=== PATIENT | female | born 1945 | race Caucasian/White ===

== ENCOUNTER → 2017-08-09 07:13 | Outpatient (CLI) | payer OTHER, SELFPAY ==
[2017-08-09 09:06] LABS: AST(SGOT) 24 U/L (15-37); Alanine Aminotransfer ALT/SGPT 25 U/L (13-56); Albumin, Serum 3.6 g/dL (3.2-5.0); Alkaline Phosphatase 74 U/L (45-117); Bilirubin, Direct 0.12 mg/dL (0.00-0.30); Cholesterol 143 mg/dL (200); Globulin 3.3 g/dL (2.2-4.2); High Density Lipoprotein 54 mg/dL; Protein, Total 6.9 g/dL (6.4-8.2); Triglycerides 86 mg/dL; Very Low Density Lipoprotein 17 mg/dL (5-40)
--- NOTE | 2017-08-09 14:49 | ECHOD_ITS ---
Reason For Study: CAD/ASHD Procedure This was a 2D Doppler, Color Flow transthoracic echocardiogram. Exam performed in department. Left Ventricle Normal LV size. Left ventricular systolic function is normal. The estimated ejection fraction is 65 %. Transmitral diastolic flow velocities suggest mild (stage 1) diastolic dysfunction (reversed pattern). No regional wall motion abnormalities noted. Right Ventricle Normal RV size. Normal systolic function. Atria Normal left atrium. Normal right atrium. Mitral Valve Normal mitral valve. Mild (1+) eccentric mitral valve insufficiency. Tricuspid Valve Normal tricuspid valve. Trivial tricuspid valve insufficiency. Normal pulmonary artery pressure. Aortic Valve Normal aortic valve. Trisinus/trileaflet aortic valve. Pulmonic Valve Normal pulmonic valve. Great Vessels Normal aortic root. The pulmonary artery is normal size. Normal inferior vena cava. Pericardium/Pleural No pericardial effusion. MMode/2D Measurements & Calculations LVIDd: 3.7 cm IVSd: 1.2 cm Ao root diam: 3.3 cm LVIDs: 2.0 cm LVPWd: 0.93 cm LA dimension: 3.7 cm FS: 45.0 % LAV(MOD-bp): 57.2 ml LA A4 area: 18.7 cm2 RA A4 area: 13.6 cm2 LAV(MOD-bp) Indexed: 29.5 ml/m2 LAV(MOD-sp2): 62.9 ml LAV(MOD-sp4): 52.6 ml Time Measurements MV dec time: 0.23 sec Doppler Measurements & Calculations MV E max young: 77.1 cm/sec Lat Peak E' Young: 11.3 cm/sec Med Peak E' Young: 9.8 cm/sec MV A max young: 98.7 cm/sec E/E' lat: 6.8 E/E' med: 7.9 MV E/A: 0.78 MV V2 max: 108.8 cm/sec MV P1/2t max young: 99.2 cm/sec Ao V2 max: 149.3 cm/sec MV max P.7 mmHg MV P1/2t: 75.3 msec Ao max P.9 mmHg MV V2 mean: 59.1 cm/sec MV dec slope: 386.0 cm/sec2 Ao V2 mean: 89.2 cm/sec MV mean P.7 mmHg MVA(P1/2t): 2.9 cm2 Ao mean P.8 mmHg MV V2 VTI: 31.2 cm Ao V2 VTI: 29.1 cm LV V1 max: 107.3 cm/sec PA V2 max: 110.7 cm/sec LV V1 max P.6 mmHg LV V1 mean P.1 mmHg LV V1 mean: 65.7 cm/sec LV V1 VTI: 24.9 cm Interpretation Summary Normal LV size. Left ventricular systolic function is normal. The estimated ejection fraction is 65 %. Transmitral diastolic flow velocities suggest mild (stage 1) diastolic dysfunction (reversed pattern). Structurally normal valves. Ordering Physician: Jin Ellis Referring Physician: Jin Ellis Performed By: Landen Simpson RCS
== END ==
PROVIDERS: Family Provider Student in an Organized Health Care Education/Training Program; PCP Student in an Organized Health Care Education/Training Program; Visit Provider Internal Medicine Cardiovascular Disease
DX: I25.10 Atherosclerotic heart disease of native coronary artery without angina pectoris (principal); E78.5 Hyperlipidemia, unspecified
CPT/HCPCS: 36415; 80061; 80076; 93306

== ENCOUNTER → 2017-08-11 06:06 | Outpatient (CLI) | payer OTHER, SELFPAY ==
--- NOTE | 2017-08-11 09:23 | STRESSREP ---
Stress Test Report Pharmacologic myocardial perfusion stress test. 72-year-old lady with a history of shortness of breath. Dictations: Aspirin Crestor vitamin D. Stress protocol: Resting EKG demonstrates normal sinus rhythm with a rate of 69 bpm normal intervals and noted resting blood pressure is 132/88. 0.4 mg of regadenoson was infused per usual protocol followed Intravenous saline flush injection continuous EKG monitoring was performed. The maximum heart rate attained was 91 bpm which was 61% maximum predicted heart rate the maximum workload attained was 1 metabolic equivalent. At rest there were no ST or T-wave changes noted suggest abnormal flow reserve at peak infusion no ST or T-wave changes were noted suggest ischemia. The resting blood pressure is 132/88 with a final blood pressure 132/80. No clinical angina was noted. Myocardial perfusion protocol. 10.9 mCi of technetium 99m sestamibi was injected at rest. 0.4 mg of regadenoson was infused per usual protocol peak infusion 32.4 mCi of technetium 99m sestamibi was injected stress images were obtained stress and rest images were reconstructed and compared in the short axis vertical long and horizontal long axis. Gated images were also obtained pre- Perfusion SPECT analysis: Review of the stress images demonstrate normal uptake of tracer noted in all areas of the myocardium. The resting images similarly demonstrate normal uptake of tracer noted in all areas of the myocardium. No evidence of reversibility is noted suggest ischemia no previous infarct is noted. Gated SPECT analysis: The gated ejection fraction is 78%. Conclusion: Normal pharmacologic myocardial perfusion stress test. Preserved ejection fraction.
== END ==
PROVIDERS: Family Provider Student in an Organized Health Care Education/Training Program; PCP Student in an Organized Health Care Education/Training Program; Visit Provider Internal Medicine Cardiovascular Disease
DX: I25.10 Atherosclerotic heart disease of native coronary artery without angina pectoris (principal)
CPT/HCPCS: 78452; 93017; A9500; A4216; J2785

== ENCOUNTER 2017-12-17 08:00 | Outpatient (RCR) | payer OTHER, SELFPAY ==
--- NOTE | 2018-01-13 14:02 | HP.PT.NRP ---
HP - Discharge Summary (1) - Patient Information ZULEYKA GAMEZ was seen in my office for initial evaluation on 07/06/17. The following Plan of Care was established for this patient: Initial Frequency: 1-2x /Week Initial Duration: 6 Months - Anticipated Interventions Manual Therapy Techniques to Include: Functional dry needling For the Purpose of:: To improve nutrient delivery to tissue, To increase oxygenation perfusion This patient was last seen in our office . Pertinent comments regarding their Physical therapy will appear below: At this point I will be discontinuing this patient from physical therapy. I would be happy to see this patient again in the future if found appropriate by the physician. Thank you! Rosanna Sandoval
== END 2017-12-17 19:00 | disposition home or self-care (01) ==
LOC: PT 08:00
PROVIDERS: Family Provider Student in an Organized Health Care Education/Training Program; PCP Student in an Organized Health Care Education/Training Program; Visit Provider Podiatrist
DX: M79.671 Pain in right foot (principal); M79.672 Pain in left foot
CPT/HCPCS: 97110

== ENCOUNTER → 2018-11-25 08:14 | Outpatient (CLI) | payer OTHER, SELFPAY ==
[2018-09-01 10:10] VITALS: BMI 29.2
[2018-11-25 09:02] LABS: AST(SGOT) 19 U/L (15-37); Alanine Aminotransfer ALT/SGPT 25 U/L (13-56); Albumin, Serum 3.5 g/dL (3.2-5.0); Alkaline Phosphatase 90 U/L (45-117); Anion Gap 4 (5-15); BUN 16 mg/dL (7-18); BUN/Creat Ratio 17.1 RATIO (10-20); Bilirubin, Direct 0.16 mg/dL (0.00-0.30); Calcium,Total 8.7 mg/dL (8.5-10.1); Chloride 110 mmol/L (98-107); Cholesterol 147 mg/dL (200); Creatinine, Serum 0.94 mg/dL (0.55-1.02); EST Glomerular Filtration Rate 63 mL/min (>60); Est Glom Filt Rate - Afr Amer 76 mL/min (>60); Globulin 3.6 g/dL (2.2-4.2); Glucose 96 mg/dL (74-106); High Density Lipoprotein 58 mg/dL; Potassium 4.2 mmol/L (3.5-5.1); Protein, Total 7.1 g/dL (6.4-8.2); Sodium Level 141 mmol/L (136-145); Triglycerides 78 mg/dL; Very Low Density Lipoprotein 16 mg/dL (5-40)
== END ==
PROVIDERS: Family Provider Student in an Organized Health Care Education/Training Program; PCP Student in an Organized Health Care Education/Training Program; Referring Provider Internal Medicine Cardiovascular Disease; Visit Provider Internal Medicine Cardiovascular Disease
DX: I25.10 Atherosclerotic heart disease of native coronary artery without angina pectoris (principal); E78.5 Hyperlipidemia, unspecified
CPT/HCPCS: 36415; 80048; 80061; 80076

== ENCOUNTER → 2018-12-14 08:22 | Outpatient (CLI) | payer OTHER, SELFPAY ==
[2018-09-01 10:10] VITALS: BMI 29.2
--- NOTE | 2018-12-14 08:34 | RAD_ITS ---
STUDY: X-RAY - ESOPHAGUS (BARIUM SWALLOW) WITH FLUOROSCOPY REASON FOR EXAM: Female, 73 years old. Dyspnea. Possible gastroesophageal reflux. TECHNIQUE: 18 view(s) of the esophagus were obtained following swallowing of barium. FLUOROSCOPY TIME (if supplied): (0:38) minutes/seconds COMPARISON: None. FINDINGS: There is no demonstrated esophageal foreign body. There is no demonstrated stricture or mucosal abnormality. Normal gastroesophageal junction, without a demonstrated hiatal hernia. The patient ingested a 12 mm tablet barium. The tablet is trapped at the gastroesophageal junction. There is atherosclerotic calcification of the aortic arch with tortuosity of the descending aorta. Normal visualized pulmonary parenchyma. Normal visualized osseous structures of the thorax. RAD/Esophagus Only IMPRESSION: The ingested 12 mm tablet of barium is trapped at the gastroesophageal junction. Electronically Signed: Maxwell Stewart, at 14:39 EDT , Service support ,
== END ==
PROVIDERS: Family Provider Student in an Organized Health Care Education/Training Program; PCP Student in an Organized Health Care Education/Training Program; Referring Provider Otolaryngology Otolaryngology/Facial Plastic Surgery; Visit Provider Otolaryngology Otolaryngology/Facial Plastic Surgery
DX: K21.9 Gastro-esophageal reflux disease without esophagitis (principal)
CPT/HCPCS: 74220

== ENCOUNTER 2019-02-08 16:00 | Outpatient (RCR) | payer OTHER, SELFPAY ==
[2018-09-01 10:10] VITALS: BMI 29.2
--- NOTE | 2018-09-20 15:51 | HP.PTEVAL ---
Patient's Visit Information ZULEYKA GAMEZ is a 73 year old F referred to Physical Therapy by LAUREL ZEE with a diagnosis of left rotator cuff tear supra subscapularis, bicep tenodesis, labral repair. Date of Evaluation: 09/19/18 Physical Therapist: Braden Hernandez, PT, SIMON, SCS, CSCS - Visit Plan Frequency: 1-2x /Week Duration: 2 Months Plan: Plan to see Mrs gamez 2xweek for 8-10 weeks depending on progress. She will be traveling frequesntly during this time period - Subjective Findings: Lala states that she began to experience left sided shoulder pain about a year ago. She states is was a gradual onset. Prior to surgery she rated her pain at 7 or 8/10. She was unable to raise her arm abover her head or swim. - Pain Left Shoulder Pain Intensity (Out of 10): 2 Pain Intensity Range: 5 Comment: 0-2 rest slightly higher with activity. pain noted over left bicep area. - Objective Mrs Gamez presents with a well healed incision there is no seepage or drainage. This right hand dominant individual displayed a grib strength of 50 Right 30 left. She denies any numbness or tingling. PROM is 125 flexion 90 abduction, 45 degrees external rotation. Int Rotation and MMT was not tested at this time but she has preserved rotator cuff strength. - Goals Goal 1:: Understand the her condition and apropriate recovery Goal Time Frame: 1 Week Goal 2:: Return DEMO phase 1 HEP Goal Time Frame: 1 Week Goal 3:: Improve ROM by 10% Goal Time Frame: 1 Week Goal 4:: Strength as approporate Goal Time Frame: 6-8 Weeks - Rehabilitation Potential Physical Therapy Diagnosis: Same Rehabilitation Potential: Good - Anticipated Interventions Patient/Client Instruction: Educate patient on: Condition, Plan of Care For the Purpose of:: To decrease pain, To decrease swelling/inflammation, To increase ROM, To improve self management Therapeutic Exercise to Include: Strength training, Endurance training For the Purpose of:: To improve ability to perform ADL's, To increase flexibility/ROM Functional Training to Include: ADL Training For the Purpose of:: To increase ROM, To improve ability to perform ADL's, To increase tolerance to activity/condition/position TENS: Yes - PRN Ultrasound (thermal/non thermal): Yes - PRN Thank you for the opportunity to evaluate your patient. For Medicare and Medicare HMO plans, please review the plan of care and approve it. It will need to be FAXED BACK to us at [phone] for Medicare purposes. For Medicare only, by signing this I certify the plan of care. Please let me know if there are questions or concerns regarding this plan of care. Physician Signature: Date:
--- NOTE | 2019-03-14 11:35 | HP.PTDCSUM ---
HP - PT D/C Summary It has been my pleasure to treat ZULEYKA GAMEZ under orders from LAUREL ZEE, for the diagnosis of left rotator cuff tear supra subscapularis, bicep tenodesis, labral repair for a total of 14 visit(s). Discharge Date: 03/14/19 Please see the following information for a summary of their discharge status. - Subjective Subjective: She has no pain in her rotator cuff and is well preserved, she has begun to experience bicep pain after playing with her grand kids several weeks prior - Pain Left Shoulder Pain Intensity (Out of 10): 1 - Overall Improvement % Improvement: 80 - Objective Objective/Function: Less tender over bicep. Asked Lala to get a bandit elbow brace and place over proximal bicep. - Goals Goal 1:: Understand the her condition and apropriate recovery Goal Progress: Goal Met Goal 2:: Return DEMO phase 1 HEP Goal Progress: Goal Met Goal 3:: Improve ROM by 10% Goal Progress: Progressing Goal 4:: Strength as approporate - Plan Plan: Tender along bicep groove, would like to do an ultrasound to see if partially torn. - D/C Information Discharge Comments: Dear Dr Maria Antonia Reeves is expected to follow up with you around the holidays. While her rotator is well preserved she began to experience what I consider bicep pain over the last several weeks. I'm discharging her at this time and have provided her with a phase 3 strengthing program plus we have a personal injury law specialist. If you have any questions or concerns please contact me at your convenience. If there are questions or concerns regarding this patient's physical therapy, please feel free to call me at [phone]. Thank you for the referral of this patient. Sincerely, Braden Hernandez, PT, SIMON, SCS, CSCS
== END 2019-02-08 19:00 | disposition home or self-care (01) ==
LOC: PT 16:00
PROVIDERS: Family Provider Student in an Organized Health Care Education/Training Program; PCP Student in an Organized Health Care Education/Training Program
DX: Z98.890 Other specified postprocedural states (principal)
CPT/HCPCS: 97035; 97110; 97140; 97162

== ENCOUNTER 2020-02-27 17:36 | Inpatient (IN) | payer OTHER, MEDICARE, SELFPAY ==
[2019-09-13 14:51] VITALS: BMI 29.4
[2020-02-27] VITALS (12 sets, daily range): BP systolic 112–131; BP diastolic 55–85; PULSE 86–147; RESP 17–25; TEMP 36–37.2; O2SAT 93–100; BMI 29.8; BMI 31.4
--- NOTE | 2020-02-27 17:41 | EKG12_ITS ---
Test Reason : RHY CHANGE Blood Pressure : / mmHG Vent. Rate : 130 BPM Atrial Rate : 108 BPM P-R Int : 000 ms QRS Dur : 098 ms QT Int : 300 ms P-R-T Axes : 000 015 177 degrees QTc Int : 441 ms Atrial fibrillation with rapid ventricular response Nonspecific ST and T wave abnormality Abnormal ECG Confirmed by VALERIE GOODE, JOHN ([id number]), business editor KRISTIN MANN ([id number]) on 02/28/2020 1:42:30 PM Referred By: Thomas Mcallister Confirmed By:KRYSTYNA PADILLA MD
--- NOTE | 2020-02-27 17:59 | ED.DCSUM_ITS ---
History of Present Illness Chief Complaint: Shortness of Breath Narrative: This patient is a 74-year-old female who presents with shortness of breath. She initially became ill on Wednesday, 4 days ago. She complains of shortness of breath mild headache body aches. She complains of lower back and neck pain. No chest pain or abdominal pain. She does complain of nausea with dry heaving. No actual emesis. She denies diarrhea. She has a mild runny nose which she states is chronic and unchanged. No sore throat. No congestion. She developed a mild cough today. She did have an outpatient test for Covid which was reportedly negative. She spoke to Dr. Yosi Cole who advised that she be evaluated here in the emergency department. Past Medical History - Allergies and Home Meds Allergies/Adverse Reactions: Allergies niacin Adverse Reaction (Verified 02/27/20 17:36) flushing oxycodone Adverse Reaction (Verified 02/27/20 17:36) Itching Primary Care Physician: Quentin Carter DO [Primary Care Provider] - Past Medical History: - - Hyperlipidemia Review of Systems All systems negative except as indicated General: Denies: Fever Eyes: Denies: Visual changes - bilaterally ENT: Reports: Rhinorrhea Cardiovascular: Denies: Chest pain Respiratory: Reports: Dyspnea, Cough. Denies: Sputum Gastrointestinal: Reports: Nausea. Denies: Abdominal pain, Diarrhea Musculoskeletal: Reports: Myalgias, Arthralgias, Neck pain, Back pain Skin: Denies: Rash Neurological: Reports: Headache Hematologic: Denies: Easy bruising Allergy: Denies: Uticaria Physical Exam Vital Signs/Narrative: Vital Signs Temp Pulse Resp BP Pulse Ox 02/27/20 17:37 96.8 F L 102 H 17 130/67 H 95 Inital Vital Signs reviewed: Yes General: Well nourished Head: Normocephalic Eyes: EOMI ENT: Moist mucous membranes Neck: Supple Cardiovascular: Regular rhythm, Tachycardia Respiratory: No distress, CTA bilaterally. Negative for: Rales, Rhonchi, Wheezing Abdomen: Soft, Nontender Extremities: Edema Skin: Normal color Neurological: Alert Psychological: Normal affect Diagnostic/Tx/Re-eval Impressions Chest X-Ray 02/27/20 18:15 IMPRESSION: Possible mild atelectasis or scarring in the lung bases, otherwise lungs clear. Electronically Signed: Jim Auguste MD at 18:31 EST , Service support , Venous Duplex 02/27/20 19:22 IMPRESSION: Normal venous Doppler ultrasound of the bilateral lower extremities. Electronically Signed: Olvin Delgado MD at 20:31 EST , Service support , 02/27/20 18:15 Chest 1 View (Portable) [RAD] Stat 02/27/20 20:01 CT Chest [Chest without Contrast] [CT] Stat 02/27/20 17:55 Mucosa - Nose SARS-CoV-2 Antigen (Rapid) - Final SARS-CoV-2 (COVID 19) Laboratory Results 02/27/20 02/27/20 02/27/20 17:57 17:57 17:57 WBC 17.5 H RBC 5.03 Hgb 15.0 Hct 44.7 MCV 88.9 MCH 29.8 MCHC 33.6 RDW Std Deviation 46.3 H RDW Coeff of Lonnie 14.3 Plt Count 42 L* MPV 12.5 H Immature Gran % (Auto) 1.400 H Neut % (Auto) 82.6 H Lymph % (Auto) 8.9 L Parker % (Auto) 6.0 Eos % (Auto) 0.9 Baso % (Auto) 0.2 Absolute Neuts (auto) 14.5 H Absolute Lymphs (auto) 1.56 Nucleated RBC % 0 Differential Comment SCANNED Diff Path Review May foll D-Dimer Quant (PE/DVT) Sodium 137 Potassium 2.8 L Chloride 105 Carbon Dioxide 20.0 L Anion Gap 12 BUN 76 H Creatinine 2.49 H Estim Creat Clear Calc 18.84 Est GFR (MDRD) Af Amer 24 L Est GFR (MDRD) Non-Af 20 L BUN/Creatinine Ratio 30.5 H Glucose 125 H Lactic Acid Calcium 8.9 Total Bilirubin 1.20 H Direct Bilirubin 0.75 H AST 37 ALT 34 Alkaline Phosphatase 468 H Troponin I 0.031 B-Natriuretic Peptide 579.1 H Total Protein 6.9 Albumin 2.6 L Globulin 4.3 H Urine Color Urine Clarity Urine pH Ur Specific [place] Urine Protein Urine Glucose (UA) Urine Ketones Urine Occult Blood Urine Nitrite Urine Bilirubin Urine Urobilinogen Ur Leukocyte Esterase Urine RBC Urine WBC Ur Squamous Epith Cells Urine Bacteria Urine Mucus 02/27/20 02/27/20 02/27/20 17:57 20:00 20:20 WBC RBC Hgb Hct MCV MCH MCHC RDW Std Deviation RDW Coeff of Lonnie Plt Count MPV Immature Gran % (Auto) Neut % (Auto) Lymph % (Auto) Parker % (Auto) Eos % (Auto) Baso % (Auto) Absolute Neuts (auto) Absolute Lymphs (auto) Nucleated RBC % Differential Comment Diff Path Review D-Dimer Quant (PE/DVT) 11.77 H* Sodium Potassium Chloride Carbon Dioxide Anion Gap BUN Creatinine Estim Creat Clear Calc Est GFR (MDRD) Af Amer Est GFR (MDRD) Non-Af BUN/Creatinine Ratio Glucose Lactic Acid 1.9 Calcium Total Bilirubin Direct Bilirubin AST ALT Alkaline Phosphatase Troponin I B-Natriuretic Peptide Total Protein Albumin Globulin Urine Color Yellow Urine Clarity Cloudy Urine pH 5.0 Ur Specific [place] 1.015 Urine Protein 30 H Urine Glucose (UA) Normal Urine Ketones Negative Urine Occult Blood 150 H Urine Nitrite Negative Urine Bilirubin Negative Urine Urobilinogen Normal Ur Leukocyte Esterase 500 H Urine RBC 0-5 SEEN Urine WBC 10-25 SEEN Ur Squamous Epith Cells 5-10 SEEN Urine Bacteria 1+ Urine Mucus 0 SEEN - Medical Decision Making Patient underwent extensive testing as above. COVID-19 testing returned positive for antigen. Her laboratory studies returned notable for leukocytosis with a white count of greater than 17,000. She also has evidence of an acute ki dney injury with creatinine of 2.49 which is up from previous normal of 0.8. Lactic acid is normal. She does have elevation of her bilirubin as well. Cause of this is unclear. At the time of my evaluation pulse ox was 91% she was placed on oxygen via nasal cannula. Chest x-ray does not show infiltrates. There is mild atelectasis. Given the known coagulopathy of Covid with her hypoxia this raise concern for pulmonary embolism. D-dimer was checked which is greater than 11. I am unable to perform a CT angiogram of the chest due to her acute renal failure. Therefore she was empirically started on anticoagulation with IV heparin. Her platelets are 42. I did discuss this with Dr. Fleming, hematology, prior to starting anticoagulation and he did recommend heparin. Patient was given IV Decadron for Covid. Her urinalysis also does show evidence of UTI. She was given IV Zosyn. Patient was discussed with the hospitalist Dr. Mcallister, straightener and aligner Dr. Dick, scientific programmer analyst Dr. Fleming, cardiology- Dr. Ellis - Critical Care Time Critical care time (excluding procedures): 30-74 minutes, Discussing w/Patient &/or Family/Coder Operator, Discussing w/Consultants, Arranging Admission or Transfer ED Disposition - Plan for ED Patient: Disposition: Acute Care [facility] Diagnosis: COVID-19, Pulmonary embolism, Thrombocytopenia, UTI (urinary tract infection), ANGELICA (acute kidney injury) Referrals: Quentin Carter DO [Primary Care Provider] -
[2020-02-27 18:15] LABS: Absolute Lymphocyte Count 1.56 X10^3/uL (0.83-4.51); Absolute Neutrophil Count 14.5 X10^3/uL (2.0-7.7); Basophil# 0.03 X10^3/uL; Basophil% 0.2 % (0-1); Eosinophil# 0.16 X10^3/uL; Eosinophils% 0.9 % (0-5); Hematocrit 44.7 % (37-47); Lymphocyte # 1.56 X10^3/ul (4.0); Lymphocyte % 8.9 % (19-41); Mean Corp Hgb Conc 33.6 g/dL (32-36); Mean Corpuscular Hgb 29.8 pg (27.0-32.0); Mean Corpuscular Volume 88.9 fL (81-99); Mean Platelet Vol. 12.5 fl (6.2-12.0); Monocyte# 1.05 X10^3/uL; NRBC Flagged by Analyzer 0 % (0-5); Neutrophil # 14.49 X10^3/uL (2.7-7.7); Neutrophil % 82.6 % (47-70); POSITIVE COUNT YES; POSITIVE MORPHOLOGY YES; RBC Distribution Width CV 14.3 % (11.6-14.6); RBC Distribution Width SD 46.3 fl (35.1-43.9); Red Blood Count 5.03 M/mm3 (4.2-5.4); White Blood Count 17.5 K/mm3 (4.4-11.0)
--- NOTE | 2020-02-27 18:15 | RAD_ITS ---
STUDY: X-RAY CHEST REASON FOR EXAM: Female, 74 years old. SOB, COUGH, FATIGUE, ACHES SINCE WEDNESDAY. TECHNIQUE: Single AP portable view of the chest. COMPARISON: None. FINDINGS: The lungs are adequately expanded. Mild scarring and/or subsegmental atelectasis suggested in both lung bases. No effusions. There is no demonstrated pleural abnormality. There is mild cardiac enlargement. Normal mediastinum and josé miguel. Normal visualized pulmonary arteries. Normal visualized aortic arch and descending thoracic aorta. Normal visualized thoracic spine. There is degenerative osteoarthritis of the bilateral shoulders. There is no demonstrated abnormality of the visualized soft tissue structures of the upper abdomen. RAD/Chest 1 View (Portable) IMPRESSION: Possible mild atelectasis or scarring in the lung bases, otherwise lungs clear. Electronically Signed: Jim Auguste MD at 18:31 EST , Service support ,
[2020-02-27 18:21] LABS: Differential Indicated SCAN CRITERIA MET; Platelet Count 42 K/mm3 (150-450)
[2020-02-27 18:30] LABS: AST(SGOT) 37 U/L (15-37); Albumin, Serum 2.6 g/dL (3.2-5.0); Alkaline Phosphatase 468 U/L (45-117); BUN 76 mg/dL (7-18); BUN/Creat Ratio 30.5 RATIO (10-20); Calcium,Total 8.9 mg/dL (8.5-10.1); Creatinine, Serum 2.49 mg/dL (0.55-1.02); EST Glomerular Filtration Rate 20 mL/min (>60); Est Glom Filt Rate - Afr Amer 24 mL/min (>60); Estimated Creatinine Clearance 18.84 ml/min; Globulin 4.3 g/dL (2.2-4.2); Glucose 125 mg/dL (74-106); Protein, Total 6.9 g/dL (6.4-8.2)
[2020-02-27 18:31] LABS: Alanine Aminotransfer ALT/SGPT 34 U/L (13-56); Anion Gap 12 (5-15); Bilirubin, Direct 0.75 mg/dL (0.00-0.30); Chloride 105 mmol/L (98-107); Potassium 2.8 mmol/L (3.5-5.1); Sodium Level 137 mmol/L (136-145)
[2020-02-27 18:36] LABS: Differential Comment SCANNED
[2020-02-27 18:45] LABS: BNP,B-Type NATRIURETIC PEPTIDE 579.1 pg/mL (0-100)
[2020-02-27 18:49] LABS: D-Dimer Quantitative (DVT/PE) 11.77 FEU/ug/m (0.27-0.49)
--- NOTE | 2020-02-27 19:22 | US_ITS ---
STUDY: VENOUS DOPPLER ULTRASOUND - BILATERAL LOWER EXTREMITIES REASON FOR EXAM: Female, 74 years old. ELEVATED D DIMER COVID TECHNIQUE: Ultrasound evaluation of the deep vein system to include martin-scale imaging and compression was performed. Martin-scale imaging and Doppler sonographic evaluation, including duplex spectral analysis and qualitative color flow sonography, was performed. COMPARISON: None. FINDINGS: RIGHT LEG Common Femoral Vein: Normal compression, spontaneity and augmentation. Normal color Doppler. Common Femoral Vein/Greater Saphenous Junction: Normal compression, spontaneity and augmentation. Normal color Doppler. Deep Femoral Vein: Normal compression, spontaneity and augmentation. Normal color Doppler. Femoral Proximal: Normal compression, spontaneity and augmentation. Normal color Doppler. Femoral Middle: Normal compression, spontaneity and augmentation. Normal color Doppler. Femoral Distal: Normal compression, spontaneity and augmentation. Normal color Doppler. Popliteal Vein: Normal compression, spontaneity and augmentation. Normal color Doppler. Posterior Tibial Vein: Normal compression, spontaneity and augmentation. Normal color Doppler. Peroneal Vein: Normal compression, spontaneity and augmentation. Normal color Doppler. LEFT LEG Common Femoral Vein: Normal compression, spontaneity and augmentation. Normal color Doppler. Common Femoral Vein/Greater Saphenous Junction: Normal compression, spontaneity and augmentation. Normal color Doppler. Deep Femoral Vein: Normal compression, spontaneity and augmentation. Normal color Doppler. Femoral Proximal: Normal compression, spontaneity and augmentation. Normal color Doppler. Femoral Middle: Normal compression, spontaneity and augmentation. Normal color Doppler. Femoral Distal: Normal compression, spontaneity and augmentation. Normal color Doppler. Popliteal Vein: Normal compression, spontaneity and augmentation. Normal color Doppler. Posterior Tibial Vein: Normal compression, spontaneity and augmentation. Normal color Doppler. Peroneal Vein: Normal compression, spontaneity and augmentation. Normal color Doppler. US/Venous Duplex Imag/Geraldo Extrem IMPRESSION: Normal venous Doppler ultrasound of the bilateral lower extremities. Electronically Signed: Olvin Delgado MD at 20:31 EST , Service support ,
--- NOTE | 2020-02-27 20:01 | CT_ITS ---
STUDY: CT CHEST WITHOUT CONTRAST REASON FOR EXAM: Female, 74 years old. COVID, ELEV D-DIMER, ELEV WBC, SOB, COUGH, FATIGUE, ACHES RADIATION DOSAGE (If Supplied By Facility): CTDIvol = ( 17.19 ) mGy, DLP = ( 588.50 ) mGycm TECHNIQUE: Transaxial imaging was performed without the administration of intravenous contrast material. Individualized dose optimization techniques were used for this CT. COMPARISON: None. FINDINGS: There is hyperinflation of the lungs consistent with chronic obstructive lung disease (COPD). Diffuse interstitial thickening is may represent fibrosis and/or mild interstitial edema. Patchy and streaky segments of pulmonary opacity seen in both lower lobes, worse on the right. Findings may represent scarring, atelectasis, and/or infiltrate. Thickening with nodularity seen of the right minor fissure, with nodules as much as 6 mm on axial image 60, and the thickening and nodules aren''t well seen on sagittal images 70-100. These findings are probably inflammatory or neoplastic disease is not excluded. Trace right pleural effusion. Normal heart and pericardium. There are calcifications of the coronary arteries. Although no gross mediastinal or hilar mass or adenopathy is seen, adenopathy is difficult to exclude without IV contrast was not given. In fact, there is suggestion of enlargement of the right hilum which could be adenopathy and neoplasm. Normal unenhanced pulmonary arteries. There is atherosclerotic calcification of the aortic arch with tortuosity and elongation of the aortic arch and descending thoracic aorta. There are multi-level degenerative changes of the thoracic spine. There is no gross acute abnormality of the visualized upper abdomen. CT/Chest without Contrast IMPRESSION: Exam limited by the absence of IV contrast. COPD. Irregular densities primarily in the lower lung lang[place] consistent with scarring, atelectasis, and/or infiltrate. Thickening and nodularity seen of the minor fissure, likely post inflammatory but neoplastic disease is not excluded. Possible right hilar adenopathy. Electronically Signed: Jim Auguste MD at 22:00 EST , Service support ,
[2020-02-27] MEDS: Potassium Chloride 10mEq/100mL 10 MEQ/100 ML IV.SOLN. 100 MEQ IV BOLUS ×3 (20:13→23:19)
[2020-02-27] MEDS: 0.9% Normal Saline 1,000 ML 999 ML IV ×2 (20:13→20:14)
[2020-02-27 20:38] LABS: Mucous, Urine 0 SEEN /hpf (<or=2+)
[2020-02-27 20:40] LABS: Color, Urine Yellow (Yellow); Glucose, Dipstick Normal (Normal); Ketone-Dipstick Negative (Negative); Leukocyte Esterase-Dipstick 500 /ul (Negative); Nitrite-Dipstick Negative (Negative); Occult Blood-Urine 150 /ul (Negative); Protein-Dipstick 30 mg/dl (Negative); Specific Gravity, Urine 1.015 (1.002-1.030); Urine Bilirubin Dipstick Negative (Negative); Urine Clarity Cloudy (Clear); Urine Urobilinogen Normal (Normal)
[2020-02-27 20:46] LABS: Bacteria 1+ /hpf (None Seen); Squamous Epithelial Cells - UA 5-10 SEEN /hpf (5-10)
[2020-02-27 20:47] LABS: Red Blood Cells-Urine 0-5 SEEN /hpf (0-5); White Blood Cells 10-25 SEEN /hpf (0-5)
[2020-02-27] MEDS: dexAMETHasone 4 MG/ML Vial 6 MG IV (20:52)
[2020-02-27 21:18] LABS: Lactic Acid 1.9 mmol/L (0.4-1.9)
[2020-02-27 21:38] LABS: International Normalized Ratio 1.1; Prothrombin Time (Protime)PT. 13.8 SECONDS (11.7-14.9)
[2020-02-27 21:39] LABS: Partial Thromboplast Time 33.5 Seconds (24.1-36.2)
[2020-02-27] MEDS: Heparin Injection (Vial) 5,000 UNIT/ML VIAL IV (21:45)
[2020-02-27] MEDS: HEPARIN/D5w 25,000 UNITS 25,000 UNITS/250 ML IV.SOLN. 12 UNITS IV (21:45)
--- NOTE | 2020-02-27 21:58 | PCM.HP.STD ---
Problem List (1) Fatigue Status: Acute Qualifiers: Fatigue type: unspecified Qualified Code(s): R53.83 - Other fatigue (2) Nonproductive cough Status: Acute (3) Body aches Status: Acute (4) Shortness of breath Status: Acute History of Present Illness Date of Admission: 02/27/20 Chief Complaint: Cough, shortness of breath, body aches, fatigue The patient is a 74 year old F was seen in the emergency room at [facility] with chief complaint of nonproductive cough, shortness of breath, body aches, and malaise over the last 3 days. Patient had been checked as an outpatient for COVID-19 using an antigen test and a PCR test both of these tests have been negative. Patient came to the emergency room today for reevaluation. Work-up in the emergency room included a chest x-ray which showed bibasilar atelectasis or scarring but no focal infiltrates, patient's white blood cell count was elevated at 17.5, platelet count was low at 42,000, D-dimer was elevated at 11.77, chemistry profile was remarkable for potassium of 2.8, creatinine of 2.49, BUN of 76, bilirubin of 1.2, alkaline phosphatase of 468, and a beta natruretic peptide of 579. Patient's urinalysis was pending at the time of this dictation. Patient had a COVID-19 antigen test performed in the ER which was positive. Respiratory panel was pending at the time of this dictation. Patient's pulse ox on room air on presentation to the emergency room was 91%. Initially the patient's family and the patient requested transfer to the [facility] in [place] but there were no beds available and eventually felt it would be better for the patient to stay here at this hospital for treatment. Emergency room physician contacted hematology regarding the use of anticoagulants with this patient in lieu of the fact the patient's platelet count was low, it was recommended that the patient be placed on IV heparin for possible PE rather than use Eliquis. Critical care was also contacted and the patient was discussed with critical care. Finally, patient underwent a CT of the chest which is pending at the time of this dictation. Patient was initially given Zosyn in the emergency room due to concerns of urinary tract infection-patient's urinalysis indicated a urinary tract infection with white blood cells and bacteria, patient was given IV potassium replacement and IV fluids in the emergency room. Patient was noted to the ICU for COVID-19 infection, suspected pulmonary embolism, hypoxia, acute kidney injury, and acute cystitis. Past Medical History Past Medical History (Chronic Problems): Chronic Problems (Last Reviewed 09/13/19 @ 15:[address] Jin Ellis MD) Nonobstructive atherosclerosis of coronary artery (Chronic) non obstructive CAD of Prox LAD ~30% per cath 2010 Hyperlipidemia (Chronic) Medical History: Medical History (Last Reviewed 09/13/19 @ 15:[address] Jin Ellis MD) Nonobstructive atherosclerosis of coronary artery (Chronic) I25.10 non obstructive CAD of Prox LAD ~30% per cath 2010 Hyperlipidemia (Chronic) E78.5 Diverticulosis of colon K57.30 Fibromyalgia M79.7 Gastritis without bleeding K29.70 History of nephrolithiasis Z87.442 IBS (irritable bowel syndrome) K58.9 Internal hemorrhoid K64.8 Osteoarthritis M19.90 Vitamin D deficiency E55.9 Arthritis of knee, degenerative (Inactive) M17.10 Allergies niacin Adverse Reaction (Verified 02/27/20 17:36) flushing oxycodone Adverse Reaction (Verified 02/27/20 17:36) Itching Home Medications: Ambulatory Orders Medication Instructions Recorded cholecalciferol (vitamin D3) unit PO QDAY ml 08/04/17 diclofenac sodium 1 % topical gel 2 g TOPICAL BID PRN #100 g 08/04/17 super greens PO 08/04/17 turmeric root extract 1,053 mg 1,320 mg PO QDAY tab 08/04/17 tablet rosuvastatin 5 mg tablet 5 mg PO DAILY 09/13/19 venlafaxine 75 mg tablet 75 mg PO DAILY 09/13/19 Surgical History: Surgical History (Last Reviewed 09/13/19 @ 15:[address] Jin Ellis MD) H/O repair of right rotator cuff Z98.890 History of Z98.891 History of left heart catheterization Onset Date: 03/06/10 Z98.890 non obstructive CAD of Prox LAD ~30% @ [facility] History of tonsillectomy and adenoidectomy Z98.890 left wrist internal fixation History of knee surgery Z98.890 Bilateral History of repair of rotator cuff Onset Date: 07/2018 Z98.890 Smoking Status: Never smoker Tobacco Use: Non-smoker - *Family History Maternal Family History: Family History (Last Reviewed 09/13/19 @ 15:[address] Jin Ellis MD) Father Myocardial infarction Mother Breast cancer CVA (cerebral vascular accident) History Items: No pertinent history Paternal Family History: Family History (Last Reviewed 09/13/19 @ 15:[address] Jin Ellis MD) Father Myocardial infarction Mother Breast cancer CVA (cerebral vascular accident) History Items: No pertinent history Patient Problems: Active and Suspected Problems (Last Reviewed 09/13/19 @ 15:[address] Jin Ellis MD) COVID-19 (Acute) Pulmonary embolism (Acute) Thrombocytopenia (Acute) UTI (urinary tract infection) (Acute) ANGELICA (acute kidney injury) (Acute) Fatigue (Acute) Nonproductive cough (Acute) Body aches (Acute) Shortness of breath (Acute) - Physical Exam Vitals/I&O's: Vital Signs Temp Pulse Resp BP Pulse Ox 97.7 F L 88 20 H 117/55 L 98 02/27/20 20:00 02/27/20 20:00 02/27/20 20:00 02/27/20 20:00 02/27/20 20:00 Oxygen Flow Rate (L/min) 2 Oxygen Delivery Method Nasal Cannula Weight: 83.915 kg Body Mass Index (BMI) 29.8 Intake and Output for Last 24 Hours 02/25/20 02/26/20 02/27/20 23:59 23:59 23:59 Intake Total 1216.65 / 1216.65 Balance 1216.65 / 1216.65 Microbiology Past 72 Hours 02/27/20 17:55 Mucosa - Nose SARS-CoV-2 Antigen (Rapid) - Final SARS-CoV-2 (COVID 19) Laboratory Results 02/27/20 17:55: COVID-19 (SAMIR) Pending 02/27/20 17:57: WBC 17.5 H, RBC 5.03, Hgb 15.0, Hct 44.7, MCV 88.9, MCH 29.8, MCHC 33.6, RDW Std Deviation 46.3 H, RDW Coeff of Lonnie 14.3, Plt Count 42 L*, MPV 12.5 H, Immature Gran % (Auto) 1.400 H, Neut % (Auto) 82.6 H, Lymph % (Auto) 8.9 L, Peach % (Auto) 6.0, Eos % (Auto) 0.9, Baso % (Auto) 0.2, Absolute Neuts (auto) 14.5 H, Absolute Lymphs (auto) 1.56, Nucleated RBC % 0, Differential Comment SCANNED, Diff Path Review July foll 02/27/20 17:57: Sodium 137, Potassium 2.8 L, Chloride 105, Carbon Dioxide 20.0 L, Anion Gap 12, BUN 76 H, Creatinine 2.49 H, Estim Creat Clear Calc 18.84, Est GFR (MDRD) Af Amer 24 L, Est GFR (MDRD) Non-Af 20 L, BUN/Creatinine Ratio 30.5 H, Glucose 125 H, Calcium 8.9, Total Bilirubin 1.20 H, Direct Bilirubin 0.75 H, AST 37, ALT 34, Alkaline Phosphatase 468 H, Troponin I 0.031, Total Protein 6.9, Albumin 2.6 L, Globulin 4.3 H 02/27/20 17:57: B-Natriuretic Peptide 579.1 H 02/27/20 17:57: D-Dimer Quant (PE/DVT) 11.77 H* 02/27/20 17:57: PT 13.8, INR 1.1, APTT 33.5 02/27/20 20:00: Lactic Acid 1.9 02/27/20 20:20: Urine Color Yellow, Urine Clarity Cloudy, Urine pH 5.0, Ur Specific [place] 1.015, Urine Protein 30 H, Urine Glucose (UA) Normal, Urine Ketones Negative, Urine Occult Blood 150 H, Urine Nitrite Negative, Urine Bilirubin Negative, Urine Urobilinogen Normal, Ur Leukocyte Esterase 500 H, Urine RBC 0-5 SEEN, Urine WBC 10-25 SEEN, Ur Squamous Epith Cells 5-10 SEEN, Urine Bacteria 1+, Urine Mucus 0 SEEN Current Medications Heparin Sodium (Porcine) (Heparin Injection (Vial) 5,000 Unit/Ml Vial) 0 unit IV UD PRN; Protocol PRN Reason: dose adjustment Last Admin: 02/27/20 21:45 Dose: 6,000 unit Documented by: Potassium Chloride () 10 meq in 100 mls @ 100 mls/hr IV BOLUS Q1H HOLA Stop: 02/27/20 23:29 Last Admin: 02/27/20 21:49 Dose: 100 mls/hr Documented by: Heparin Sodium/Dextrose () 25,000 units in 250 mls @ 12 mls/hr IV .[id number] HOLA; Protocol Last Admin: 02/27/20 21:45 Dose: 12 units/hr, 0.1 mls/hr Documented by: Assessment/Plan All Active Problems (Last Reviewed 09/13/19 @ 15:[address] Jin Ellis MD) COVID-19 (Acute) Pulmonary embolism (Acute) Thrombocytopenia (Acute) UTI (urinary tract infection) (Acute) ANGELICA (acute kidney injury) (Acute) Fatigue (Acute) Nonproductive cough (Acute) Body aches (Acute) Shortness of breath (Acute)
--- NOTE | 2020-02-27 22:08 | PCM.HP.STD ---
Problem List (1) Fatigue Status: Acute Qualifiers: Fatigue type: unspecified Qualified Code(s): R53.83 - Other fatigue (2) Nonproductive cough Status: Acute (3) Body aches Status: Acute (4) Shortness of breath Status: Acute History of Present Illness Date of Admission: 02/27/20 Chief Complaint: Cough, shortness of breath, body aches, fatigue The patient is a 74 year old F who was seen in the emergency room at [facility] with chief complaint of nonproductive cough, shortness of breath, body aches, and malaise over the last 3 days. Patient had been checked as an outpatient for COVID-19 using an antigen test and a PCR test both of these tests have been negative. Patient came to the emergency room today for reevaluation. Work-up in the emergency room included a chest x-ray which showed bibasilar atelectasis or scarring but no focal infiltrates, patient's white blood cell count was elevated at 17.5, platelet count was low at 42,000, D-dimer was elevated at 11.77, chemistry profile was remarkable for potassium of 2.8, creatinine of 2.49, BUN of 76, bilirubin of 1.2, alkaline phosphatase of 468, and a beta natruretic peptide of 579. Patient's urinalysis was pending at the time of this dictation. Patient had a COVID-19 antigen test performed in the ER which was positive. Respiratory panel was pending at the time of this dictation. Patient's pulse ox on room air on presentation to the emergency room was 91%. Initially the patient's family and the patient requested transfer to the [facility] in [place] but there were no beds available and eventually felt it would be better for the patient to stay here at this hospital for treatment. Emergency room physician contacted hematology regarding the use of anticoagulants with this patient in lieu of the fact the patient's platelet count was low, it was recommended that the patient be placed on IV heparin for possible PE rather than use Eliquis. Critical care was also contacted and the patient was discussed with critical care. Finally, patient underwent a CT of the chest which is pending at the time of this dictation. Patient was initially given Zosyn in the emergency room due to concerns of urinary tract infection-patient's urinalysis indicated a urinary tract infection with white blood cells and bacteria, patient was given IV potassium replacement and IV fluids in the emergency room. Patient was noted to the ICU for COVID-19 infection, suspected pulmonary embolism, hypoxia, acute kidney injury, and acute cystitis. Further note: Patient went into atrial fib with a rate into the 130s and was asymptomatic in the ER, she will be given rate limiting medications by the ER physician prior to her transfer to the ICU. Past Medical History Past Medical History (Chronic Problems): Chronic Problems (Last Reviewed 09/13/19 @ 15:[address] Jin Ellis MD) Nonobstructive atherosclerosis of coronary artery (Chronic) non obstructive CAD of Prox LAD ~30% per cath 2009 Hyperlipidemia (Chronic) Medical History: Medical History (Last Reviewed 09/13/19 @ 15:[address] Jin Ellis MD) Nonobstructive atherosclerosis of coronary artery (Chronic) I25.10 non obstructive CAD of Prox LAD ~30% per cath 2009 Hyperlipidemia (Chronic) E78.5 Diverticulosis of colon K57.30 Fibromyalgia M79.7 Gastritis without bleeding K29.70 History of nephrolithiasis Z87.442 IBS (irritable bowel syndrome) K58.9 Internal hemorrhoid K64.8 Osteoarthritis M19.90 Vitamin D deficiency E55.9 Arthritis of knee, degenerative (Inactive) M17.10 Allergies niacin Adverse Reaction (Verified 02/27/20 17:36) flushing oxycodone Adverse Reaction (Verified 02/27/20 17:36) Itching Home Medications: Ambulatory Orders Medication Instructions Recorded cholecalciferol (vitamin D3) unit PO QDAY ml 08/04/17 diclofenac sodium 1 % topical gel 2 g TOPICAL BID PRN #100 g 08/04/17 super greens PO 08/04/17 turmeric root extract 1,053 mg 1,320 mg PO QDAY tab 08/04/17 tablet rosuvastatin 5 mg tablet 5 mg PO DAILY 09/13/19 venlafaxine 75 mg tablet 75 mg PO DAILY 09/13/19 Surgical History: Surgical History (Last Reviewed 09/13/19 @ 15:[address] 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 Jin Ellis MD) Father Myocardial infarction Mother Breast cancer CVA (cerebral vascular accident) History Items: No pertinent history Paternal Family History: Family History (Last Reviewed 09/13/19 @ 15:[address] Jin Ellis MD) Father Myocardial infarction Mother Breast cancer CVA (cerebral vascular accident) History Items: No pertinent history Review of Systems Constitutional: Reports: Chills, Malaise, Weakness, Fatigue. Denies: Anorexia, Fever Eyes: Denies: Cataracts, Conjunctivae Inflammation, Double vision, Drainage, Redness, Vision Change HEENT: Denies: Difficulty Swallowing, Dysphasia, Ear Pain, Eye Pain, Hearing Changes, Nasal bleeding, Nasal Congestion, Post Nasal Drip Cardiovascular: Denies: Chest Pain, Claudication, Chest Pressure, Chest Tightness, Edema, Palpitations Respiratory: Reports: Cough, Shortness of Breath, Shortness of breath upon exertion. Denies: Sputum production, Wheezing Gastrointestinal: Denies: Abdominal Pain, Constipation, Diarrhea Genitourinary: Denies: Dysuria, Frequency, Hematuria Gynecological: Denies: Breast symptoms Musculoskeletal: Reports: Neck Pain. Denies: Back Pain, Foot Pain, Hand Pain, Joint swelling, Joint Tenderness, Leg Pain Skin: Denies: Jaundice, Pruritis, Rash Neurological: Denies: Blurred vision, Double vision, Change in Speech, Focal weakness, Headaches, Incoordination Psychiatric: Reports: Depression Endocrine: Denies: Change in Body Habitus, Heat/ Cold Intolerance, Polydipsia Hematologic/ Lymphatic: Denies: Anemia, Easy Bruising, Easy Bleeding VTE Information - Inpt Only VTE Present on Admission: Yes - possible PE VTE Mechan Device Prophylaxis: None VTE Pharm Prophylaxis ordered?: No Reason prophylaxis not ordered:: Treatment Not Indicated - Patient will be VTE Suspected: Suspected PE Patient Problems: Active and Suspected Problems (Last Reviewed 09/13/19 @ 15:[address] Jin Ellis MD) COVID-19 (Acute) Pulmonary embolism (Acute) Thrombocytopenia (Acute) UTI (urinary tract infection) (Acute) ANGELICA (acute kidney injury) (Acute) Fatigue (Acute) Nonproductive cough (Acute) Body aches (Acute) Shortness of breath (Acute) - Physical Exam Vitals/I&O's: Vital Signs Temp Pulse Resp BP Pulse Ox 97.4 F L 132 H 24 H 123/69 H 97 02/27/20 22:05 02/27/20 22:05 02/27/20 22:05 02/27/20 22:05 02/27/20 22:05 Oxygen Flow Rate (L/min) 2 Oxygen Delivery Method Nasal Cannula Weight: 83.915 kg Body Mass Index (BMI) 29.8 Intake and Output for Last 24 Hours 02/25/20 02/26/20 02/27/20 23:59 23:59 23:59 Intake Total 1216.65 / 1216.65 Balance 1216.65 / 1216.65 General: Alert, Oriented x3, Cooperative, No apparent distress, Well developed HEENT: Atraumatic, PERRLA, EOMI, Normocephalic Oral: Dry Mucosa Neck: Supple, No JVD, Negative Carotid Bruits, No Nuchal Rigidity, Trachea Midline, Thyroid Normal Size and Texture Lungs: Clear to auscultation, Normal air movement, No rhonchi, No wheeze, No rales Cardiovascular: Regular rate, Regular Rhythm, Normal S1, Normal S2, No murmurs, PMI Normal, No rub noted Abdomen: Bowel Sounds Present, Soft, Non Tender, Non-Distended, No hernias noted Extremities: No clubbing, No cyanosis, No edema, Capillary Refill Less than 3 Seconds Skin: No rashes, No breakdown Musculoskeletal: No Tenderness to Palpation of Joints or Extremities Neurological: Cranial nerves II-XII grossly intact, Neuro grossly intact, Sensory exam intact to light touch and pain, Coordination normal Psych/Mental Status: Normal Affect, Appropriate, Alert and oriented to time, place, person, mood and affect Microbiology Past 72 Hours 02/27/20 17:55 Mucosa - Nose Respiratory Panel (PCR) - Final 02/27/20 17:55 Mucosa - Nose SARS-CoV-2 Antigen (Rapid) - Final SARS-CoV-2 (COVID 19) Laboratory Results 02/27/20 17:55: COVID-19 (SAMIR) Pending 02/27/20 17:57: WBC 17.5 H, RBC 5.03, Hgb 15.0, Hct 44.7, MCV 88.9, MCH 29.8, MCHC 33.6, RDW Std Deviation 46.3 H, RDW Coeff of Lonnie 14.3, Plt Count 42 L*, MPV 12.5 H, Immature Gran % (Auto) 1.400 H, Neut % (Auto) 82.6 H, Lymph % (Auto) 8.9 L, [place] % (Auto) 6.0, Eos % (Auto) 0.9, Baso % (Auto) 0.2, Absolute Neuts (auto) 14.5 H, Absolute Lymphs (auto) 1.56, Nucleated RBC % 0, Differential Comment SCANNED, Diff Path Review May foll 02/27/20 17:57: Sodium 137, Potassium 2.8 L, Chloride 105, Carbon Dioxide 20.0 L, Anion Gap 12, BUN 76 H, Creatinine 2.49 H, Estim Creat Clear Calc 18.84, Est GFR (MDRD) Af Amer 24 L, Est GFR (MDRD) Non-Af 20 L, BUN/Creatinine Ratio 30.5 H, Glucose 125 H, Calcium 8.9, Total Bilirubin 1.20 H, Direct Bilirubin 0.75 H, AST 37, ALT 34, Alkaline Phosphatase 468 H, Troponin I 0.031, Total Protein 6.9, Albumin 2.6 L, Globulin 4.3 H 02/27/20 17:57: B-Natriuretic Peptide 579.1 H 02/27/20 17:57: D-Dimer Quant (PE/DVT) 11.77 H* 02/27/20 17:57: PT 13.8, INR 1.1, APTT 33.5 02/27/20 20:00: Lactic Acid 1.9 02/27/20 20:20: Urine Color Yellow, Urine Clarity Cloudy, Urine pH 5.0, Ur Specific [place] 1.015, Urine Protein 30 H, Urine Glucose (UA) Normal, Urine Ketones Negative, Urine Occult Blood 150 H, Urine Nitrite Negative, Urine Bilirubin Negative, Urine Urobilinogen Normal, Ur Leukocyte Esterase 500 H, Urine RBC 0-5 SEEN, Urine WBC 10-25 SEEN, Ur Squamous Epith Cells 5-10 SEEN, Urine Bacteria 1+, Urine Mucus 0 SEEN Current Medications Heparin Sodium (Porcine) (Heparin Injection (Vial) 5,000 Unit/Ml Vial) 0 unit IV UD PRN; Protocol PRN Reason: dose adjustment Last Admin: 02/27/20 21:45 Dose: 6,000 unit Documented by: Potassium Chloride () 10 meq in 100 mls @ 100 mls/hr IV BOLUS Q1H HOLA Stop: 02/27/20 23:29 Last Admin: 02/27/20 21:49 Dose: 100 mls/hr Documented by: Heparin Sodium/Dextrose () 25,000 units in 250 mls @ 12 mls/hr IV .[id number] HOLA; Protocol Last Admin: 02/27/20 21:45 Dose: 12 units/hr, 0.1 mls/hr Documented by: Assessment/Plan All Active Problems (Last Reviewed 09/13/19 @ 15:[address] Jin Ellis MD) COVID-19 (Acute) Pulmonary embolism (Acute) Thrombocytopenia (Acute) UTI (urinary tract infection) (Acute) ANGELICA (acute kidney injury) (Acute) Fatigue (Acute) Nonproductive cough (Acute) Body aches (Acute) Shortness of breath (Acute) #1 acute COVID-19 infection without pneumonia, with hypoxia-patient will be admitted to ICU, she will be placed on dexamethasone and remdesivir, she will be seen in consultation by infectious diseases tomorrow #2 probable pulmonary embolism-patient's D-dimer is elevated, she cannot have a CTA of the chest at this time due to elevated creatinine, she will be treated with IV heparin for presumed pulmonary embolism, she will be seen by pulmonary medicine tomorrow #3 hypoxia secondary to acute COVID-19 infection-patient's pulse ox will be monitored, supplemental oxygen will be given as needed #4 thrombocytopenia-exact etiology unclear, could be secondary to COVID-19 infection, CBC will be monitored #5 acute cystitis-patient was given Zosyn in the emergency room, she will placed on Rocephin #6 acute kidney injury-patient has no history of chronic kidney disease, creatinine is elevated and she appears dehydrated, I will provide IV fluids and recheck labs #7 elevated liver enzymes-possibly secondary to COVID-19, these will be monitored #8 nonocclusive coronary artery disease #9 hypokalemia-etiology unclear, patient was given potassium replacement, repeat labs will be drawn in the morning #10 elevated beta natruretic peptide-exact etiology unclear, patient does not appear to be in congestive heart failure at this time #11 hyperlipidemia #12 chronic depression-patient is on Effexor #13 new onset atrial fibrillation with rapid ventricular response-patient will be given rate limiting medications by the emergency room physician and possibly will need additional medications in the ICU. Inpatient E&M: [id number] Init Hosp L3
--- NOTE | 2020-02-27 22:17 | ED.RN ---
RN called and spoke with on phone. then spoke with ED physician, Dr. Cisse. Then pt and spoke on phone.
--- NOTE | 2020-02-27 22:23 | EKG12_ITS ---
Test Reason : SOB Blood Pressure : / mmHG Vent. Rate : 099 BPM Atrial Rate : 099 BPM P-R Int : 118 ms QRS Dur : 092 ms QT Int : 350 ms P-R-T Axes : 051 -01 -09 degrees QTc Int : 449 ms Sinus rhythm with occasional Premature ventricular complexes Inferior infarct , age undetermined Abnormal ECG Confirmed by VALERIE GOODE, JOHN ([id number]), online editor KRISTIN MANN ([id number]) on 02/28/2020 1:42:49 PM Referred By: Thomas Mcallister Confirmed By:KRYSTYNA PADILLA MD
[2020-02-27 22:33] LABS: Probe Check PASS; Specimen Processing Control PASS
--- NOTE | 2020-02-27 22:51 | ED.RN ---
prior to admit to ICU- pt became tachycardic in 130s- was waiting for purewick to be placed. EKG done- MD aware of afib.
[2020-02-27] MEDS: dilTIAZem 25 MG/5 ML Vial 15 MG IV BOLUS (23:06)
[2020-02-28] VITALS (36 sets, daily range): BP systolic 103–147; BP diastolic 51–87; PULSE 75–140; RESP 13–34; TEMP 36.3–37.2; O2SAT 93–98
[2020-02-28] MEDS: 0.9% Normal Saline 1,000 ML 125 ML IV (00:24)
[2020-02-28] MEDS: Potassium Chloride 10mEq/100mL 10 MEQ/100 ML IV.SOLN. 100 MEQ IV BOLUS (00:24)
[2020-02-28] MEDS: Ceftriaxone 1 GM/50 ML BAG IV (00:26)
--- NOTE | 2020-02-28 00:53 | PCM.PN.BLA ---
Progress Note Patient in A. fib with RVR on corrected by a Cardizem bolus. Started on a Cardizem drip. Patient on heparin drip for A. fib with RVR. Cardizem and heparin on compatible. Enough data to run of this event with either Cardizem or heparin drip. Was unable to get other IV access. Additional nursing staff will try to get the IV line. If not possible stop heparin drip and put patient on Lovenox 30 mg twice daily. STROKE Vital Signs/Narrative: Vital Signs Temp Pulse Resp BP Pulse Ox 02/28/20 00:00 98.9 F 137 H 21 H 119/87 H 95 02/27/20 23:30 130 H 22 H 126/67 H 93 02/27/20 23:15 129 H 24 H 131/73 H 95 02/27/20 23:02 140 H 21 H 112/78 100 02/27/20 22:51 141 H 02/27/20 22:45 147 H 24 H 125/85 H 97 02/27/20 22:43 98.9 F 142 H 25 H 129/85 H 97 02/27/20 22:05 97.4 F L 132 H 24 H 123/69 H 97 02/27/20 22:00 97.4 F L 88 24 H 123/69 H 97
[2020-02-28] MEDS: Acetaminophen 325 MG Tablet 650 MG PO ×2 (01:21→10:45)
[2020-02-28 04:21] LABS: Absolute Lymphocyte Count 0.57 X10^3/uL (0.83-4.51); Absolute Neutrophil Count 19.5 X10^3/uL (2.0-7.7); Basophil# 0.19 X10^3/uL; Basophil% 0.9 % (0-1); Eosinophil# 0.05 X10^3/uL; Eosinophils% 0.2 % (0-5); Hematocrit 42.5 % (37-47); Hemoglobin 14.4 g/dL (12.0-15.0); Lymphocyte # 0.57 X10^3/ul (4.0); Lymphocyte % 2.6 % (19-41); Mean Corp Hgb Conc 33.9 g/dL (32-36); Mean Corpuscular Hgb 30.1 pg (27.0-32.0); Mean Corpuscular Volume 88.9 fL (81-99); Mean Platelet Vol. 11.9 fl (6.2-12.0); Monocyte# 0.88 X10^3/uL; Monocyte% 4.1 % (0-10); NRBC Flagged by Analyzer 0 % (0-5); Neutrophil # 19.54 X10^3/uL (2.7-7.7); Neutrophil % 90.1 % (47-70); POSITIVE COUNT YES; POSITIVE DIFFERENTIAL YES; POSITIVE MORPHOLOGY YES; RBC Distribution Width CV 14.4 % (11.6-14.6); RBC Distribution Width SD 46.1 fl (35.1-43.9); Red Blood Count 4.78 M/mm3 (4.2-5.4); White Blood Count 21.7 K/mm3 (4.4-11.0)
[2020-02-28 04:33] LABS: Partial Thromboplast Time 44.3 Seconds (24.1-36.2)
[2020-02-28 04:36] LABS: ALB/GLOB Ratio 0.5 RATIO (0.9-2.4); AST(SGOT) 39 U/L (15-37); Alanine Aminotransfer ALT/SGPT 34 U/L (13-56); Albumin, Serum 2.1 g/dL (3.2-5.0); Alkaline Phosphatase 575 U/L (45-117); Anion Gap 11 (5-15); BUN 62 mg/dL (7-18); BUN/Creat Ratio 36.7 RATIO (10-20); Calcium,Total 8.2 mg/dL (8.5-10.1); Chloride 111 mmol/L (98-107); Creatinine, Serum 1.69 mg/dL (0.55-1.02); Differential Indicated SCAN CRITERIA MET; EST Glomerular Filtration Rate 32 mL/min (>60); Est Glom Filt Rate - Afr Amer 38 mL/min (>60); Estimated Creatinine Clearance 27.75 ml/min; Globulin 4.1 g/dL (2.2-4.2); Glucose 142 mg/dL (74-106); Protein, Total 6.2 g/dL (6.4-8.2); Sodium Level 140 mmol/L (136-145)
[2020-02-28 04:47] LABS: Platelet Count 28 K/mm3 (150-450)
--- NOTE | 2020-02-28 09:12 | CON.PCM_ITS ---
Reason for Consult Date of Consultation: 02/28/20 Reason for Consultation: Paroxysmal atrial fibrillation History of Present Illness: The patient is a 74 year old F with a history of mild coronary artery disease previously been followed in my office who has been unwell for a few days. She apparently saw her primary physician by telemedicine consult and a Covid test was ordered which was negative. She had been having weakness as well as back discomfort and some chills. I was called by her yesterday and I sent and instructed them to the emergency room. In the emergency room she was noted to have significant metabolic derangements with elevated creatinine, elevated BU N, low platelet count, elevated D-dimer. A Covid antigen test was performed which was noted to be positive. Urinalysis was pending and blood cultures were also drawn. While in the emergency room patient went into atrial fibrillation with a rapid ventricular response rate and was treated with intravenous Cardizem. The patient was admitted to the intensive care unit and a PCR Covid test was performed. She was treated with intravenous antibiotics. I did see her last night in the emergency room. [] Past Medical History Allergies/Adverse Reactions: Allergies niacin Adverse Reaction (Verified 02/27/20 17:36) flushing oxycodone Adverse Reaction (Verified 02/27/20 17:36) Itching Home Medications: Ambulatory Orders Medication Instructions Recorded cholecalciferol (vitamin D3) unit PO QDAY ml 08/04/17 diclofenac sodium 1 % topical gel 2 g TOPICAL BID PRN #100 g 08/04/17 super greens PO 08/04/17 turmeric root extract 1,053 mg 1,320 mg PO QDAY tab 08/04/17 tablet rosuvastatin 5 mg tablet 5 mg PO DAILY 09/13/19 venlafaxine 75 mg tablet 75 mg PO DAILY 09/13/19 Past Medical History (Chronic Problems): Chronic Problems (Last Reviewed 09/13/19 @ 15:[address] 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 Jin Ellis MD) Father Myocardial infarction Mother Breast cancer CVA (cerebral vascular accident) History Items: No pertinent history Paternal Family History: Family History (Last Reviewed 09/13/19 @ 15:[address] Jin Ellis MD) Father Myocardial infarction Mother Breast cancer CVA (cerebral vascular accident) History Items: No pertinent history Lives: Spouse/ Significant Other Smoking Status: Never smoker Tobacco Use: Non-smoker Drugs: None Review of Systems - Review of Systems General: Reports: Fever, Fatigue, Malaise, Chills, Weakness, Decreased Appetite, Anorexia. Denies: Night Sweats HEENT: Denies: Vision Change Cardiovascular: Denies: Chest Discomfort, Shortness of Breath, Orthopnea, PND, Peripheral Edema, Palpitations, Lightheadedness, Dizziness, Near Syncope, Syncope Respiratory: Denies: Cough, Sputum Production, Hemoptysis Gastrointestinal: Denies: Hematemesis, Hematochezia, Melena Genitourinary: Denies: Dysuria, Hematuria Skin: Denies: Rash Neurological: Reports: Weakness Psychiatric: Denies: Anxiety Endocrine: Denies: Heat Intolerance Hematologic/ Lymphatic: Denies: Anemia Subjectve: Pleasant lady in mild distress but breathing better this morning compared to yesterday Objective: Vital Signs Temp Pulse Resp BP Pulse Ox 98.9 F 87 25 H 118/62 94 02/28/20 00:00 02/28/20 06:00 02/28/20 06:00 02/28/20 06:00 02/28/20 06:00 Oxygen Flow Rate (L/min) 4 Oxygen Delivery Method Nasal Cannula Weight: 195 lb 12.328 oz Body Mass Index (BMI) 31.4 Intake and Output for Last 24 Hours 02/26/20 02/27/20 02/28/20 23:59 23:59 23:59 Intake Total 1385.65 / 1385.65 621.75 / 621.75 Output Total 150 / 150 0 / 0 Balance 1235.65 / 1235.65 621.75 / 621.75 General: Awake, Alert, Oriented x 3 HEENT: PERRL, EOMI, Sclera Non Icteric Neck: Supple, Good ROM, No Lymph Node Enlargement Lungs: Clear to auscultation Cardiovascular: Regular Rhythm, Normal S1, Normal S2, No Murmurs, No Rubs, No Gallops Vascular: No Carotid Bruits, Normal Femoral Pulses, Normal Radial Pulses, Normal Dorsalis Pedal Pulse, Normal Posterior Tibial Pulses Abdomen: Bowel Sounds Present, Soft, Non Tender, No HSM, No Organomegaly Extremities: No Cyanosis, No Clubbing, No edema Musculoskeletal: No Erythema Skin: No Rashes Lymphatic: No Lymph Node Enlargement Neurological: No Focal Motor or Sensory Deficit 02/27/20 17:57: WBC 17.5 H, RBC 5.03, Hgb 15.0, Hct 44.7, MCV 88.9, MCH 29.8, MCHC 33.6, Plt Count 42 L*, MPV 12.5 H, Immature Gran % (Auto) 1.400 H, Neut % (Auto) 82.6 H, Lymph % (Auto) 8.9 L, [place] % (Auto) 6.0, Eos % (Auto) 0.9, Baso % (Auto) 0.2, Absolute Neuts (auto) 14.5 H, Nucleated RBC % 0 02/27/20 17:57: Sodium 137, Potassium 2.8 L, Chloride 105, Carbon Dioxide 20.0 L , Anion Gap 12, BUN 76 H, Creatinine 2.49 H, Est GFR (MDRD) Af Amer 24 L, Est GFR (MDRD) Non-Af 20 L, BUN/Creatinine Ratio 30.5 H, Glucose 125 H, Calcium 8.9, Total Bilirubin 1.20 H, Direct Bilirubin 0.75 H, Troponin I 0.031 02/27/20 17:57: B-Natriuretic Peptide 579.1 H 02/27/20 17:57: D-Dimer Quant (PE/DVT) 11.77 H* 02/27/20 17:57: PT 13.8, INR 1.1, APTT 33.5 02/27/20 20:00: Lactic Acid 1.9 02/27/20 20:20: Urine Color Yellow, Urine Clarity Cloudy, Urine pH 5.0, Ur Specific [place] 1.015, Urine Protein 30 H, Urine Glucose (UA) Normal, Urine Ketones Negative, Urine Occult Blood 150 H, Urine Nitrite Negative, Urine Bilirubin Negative, Urine Urobilinogen Normal, Ur Leukocyte Esterase 500 H, Urine RBC 0-5 SEEN, Urine WBC 10-25 SEEN 02/28/20 04:08: WBC 21.7 H, RBC 4.78, Hgb 14.4, Hct 42.5, MCV 88.9, MCH 30.1, MCHC 33.9, Plt Count 28 L*, MPV 11.9, Immature Gran % (Auto) 2.100 H, Neut % (Auto) 90.1 H, Lymph % (Auto) 2.6 L, [place] % (Auto) 4.1, Eos % (Auto) 0.2, Baso % (Auto) 0.9, Absolute Neuts (auto) 19.5 H, Nucleated RBC % 0 02/28/20 04:08: Sodium 140, Potassium 4.0, Chloride 111 H, Carbon Dioxide 18.0 L , Anion Gap 11, BUN 62 H, Creatinine 1.69 H, Est GFR (MDRD) Af Amer 38 L, Est GFR (MDRD) Non-Af 32 L, BUN/Creatinine Ratio 36.7 H, Glucose 142 H, Calcium 8.2 L, Total Bilirubin 1.30 H 02/28/20 04:08: APTT 44.3 H Rhythm: EKG: Normal sinus rhythm with no acute changes ECHO: Stress Test: Cardiac Cath: PCI: CT Surgery: Holter monitor: EPS: PPM: CXR: Chest CT Scan: Assessment/Plan 1. Cardiovascular status is as follows: A. Paroxysmal atrial fibrillation with a rapid ventricular response * Above likely secondary to sepsis. At this time I would not rate control on any medications. Her previous echocardiogram had demonstrated preserved ejection fraction. Would hold off on echocardiogram and perform as necessary. * Will not anticoagulate for atrial fibrillation alone back for possible other reasons. * DVT has been excluded with lower extremity duplex * CT scan did not demonstrate any significant abnormalities though it was performed without contrast * 2. 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 * 3. Sepsis syndrome * She likely has sepsis as delineated by the urinalysis as well as the blood cultures. * Will await final recommendations per infectious disease regarding Covid status. * * Above discussed with supervisor special services, hospitalist, patient and family. * * Thank you for allowing me to participate in the care of your patient. Please don't hesitate to call if any issues arise.
--- NOTE | 2020-02-28 10:21 | PN_ITS ---
Patient Problems: Active and Suspected Problems (Last Reviewed 09/13/19 @ 15:[address] Jin Ellis MD) COVID-19 (Acute) Pulmonary embolism (Acute) Thrombocytopenia (Acute) UTI (urinary tract infection) (Acute) ANGELICA (acute kidney injury) (Acute) Fatigue (Acute) Nonproductive cough (Acute) Body aches (Acute) Shortness of breath (Acute) Subjective: Patient seen and examined. She was admitted with a complaint of shortness of breath, body aches and fatigue. Patient had had 2 covid tests on outpatient basis, which were negative. On admission, she was found to be septic, due to UTI, and markedly elevated D dimer of ~ 11. CTA of the chest couldnt be done o/a of ANGELICA. She also developed Afib with RVR and covid antigen test was positive. She was also significantly thrombocytopenic, with platelets down to 48. Platelets are further down to 28 this morning. She is on IV ceftriaxone. Patient seen and examined. She complains of shortness of breath, and pleuritic chest pain associated with shortness of breath. She denies fever, chills, nausea, vomiting or diarrhea. She was comfortably eating breakfast. Review of systems was otherwise negative. She is now in sinus rhythm, but is tachypneic. She is on 4L of oxygen. HR is down to 87, and temp is 98.9F. Vitals/I&O's: Vital Signs Temp Pulse Resp BP Pulse Ox 98.9 F 87 25 H 118/62 94 02/28/20 00:00 02/28/20 06:00 02/28/20 06:00 02/28/20 06:00 02/28/20 06:00 Oxygen Flow Rate (L/min) 4 Oxygen Delivery Method Nasal Cannula Weight: 195 lb 12.328 oz Body Mass Index (BMI) 31.4 Intake and Output for Last 24 Hours 02/26/20 02/27/20 02/28/20 23:59 23:59 23:59 Intake Total 1385.65 / 1385.65 1705.25 / 1705.25 Output Total 150 / 150 0 / 0 Balance 1235.65 / 1235.65 1705.25 / 1705.25 General: Alert, Oriented x3, Cooperative, Lethargic HEENT: Atraumatic, PERRLA, EOMI, Normocephalic Oral: Dry Mucosa Neck: Supple, No JVD, Negative Carotid Bruits Lungs: - - diminished breath sounds bibasally, no wheezes. has few crackles bibasally. on 4L of oxygen by nasal canula Cardiovascular: Regular rate, Regular Rhythm, Normal S1, Normal S2, No murmurs Abdomen: Bowel Sounds Present, Soft, Non Tender Extremities: No clubbing, No cyanosis, No edema, Capillary Refill Less than 3 Seconds Skin: No rashes, No breakdown Musculoskeletal: No Tenderness to Palpation of Joints or Extremities Lymphatic: No Cervical, Supraclavicular, or Inguinal Adenopathy Neurological: Cranial nerves II-XII grossly intact, Neuro grossly intact, Motor Exam 5/5 strength throughout Psych/Mental Status: Normal Affect, Appropriate, Alert and oriented to time, place, person, mood and affect Microbiology Past 72 Hours 02/27/20 20:00 Blood Culture (Wb) - Anticubital Right Blood Culture - Preliminary 02/27/20 20:15 Blood Culture (Wb) - Anticubital Left Blood Culture - Preliminary 02/27/20 17:55 Mucosa - Nose Respiratory Panel (PCR) - Final 02/27/20 17:55 Mucosa - Nose SARS-CoV-2 Antigen (Rapid) - Final SARS-CoV-2 (COVID 19) Laboratory Results 02/27/20 17:55: COVID-19 (SAMIR) Negative 02/27/20 17:57: WBC 17.5 H, RBC 5.03, Hgb 15.0, Hct 44.7, MCV 88.9, MCH 29.8, MCHC 33.6, RDW Std Deviation 46.3 H, RDW Coeff of [place] 14.3, Plt Count 42 L*, MPV 12.5 H, Immature Gran % (Auto) 1.400 H, Neut % (Auto) 82.6 H, Lymph % (Auto) 8.9 L, [place] % (Auto) 6.0, Eos % (Auto) 0.9, Baso % (Auto) 0.2, Absolute Neuts (auto) 14.5 H, Absolute Lymphs (auto) 1.56, Nucleated RBC % 0, Differential Comment SCANNED, Diff Path Review July foll 02/27/20 17:57: Sodium 137, Potassium 2.8 L, Chloride 105, Carbon Dioxide 20.0 L , Anion Gap 12, BUN 76 H, Creatinine 2.49 H, Estim Creat Clear Calc 18.84, Est GFR (MDRD) Af Amer 24 L, Est GFR (MDRD) Non-Af 20 L, BUN/Creatinine Ratio 30.5 H , Glucose 125 H, Calcium 8.9, Total Bilirubin 1.20 H, Direct Bilirubin 0.75 H, AST 37, ALT 34, Alkaline Phosphatase 468 H, Troponin I 0.031, Total Protein 6.9, Albumin 2.6 L, Globulin 4.3 H 02/27/20 17:57: B-Natriuretic Peptide 579.1 H 02/27/20 17:57: D-Dimer Quant (PE/DVT) 11.77 H* 02/27/20 17:57: PT 13.8, INR 1.1, APTT 33.5 02/27/20 20:00: Lactic Acid 1.9 02/27/20 20:20: Urine Color Yellow, Urine Clarity Cloudy, Urine pH 5.0, Ur Specific [place] 1.015, Urine Protein 30 H, Urine Glucose (UA) Normal, Urine Ketones Negative, Urine Occult Blood 150 H, Urine Nitrite Negative, Urine Bilirubin Negative, Urine Urobilinogen Normal, Ur Leukocyte Esterase 500 H, Urine RBC 0-5 SEEN, Urine WBC 10-25 SEEN, Ur Squamous Epith Cells 5-10 SEEN, Urine Bacteria 1+, Urine Mucus 0 SEEN 02/28/20 04:08: WBC 21.7 H, RBC 4.78, Hgb 14.4, Hct 42.5, MCV 88.9, MCH 30.1, MCHC 33.9, RDW Std Deviation 46.1 H, RDW Coeff of [place] 14.4, Plt Count 28 L*, MPV 11.9, Immature Gran % (Auto) 2.100 H, Neut % (Auto) 90.1 H, Lymph % (Auto) 2.6 L , [place] % (Auto) 4.1, Eos % (Auto) 0.2, Baso % (Auto) 0.9, Absolute Neuts (auto) 19.5 H, Absolute Lymphs (auto) 0.57 L, Nucleated RBC % 0, Diff Path Review July02/28/20 04:08: Sodium 140, Potassium 4.0, Chloride 111 H, Carbon Dioxide 18.0 L , Anion Gap 11, BUN 62 H, Creatinine 1.69 H, Estim Creat Clear Calc 27.75, Est GFR (MDRD) Af Amer 38 L, Est GFR (MDRD) Non-Af 32 L, BUN/Creatinine Ratio 36.7 H , Glucose 142 H, Calcium 8.2 L, Total Bilirubin 1.30 H, AST 39 H, ALT 34, Alkaline Phosphatase 575 H, Total Protein 6.2 L, Albumin 2.1 L, Globulin 4.1, Albumin/Globulin Ratio 0.5 L 02/28/20 04:08: APTT 44.3 H Diagnostic Data Chest X-Ray 02/27/20 18:15 IMPRESSION: Possible mild atelectasis or scarring in the lung bases, otherwise lungs clear. Electronically Signed: Jim Auguste MD at 18:31 EST , Service support , Venous Duplex 02/27/20 19:22 IMPRESSION: Normal venous Doppler ultrasound of the bilateral lower extremities. Electronically Signed: Olvin Delgado MD at 20:31 EST , Service support , Chest CT 02/27/20 20:01 IMPRESSION: Exam limited by the absence of IV contrast. COPD. Irregular densities primarily in the lower lung [place] consistent with scarring, atelectasis, and/or infiltrate. Thickening and nodularity seen of the minor fissure, likely post inflammatory but neoplastic disease is not excluded. Possible right hilar adenopathy. Electronically Signed: Jim Auguste MD at 22:00 EST , Service support , Current Medications Acetaminophen (Acetaminophen 325 Mg Tablet) 650 mg PO Q6H PRN PRN PRN Reason: Pain Score 1-10/Temp > 100.7 F Last Admin: 02/28/20 01:21 Dose: 650 mg Documented by: Atorvastatin Calcium (Atorvastatin Calcium 10 Mg Tablet) 10 mg PO DAILY@2200 HOAL Dexamethasone (Dexamethasone 2 Mg Tablet) 6 mg PO DAILY [facility]A Guaifenesin (Guaifenesin Dm 10 Ml Udc) 10 ml PO Q6H PRN PRN PRN Reason: COUGH Heparin Sodium (Porcine) (Heparin Injection (Vial) 5,000 Unit/Ml Vial) 0 unit IV UD PRN; Protocol PRN Reason: dose adjustment Last Admin: 02/27/20 21:45 Dose: 6,000 unit Documented by: Heparin Sodium/Dextrose () 25,000 units in 250 mls @ 12 mls/hr IV .[id number] HOLA; Protocol Last Titration: 02/28/20 05:00 Dose: 1,200 units/hr, 12 mls/hr Documented by: Remdesivir 100 mg/ Sodium (Chloride) 250 mls @ 125 mls/hr IV DAILY [facility]OLA Stop: 03/02/20 11:59 Ceftriaxone Sodium (Rocephin) 1 gm in 50 mls @ 100 mls/hr IV Q24@2200 HOLA Sodium Chloride () 250 mls @ 15 mls/hr IV .[id number] PRN PRN Reason: Saline Flush Last Infusion: 02/28/20 07:00 Dose: 0 mls/hr Documented by: Sodium Chloride () 250 mls @ 15 mls/hr IV .[id number] PRN PRN Reason: Additional IVPB Infusion Diltiazem HCl 125 mg/ Dextrose 125 mls @ 5 mls/hr IV .Q25H HOLA; Protocol Last Titration: 02/28/20 05:30 Dose: 10 mg/hr, 10 mls/hr Documented by: Ondansetron HCl (Ondansetron 4 Mg/2 Ml Vial) 4 mg IV Q8H PRN PRN PRN Reason: NAUSEA/VOMITING Oxycodone HCl (Oxycodone 5 Mg Tablet) 10 mg PO Q4H PRN PRN PRN Reason: Pain Score 4-10 Sodium Chloride (0.9% Saline Lock 10 Ml Syringe) 10 - 40 ml IV UD PRN PRN Reason: SALINE FLUSH Temazepam (Temazepam 15 Mg Capsule) 15 mg PO QHS PRN PRN PRN Reason: INSOMNIA Venlafaxine HCl (Venlafaxine Xr 75 Mg Capsule) 75 mg PO DAILY [facility] Medical Necessity - Tobacco Use Smoking Status: Never smoker Tobacco Use: Non-smoker Assessment/Plan All Active Problems (Last Reviewed 09/13/19 @ 15:[address] Jin Ellis MD) COVID-19 (Acute) Pulmonary embolism (Acute) Thrombocytopenia (Acute) UTI (urinary tract infection) (Acute) ANGELICA (acute kidney injury) (Acute) Fatigue (Acute) Nonproductive cough (Acute) Body aches (Acute) Shortness of breath (Acute) # Acute hypoxic respiratory failure * main differential is PE. patient still feels short of breath with chest pressure * she is on 4L of oxygen; she is not on oxygen at home * currently on heparin drip due to suspicion for PE. * patient also had markedly elevated D dimer, as well as elevated BNP of >500. * couldnt get CTA of the chest due to elevated Cr. Cr is down to 1.69 today from 2.49 on admission. I spoke to radiology, and it appears their cut off point is to fill creatinine to do a CTA. Patient to therefore get a CT of the chest today as creatinine is down to 1.69. * Patient is severely thrombocytopenic with platelets down to 28 today. It was 42 yesterday and there is no known history of thrombocytopenia. Decision about continuing heparin drip otherwise will be made once CTA is done to rule in or rule out PE. * 2D echo. Titrate oxygen to maintain saturation above 90%. * Breathing treatments with bronchodilators. * # Probable PE * as above. D dimer is markedly elevated, with BNP also elevated * on heparin drip. * to get CTA today * Duplex of the LEs was negative. * # Sepsis due to UTI * Showed evidence of UTI and blood cultures growing gram-negative rods in 2 out of 2 samples. * patient remains tachypneic and wbc is elevated at 21.7. * on IV ceftriaxone. * Id consulted, await rec;s * # Thromobocytopenia * platelets were 42 on admission, now 28. On heparin drip * hematology consulted o/a of severe thrombocytopenia # ANGELICA * CR was 2.49, and is now down to 1.69 * continue gentle hydration with IVF. * #UTI * UA showed evidence of UTI. Urine cultures pending. On IV ceftriaxone * # Elevated liver enzymes * bilirubin is 1.3, with AST of 39 and ALT of 575. * has no abdominal pain. could be related to sepsis * if it trends furtehr upwards, will get RUQ USG #Afib * Patient developed A. fib with RVR overnight but is now in normal sinus rhythm. * Cardiology on board. * #?COVID infection * Antigen test was positive, but PCR test was negative * on remdesivir and decadrone * ID to see to determine if patient should be taken out of isolation # Hypokalemia: resolved @ Hyperlipidemia: on statin DVT prophylaxis; on heparin drip. Inpatient E&M: [id number] Subs Hosp L3
--- NOTE | 2020-02-28 10:34 | CON.PCM_ITS ---
Reason for Consult Date of Consultation: 02/28/20 Reason for Consultation: Acute hypoxemic respiratory failure/severe sepsis History of Present Illness: The patient is a 74-year-old female, with a history as outlined below, who presented to the emergency department on February 26 with complaints of shortness of breath, nonproductive cough and nausea, which apparently began this past Wednesday. The patient denied any known sick contact exposures. In the last several days, the patient has apparently had 2 negative coronavirus PCR tests completed. The patient does currently follow Dr. Ellis in the cardiology clinic due to a history of coronary artery disease. Her last surface echocardiogram from 2017 revealed normal LV function with an ejection fraction of 65%. Stage I diastolic dysfunction was noted. On presentation to the emergency department, the patient was noted to be afebrile and hemodynamically stable. Laboratory evaluation revealed an elevated white blood cell count to 17,000. Platelet count was low at 42,000. D-dimer was elevated to 11.7. Chemistry profile was notable for a potassium of 2.8 and creatinine of 2.49. Lactate was noted to be 1.9. Troponin was negative. BNP was mildly elevated to 579. Urine analysis was positive for leukocyte esterase 1+ urine bacteria. A coronavirus rapid antigen test was found to be positive. Nevertheless, a follow-up PCR test was negative. The patient was subsequently placed in coronavirus precautions and admitted to the medical intensive care unit. The patient has been maintained on antimicrobials along with Decadron and remdesivir. The patient was also placed on a continuous heparin infusion over concerns for possible PE. However, given her renal insufficiency, a CTA chest was unable to be obtained. Overnight, the patient did transiently go into atrial fibrillation, which responded to medical intervention with Cardizem. She has now maintaining a normal sinus rhythm. Past Medical History Past Medical History (Chronic Problems): Chronic Problems (Last Reviewed 09/13/19 @ 15:[address] Jin Ellis MD) Nonobstructive atherosclerosis of coronary artery (Chronic) non obstructive CAD of Prox LAD ~30% per cath 2009 Hyperlipidemia (Chronic) Medical History: Medical History (Last Reviewed 09/13/19 @ 15:[address] Jin Ellis MD) Nonobstructive atherosclerosis of coronary artery (Chronic) I25.10 non obstructive CAD of Prox LAD ~30% per cath 2009 Hyperlipidemia (Chronic) E78.5 Diverticulosis of colon K57.30 Fibromyalgia M79.7 Gastritis without bleeding K29.70 History of nephrolithiasis Z87.442 IBS (irritable bowel syndrome) K58.9 Internal hemorrhoid K64.8 Osteoarthritis M19.90 Vitamin D deficiency E55.9 Arthritis of knee, degenerative (Inactive) M17.10 Allergies niacin Adverse Reaction (Verified 02/27/20 17:36) flushing oxycodone Adverse Reaction (Verified 02/27/20 17:36) Itching Home Medications: Ambulatory Orders Medication Instructions Recorded cholecalciferol (vitamin D3) unit PO QDAY ml 08/04/17 diclofenac sodium 1 % topical gel 2 g TOPICAL BID PRN #100 g 08/04/17 super greens PO 08/04/17 turmeric root extract 1,053 mg 1,320 mg PO QDAY tab 08/04/17 tablet rosuvastatin 5 mg tablet 5 mg PO DAILY 09/13/19 venlafaxine 75 mg tablet 75 mg PO DAILY 09/13/19 Surgical History: Surgical History (Last Reviewed 09/13/19 @ 15:[address] 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 Jin Ellis MD) Father Myocardial infarction Mother Breast cancer CVA (cerebral vascular accident) History Items: No pertinent history Paternal Family History: Family History (Last Reviewed 09/13/19 @ 15:[address] Jin Ellis MD) Father Myocardial infarction Mother Breast cancer CVA (cerebral vascular accident) History Items: No pertinent history Review of Systems Constitutional: Reports: Malaise, Fatigue. Denies: Chills, Fever Eyes: Denies: Blurred vision, Double vision HEENT: Denies: Head Aches, Sinus Congestion, Sinus Drainage Cardiovascular: Denies: Chest Pain, Palpitations Respiratory: Reports: Cough, Shortness of Breath. Denies: Sputum production Gastrointestinal: Reports: Nausea. Denies: Vomiting Genitourinary: Denies: Dysuria Musculoskeletal: Denies: Joint Pain, Joint Tenderness Skin: Denies: Rash, Wounds Neurological: Denies: Numbness, Tingling, Focal weakness Psychiatric: Reports: Anxiety, Depression Hematologic/ Lymphatic: Denies: Easy Bruising, Easy Bleeding Patient Problems: Active and Suspected Problems (Last Reviewed 09/13/19 @ 15:[address] Jin Ellis MD) COVID-19 (Acute) Pulmonary embolism (Acute) Thrombocytopenia (Acute) UTI (urinary tract infection) (Acute) ANGELICA (acute kidney injury) (Acute) Fatigue (Acute) Nonproductive cough (Acute) Body aches (Acute) Shortness of breath (Acute) Sepsis (Acute) Kidney stone on right side (Acute) Objective: The patient's most recent lab work, culture data and imaging studies have all been personally reviewed. - Physical Exam Vitals/I&O's: Vital Signs Temp Pulse Resp BP Pulse Ox 98.9 F 87 25 H 118/62 94 02/28/20 00:00 02/28/20 06:00 02/28/20 06:00 02/28/20 06:00 02/28/20 06:00 Oxygen Flow Rate (L/min) 4 Oxygen Delivery Method Nasal Cannula Weight: 195 lb 12.328 oz Body Mass Index (BMI) 31.4 Intake and Output for Last 24 Hours 02/26/20 02/27/20 02/28/20 23:59 23:59 23:59 Intake Total 1385.65 / 1385.65 1705.25 / 1705.25 Output Total 150 / 150 0 / 0 Balance 1235.65 / 1235.65 1705.25 / 1705.25 General: Alert, Oriented x3, Cooperative, No apparent distress HEENT: Atraumatic, PERRLA, Normocephalic Oral: No Gingival or Mucosal Lesions/ Ulcerations Neck: Supple, No Nodes, Trachea Midline Lungs: Normal air movement, No rhonchi, No wheeze, No rales Cardiovascular: Regular rate, Regular Rhythm, - - Normal sinus rhythm noted on telemetry Abdomen: Bowel Sounds Present, Soft, Obese Extremities: No clubbing, No cyanosis, No edema Skin: No breakdown Musculoskeletal: No Tenderness to Palpation of Joints or Extremities Lymphatic: No Cervical, Supraclavicular, or Inguinal Adenopathy Neurological: Cranial nerves II-XII grossly intact, Neuro grossly intact Psych/Mental Status: Alert and oriented to time, place, person, mood and affect Labs (Last 48 Hours) 02/27/20 02/27/20 02/27/20 17:55 17:57 17:57 WBC 17.5 H RBC 5.03 Hgb 15.0 Hct 44.7 MCV 88.9 MCH 29.8 MCHC 33.6 RDW Std Deviation 46.3 H RDW Coeff of Lonnie 14.3 Plt Count 42 L* MPV 12.5 H Immature Gran % (Auto) 1.400 H Neut % (Auto) 82.6 H Lymph % (Auto) 8.[address] % (Auto) 6.0 Eos % (Auto) 0.9 Baso % (Auto) 0.2 Absolute Neuts (auto) 14.5 H Absolute Lymphs (auto) 1.56 Nucleated RBC % 0 Differential Comment SCANNED Diff Path Review May foll PT INR APTT D-Dimer Quant (PE/DVT) Sodium 137 Potassium 2.8 L Chloride 105 Carbon Dioxide 20.0 L Anion Gap 12 BUN 76 H Creatinine 2.49 H Estim Creat Clear Calc 18.84 Est GFR (MDRD) Af Amer 24 L Est GFR (MDRD) Non-Af 20 L BUN/Creatinine Ratio 30.5 H Glucose 125 H Lactic Acid Calcium 8.9 Total Bilirubin 1.20 H Direct Bilirubin 0.75 H AST 37 ALT 34 Alkaline Phosphatase 468 H Troponin I 0.031 B-Natriuretic Peptide Total Protein 6.9 Albumin 2.6 L Globulin 4.3 H Albumin/Globulin Ratio Urine Color Urine Clarity Urine pH Ur Specific [place] Urine Protein Urine Glucose (UA) Urine Ketones Urine Occult Blood Urine Nitrite Urine Bilirubin Urine Urobilinogen Ur Leukocyte Esterase Urine RBC Urine WBC Ur Squamous Epith Cells Urine Bacteria Urine Mucus COVID-19 (SAMIR) Negative 02/27/20 02/27/20 02/27/20 17:57 17:57 17:57 WBC RBC Hgb Hct MCV MCH MCHC RDW Std Deviation RDW Coeff of Lonnie Plt Count MPV Immature Gran % (Auto) Neut % (Auto) Lymph % (Auto) [facility] % (Auto) Eos % (Auto) Baso % (Auto) Absolute Neuts (auto) Absolute Lymphs (auto) Nucleated RBC % Differential Comment Diff Path Review PT 13.8 INR 1.1 APTT 33.5 D-Dimer Quant (PE/DVT) 11.77 H* Sodium Potassium Chloride Carbon Dioxide Anion Gap BUN Creatinine Estim Creat Clear Calc Est GFR (MDRD) Af Amer Est GFR (MDRD) Non-Af BUN/Creatinine Ratio Glucose Lactic Acid Calcium Total Bilirubin Direct Bilirubin AST ALT Alkaline Phosphatase Troponin I B-Natriuretic Peptide 579.1 H Total Protein Albumin Globulin Albumin/Globulin Ratio Urine Color Urine Clarity Urine pH Ur Specific [place] Urine Protein Urine Glucose (UA) Urine Ketones Urine Occult Blood Urine Nitrite Urine Bilirubin Urine Urobilinogen Ur Leukocyte Esterase Urine RBC Urine WBC Ur Squamous Epith Cells Urine Bacteria Urine Mucus COVID-19 (SAMIR) 02/27/20 02/27/20 02/28/20 20:00 20:20 04:08 WBC 21.7 H RBC 4.78 Hgb 14.4 Hct 42.5 MCV 88.9 MCH 30.1 MCHC 33.9 RDW Std Deviation 46.1 H RDW Coeff of Lonnie 14.4 Plt Count 28 L* MPV 11.9 Immature Gran % (Auto) 2.100 H Neut % (Auto) 90.1 H Lymph % (Auto) 2.[address] % (Auto) 4.1 Eos % (Auto) 0.2 Baso % (Auto) 0.9 Absolute Neuts (auto) 19.5 H Absolute Lymphs (auto) 0.57 L Nucleated RBC % 0 Differential Comment Diff Path Review May foll PT INR APTT D-Dimer Quant (PE/DVT) Sodium Potassium Chloride Carbon Dioxide Anion Gap BUN Creatinine Estim Creat Clear Calc Est GFR (MDRD) Af Amer Est GFR (MDRD) Non-Af BUN/Creatinine Ratio Glucose Lactic Acid 1.9 Calcium Total Bilirubin Direct Bilirubin AST ALT Alkaline Phosphatase Troponin I B-Natriuretic Peptide Total Protein Albumin Globulin Albumin/Globulin Ratio Urine Color Yellow Urine Clarity Cloudy Urine pH 5.0 Ur Specific [place] 1.015 Urine Protein 30 H Urine Glucose (UA) Normal Urine Ketones Negative Urine Occult Blood 150 H Urine Nitrite Negative Urine Bilirubin Negative Urine Urobilinogen Normal Ur Leukocyte Esterase 500 H Urine RBC 0-5 SEEN Urine WBC 10-25 SEEN Ur Squamous Epith Cells 5-10 SEEN Urine Bacteria 1+ Urine Mucus 0 SEEN COVID-19 (SAMIR) 02/28/20 02/28/20 02/28/20 04:08 04:08 10:35 WBC RBC Hgb Hct MCV MCH MCHC RDW Std Deviation RDW Coeff of Lonnie Plt Count MPV Immature Gran % (Auto) Neut % (Auto) Lymph % (Auto) [facility] % (Auto) Eos % (Auto) Baso % (Auto) Absolute Neuts (auto) Absolute Lymphs (auto) Nucleated RBC % Differential Comment Diff Path Review PT INR APTT 44.3 H Pending D-Dimer Quant (PE/DVT) Sodium 140 Potassium 4.0 Chloride 111 H Carbon Dioxide 18.0 L Anion Gap 11 BUN 62 H Creatinine 1.69 H Estim Creat Clear Calc 27.75 Est GFR (MDRD) Af Amer 38 L Est GFR (MDRD) Non-Af 32 L BUN/Creatinine Ratio 36.7 H Glucose 142 H Lactic Acid Calcium 8.2 L Total Bilirubin 1.30 H Direct Bilirubin AST 39 H ALT 34 Alkaline Phosphatase 575 H Troponin I B-Natriuretic Peptide Total Protein 6.2 L Albumin 2.1 L Globulin 4.1 Albumin/Globulin Ratio 0.5 L Urine Color Urine Clarity Urine pH Ur Specific [place] Urine Protein Urine Glucose (UA) Urine Ketones Urine Occult Blood Urine Nitrite Urine Bilirubin Urine Urobilinogen Ur Leukocyte Esterase Urine RBC Urine WBC Ur Squamous Epith Cells Urine Bacteria Urine Mucus COVID-19 (SAMIR) Microbiology 02/27/20 20:00 Blood Culture (Wb) - Anticubital Right Blood Culture - Preliminary 02/27/20 20:15 Blood Culture (Wb) - Anticubital Left Blood Culture - Preliminary 02/27/20 17:55 Mucosa - Nose Respiratory Panel (PCR) - Final 02/27/20 17:55 Mucosa - Nose SARS-CoV-2 Antigen (Rapid) - Final SARS-CoV-2 (COVID 19) Clinical Impression(s) from Imaging Studies Chest X-Ray 02/27/20 18:15 IMPRESSION: Possible mild atelectasis or scarring in the lung bases, otherwise lungs clear. Electronically Signed: Jim Auguste MD at 18:31 EST , Service support , Venous Duplex 02/27/20 19:22 IMPRESSION: Normal venous Doppler ultrasound of the bilateral lower extremities. Electronically Signed: Olvin Delgado MD at 20:31 EST , Service support , Chest CT 02/27/20 20:01 IMPRESSION: Exam limited by the absence of IV contrast. COPD. Irregular densities primarily in the lower lung [place] consistent with scarring, atelectasis, and/or infiltrate. Thickening and nodularity seen of the minor fissure, likely post inflammatory but neoplastic disease is not excluded. Possible right hilar adenopathy. Electronically Signed: Jim Auguste MD at 22:00 EST , Service support , Current Medications Acetaminophen (Acetaminophen 325 Mg Tablet) 650 mg PO Q6H PRN PRN PRN Reason: Pain Score 1-10/Temp > 100.7 F Last Admin: 02/28/20 01:21 Dose: 650 mg Documented by: Atorvastatin Calcium (Atorvastatin Calcium 10 Mg Tablet) 10 mg PO DAILY@2200 HOLA Dexamethasone (Dexamethasone 2 Mg Tablet) 6 mg PO DAILY PENDING SALE TO [facility] Guaifenesin (Guaifenesin Dm 10 Ml Udc) 10 ml PO Q6H PRN PRN PRN Reason: COUGH Heparin Sodium (Porcine) (Heparin Injection (Vial) 5,000 Unit/Ml Vial) 0 unit IV UD PRN; Protocol PRN Reason: dose adjustment Last Admin: 02/27/20 21:45 Dose: 6,000 unit Documented by: Heparin Sodium/Dextrose () 25,000 units in 250 mls @ 12 mls/hr IV .[id number] HOLA; Protocol Last Titration: 02/28/20 05:00 Dose: 1,200 units/hr, 12 mls/hr Documented by: Remdesivir 100 mg/ Sodium (Chloride) 250 mls @ 125 mls/hr IV DAILY PENDING SALE TO [facility] Stop: 03/02/20 11:59 Ceftriaxone Sodium (Rocephin) 1 gm in 50 mls @ 100 mls/hr IV Q24@2200 HOLA Sodium Chloride () 250 mls @ 15 mls/hr IV .[id number] PRN PRN Reason: Saline Flush Last Infusion: 02/28/20 07:00 Dose: 0 mls/hr Documented by: Sodium Chloride () 250 mls @ 15 mls/hr IV .[id number] PRN PRN Reason: Additional IVPB Infusion Diltiazem HCl 125 mg/ Dextrose 125 mls @ 5 mls/hr IV .Q25H HOLA; Protocol Last Titration: 02/28/20 05:30 Dose: 10 mg/hr, 10 mls/hr Documented by: Ondansetron HCl (Ondansetron 4 Mg/2 Ml Vial) 4 mg IV Q8H PRN PRN PRN Reason: NAUSEA/VOMITING Oxycodone HCl (Oxycodone 5 Mg Tablet) 10 mg PO Q4H PRN PRN PRN Reason: Pain Score 4-10 Sodium Chloride (0.9% Saline Lock 10 Ml Syringe) 10 - 40 ml IV UD PRN PRN Reason: SALINE FLUSH Temazepam (Temazepam 15 Mg Capsule) 15 mg PO QHS PRN PRN PRN Reason: INSOMNIA Venlafaxine HCl (Venlafaxine Xr 75 Mg Capsule) 75 mg PO DAILY PENDING SALE TO [facility] Assessment/Plan Active and Suspected Problems (Last Reviewed 09/13/19 @ 15:[address] Jin Ellis MD) COVID-19 (Acute) Pulmonary embolism (Acute) Thrombocytopenia (Acute) UTI (urinary tract infection) (Acute) ANGELICA (acute kidney injury) (Acute) Fatigue (Acute) Nonproductive cough (Acute) Body aches (Acute) Shortness of breath (Acute) Sepsis (Acute) Kidney stone on right side (Acute) RECOMMENDATIONS: 1. Continue Covid precautions for now, pending evaluation by infectious diseases. 2. Continue Decadron. Hold remdesivir for now. 3. If creatinine continues to improve, obtain CTA chest. 4. Continue heparin infusion as ordered. 5. Obtain hematology consultation. 6. Continue antimicrobials. Obtain urine culture as well. 7. Encourage incentive spirometer use and mobilize patient as tolerated. IMPRESSIONS: 1. Acute hypoxemic respiratory failure Although there was initial concern for possible COVID-19 pneumonia, based upon the patient's initial presenting symptoms, she has apparently had 2 - Covid PCR's in the last several days. Although her initial rapid antigen test was positive, her follow-up PCR was negative. Despite this, the patient was placed on remdesivir and Decadron. I would recommend holding the patient's remdesivir until formal evaluation by infectious diseases has been completed. Given the patient's elevated D-dimer, pulmonary embolism is a consideration as the etiology for the patient's presenting dyspnea. If her renal function continues to improve, I would agree with obtaining a CTA chest to evaluate for the presence of PE. In the interim, the patient will be continued on a heparin infusion. 2. Severe sepsis Again, although there was initial concern for coronavirus, the patient does appear to have a possible gram-negative urinary tract source of infection with secondary hematogenous spread. She is on appropriate antimicrobials. Infectious diseases consultation is pending. 3. Acute kidney injury Likely prerenal in etiology. The patient did initially receive supplemental IV fluid hydration, with subsequent improvement in creatinine. Plan to continue to monitor urine output for now. No current indication for renal replacement therapy. 4. Thrombocytopenia Unclear etiology and chronicity. The patient is apparently followed by hematology as an outpatient. Agree with obtaining a consultation for further evaluation. 5. Paroxysmal atrial fibrillation The patient did transiently experience an episode of atrial fibrillation, which responded to medical intervention. 6. History of coronary artery disease/hyperlipidemia/depression/anxiety Complicates care, management, recovery and prognosis. Continue home medications as indicated. CODE status: Discussed CODE status at length including difference between FULL code, DNR-CCA and DNR-CC status. Following discussions about the differences in these status, patient requested full CODE STATUS. Advanced Care Planning Face to Face Time: 12 minutes. This note was generated with [employer] software. It may contain incorrect words, spelling, and punctuation that were not noted in checking the note before signing. Inpatient E&M: 99693 Init Hosp L3 Procedures: 10985 Advncd Care Plan 30 Min
[2020-02-28] MEDS: dexAMETHasone 2 MG TABLET 6 MG PO (10:45)
[2020-02-28] MEDS: Venlafaxine XR 75 MG Capsule PO (10:45)
--- NOTE | 2020-02-28 10:49 | CT_ITS ---
STUDY: CTA CHEST REASON FOR EXAM: Female, 74 years old. SOB, elevated D-dimer, cough, elevated WBC. Acute kidney injury, UTI. RADIATION DOSAGE (If Supplied By Facility): CTDIvol = ( 17.68 ) mGy, DLP = ( 1792.95 ) mGycm TECHNIQUE: The examination was performed with the intravenous administration of IV 75mL Isovue-370. Post-processing of the angiographic images was performed, with multiplanar reformation and 3D reconstruction. Individualized dose optimization techniques were used for this CT. COMPARISON: None. FINDINGS: Normal enhancement of the main pulmonary artery and right and left pulmonary arteries. Normal enhancement of the bilateral peripheral pulmonary arteries. There is no demonstrated pulmonary embolism. Normal thoracic aorta and visualized great vessels. There is no demonstrated aortic dissection. Normal heart and pericardium. Normal mediastinum. Normal hilar regions. Normal visualized trachea and bronchi. Moderate lung volumes. Moderate airspace consolidation of both lower lobes worse on the right, most consistent with atelectasis. Infiltrates are not excluded. Trace bilateral pleural effusions. Normal osseous structures. CT/CTA Chest W/WO Contrast IMPRESSION: Normal CTA chest examination, without a demonstrated pulmonary embolism or arterial dissection. Patchy consolidation in both lower lobes worse on the right. Electronically Signed: Jim Auguste MD at 16:26 EST , Service support ,
[2020-02-28 10:55] LABS: Partial Thromboplast Time 55.3 Seconds (24.1-36.2)
[2020-02-28] MEDS: 0.9% Normal Saline 1,000 ML 100 ML IV (11:26)
[2020-02-28] MEDS: HEPARIN/D5w 25,000 UNITS 25,000 UNITS/250 ML IV.SOLN. 13 UNITS IV (11:39)
--- NOTE | 2020-02-28 11:54 | PCM.CONS.GEN ---
Problem List (1) Thrombocytopenia Status: Acute (2) Nonproductive cough Status: Acute (3) Sepsis Status: Acute Qualifiers: Sepsis type: sepsis due to unspecified organism Sepsis acute organ dysfunction status: with acute organ dysfunction Severe sepsis acute organ dysfunction type: acute renal failure Acute renal failure type: unspecified Severe sepsis shock status: without septic shock Qualified Code(s): A41.9 - Sepsis, unspecified organism; R65.20 - Severe sepsis without septic shock; N17.9 - Acute kidney failure, unspecified Reason for Consult Date of Consultation: 02/28/20 Reason for Consultation: Thrombocytopenia History of Present Illness: The patient is a 74 year old female who presents with shortness of breath. She initially became ill on Wednesday, 4 days ago. She complains of shortness of breath mild headache, body aches and loss of appetite. She complains of lower back and neck pain. No chest pain or abdominal pain. She does complain of nausea with dry heaving. No actual emesis. She denies diarrhea. She has a mild runny nose which she states is chronic and unchanged. No sore throat. No congestion, loss of smell or taste. She developed a mild cough this week. She did have an outpatient test for Covid which was reportedly negative. She was seen in ED with a positive COVID antigen test and elevated D dimer. PT/PTT were normal initially. She had acute renal injury from sepsis and was not able to get CTA of chest. venous doppler of legs were negative. She also had lymphopenia and thrombocytopenia (plt 42,000) on admission. She started IV heparin last night and her platelet counts today is 24,000. She denies rash, peticheia or bleeding. She has increased bruising for IV and labs draws. Her respiratory status is stable on oxygen. Past Medical History Past Medical History (Chronic Problems): Chronic Problems (Last Reviewed 09/13/19 @ 15:[address] Jin Ellis MD) Nonobstructive atherosclerosis of coronary artery (Chronic) non obstructive CAD of Prox LAD ~30% per cath 2009 Hyperlipidemia (Chronic) Medical History: Medical History (Last Reviewed 09/13/19 @ 15:[address] Jni Ellis MD) Nonobstructive atherosclerosis of coronary artery (Chronic) I25.10 non obstructive CAD of Prox LAD ~30% per cath 2009 Hyperlipidemia (Chronic) E78.5 Diverticulosis of colon K57.30 Fibromyalgia M79.7 Gastritis without bleeding K29.70 History of nephrolithiasis Z87.442 IBS (irritable bowel syndrome) K58.9 Internal hemorrhoid K64.8 Osteoarthritis M19.90 Vitamin D deficiency E55.9 Arthritis of knee, degenerative (Inactive) M17.10 Allergies niacin Adverse Reaction (Verified 02/27/20 17:36) flushing oxycodone Adverse Reaction (Verified 02/27/20 17:36) Itching Home Medications: Ambulatory Orders Medication Instructions Recorded cholecalciferol (vitamin D3) unit PO QDAY ml 08/04/17 diclofenac sodium 1 % topical gel 2 g TOPICAL BID PRN #100 g 08/04/17 super greens PO 08/04/17 turmeric root extract 1,053 mg 1,320 mg PO QDAY tab 08/04/17 tablet rosuvastatin 5 mg tablet 5 mg PO DAILY 09/13/19 venlafaxine 75 mg tablet 75 mg PO DAILY 09/13/19 Surgical History: Surgical History (Last Reviewed 09/13/19 @ 15:[address] 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 Jin Ellis MD) Father Myocardial infarction Mother Breast cancer CVA (cerebral vascular accident) History Items: No pertinent history Paternal Family History: Family History (Last Reviewed 09/13/19 @ 15:[address] Jin Ellis MD) Father Myocardial infarction Mother Breast cancer CVA (cerebral vascular accident) History Items: No pertinent history Review of Systems Respiratory: Reports: Cough, Shortness of Breath Patient Problems: Active and Suspected Problems (Last Reviewed 09/13/19 @ 15:[address] Jin Ellis MD) COVID-19 (Acute) Pulmonary embolism (Acute) Thrombocytopenia (Acute) UTI (urinary tract infection) (Acute) ANGELICA (acute kidney injury) (Acute) Fatigue (Acute) Nonproductive cough (Acute) Body aches (Acute) Shortness of breath (Acute) Sepsis (Acute) - Physical Exam Vitals/I&O's: Vital Signs Temp Pulse Resp BP Pulse Ox 97.8 F 85 19 H 124/81 H 96 02/28/20 08:00 02/28/20 11:27 02/28/20 11:00 02/28/20 11:00 02/28/20 11:00 Oxygen Flow Rate (L/min) 4 Oxygen Delivery Method Nasal Cannula Weight: 195 lb 12.328 oz Body Mass Index (BMI) 31.4 Intake and Output for Last 24 Hours 02/26/20 02/27/20 02/28/20 23:59 23:59 23:59 Intake Total 1385.65 / 1385.65 2295.27 / 2295.27 Output Total 150 / 150 0 / 0 Balance 1235.65 / 1235.65 2295.27 / 2295.27 General: Alert, Oriented x3 Comment: Not examine due to COVID isolation Microbiology Past 72 Hours 02/27/20 20:00 Blood Culture (Wb) - Anticubital Right Blood Culture - Preliminary 02/27/20 20:15 Blood Culture (Wb) - Anticubital Left Blood Culture - Preliminary 02/27/20 17:55 Mucosa - Nose Respiratory Panel (PCR) - Final 02/27/20 17:55 Mucosa - Nose SARS-CoV-2 Antigen (Rapid) - Final SARS-CoV-2 (COVID 19) Laboratory Results 02/27/20 17:55: COVID-19 (SAMIR) Negative 02/27/20 17:57: WBC 17.5 H, RBC 5.03, Hgb 15.0, Hct 44.7, MCV 88.9, MCH 29.8, MCHC 33.6, RDW Std Deviation 46.3 H, RDW Coeff of Lonnie 14.3, Plt Count 42 L*, MPV 12.5 H, Immature Gran % (Auto) 1.400 H, Neut % (Auto) 82.6 H, Lymph % (Auto) 8.9 L, [place] % (Auto) 6.0, Eos % (Auto) 0.9, Baso % (Auto) 0.2, Absolute Neuts (auto) 14.5 H, Absolute Lymphs (auto) 1.56, Nucleated RBC % 0, Differential Comment SCANNED, Diff Path Review July02/27/20 17:57: Sodium 137, Potassium 2.8 L, Chloride 105, Carbon Dioxide 20.0 L, Anion Gap 12, BUN 76 H, Creatinine 2.49 H, Estim Creat Clear Calc 18.84, Est GFR (MDRD) Af Amer 24 L, Est GFR (MDRD) Non-Af 20 L, BUN/Creatinine Ratio 30.5 H, Glucose 125 H, Calcium 8.9, Total Bilirubin 1.20 H, Direct Bilirubin 0.75 H, AST 37, ALT 34, Alkaline Phosphatase 468 H, Troponin I 0.031, Total Protein 6.9, Albumin 2.6 L, Globulin 4.3 H 02/27/20 17:57: B-Natriuretic Peptide 579.1 H 02/27/20 17:57: D-Dimer Quant (PE/DVT) 11.77 H* 02/27/20 17:57: PT 13.8, INR 1.1, APTT 33.5 02/27/20 20:00: Lactic Acid 1.9 02/27/20 20:20: Urine Color Yellow, Urine Clarity Cloudy, Urine pH 5.0, Ur Specific [place] 1.015, Urine Protein 30 H, Urine Glucose (UA) Normal, Urine Ketones Negative, Urine Occult Blood 150 H, Urine Nitrite Negative, Urine Bilirubin Negative, Urine Urobilinogen Normal, Ur Leukocyte Esterase 500 H, Urine RBC 0-5 SEEN, Urine WBC 10-25 SEEN, Ur Squamous Epith Cells 5-10 SEEN, Urine Bacteria 1+, Urine Mucus 0 SEEN 02/28/20 04:08: WBC 21.7 H, RBC 4.78, Hgb 14.4, Hct 42.5, MCV 88.9, MCH 30.1, MCHC 33.9, RDW Std Deviation 46.1 H, RDW Coeff of Lonnie 14.4, Plt Count 28 L*, MPV 11.9, Immature Gran % (Auto) 2.100 H, Neut % (Auto) 90.1 H, Lymph % (Auto) 2.6 L, [place] % (Auto) 4.1, Eos % (Auto) 0.2, Baso % (Auto) 0.9, Absolute Neuts (auto) 19.5 H, Absolute Lymphs (auto) 0.57 L, Nucleated RBC % 0, Diff Path Review July02/28/20 04:08: Sodium 140, Potassium 4.0, Chloride 111 H, Carbon Dioxide 18.0 L, Anion Gap 11, BUN 62 H, Creatinine 1.69 H, Estim Creat Clear Calc 27.75, Est GFR (MDRD) Af Amer 38 L, Est GFR (MDRD) Non-Af 32 L, BUN/Creatinine Ratio 36.7 H, Glucose 142 H, Calcium 8.2 L, Total Bilirubin 1.30 H, AST 39 H, ALT 34, Alkaline Phosphatase 575 H, Total Protein 6.2 L, Albumin 2.1 L, Globulin 4.1, Albumin/Globulin Ratio 0.5 L 02/28/20 04:08: APTT 44.3 H 02/28/20 10:35: APTT 55.3 H Current Medications Acetaminophen (Acetaminophen 325 Mg Tablet) 650 mg PO Q6H PRN PRN PRN Reason: Pain Score 1-10/Temp > 100.7 F Last Admin: 02/28/20 10:45 Dose: 650 mg Documented by: Atorvastatin Calcium (Atorvastatin Calcium 10 Mg Tablet) 10 mg PO DAILY@2200 [facility] Dexamethasone (Dexamethasone 2 Mg Tablet) 6 mg PO DAILY [facility] Last Admin: 02/28/20 10:45 Dose: 6 mg Documented by: Guaifenesin (Guaifenesin Dm 10 Ml Udc) 10 ml PO Q6H PRN PRN PRN Reason: COUGH Heparin Sodium (Porcine) (Heparin Injection (Vial) 5,000 Unit/Ml Vial) 0 unit IV UD PRN; Protocol PRN Reason: dose adjustment Last Admin: 02/27/20 21:45 Dose: 6,000 unit Documented by: Remdesivir 100 mg/ Sodium (Chloride) 250 mls @ 125 mls/hr IV DAILY [facility] Stop: 03/02/20 11:59 Ceftriaxone Sodium (Rocephin) 1 gm in 50 mls @ 100 mls/hr IV Q24@2200 [facility] Sodium Chloride () 250 mls @ 15 mls/hr IV .[id number] PRN PRN Reason: Saline Flush Last Infusion: 02/28/20 07:00 Dose: 0 mls/hr Documented by: Sodium Chloride () 250 mls @ 15 mls/hr IV .[id number] PRN PRN Reason: Additional IVPB Infusion Diltiazem HCl 125 mg/ Dextrose 125 mls @ 5 mls/hr IV .Q25H [facility]; Protocol Last Titration: 02/28/20 10:00 Dose: 0 mg/hr, 0 mls/hr Documented by: Sodium Chloride () 1,000 mls @ 100 mls/hr IV .Q10H [facility] Stop: 02/28/20 21:04 Last Admin: 02/28/20 11:26 Dose: 100 mls/hr Documented by: Heparin Sodium/Dextrose () 25,000 units in 250 mls @ 13 mls/hr IV .[id number] [facility]; Protocol Last Admin: 02/28/20 11:39 Dose: 1,300 units/hr, 13 mls/hr Documented by: Ondansetron HCl (Ondansetron 4 Mg/2 Ml Vial) 4 mg IV Q8H PRN PRN PRN Reason: NAUSEA/VOMITING Oxycodone HCl (Oxycodone 5 Mg Tablet) 10 mg PO Q4H PRN PRN PRN Reason: Pain Score 4-10 Sodium Chloride (0.9% Saline Lock 10 Ml Syringe) 10 - 40 ml IV UD PRN PRN Reason: SALINE FLUSH Temazepam (Temazepam 15 Mg Capsule) 15 mg PO QHS PRN PRN PRN Reason: INSOMNIA Venlafaxine HCl (Venlafaxine Xr 75 Mg Capsule) 75 mg PO DAILY [facility] Last Admin: 02/28/20 10:45 Dose: 75 mg Documented by: Assessment/Plan All Active Problems (Last Reviewed 09/13/19 @ 15:[address] Jin Ellis MD) COVID-19 (Acute) Pulmonary embolism (Acute) Thrombocytopenia (Acute) UTI (urinary tract infection) (Acute) ANGELICA (acute kidney injury) (Acute) Fatigue (Acute) Nonproductive cough (Acute) Body aches (Acute) Shortness of breath (Acute) Sepsis (Acute) In summary, 74 year old lady with acute respiratory failure from sepsis, possible PE, and COVID. She presented with lymphopenia and thrombocytopenia secondary to sepsis and possible COVID. She is being treated for possible PE on IV heparin. Reviewed of PBS showed moderate thrombocytopenia and neutrophilia. No evidence of MAHA or DIC. IMPRESSION/PLAN: 1) Thrombocytopenia secondary to Sepsis and possible COVID infection. - decreased platelet today but no bleeding complications on IV heparin Plan: - Continue IV heparin until PE is rule-out on CTA chest - Monitor platelet counts and transfuse if platelet is less than 20,000 or for bleeding/petichea. - Continue Decadron 6 mg daily & COVID treatment - Continue antibiotic for gram negative sepsis. - Awaiting ID consult - Check anti-Cardiolipin antibodies. - Treatment plans discussed with Dr. Cintron and Dr. Garcia - I will continue to monitor her labs and progressed cc: Dr. Sheree Fleming, Dr. Sharlene Garcia, Dr. Carlin Cintron, Dr. Quentin Carter
--- NOTE | 2020-02-28 12:43 | CASEMGMT ---
RN CM Assessment Note Introduced role of CM to patient's . Demographics, PCP verified. states patient is generally independent at home and able to care for self. He is available to assist her on dc if needed. He has masks, gloves available and family can provide groceries/medications to home. -reviewed quarantine with including isolating in home. He feels he can do this. COVID 19 testing: rapid antigen test @ [facility] positive. Presentation: shortness of breath Diagnosis: Respiratory failure, possible COVID-19. PCP: Dr. Carter Specialist: Dr. Ellis Insurance: [employer] Preferred Pharmacy: Prescription Benefit: yes LNOK: Antione Carney Living Arrangements: Lives in one story home with one step down to bedroom. Tranportation: patient can drive, also can assist DME: walker . If oxygen needed, would go through [facility] for [employer] HHC: no SNF: no Patient DC Goals: Home DC Plan: TBD. CM available for discharge planning coordination. Contact CM for any concerns/needs that may arise. Carmelita BATEMAN RN ACM
[2020-02-28] MEDS: oxyCODONE 5 MG Tablet 10 MG PO ×2 (13:30→20:29)
[2020-02-28 13:40] LABS: Absolute Lymphocyte Count 1.23 X10^3/uL (0.83-4.51); Absolute Neutrophil Count 17.8 X10^3/uL (2.0-7.7); Basophil# 0.13 X10^3/uL; Basophil% 0.6 % (0-1); Eosinophil# 0.02 X10^3/uL; Eosinophils% 0.1 % (0-5); Hematocrit 41.7 % (37-47); Hemoglobin 13.9 g/dL (12.0-15.0); Lymphocyte # 1.23 X10^3/ul (4.0); Lymphocyte % 5.9 % (19-41); Mean Corp Hgb Conc 33.3 g/dL (32-36); Mean Corpuscular Hgb 29.6 pg (27.0-32.0); Mean Corpuscular Volume 88.7 fL (81-99); Mean Platelet Vol. 13.4 fl (6.2-12.0); Monocyte# 1.12 X10^3/uL; Monocyte% 5.3 % (0-10); NRBC Flagged by Analyzer 0 % (0-5); Neutrophil # 17.79 X10^3/uL (2.7-7.7); Neutrophil % 84.9 % (47-70); POSITIVE COUNT YES; POSITIVE MORPHOLOGY YES; RBC Distribution Width CV 14.3 % (11.6-14.6)
[2020-02-28 13:48] LABS: Anion Gap 5 (5-15); BUN 51 mg/dL (7-18); BUN/Creat Ratio 38.6 RATIO (10-20); Calcium,Total 8.5 mg/dL (8.5-10.1); Chloride 111 mmol/L (98-107); Creatinine, Serum 1.32 mg/dL (0.55-1.02); EST Glomerular Filtration Rate 42 mL/min (>60); Est Glom Filt Rate - Afr Amer 51 mL/min (>60); Estimated Creatinine Clearance 35.53 ml/min; Glucose 135 mg/dL (74-106); Potassium 4.2 mmol/L (3.5-5.1); Sodium Level 137 mmol/L (136-145)
[2020-02-28 13:50] LABS: Differential Indicated SCAN CRITERIA MET; Platelet Count 28 K/mm3 (150-450)
[2020-02-28 14:08] LABS: Erythrocyte Sedimentation Rate 76 mm/hr (0-30)
--- NOTE | 2020-02-28 14:11 | CHAPLAIN ---
Type of Pastoral Visit ___ Initial Visit ___ Follow-up Visit ___ On-call Visit ___ General Patient Visit ___ Spiritual Assessment ___ Family Conference ___ Bereavement ___ Rapid Response ___ Code Blue _x__ Other (describe below) Pastoral Care Referral From _x__ Patient ___ Family ___ Nurse ___ Physician ___ Pets Salesperson ___ Security Officers And Guards ___ Other (describe below) Sacrament/Intervention _x__ Active listening ___ Anointing ___ Mandaen ___ Bereavement ___ Communion ___ Airam exploration ___ ___ Life review _x__ Prayer ___ Reconciliation ___ Sacrament of Sick ___ Supportive presence ___ Wedding ___ Other (describe below) Pastoral Comments phone call made into the patient isolation room; pt willing to talk and expresses thankfulness for support; pt request is for prayer and for emotional support during this recovery
[2020-02-28 14:15] LABS: Pathologist Review Reviewed
[2020-02-28 14:15] LABS: Pathologist Review Reviewed
--- NOTE | 2020-02-28 14:40 | CT_ITS ---
STUDY: CT ABDOMEN AND PELVIS WITH CONTRAST REASON FOR EXAM: Female, 74 years old. SOB, elevated D-dimer, acute kidney injury RADIATION DOSAGE (If Supplied By Facility): CTDIvol = ( 17.68 ) mGy, DLP = ( 1792.95 ) mGycm TECHNIQUE: Transaxial images were obtained from the dome of the diaphragm to the symphysis pubis without oral contrast. IV 75mL Isovue-370 was administered. Sagittal and coronal images were reconstructed. Individualized dose optimization techniques were used for this CT. COMPARISON: None. FINDINGS: Limited views through the lower chest show bilateral small pleural effusions worse on the right. There is bilateral posterior lower lobe atelectasis or infiltrate, worse on the right. There is hepatomegaly with diffuse hepatic enlargement. Normal gallbladder and extrahepatic biliary system. Normal spleen. Normal pancreas. Normal bilateral adrenal glands. Right kidney shows decreased enhancement and mild to moderate hydronephrosis related to a 5 mm proximal right ureteral stone seen on coronal image 66 and axial punctate nonobstructing upper pole stone. Left kidney has a nonobstructing 7 mm lower pole stone. Left kidney is otherwise normal. Evaluation of the GI tract is limited by absence of oral contrast. Cannot exclude stomach wall thickening. No dilated loops of bowel or evidence for obstruction. Cannot exclude segmental thickening of the garcia of the small or large bowel. Cannot exclude enteritis or colitis. Moderate diffuse fecal retention. Diverticulosis without definite diverticulitis. Appendix is not seen. Normal abdominal aorta. Normal inferior vena cava. Normal retroperitoneum. Trace free fluid. Normal urinary bladder. Abnormal uterus with markedly thickened and irregular endometrial echoes measuring 3 cm thick. There is a small umbilical hernia containing fat. There are diffuse degenerative changes of the visualized lumbar spine. CT/Abdomen/Pelvis WITH Contrast IMPRESSION: Obstruction of the right kidney and collecting system from a 5 mm proximal right ureteral stone. Additional bilateral currently nonobstructing stones. Hepatomegaly. Abnormal endometrial echoes. Mass not excluded. Electronically Signed: Jim Auguste MD at 16:22 EST , Service support ,
--- NOTE | 2020-02-28 15:13 | NURSING ---
patient down to CT with can solderer at [phone]
--- NOTE | 2020-02-28 16:16 | CON.PCM_ITS ---
Problem List (1) Sepsis Status: Acute Qualifiers: Sepsis type: sepsis due to unspecified organism Sepsis acute organ dysfunction status: with acute organ dysfunction Severe sepsis acute organ dysfunction type: acute renal failure Acute renal failure type: unspecified Severe sepsis shock status: without septic shock Qualified Code(s): A41.9 - Sepsis, unspecified organism; R65.20 - Severe sepsis without septic shock; N17.9 - Acute kidney failure, unspecified Reason for Consult: bacteremia Consulted by: Dr. Mcallister History of Present Illness: The patient is a 74 year old F presented with sx starting 02/23 with chills/rigors, headache, nausea, dry heaves, dysuria, foul urine odor and increased frequency, and R flank pain. No change in taste or smell. Lives with , no sick contacts, no travel, has been masking. Some loss of appetite. Remote h/o kidney stones. Covid neg as outpt, came to ED with worsening dyspnea, covid Ag (+) but pcr neg. Here with ANGELICA, sepsis, given zosyn, admitted on dex and ceftriaxone. Feeling about the same today. Full ROS performed and neg except as noted above. - Medical History Past Medical History (Chronic Problems): Chronic Problems (Last Reviewed 09/13/19 @ 15:[address] Jin Ellis MD) Nonobstructive atherosclerosis of coronary artery (Chronic) non obstructive CAD of Prox LAD ~30% per cath 2009 Hyperlipidemia (Chronic) Allergies/Adverse Reactions: Allergies niacin Adverse Reaction (Verified 02/27/20 17:36) flushing oxycodone Adverse Reaction (Verified 02/27/20 17:36) Itching Home Medications: Ambulatory Orders Medication Instructions Recorded cholecalciferol (vitamin D3) unit PO QDAY ml 08/04/17 diclofenac sodium 1 % topical gel 2 g TOPICAL BID PRN #100 g 08/04/17 super greens PO 08/04/17 turmeric root extract 1,053 mg 1,320 mg PO QDAY tab 08/04/17 tablet rosuvastatin 5 mg tablet 5 mg PO DAILY 09/13/19 venlafaxine 75 mg tablet 75 mg PO DAILY 09/13/19 - Social History Tobacco Use: non-smoker Vital Signs Temp Pulse Resp BP Pulse Ox 97.8 F 77 19 H 136/80 H 96 02/28/20 12:00 02/28/20 15:00 02/28/20 15:00 02/28/20 15:00 02/28/20 15:00 Oxygen Flow Rate (L/min) 4 Oxygen Delivery Method Nasal Cannula Weight: 88.8 kg Body Mass Index (BMI) 31.4 Microbiology Past 72 Hours 02/27/20 20:15 Blood Culture - Preliminary Blood Culture (Wb) - Anticubital Left 02/27/20 20:00 Blood Culture - Preliminary Blood Culture (Wb) - Anticubital Right 02/27/20 17:55 Respiratory Panel (PCR) - Final Mucosa - Nose 02/27/20 17:55 SARS-CoV-2 Antigen (Rapid) - Final Mucosa - Nose SARS-CoV-2 (COVID 19) Laboratory Tests Past 24 Hrs 02/27/20 02/27/20 02/27/20 17:55 17:57 17:57 WBC 17.5 H RBC 5.03 Hgb 15.0 Hct 44.7 MCV 88.9 MCH 29.8 MCHC 33.6 RDW Std Deviation 46.3 H RDW Coeff of Lonnie 14.3 Plt Count 42 L* MPV 12.5 H Immature Gran % (Auto) 1.400 H Neut % (Auto) 82.6 H Lymph % (Auto) 8.9 L [place] % (Auto) 6.0 Eos % (Auto) 0.9 Baso % (Auto) 0.2 Absolute Neuts (auto) 14.5 H Absolute Lymphs (auto) 1.56 Nucleated RBC % 0 Differential Comment SCANNED Diff Path Review Reviewed ESR PT INR APTT D-Dimer Quant (PE/DVT) Sodium 137 Potassium 2.8 L Chloride 105 Carbon Dioxide 20.0 L Anion Gap 12 BUN 76 H Creatinine 2.49 H Estim Creat Clear Calc 18.84 Est GFR (MDRD) Af Amer 24 L Est GFR (MDRD) Non-Af 20 L BUN/Creatinine Ratio 30.5 H Glucose 125 H Lactic Acid Calcium 8.9 Total Bilirubin 1.20 H Direct Bilirubin 0.75 H AST 37 ALT 34 Alkaline Phosphatase 468 H Troponin I 0.031 C-React Prot Ext Range B-Natriuretic Peptide Total Protein 6.9 Albumin 2.6 L Globulin 4.3 H Albumin/Globulin Ratio Urine Color Urine Clarity Urine pH Ur Specific [place] Urine Protein Urine Glucose (UA) Urine Ketones Urine Occult Blood Urine Nitrite Urine Bilirubin Urine Urobilinogen Ur Leukocyte Esterase Urine RBC Urine WBC Ur Squamous Epith Cells Urine Bacteria Urine Mucus COVID-19 ([facility]) Negative 02/27/20 02/27/20 02/27/20 17:57 17:57 17:57 WBC RBC Hgb Hct MCV MCH MCHC RDW Std Deviation RDW Coeff of Lonnie Plt Count MPV Immature Gran % (Auto) Neut % (Auto) Lymph % (Auto) [place] % (Auto) Eos % (Auto) Baso % (Auto) Absolute Neuts (auto) Absolute Lymphs (auto) Nucleated RBC % Differential Comment Diff Path Review ESR PT 13.8 INR 1.1 APTT 33.5 D-Dimer Quant (PE/DVT) 11.77 H* Sodium Potassium Chloride Carbon Dioxide Anion Gap BUN Creatinine Estim Creat Clear Calc Est GFR (MDRD) Af Amer Est GFR (MDRD) Non-Af BUN/Creatinine Ratio Glucose Lactic Acid Calcium Total Bilirubin Direct Bilirubin AST ALT Alkaline Phosphatase Troponin I C-React Prot Ext Range B-Natriuretic Peptide 579.1 H Total Protein Albumin Globulin Albumin/Globulin Ratio Urine Color Urine Clarity Urine pH Ur Specific [place] Urine Protein Urine Glucose (UA) Urine Ketones Urine Occult Blood Urine Nitrite Urine Bilirubin Urine Urobilinogen Ur Leukocyte Esterase Urine RBC Urine WBC Ur Squamous Epith Cells Urine Bacteria Urine Mucus COVID-19 ([facility]) 02/27/20 02/27/20 02/28/20 20:00 20:20 04:08 WBC 21.7 H RBC 4.78 Hgb 14.4 Hct 42.5 MCV 88.9 MCH 30.1 MCHC 33.9 RDW Std Deviation 46.1 H RDW Coeff of Lonnie 14.4 Plt Count 28 L* MPV 11.9 Immature Gran % (Auto) 2.100 H Neut % (Auto) 90.1 H Lymph % (Auto) 2.6 L [place] % (Auto) 4.1 Eos % (Auto) 0.2 Baso % (Auto) 0.9 Absolute Neuts (auto) 19.5 H Absolute Lymphs (auto) 0.57 L Nucleated RBC % 0 Differential Comment Diff Path Review Reviewed ESR PT INR APTT D-Dimer Quant (PE/DVT) Sodium Potassium Chloride Carbon Dioxide Anion Gap BUN Creatinine Estim Creat Clear Calc Est GFR (MDRD) Af Amer Est GFR (MDRD) Non-Af BUN/Creatinine Ratio Glucose Lactic Acid 1.9 Calcium Total Bilirubin Direct Bilirubin AST ALT Alkaline Phosphatase Troponin I C-React Prot Ext Range B-Natriuretic Peptide Total Protein Albumin Globulin Albumin/Globulin Ratio Urine Color Yellow Urine Clarity Cloudy Urine pH 5.0 Ur Specific [place] 1.015 Urine Protein 30 H Urine Glucose (UA) Normal Urine Ketones Negative Urine Occult Blood 150 H Urine Nitrite Negative Urine Bilirubin Negative Urine Urobilinogen Normal Ur Leukocyte Esterase 500 H Urine RBC 0-5 SEEN Urine WBC 10-25 SEEN Ur Squamous Epith Cells 5-10 SEEN Urine Bacteria 1+ Urine Mucus 0 SEEN COVID-19 ([facility]) 02/28/20 02/28/20 02/28/20 04:08 04:08 10:35 WBC RBC Hgb Hct MCV MCH MCHC RDW Std Deviation RDW Coeff of Lonnie Plt Count MPV Immature Gran % (Auto) Neut % (Auto) Lymph % (Auto) [place] % (Auto) Eos % (Auto) Baso % (Auto) Absolute Neuts (auto) Absolute Lymphs (auto) Nucleated RBC % Differential Comment Diff Path Review ESR PT INR APTT 44.3 H 55.3 H D-Dimer Quant (PE/DVT) Sodium 140 Potassium 4.0 Chloride 111 H Carbon Dioxide 18.0 L Anion Gap 11 BUN 62 H Creatinine 1.69 H Estim Creat Clear Calc 27.75 Est GFR (MDRD) Af Amer 38 L Est GFR (MDRD) Non-Af 32 L BUN/Creatinine Ratio 36.7 H Glucose 142 H Lactic Acid Calcium 8.2 L Total Bilirubin 1.30 H Direct Bilirubin AST 39 H ALT 34 Alkaline Phosphatase 575 H Troponin I C-React Prot Ext Range B-Natriuretic Peptide Total Protein 6.2 L Albumin 2.1 L Globulin 4.1 Albumin/Globulin Ratio 0.5 L Urine Color Urine Clarity Urine pH Ur Specific [place] Urine Protein Urine Glucose (UA) Urine Ketones Urine Occult Blood Urine Nitrite Urine Bilirubin Urine Urobilinogen Ur Leukocyte Esterase Urine RBC Urine WBC Ur Squamous Epith Cells Urine Bacteria Urine Mucus COVID-19 ([facility]) 02/28/20 02/28/20 13:10 13:10 WBC 21.0 H RBC 4.70 Hgb 13.9 Hct 41.7 MCV 88.7 MCH 29.6 MCHC 33.3 RDW Std Deviation 46.0 H RDW Coeff of Lonnie 14.3 Plt Count 28 L* MPV 13.4 H Immature Gran % (Auto) 3.200 H Neut % (Auto) 84.9 H Lymph % (Auto) 5.9 L [place] % (Auto) 5.3 Eos % (Auto) 0.1 Baso % (Auto) 0.6 Absolute Neuts (auto) 17.8 H Absolute Lymphs (auto) 1.23 Nucleated RBC % 0 Differential Comment Diff Path Review July foll ESR 76 H PT INR APTT D-Dimer Quant (PE/DVT) Sodium 137 Potassium 4.2 Chloride 111 H Carbon Dioxide 21.0 Anion Gap 5 BUN 51 H Creatinine 1.32 H Estim Creat Clear Calc 35.53 Est GFR (MDRD) Af Amer 51 L Est GFR (MDRD) Non-Af 42 L BUN/Creatinine Ratio 38.6 H Glucose 135 H Lactic Acid Calcium 8.5 Total Bilirubin Direct Bilirubin AST ALT Alkaline Phosphatase Troponin I C-React Prot Ext Range 179.00 H B-Natriuretic Peptide Total Protein Albumin Globulin Albumin/Globulin Ratio Urine Color Urine Clarity Urine pH Ur Specific [place] Urine Protein Urine Glucose (UA) Urine Ketones Urine Occult Blood Urine Nitrite Urine Bilirubin Urine Urobilinogen Ur Leukocyte Esterase Urine RBC Urine WBC Ur Squamous Epith Cells Urine Bacteria Urine Mucus COVID-19 ([facility]IR) - Other Studies Radiology: [] reviewed Other Studies: [] Route of nutrition/ use of supplements: [] Nutritional Intake: [] IV Site: [] Stern Catheter: [] - Physical Exam General: Alert, Cooperative HEENT: Atraumatic, PERRLA, EOMI Neck: Supple, No Nodes Lungs: Clear to auscultation, Diminished Cardiovascular: Tachycardic Abdomen: Soft, Non Tender, Non-Distended, - - mild R flank pain Extremities: No edema Skin: No rashes IV Site: Peripheral, without redness Musculoskeletal: No Tenderness to Palpation of Joints or Extremities Neurological: Cranial nerves II-XII grossly intact - Assessment/Plan Antibiotics: [] Assessment/Plan: [] Active and Suspected Problems (Last Reviewed 09/13/19 @ 15:[address] Jin Ellis MD) COVID-19 (Acute) Pulmonary embolism (Acute) Thrombocytopenia (Acute) UTI (urinary tract infection) (Acute) ANGELICA (acute kidney injury) (Acute) Fatigue (Acute) Nonproductive cough (Acute) Body aches (Acute) Shortness of breath (Acute) Sepsis (Acute) severe sepsis with ANGELICA and GNR bacteremia from suspected urinary source - concern for PE given dyspnea and high d-dimer. On anticoag, CTA chest pending. Covid Ag (+) but pcr neg. Based on symptoms and testing, overall low suspicion for covid. Agree with holding remdesivir at this point. Is on dex, ok for now and to keep isolation for now. Will change ceftriaxone to zosyn for broader coverage given severity of illness, will check CT abd/pelvis to look for stone/hydro/abscess. Will follow, thank you, d/w Dr. Cintron and nursing.
--- NOTE | 2020-02-28 18:41 | PCM.CONS.U ---
Problem List (1) Kidney stone on right side Status: Acute Reason for Consult Date of Consultation: 02/28/20 Reason for Consultation: obstructing kidney stone, sepsis History of Present Illness: The patient is a 74 year old Female admitted with WBC elevated, on Ct scan had obstructing stone proximal right ureter GN sepsis, stable in ICU, Covid neg. Past Medical History Past Medical History (Chronic Problems): Chronic Problems (Last Reviewed 09/13/19 @ 15:[address] Jin Ellis MD) Nonobstructive atherosclerosis of coronary artery (Chronic) non obstructive CAD of Prox LAD ~30% per cath 2009 Hyperlipidemia (Chronic) Medical History: Medical History (Last Reviewed 09/13/19 @ 15:[address] Jin Ellis MD) Nonobstructive atherosclerosis of coronary artery (Chronic) I25.10 non obstructive CAD of Prox LAD ~30% per cath 2009 Hyperlipidemia (Chronic) E78.5 Diverticulosis of colon K57.30 Fibromyalgia M79.7 Gastritis without bleeding K29.70 History of nephrolithiasis Z87.442 IBS (irritable bowel syndrome) K58.9 Internal hemorrhoid K64.8 Osteoarthritis M19.90 Vitamin D deficiency E55.9 Arthritis of knee, degenerative (Inactive) M17.10 Allergies niacin Adverse Reaction (Verified 02/27/20 17:36) flushing oxycodone Adverse Reaction (Verified 02/27/20 17:36) Itching Home Medications: Ambulatory Orders Medication Instructions Recorded cholecalciferol (vitamin D3) unit PO QDAY ml 08/04/17 diclofenac sodium 1 % topical gel 2 g TOPICAL BID PRN #100 g 08/04/17 super greens PO 08/04/17 turmeric root extract 1,053 mg 1,320 mg PO QDAY tab 08/04/17 tablet rosuvastatin 5 mg tablet 5 mg PO DAILY 09/13/19 venlafaxine 75 mg tablet 75 mg PO DAILY 09/13/19 Surgical History: Surgical History (Last Reviewed 09/13/19 @ 15:[address] 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 Jin Ellis MD) Father Myocardial infarction Mother Breast cancer CVA (cerebral vascular accident) History Items: No pertinent history Paternal Family History: Family History (Last Reviewed 09/13/19 @ 15:[address] Jin Ellis MD) Father Myocardial infarction Mother Breast cancer CVA (cerebral vascular accident) History Items: No pertinent history Physical Exam - Physical Exam Vital Signs Temp 97.8 F 02/28/20 16:00 Pulse 86 02/28/20 18:00 Resp 18 02/28/20 18:00 BP 103/80 02/28/20 18:00 Pulse Ox 94 02/28/20 18:00 Intake & Output 02/26/20 02/27/20 02/28/20 23:59 23:59 23:59 Intake Total 1385.65 / 1385.65 2602.65 / 2602.65 Output Total 150 / 150 300 / 300 Balance 1235.65 / 1235.65 2302.65 / 2302.65 Weight: 88.3 kg 88.8 kg Intake: Oral 60 / 60 980 / 980 Intake, IV Amount 1325.65 / 1325.65 1622.65 / 1622.65 0.9% Normal Saline 1,000 ML @ 1000 / 1000 125 mls/hr IV .Q8H [facility] Rx#: [id number] 0.9% Normal Saline 1,000 ML @ 1016.65 / 1016.65 999 mls/hr IV .[id number] [facility] Rx#: [id number] 0.9% Normal Saline 250 ML @ 15 83.5 / 83.5 mls/hr IV .[id number] PRN Rx#: [id number] Cardizem 125 MG In Dextrose 5%- 71.25 / 71.25 Water 100 ML @ 5 MG/HR 5 mls/hr IV .Q25H [facility] Rx#:[id number] HEPARIN/D5w 25,000 UNITS 25,000 9 / 9 150.52 / 150.52 UNITS/250 ML25,000 units In 250 ml @ As Directed 12 mls/hr IV .[id number] [facility] Rx#:[id number] HEPARIN/D5w 25,000 UNITS 25,000 67.38 / 67.38 UNITS/250 ML25,000 units In 250 ml @ As Directed 13 mls/hr IV .[id number] [facility] Rx#:[id number] Potassium Chloride 10mEq/100mL 200 / 200 200 / 200 10 MEQ/100 ML10 meq In 100 ml @ 100 mls/hr IV BOLUS Q1H [facility] Rx #:[id number] Rocephin 1 gm In 50 ml @ 100 50 / 50 mls/hr IV X1 [facility] Rx#:[id number] Zosyn 4.5 GM In 0.9% Normal 100 / 100 Saline 100 ML @ 200 mls/hr IV X1 [facility] Rx#:[id number] Output: Urine 150 / 150 300 / 300 Other: Number of times incontinent 1 Incontinent Amount Large Microbiology Past 72 Hours 02/27/20 20:15 Blood Culture - Preliminary Blood Culture (Wb) - Anticubital Left 02/27/20 20:00 Blood Culture - Preliminary Blood Culture (Wb) - Anticubital Right 02/27/20 17:55 Respiratory Panel (PCR) - Final Mucosa - Nose 02/27/20 17:55 SARS-CoV-2 Antigen (Rapid) - Final Mucosa - Nose SARS-CoV-2 (COVID 19) Laboratory Tests Past 24 Hrs 02/27/20 02/27/20 02/27/20 17:55 17:57 17:57 WBC RBC Hgb Hct MCV MCH MCHC RDW Std Deviation RDW Coeff of Lonnie Plt Count MPV Immature Gran % (Auto) Neut % (Auto) Lymph % (Auto) [place] % (Auto) Eos % (Auto) Baso % (Auto) Absolute Neuts (auto) Absolute Lymphs (auto) Nucleated RBC % Diff Path Review Reviewed ESR PT INR APTT D-Dimer Quant (PE/DVT) Sodium Potassium Chloride Carbon Dioxide Anion Gap BUN Creatinine Estim Creat Clear Calc Est GFR (MDRD) Af Amer Est GFR (MDRD) Non-Af BUN/Creatinine Ratio Glucose Lactic Acid Calcium Total Bilirubin AST ALT Alkaline Phosphatase C-React Prot Ext Range B-Natriuretic Peptide 579.1 H Total Protein Albumin Globulin Albumin/Globulin Ratio Urine Color Urine Clarity Urine pH Ur Specific [place] Urine Protein Urine Glucose (UA) Urine Ketones Urine Occult Blood Urine Nitrite Urine Bilirubin Urine Urobilinogen Ur Leukocyte Esterase Urine RBC Urine WBC Ur Squamous Epith Cells Urine Bacteria Urine Mucus COVID-19 ([facility]IR) Negative 02/27/20 02/27/20 02/27/20 17:57 17:57 20:00 WBC RBC Hgb Hct MCV MCH MCHC RDW Std Deviation RDW Coeff of Lonnie Plt Count MPV Immature Gran % (Auto) Neut % (Auto) Lymph % (Auto) [place] % (Auto) Eos % (Auto) Baso % (Auto) Absolute Neuts (auto) Absolute Lymphs (auto) Nucleated RBC % Diff Path Review ESR PT 13.8 INR 1.1 APTT 33.5 D-Dimer Quant (PE/DVT) 11.77 H* Sodium Potassium Chloride Carbon Dioxide Anion Gap BUN Creatinine Estim Creat Clear Calc Est GFR (MDRD) Af Amer Est GFR (MDRD) Non-Af BUN/Creatinine Ratio Glucose Lactic Acid 1.9 Calcium Total Bilirubin AST ALT Alkaline Phosphatase C-React Prot Ext Range B-Natriuretic Peptide Total Protein Albumin Globulin Albumin/Globulin Ratio Urine Color Urine Clarity Urine pH Ur Specific [place] Urine Protein Urine Glucose (UA) Urine Ketones Urine Occult Blood Urine Nitrite Urine Bilirubin Urine Urobilinogen Ur Leukocyte Esterase Urine RBC Urine WBC Ur Squamous Epith Cells Urine Bacteria Urine Mucus COVID-19 (SAMIR) 02/27/20 02/28/20 02/28/20 20:20 04:08 04:08 WBC 21.7 H RBC 4.78 Hgb 14.4 Hct 42.5 MCV 88.9 MCH 30.1 MCHC 33.9 RDW Std Deviation 46.1 H RDW Coeff of Lonnie 14.4 Plt Count 28 L* MPV 11.9 Immature Gran % (Auto) 2.100 H Neut % (Auto) 90.1 H Lymph % (Auto) 2.6 L [place] % (Auto) 4.1 Eos % (Auto) 0.2 Baso % (Auto) 0.9 Absolute Neuts (auto) 19.5 H Absolute Lymphs (auto) 0.57 L Nucleated RBC % 0 Diff Path Review Reviewed ESR PT INR APTT D-Dimer Quant (PE/DVT) Sodium 140 Potassium 4.0 Chloride 111 H Carbon Dioxide 18.0 L Anion Gap 11 BUN 62 H Creatinine 1.69 H Estim Creat Clear Calc 27.75 Est GFR (MDRD) Af Amer 38 L Est GFR (MDRD) Non-Af 32 L BUN/Creatinine Ratio 36.7 H Glucose 142 H Lactic Acid Calcium 8.2 L Total Bilirubin 1.30 H AST 39 H ALT 34 Alkaline Phosphatase 575 H C-React Prot Ext Range B-Natriuretic Peptide Total Protein 6.2 L Albumin 2.1 L Globulin 4.1 Albumin/Globulin Ratio 0.5 L Urine Color Yellow Urine Clarity Cloudy Urine pH 5.0 Ur Specific [place] 1.015 Urine Protein 30 H Urine Glucose (UA) Normal Urine Ketones Negative Urine Occult Blood 150 H Urine Nitrite Negative Urine Bilirubin Negative Urine Urobilinogen Normal Ur Leukocyte Esterase 500 H Urine RBC 0-5 SEEN Urine WBC 10-25 SEEN Ur Squamous Epith Cells 5-10 SEEN Urine Bacteria 1+ Urine Mucus 0 SEEN COVID-19 (SAMIR) 02/28/20 02/28/20 02/28/20 04:08 10:35 13:10 WBC 21.0 H RBC 4.70 Hgb 13.9 Hct 41.7 MCV 88.7 MCH 29.6 MCHC 33.3 RDW Std Deviation 46.0 H RDW Coeff of Lon[place] 14.3 Plt Count 28 L* MPV 13.4 H Immature Gran % (Auto) 3.200 H Neut % (Auto) 84.9 H Lymph % (Auto) 5.9 L [place] % (Auto) 5.3 Eos % (Auto) 0.1 Baso % (Auto) 0.6 Absolute Neuts (auto) 17.8 H Absolute Lymphs (auto) 1.23 Nucleated RBC % 0 Diff Path Review July ESR 76 H PT INR APTT 44.3 H 55.3 H D-Dimer Quant (PE/DVT) Sodium Potassium Chloride Carbon Dioxide Anion Gap BUN Creatinine Estim Creat Clear Calc Est GFR (MDRD) Af Amer Est GFR (MDRD) Non-Af BUN/Creatinine Ratio Glucose Lactic Acid Calcium Total Bilirubin AST ALT Alkaline Phosphatase C-React Prot Ext Range B-Natriuretic Peptide Total Protein Albumin Globulin Albumin/Globulin Ratio Urine Color Urine Clarity Urine pH Ur Specific [place] Urine Protein Urine Glucose (UA) Urine Ketones Urine Occult Blood Urine Nitrite Urine Bilirubin Urine Urobilinogen Ur Leukocyte Esterase Urine RBC Urine WBC Ur Squamous Epith Cells Urine Bacteria Urine Mucus COVID-19 (SAMIR) 02/28/20 13:10 WBC RBC Hgb Hct MCV MCH MCHC RDW Std Deviation RDW Coeff of Lonnie Plt Count MPV Immature Gran % (Auto) Neut % (Auto) Lymph % (Auto) [place] % (Auto) Eos % (Auto) Baso % (Auto) Absolute Neuts (auto) Absolute Lymphs (auto) Nucleated RBC % Diff Path Review ESR PT INR APTT D-Dimer Quant (PE/DVT) Sodium 137 Potassium 4.2 Chloride 111 H Carbon Dioxide 21.0 Anion Gap 5 BUN 51 H Creatinine 1.32 H Estim Creat Clear Calc 35.53 Est GFR (MDRD) Af Amer 51 L Est GFR (MDRD) Non-Af 42 L BUN/Creatinine Ratio 38.6 H Glucose 135 H Lactic Acid Calcium 8.5 Total Bilirubin AST ALT Alkaline Phosphatase C-React Prot Ext Range 179.00 H B-Natriuretic Peptide Total Protein Albumin Globulin Albumin/Globulin Ratio Urine Color Urine Clarity Urine pH Ur Specific [place] Urine Protein Urine Glucose (UA) Urine Ketones Urine Occult Blood Urine Nitrite Urine Bilirubin Urine Urobilinogen Ur Leukocyte Esterase Urine RBC Urine WBC Ur Squamous Epith Cells Urine Bacteria Urine Mucus COVID-19 ([facility]IR) Assessment/Plan All Active Problems (Last Reviewed 09/13/19 @ 15:[address] Jin Ellis MD) COVID-19 (Acute) Pulmonary embolism (Acute) Thrombocytopenia (Acute) UTI (urinary tract infection) (Acute) ANGELICA (acute kidney injury) (Acute) Fatigue (Acute) Nonproductive cough (Acute) Body aches (Acute) Shortness of breath (Acute) Sepsis (Acute) Kidney stone on right side (Acute) plan to proceed with cystoscopy and right stent placement for infection and obstruction tomorrow, npo at midnight, consent
[2020-02-28] MEDS: Atorvastatin Calcium 10 MG Tablet PO (20:04)
[2020-02-29] VITALS (37 sets, daily range): BP systolic 98–151; BP diastolic 55–104; PULSE 67–96; RESP 10–24; TEMP 36.1–36.9; O2SAT 16–97; BMI 32.8
[2020-02-29 04:19] LABS: Absolute Lymphocyte Count 1.27 X10^3/uL (0.83-4.51); Absolute Neutrophil Count 17.7 X10^3/uL (2.0-7.7); Basophil# 0.12 X10^3/uL; Basophil% 0.6 % (0-1); Eosinophil# 0.01 X10^3/uL; Hematocrit 41.9 % (37-47); Hemoglobin 13.9 g/dL (12.0-15.0); Lymphocyte # 1.27 X10^3/ul (4.0); Mean Corp Hgb Conc 33.2 g/dL (32-36); Mean Corpuscular Volume 90.5 fL (81-99); Monocyte# 1.53 X10^3/uL; Monocyte% 7.2 % (0-10); NRBC Flagged by Analyzer 0 % (0-5); Neutrophil # 17.66 X10^3/uL (2.7-7.7); Neutrophil % 83.4 % (47-70); POSITIVE COUNT YES; POSITIVE DIFFERENTIAL YES; RBC Distribution Width CV 14.7 % (11.6-14.6); RBC Distribution Width SD 48.9 fl (35.1-43.9); Red Blood Count 4.63 M/mm3 (4.2-5.4); White Blood Count 21.2 K/mm3 (4.4-11.0)
[2020-02-29 04:22] LABS: Differential Indicated SCAN CRITERIA MET; Platelet Count 22 K/mm3 (150-450)
[2020-02-29 04:35] LABS: Anion Gap 6 (5-15); BUN 46 mg/dL (7-18); BUN/Creat Ratio 41.1 RATIO (10-20); Calcium,Total 8.8 mg/dL (8.5-10.1); Chloride 112 mmol/L (98-107); Creatinine, Serum 1.12 mg/dL (0.55-1.02); EST Glomerular Filtration Rate 51 mL/min (>60); Est Glom Filt Rate - Afr Amer 61 mL/min (>60); Estimated Creatinine Clearance 41.88 ml/min; Glucose 134 mg/dL (74-106); Potassium 4.5 mmol/L (3.5-5.1); Sodium Level 140 mmol/L (136-145)
[2020-02-29 04:38] LABS: Platelet Estimate MKD DEC (ADEQ)
--- NOTE | 2020-02-29 07:12 | PCM.PN.INT ---
Subjective: The patient was seen and examined at the bedside this morning. Events from the last 24 hours have been reviewed. The patient is currently afebrile, hemodynamically stable and maintaining appropriate oxygen saturations on 2 L/min via nasal cannula. Yesterday, a CT abdomen/pelvis was obtained which did reveal obstruction of the right kidney and collecting system with a 5 mm proximal right ureteral stone. Urology was subsequently consulted with plans for surgical intervention today. CTA chest was also completed and failed to demonstrate evidence of pulmonary embolism. Platelet count is again low this morning at 22,000. Creatinine has improved to 1.12. Objective: The patient's most recent lab work, culture data and imaging studies have all been personally reviewed. Coronavirus antigen was positive on February 26. However, follow-up PCR testing was negative. Blood cultures dated February 26 were both positive for gram-negative rods. Urine culture is pending. General: Alert, Cooperative, No apparent distress HEENT: Atraumatic, PERRLA, Normocephalic Oral: No Gingival or Mucosal Lesions/ Ulcerations Neck: Supple, No Nodes, Trachea Midline Lungs: Normal air movement Cardiovascular: Regular rate, Regular Rhythm Abdomen: Bowel Sounds Present, Soft, Non Tender Extremities: No clubbing, No cyanosis, No edema Skin: No breakdown Musculoskeletal: No Tenderness to Palpation of Joints or Extremities Lymphatic: No Cervical, Supraclavicular, or Inguinal Adenopathy Neurological: Cranial nerves II-XII grossly intact, Neuro grossly intact Psych/Mental Status: Normal Affect, Appropriate Vital Signs Temp Pulse Resp BP Pulse Ox 97.9 F 74 12 105/70 95 02/29/20 04:00 02/29/20 06:00 02/29/20 06:00 02/29/20 06:00 02/29/20 06:00 Oxygen Flow Rate (L/min) 2 Oxygen Delivery Method Nasal Cannula Weight: 203 lb 14.841 oz Body Mass Index (BMI) 31.4 Intake and Output for Last 24 Hours 02/27/20 02/28/20 02/29/20 23:59 23:59 23:59 Intake Total 1385.65 / 1385.65 3987.65 / 3987.65 109.75 / 109.75 Output Total 150 / 150 650 / 650 450 / 450 Balance 1235.65 / 1235.65 3337.65 / 3337.65 -340.25 / -340.25 Labs (Last 48 Hours) 02/27/20 02/27/20 02/27/20 17:55 17:57 17:57 WBC 17.5 H RBC 5.03 Hgb 15.0 Hct 44.7 MCV 88.9 MCH 29.8 MCHC 33.6 RDW Std Deviation 46.3 H RDW Coeff of Lonnie 14.3 Plt Count 42 L* MPV 12.5 H Immature Gran % (Auto) 1.400 H Neut % (Auto) 82.6 H Lymph % (Auto) 8.9 L [place] % (Auto) 6.0 Eos % (Auto) 0.9 Baso % (Auto) 0.2 Absolute Neuts (auto) 14.5 H Absolute Lymphs (auto) 1.56 Nucleated RBC % 0 Differential Comment SCANNED Diff Path Review Reviewed Platelet Estimate ESR PT INR APTT D-Dimer Quant (PE/DVT) Sodium 137 Potassium 2.8 L Chloride 105 Carbon Dioxide 20.0 L Anion Gap 12 BUN 76 H Creatinine 2.49 H Estim Creat Clear Calc 18.84 Est GFR (MDRD) Af Amer 24 L Est GFR (MDRD) Non-Af 20 L BUN/Creatinine Ratio 30.5 H Glucose 125 H Lactic Acid Calcium 8.9 Total Bilirubin 1.20 H Direct Bilirubin 0.75 H AST 37 ALT 34 Alkaline Phosphatase 468 H Troponin I 0.031 C-React Prot Ext Range B-Natriuretic Peptide Total Protein 6.9 Albumin 2.6 L Globulin 4.3 H Albumin/Globulin Ratio Urine Color Urine Clarity Urine pH Ur Specific [place] Urine Protein Urine Glucose (UA) Urine Ketones Urine Occult Blood Urine Nitrite Urine Bilirubin Urine Urobilinogen Ur Leukocyte Esterase Urine RBC Urine WBC Ur Squamous Epith Cells Urine Bacteria Urine Mucus COVID-19 (SAMIR) Negative 02/27/20 02/27/20 02/27/20 17:57 17:57 17:57 WBC RBC Hgb Hct MCV MCH MCHC RDW Std Deviation RDW Coeff of Lonnie Plt Count MPV Immature Gran % (Auto) Neut % (Auto) Lymph % (Auto) Wetzel % (Auto) Eos % (Auto) Baso % (Auto) Absolute Neuts (auto) Absolute Lymphs (auto) Nucleated RBC % Differential Comment Diff Path Review Platelet Estimate ESR PT 13.8 INR 1.1 APTT 33.5 D-Dimer Quant (PE/DVT) 11.77 H* Sodium Potassium Chloride Carbon Dioxide Anion Gap BUN Creatinine Estim Creat Clear Calc Est GFR (MDRD) Af Amer Est GFR (MDRD) Non-Af BUN/Creatinine Ratio Glucose Lactic Acid Calcium Total Bilirubin Direct Bilirubin AST ALT Alkaline Phosphatase Troponin I C-React Prot Ext Range B-Natriuretic Peptide 579.1 H Total Protein Albumin Globulin Albumin/Globulin Ratio Urine Color Urine Clarity Urine pH Ur Specific [place] Urine Protein Urine Glucose (UA) Urine Ketones Urine Occult Blood Urine Nitrite Urine Bilirubin Urine Urobilinogen Ur Leukocyte Esterase Urine RBC Urine WBC Ur Squamous Epith Cells Urine Bacteria Urine Mucus COVID-19 (SAMIR) 02/27/20 02/27/20 02/28/20 20:00 20:20 04:08 WBC 21.7 H RBC 4.78 Hgb 14.4 Hct 42.5 MCV 88.9 MCH 30.1 MCHC 33.9 RDW Std Deviation 46.1 H RDW Coeff of Lonnie 14.4 Plt Count 28 L* MPV 11.9 Immature Gran % (Auto) 2.100 H Neut % (Auto) 90.1 H Lymph % (Auto) 2.6 L Wetzel % (Auto) 4.1 Eos % (Auto) 0.2 Baso % (Auto) 0.9 Absolute Neuts (auto) 19.5 H Absolute Lymphs (auto) 0.57 L Nucleated RBC % 0 Differential Comment Diff Path Review Reviewed Platelet Estimate ESR PT INR APTT D-Dimer Quant (PE/DVT) Sodium Potassium Chloride Carbon Dioxide Anion Gap BUN Creatinine Estim Creat Clear Calc Est GFR (MDRD) Af Amer Est GFR (MDRD) Non-Af BUN/Creatinine Ratio Glucose Lactic Acid 1.9 Calcium Total Bilirubin Direct Bilirubin AST ALT Alkaline Phosphatase Troponin I C-React Prot Ext Range B-Natriuretic Peptide Total Protein Albumin Globulin Albumin/Globulin Ratio Urine Color Yellow Urine Clarity Cloudy Urine pH 5.0 Ur Specific [place] 1.015 Urine Protein 30 H Urine Glucose (UA) Normal Urine Ketones Negative Urine Occult Blood 150 H Urine Nitrite Negative Urine Bilirubin Negative Urine Urobilinogen Normal Ur Leukocyte Esterase 500 H Urine RBC 0-5 SEEN Urine WBC 10-25 SEEN Ur Squamous Epith Cells 5-10 SEEN Urine Bacteria 1+ Urine Mucus 0 SEEN COVID-19 (SAMIR) 02/28/20 02/28/20 02/28/20 04:08 04:08 10:35 WBC RBC Hgb Hct MCV MCH MCHC RDW Std Deviation RDW Coeff of Lonnie Plt Count MPV Immature Gran % (Auto) Neut % (Auto) Lymph % (Auto) [place] % (Auto) Eos % (Auto) Baso % (Auto) Absolute Neuts (auto) Absolute Lymphs (auto) Nucleated RBC % Differential Comment Diff Path Review Platelet Estimate ESR PT INR APTT 44.3 H 55.3 H D-Dimer Quant (PE/DVT) Sodium 140 Potassium 4.0 Chloride 111 H Carbon Dioxide 18.0 L Anion Gap 11 BUN 62 H Creatinine 1.69 H Estim Creat Clear Calc 27.75 Est GFR (MDRD) Af Amer 38 L Est GFR (MDRD) Non-Af 32 L BUN/Creatinine Ratio 36.7 H Glucose 142 H Lactic Acid Calcium 8.2 L Total Bilirubin 1.30 H Direct Bilirubin AST 39 H ALT 34 Alkaline Phosphatase 575 H Troponin I C-React Prot Ext Range B-Natriuretic Peptide Total Protein 6.2 L Albumin 2.1 L Globulin 4.1 Albumin/Globulin Ratio 0.5 L Urine Color Urine Clarity Urine pH Ur Specific [place] Urine Protein Urine Glucose (UA) Urine Ketones Urine Occult Blood Urine Nitrite Urine Bilirubin Urine Urobilinogen Ur Leukocyte Esterase Urine RBC Urine WBC Ur Squamous Epith Cells Urine Bacteria Urine Mucus COVID-19 (SAMIR) 02/28/20 02/28/20 02/29/20 13:10 13:10 04:08 WBC 21.0 H 21.2 H RBC 4.70 4.63 Hgb 13.9 13.9 Hct 41.7 41.9 MCV 88.7 90.5 MCH 29.6 30.0 MCHC 33.3 33.2 RDW Std Deviation 46.0 H 48.9 H RDW Coeff of Lonnie 14.3 14.7 H Plt Count 28 L* 22 L* MPV 13.4 H Immature Gran % (Auto) 3.200 H 2.800 H Neut % (Auto) 84.9 H 83.4 H Lymph % (Auto) 5.9 L 6.0 L Wetzel % (Auto) 5.3 7.2 Eos % (Auto) 0.1 0.0 Baso % (Auto) 0.6 0.6 Absolute Neuts (auto) 17.8 H 17.7 H Absolute Lymphs (auto) 1.23 1.27 Nucleated RBC % 0 0 Differential Comment Diff Path Review May foll May foll Platelet Estimate MKD DEC ESR 76 H PT INR APTT D-Dimer Quant (PE/DVT) Sodium 137 Potassium 4.2 Chloride 111 H Carbon Dioxide 21.0 Anion Gap 5 BUN 51 H Creatinine 1.32 H Estim Creat Clear Calc 35.53 Est GFR (MDRD) Af Amer 51 L Est GFR (MDRD) Non-Af 42 L BUN/Creatinine Ratio 38.6 H Glucose 135 H Lactic Acid Calcium 8.5 Total Bilirubin Direct Bilirubin AST ALT Alkaline Phosphatase Troponin I C-React Prot Ext Range 179.00 H B-Natriuretic Peptide Total Protein Albumin Globulin Albumin/Globulin Ratio Urine Color Urine Clarity Urine pH Ur Specific [place] Urine Protein Urine Glucose (UA) Urine Ketones Urine Occult Blood Urine Nitrite Urine Bilirubin Urine Urobilinogen Ur Leukocyte Esterase Urine RBC Urine WBC Ur Squamous Epith Cells Urine Bacteria Urine Mucus COVID-19 (SAMIR) 02/29/20 04:08 WBC RBC Hgb Hct MCV MCH MCHC RDW Std Deviation RDW Coeff of Olnnie Plt Count MPV Immature Gran % (Auto) Neut % (Auto) Lymph % (Auto) Wetzel % (Auto) Eos % (Auto) Baso % (Auto) Absolute Neuts (auto) Absolute Lymphs (auto) Nucleated RBC % Differential Comment Diff Path Review Platelet Estimate ESR PT INR APTT D-Dimer Quant (PE/DVT) Sodium 140 Potassium 4.5 Chloride 112 H Carbon Dioxide 22.0 Anion Gap 6 BUN 46 H Creatinine 1.12 H Estim Creat Clear Calc 41.88 Est GFR (MDRD) Af Amer 61 Est GFR (MDRD) Non-Af 51 L BUN/Creatinine Ratio 41.1 H Glucose 134 H Lactic Acid Calcium 8.8 Total Bilirubin Direct Bilirubin AST ALT Alkaline Phosphatase Troponin I C-React Prot Ext Range B-Natriuretic Peptide Total Protein Albumin Globulin Albumin/Globulin Ratio Urine Color Urine Clarity Urine pH Ur Specific [place] Urine Protein Urine Glucose (UA) Urine Ketones Urine Occult Blood Urine Nitrite Urine Bilirubin Urine Urobilinogen Ur Leukocyte Esterase Urine RBC Urine WBC Ur Squamous Epith Cells Urine Bacteria Urine Mucus COVID-19 (SAMIR) Microbiology 02/27/20 20:15 Blood Culture (Wb) - Anticubital Left Blood Culture - Preliminary 02/27/20 20:00 Blood Culture (Wb) - Anticubital Right Blood Culture - Preliminary 02/27/20 17:55 Mucosa - Nose Respiratory Panel (PCR) - Final 02/27/20 17:55 Mucosa - Nose SARS-CoV-2 Antigen (Rapid) - Final SARS-CoV-2 (COVID 19) Clinical Impression(s) from Imaging Studies Chest X-Ray 02/27/20 18:15 IMPRESSION: Possible mild atelectasis or scarring in the lung bases, otherwise lungs clear. Electronically Signed: Jim Auguste MD at 18:31 EST , Service support , Venous Duplex 02/27/20 19:22 IMPRESSION: Normal venous Doppler ultrasound of the bilateral lower extremities. Electronically Signed: Olvin Delgado MD at 20:31 EST , Service support , Chest CT 02/27/20 20:01 IMPRESSION: Exam limited by the absence of IV contrast. COPD. Irregular densities primarily in the lower lung langford consistent with scarring, atelectasis, and/or infiltrate. Thickening and nodularity seen of the minor fissure, likely post inflammatory but neoplastic disease is not excluded. Possible right hilar adenopathy. Electronically Signed: Jim Auguste MD at 22:00 EST , Service support , Chest CTA 02/28/20 10:49 IMPRESSION: Normal CTA chest examination, without a demonstrated pulmonary embolism or arterial dissection. Patchy consolidation in both lower lobes worse on the right. Electronically Signed: Jim Auguste MD at 16:26 EST , Service support , Abdomen/Pelvis CT 02/28/20 14:40 IMPRESSION: Obstruction of the right kidney and collecting system from a 5 mm proximal right ureteral stone. Additional bilateral currently nonobstructing stones. Hepatomegaly. Abnormal endometrial echoes. Mass not excluded. Electronically Signed: Jim Auguste MD at 16:22 EST , Service support , Medical Necessity - Tobacco Use Smoking Status: Never smoker Tobacco Use: Non-smoker Assessment/Plan All Active Problems (Last Reviewed 09/13/19 @ 15:[address] Jin Ellis MD) COVID-19 (Acute) Pulmonary embolism (Acute) Thrombocytopenia (Acute) UTI (urinary tract infection) (Acute) ANGELICA (acute kidney injury) (Acute) Fatigue (Acute) Nonproductive cough (Acute) Body aches (Acute) Shortness of breath (Acute) Sepsis (Acute) Kidney stone on right side (Acute) RECOMMENDATIONS: 1. Continue empiric antimicrobials per ID recommendations. 2. Plan for cystoscopy and stent placement per urology. 3. Okay to discontinue Covid precautions from my perspective. 4. Continue to monitor platelet count daily and transfuse if below 20,000. 5. Okay to discontinue Decadron. 6. Encourage incentive spirometer use and mobilize patient as tolerated. IMPRESSIONS: 1. Acute hypoxemic respiratory failure Although there was initial concern for possible COVID-19 pneumonia, based upon the patient's initial presenting symptoms, she has apparently had 2 - Covid PCR's in the last several days. Although her initial rapid antigen test was positive, her follow-up PCR was negative. Therefore, from my perspective, remdesivir and Decadron can be discontinued. The patient's oxygenation status has improved. CTA chest was obtained and demonstrated no evidence for pulmonary embolism. Recommend encouraging incentive spirometer use while in bed. 2. Severe sepsis Again, although there was initial concern for coronavirus, the patient does appear to have a possible gram pyelonephritis with secondary hematogenous spread. She is on appropriate antimicrobials. Infectious diseases is following to assist with management. Urology is planning to take the patient for cystoscopy and stent placement today. 3. Acute kidney injury Likely prerenal in etiology. The patient did initially receive supplemental IV fluid hydration, with subsequent improvement in creatinine. Plan to continue to monitor urine output for now. No current indication for renal replacement therapy. 4. Thrombocytopenia Unclear etiology and chronicity. However, the patient was evaluated by hematology and felt that the thrombocytopenia was likely the consequence of her sepsis. Recommend continuing to monitor counts daily and transfuse if platelet count drops below 20,000. 5. Paroxysmal atrial fibrillation Resolved. The patient did transiently experience an episode of atrial fibrillation, which responded to medical intervention. 6. History of coronary artery disease/hyperlipidemia/depression/anxiety Complicates care, management, recovery and prognosis. Continue home medications as indicated. This note was generated with [employer] dictation software. It may contain incorrect words, spelling, and punctuation that were not noted in checking the note before signing. Inpatient E&M: [id number] Subs Hosp L2
--- NOTE | 2020-02-29 07:44 | PN_ITS ---
Patient Problems: Active and Suspected Problems (Last Reviewed 09/13/19 @ 15:[address] Jin Ellis MD) COVID-19 (Acute) Pulmonary embolism (Acute) Thrombocytopenia (Acute) UTI (urinary tract infection) (Acute) ANGELICA (acute kidney injury) (Acute) Fatigue (Acute) Nonproductive cough (Acute) Body aches (Acute) Shortness of breath (Acute) Sepsis (Acute) Kidney stone on right side (Acute) Subjective: Patient seen and examined. She has remained hemodynamically stable. She has no complaints this morning. She is for ureteral stent placement today on account of CT of the abdomen and pelvis showing obstruction of the right kidney with a 5 mm right ureteral stone. Platelets even lower today at 22,000 but creatinine is trended down to 1.12. Blood cultures are positive for gram-negative rods with speciation pending. Vitals/I&O's: Vital Signs Temp Pulse Resp BP Pulse Ox 97.9 F 71 12 116/70 94 02/29/20 04:00 02/29/20 07:25 02/29/20 07:00 02/29/20 07:00 02/29/20 07:00 Oxygen Flow Rate (L/min) 2 Oxygen Delivery Method Nasal Cannula Weight: 203 lb 14.841 oz Body Mass Index (BMI) 31.4 Intake and Output for Last 24 Hours 02/27/20 02/28/20 02/29/20 23:59 23:59 23:59 Intake Total 1385.65 / 1385.65 3987.65 / 3987.65 109.75 / 109.75 Output Total 150 / 150 650 / 650 450 / 450 Balance 1235.65 / 1235.65 3337.65 / 3337.65 -340.25 / -340.25 General: Alert, Oriented x3, Cooperative, Lethargic HEENT: Atraumatic, PERRLA, EOMI, Normocephalic Oral: Dry Mucosa Neck: Supple, No JVD, Negative Carotid Bruits Lungs: - - diminished breath sounds bibasally, no wheezes. has few crackles bibasally. on 2L of oxygen by nasal canula Cardiovascular: Regular rate, Regular Rhythm, Normal S1, Normal S2, No murmurs Abdomen: Bowel Sounds Present, Soft, Non Tender Extremities: No clubbing, No cyanosis, No edema, Capillary Refill Less than 3 Seconds Skin: No rashes, No breakdown Musculoskeletal: No Tenderness to Palpation of Joints or Extremities Lymphatic: No Cervical, Supraclavicular, or Inguinal Adenopathy Neurological: Cranial nerves II-XII grossly intact, Neuro grossly intact, Motor Exam 5/5 strength throughout Psych/Mental Status: Normal Affect, Appropriate, Alert and oriented to time, place, person, mood and affect Microbiology Past 72 Hours 02/27/20 20:15 Blood Culture (Wb) - Anticubital Left Blood Culture - Preliminary 02/27/20 20:00 Blood Culture (Wb) - Anticubital Right Blood Culture - Preliminary 02/27/20 17:55 Mucosa - Nose Respiratory Panel (PCR) - Final 02/27/20 17:55 Mucosa - Nose SARS-CoV-2 Antigen (Rapid) - Final SARS-CoV-2 (COVID 19) Laboratory Results 02/27/20 17:57: Diff Path Review Reviewed 02/28/20 04:08: Diff Path Review Reviewed 02/28/20 10:35: APTT 55.3 H 02/28/20 13:10: WBC 21.0 H, RBC 4.70, Hgb 13.9, Hct 41.7, MCV 88.7, MCH 29.6, MCHC 33.3, RDW Std Deviation 46.0 H, RDW Coeff of Lonnie 14.3, Plt Count 28 L*, MPV 13.4 H, Immature Gran % (Auto) 3.200 H, Neut % (Auto) 84.9 H, Lymph % (Auto) 5.9 L, [place] % (Auto) 5.3, Eos % (Auto) 0.1, Baso % (Auto) 0.6, Absolute Neuts (auto) 17.8 H, Absolute Lymphs (auto) 1.23, Nucleated RBC % 0, Diff Path Review July, ESR 76 H 02/28/20 13:10: Sodium 137, Potassium 4.2, Chloride 111 H, Carbon Dioxide 21.0, Anion Gap 5, BUN 51 H, Creatinine 1.32 H, Estim Creat Clear Calc 35.53, Est GFR (MDRD) Af Amer 51 L, Est GFR (MDRD) Non-Af 42 L, BUN/Creatinine Ratio 38.6 H, Glucose 135 H, Calcium 8.5, C-React Prot Ext Range 179.00 H 02/29/20 04:08: WBC 21.2 H, RBC 4.63, Hgb 13.9, Hct 41.9, MCV 90.5, MCH 30.0, MCHC 33.2, RDW Std Deviation 48.9 H, RDW Coeff of Lonnie 14.7 H, Plt Count 22 L*, Immature Gran % (Auto) 2.800 H, Neut % (Auto) 83.4 H, Lymph % (Auto) 6.0 L, [place] % (Auto) 7.2, Eos % (Auto) 0.0, Baso % (Auto) 0.6, Absolute Neuts (auto) 17.7 H, Absolute Lymphs (auto) 1.27, Nucleated RBC % 0, Diff Path Review July, Platelet Estimate MKD 02/29/20 04:08: Sodium 140, Potassium 4.5, Chloride 112 H, Carbon Dioxide 22.0, Anion Gap 6, BUN 46 H, Creatinine 1.12 H, Estim Creat Clear Calc 41.88, Est GFR (MDRD) Af Amer 61, Est GFR (MDRD) Non-Af 51 L, BUN/Creatinine Ratio 41.1 H, Glucose 134 H, Calcium 8.8 Diagnostic Data Chest X-Ray 02/27/20 18:15 IMPRESSION: Possible mild atelectasis or scarring in the lung bases, otherwise lungs clear. Electronically Signed: Jim Auguste MD at 18:31 EST , Service support , Venous Duplex 02/27/20 19:22 IMPRESSION: Normal venous Doppler ultrasound of the bilateral lower extremities. Electronically Signed: Olvin Delgado MD at 20:31 EST , Service support , Chest CT 02/27/20 20:01 IMPRESSION: Exam limited by the absence of IV contrast. COPD. Irregular densities primarily in the lower lung langford consistent with scarring, atelectasis, and/or infiltrate. Thickening and nodularity seen of the minor fissure, likely post inflammatory but neoplastic disease is not excluded. Possible right hilar adenopathy. Electronically Signed: Jim Auguste MD at 22:00 EST , Service support , Chest CTA 02/28/20 10:49 IMPRESSION: Normal CTA chest examination, without a demonstrated pulmonary embolism or arterial dissection. Patchy consolidation in both lower lobes worse on the right. Electronically Signed: Jim Auguste MD at 16:26 EST , Service support , Abdomen/Pelvis CT 02/28/20 14:40 IMPRESSION: Obstruction of the right kidney and collecting system from a 5 mm proximal right ureteral stone. Additional bilateral currently nonobstructing stones. Hepatomegaly. Abnormal endometrial echoes. Mass not excluded. Electronically Signed: Jim Auguste MD at 16:22 EST , Service support , Current Medications Acetaminophen (Acetaminophen 325 Mg Tablet) 650 mg PO Q6H PRN PRN PRN Reason: Pain Score 1-10/Temp > 100.7 F Last Admin: 02/28/20 10:45 Dose: 650 mg Documented by: Atorvastatin Calcium (Atorvastatin Calcium 10 Mg Tablet) 10 mg PO DAILY@2200 [facility] Last Admin: 02/28/20 20:04 Dose: 10 mg Documented by: Dexamethasone (Dexamethasone 2 Mg Tablet) 6 mg PO DAILY [facility] Last Admin: 02/28/20 10:45 Dose: 6 mg Documented by: Guaifenesin (Guaifenesin Dm 10 Ml Udc) 10 ml PO Q6H PRN PRN PRN Reason: COUGH Heparin Sodium (Porcine) (Heparin Injection (Vial) 5,000 Unit/Ml Vial) 0 unit IV UD PRN; Protocol PRN Reason: dose adjustment Last Admin: 02/27/20 21:45 Dose: 6,000 unit Documented by: Sodium Chloride () 250 mls @ 15 mls/hr IV .[id number] PRN PRN Reason: Saline Flush Last Infusion: 02/29/20 05:15 Dose: 0 mls/hr Documented by: Sodium Chloride () 250 mls @ 15 mls/hr IV .[id number] PRN PRN Reason: Additional IVPB Infusion Piperacillin Sod/Tazobactam (Sod 3.375 gm/ Sodium Chloride) 50 mls @ 12.5 mls/hr IV Q8 [facility] Last Admin: 02/29/20 05:15 Dose: 12.5 mls/hr Documented by: Ondansetron HCl (Ondansetron 4 Mg/2 Ml Vial) 4 mg IV Q8H PRN PRN PRN Reason: NAUSEA/VOMITING Oxycodone HCl (Oxycodone 5 Mg Tablet) 10 mg PO Q4H PRN PRN PRN Reason: Pain Score 4-10 Last Admin: 02/28/20 20:29 Dose: 10 mg Documented by: Sodium Chloride (0.9% Saline Lock 10 Ml Syringe) 10 - 40 ml IV UD PRN PRN Reason: SALINE FLUSH Temazepam (Temazepam 15 Mg Capsule) 15 mg PO QHS PRN PRN PRN Reason: INSOMNIA Venlafaxine HCl (Venlafaxine Xr 75 Mg Capsule) 75 mg PO DAILY [facility] Last Admin: 02/28/20 10:45 Dose: 75 mg Documented by: STROKE Vital Signs/Narrative: Vital Signs Temp Pulse Resp BP Pulse Ox 02/29/20 07:25 71 02/29/20 07:00 70 12 116/70 94 02/29/20 06:00 74 12 105/70 95 02/29/20 05:00 74 11 L 118/71 94 02/29/20 04:00 97.9 F 74 11 L 114/67 95 Medical Necessity - Tobacco Use Smoking Status: Never smoker Tobacco Use: Non-smoker Assessment/Plan All Active Problems (Last Reviewed 09/13/19 @ 15:[address] Jin Ellis MD) COVID-19 (Acute) Pulmonary embolism (Acute) Thrombocytopenia (Acute) UTI (urinary tract infection) (Acute) ANGLEICA (acute kidney injury) (Acute) Fatigue (Acute) Nonproductive cough (Acute) Body aches (Acute) Shortness of breath (Acute) Sepsis (Acute) Kidney stone on right side (Acute) # Acute hypoxic respiratory failure * PE ruled out with negative CTA * oxygen down to 2L today * 2D echo pending * breathing treatment with bronchodilators * titrate oxygen to maintain sats >90% * pulmonology on board * # Probable PE: PE ruled out with negative CTA * # Sepsis due to UTI * Showed evidence of UTI and blood cultures growing gram-negative rods in 2 out of 2 samples. * patient remains tachypneic and wbc is elevated at 21.2 today. * on zosyn * ID on board: CT of the abdomen and pelvis done showed hydronephrosis and obstruction right 5 mm stone. She is for placement of ureteral stent today by urology. * # Thromobocytopenia * platelets were 42 on admission, now 22 todayt * heparin drip discontinued on account of negative CTA * hematology on board: Hematology reviewed peripheral smear slides and there was no evidence of schistocytes. Hematology therefore thinks that her thrombocytopenia is due to the severe sepsis. Expect platelets to recover once sepsis is treated. * Will trend platelets. * # ANGELICA * resolved. Cr down to 1.12 #UTI * UA showed evidence of UTI. Urine cultures pending. On IV zosyn now * # Elevated liver enzymes * bilirubin was 1.3, with AST of 39 and ALT of 575. * has no abdominal pain. could be related to sepsis * CT of the abdomen showed hepatomegaly, with diffuse hepatic enlargement, normal gallbladder and extrahepatic biliary system #Afib * Patient developed A. fib with RVR overnight but is now in normal sinus rhythm. * Cardiology on board. * #?COVID infection * Antigen test was positive, but PCR test was negative * on remdesivir and decadrone * patient out of isolation, per ID. * # Hypokalemia: resolved # Hyperlipidemia: on statin DVT prophylaxis; [facility]M: [id number] [facility] Hosp L3
[2020-02-29 08:19] LABS: AST(SGOT) 26 U/L (15-37); Alanine Aminotransfer ALT/SGPT 29 U/L (13-56); Alkaline Phosphatase 310 U/L (45-117); Bilirubin, Direct 0.24 mg/dL (0.00-0.30)
--- NOTE | 2020-02-29 11:05 | NURSING ---
pt off floor at this time to surgery. directed to surgery waiting room.
--- NOTE | 2020-02-29 12:34 | OP.PCM_ITS ---
Problem List (1) Kidney stone on right side Status: Acute Report of Operation Date of Procedure: 02/29/20 Pre-Operative Diagnosis: Obstructing right proximal ureteral calculi Post-Operative Diagnosis: Same Surgery/Procedure Performed:: Cystoscopy right retrograde pyelogram interpretation fluoroscopic images, right stent placement Description of Surgical Findings:: 74-year-old female who is septic in the intensive care unit with obstructing stone she has been made n.p.o. and today were to take her to surgery to place a stent on the right side to unobstruct the kidney. We will plan to treat the stone at a later setting once her infection and sepsis has resolved. Patient was taken back to the operating room at the smooth induction of MAC local she was placed in dorsolithotomy position. The urethrovaginal area prepped and draped in usual sterile fashion. Placed lidocaine jelly into the bladder. Went into the bladder with a 21 Salvadorean rigid cystourethroscope. 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 I then cannulated the right ureter orifice with a Pollick catheter performed a retrograde pyelogram he could see contrast going up and then there was a spray of contrast in the area of narrowing could not see the stone in the fluoroscopy radiolucent stone but there was hydronephrosis behind the area of narrowing and then advance a wire passes over the wire advanced a 6 Salvadorean by 26 cm stent once the stent was in good position I pulled the wire and the stent: The kidney bladder good position drained the bladder and then patient anesthetic was reversed taken back to PACU in stable condition. Type of Anesthesia:: General Drains: stent right side - Admit VTE Documentation VTE Present on Admission: No VTE Mechan Device Prophylaxis: SCD's
--- NOTE | 2020-02-29 13:06 | SUR.PHASEI ---
PT MIGRAINE CONTINUED FROM FLOOR PRIOR TO SURGERY, CONTACTED DR. TOURE HEADACHE TO BE TREATED BY UNIT AND NOT IN PACU
[2020-02-29] MEDS: Venlafaxine XR 75 MG Capsule PO (13:42)
[2020-02-29] MEDS: oxyCODONE 5 MG Tablet PO ×2 (13:43→19:56)
[2020-02-29] MEDS: Acetaminophen 325 MG Tablet 650 MG PO (13:44)
[2020-02-29 13:45] LABS: Pathologist Review Reviewed
[2020-02-29 13:46] LABS: Pathologist Review Reviewed
--- NOTE | 2020-02-29 17:40 | ECHOCS_ITS ---
Reason For Study: ATRIAL FIB-FLUTTER Procedure This was a 2D Doppler, Color Flow transthoracic echocardiogram. Exam performed portable in ICU/CCU. Left Ventricle Normal LV size. Left ventricular systolic function is normal. The estimated ejection fraction is 55 %. Stage 1 diastolic dysfunction. No regional wall motion abnormalities noted. Right Ventricle Normal RV size. Normal systolic function. Atria Normal left atrium. Normal right atrium. Mitral Valve There is mild to moderate mitral annular calcification. Mild (1+) eccentric mitral valve insufficiency. Tricuspid Valve Normal tricuspid valve. Mild tricuspid valve insufficiency. Pulmonary artery systolic pressure is 38 mmHg. Aortic Valve Trisinus/trileaflet aortic valve. Mild focal aortic valve calcification. Pulmonic Valve Normal pulmonic valve. Great Vessels Normal aortic root. The pulmonary artery is normal size. Normal inferior vena cava. Pericardium/Pleural No pericardial effusion. Medication Diluted definity 3ml given slow IV push to enhance endocardial definition. MMode/2D Measurements & Calculations LVIDd: 4.4 cm IVSd: 1.1 cm Ao root diam: 3.1 cm LVIDs: 3.1 cm LVPWd: 1.0 cm RVDd: 3.7 cm FS: 29.2 % LAV(MOD-bp): 44.6 ml LVAd ap4: 25.8 cm2 SV(MOD-sp4): 39.2 ml LAV(MOD-bp) Indexed: 22.2 ml/m2 EDV(MOD-sp4): 73.2 ml LAV(MOD-sp2): 47.9 ml EDV(sp4-el): 76.5 ml LAV(MOD-sp4): 37.9 ml LVAs ap4: 16.3 cm2 ESV(MOD-sp4): 33.9 ml ESV(sp4-el): 35.5 ml EF(MOD-sp4): 53.6 % EF(sp4-el): 53.6 % SV(sp4-el): 41.0 ml LA A4 area: 15.0 cm2 LA dimension(2D): 3.5 cm RA A4 area: 13.9 cm2 Time Measurements MV dec time: 0.24 sec Doppler Measurements & Calculations MV E max young: 95.9 cm/sec Lat Peak E' Young: 9.3 cm/sec Med Peak E' Young: 7.0 cm/sec MV A max young: 111.4 cm/sec E/E' lat: 10.4 E/E' med: 13.7 MV E/A: 0.86 Ao V2 max: 147.4 cm/sec LV V1 max: 93.4 cm/sec PA V2 max: 83.9 cm/sec Ao max P.7 mmHg LV V1 max P.5 mmHg TR max young: 291.5 cm/sec TR max P.0 mmHg Interpretation Summary Normal LV size. Left ventricular systolic function is normal. The estimated ejection fraction is 55 %. No regional wall motion abnormalities noted. Mild tricuspid valve insufficiency. Pulmonary artery systolic pressure is 38 mmHg. Stage 1 diastolic dysfunction. Contrast injection was performed. Ordering Physician: Jin Ellis Referring Physician: LOUIE RECIO Performed By: Mony Morrison RDCS
[2020-02-29] MEDS: Atorvastatin Calcium 10 MG Tablet PO (19:55)
[2020-02-29] MEDS: Temazepam 15 MG Capsule PO (23:53)
[2020-03-01] VITALS (29 sets, daily range): BP systolic 94–143; BP diastolic 47–82; PULSE 76–97; RESP 11–25; TEMP 36.1–37.1; O2SAT 92–98
[2020-03-01] MEDS: Acetaminophen 325 MG Tablet 650 MG PO ×3 (01:35→16:26)
[2020-03-01] MEDS: oxyCODONE 5 MG Tablet PO ×3 (01:35→21:48)
[2020-03-01 03:57] LABS: Absolute Lymphocyte Count 1.53 X10^3/uL (0.83-4.51); Absolute Neutrophil Count 14.9 X10^3/uL (2.0-7.7); Basophil# 0.06 X10^3/uL; Basophil% 0.3 % (0-1); Eosinophil# 0.03 X10^3/uL; Eosinophils% 0.2 % (0-5); Hematocrit 42.4 % (37-47); Hemoglobin 13.6 g/dL (12.0-15.0); Lymphocyte # 1.53 X10^3/ul (4.0); Lymphocyte % 7.8 % (19-41); Mean Corp Hgb Conc 32.1 g/dL (32-36); Mean Corpuscular Hgb 29.2 pg (27.0-32.0); Mean Corpuscular Volume 91.2 fL (81-99); Mean Platelet Vol. 12.6 fl (6.2-12.0); Monocyte# 2.31 X10^3/uL; Monocyte% 11.8 % (0-10); NRBC Flagged by Analyzer 0 % (0-5); Neutrophil # 14.93 X10^3/uL (2.7-7.7); Neutrophil % 76.1 % (47-70); POSITIVE COUNT YES; POSITIVE DIFFERENTIAL YES; RBC Distribution Width CV 14.8 % (11.6-14.6); RBC Distribution Width SD 50.2 fl (35.1-43.9); Red Blood Count 4.65 M/mm3 (4.2-5.4); White Blood Count 19.6 K/mm3 (4.4-11.0)
[2020-03-01 04:13] LABS: AST(SGOT) 27 U/L (15-37); Alanine Aminotransfer ALT/SGPT 27 U/L (13-56); Albumin, Serum 1.9 g/dL (3.2-5.0); Alkaline Phosphatase 215 U/L (45-117); Anion Gap 7 (5-15); BUN 47 mg/dL (7-18); BUN/Creat Ratio 50.9 RATIO (10-20); Bilirubin, Direct 0.16 mg/dL (0.00-0.30); Calcium,Total 8.4 mg/dL (8.5-10.1); Chloride 111 mmol/L (98-107); Creatinine, Serum 0.92 mg/dL (0.55-1.02); EST Glomerular Filtration Rate 63 mL/min (>60); Est Glom Filt Rate - Afr Amer 77 mL/min (>60); Estimated Creatinine Clearance 50.98 ml/min; Globulin 3.6 g/dL (2.2-4.2); Glucose 82 mg/dL (74-106); Protein, Total 5.5 g/dL (6.4-8.2); Sodium Level 139 mmol/L (136-145)
[2020-03-01 04:24] LABS: Differential Indicated SCAN CRITERIA MET; Platelet Count 27 K/mm3 (150-450)
[2020-03-01 05:31] LABS: Differential Comment SCANNED
--- NOTE | 2020-03-01 05:47 | PCM.PN.INT ---
Subjective: The patient was seen and examined at the bedside this morning. Events from the last 24 hours have been reviewed. The patient is currently afebrile, hemodynamically stable and maintaining appropriate oxygen saturations on room air. The patient underwent successful cystoscopy and right stent placement yesterday morning. Platelet count remains low at 27,000. This morning, the patient reports a severe headache, along with nuchal rigidity and photophobia. She does report what she believes are migraine headaches in the past, but states that it has been quite sometime since she has experienced a headache of this severity. A stat head CT was obtained this morning which failed to demonstrate any evidence of an intracranial bleed. Objective: The patient's most recent lab work, culture data and imaging studies have all been personally reviewed. CT head revealed chronic involutional changes of the brain. Coronavirus antigen was positive on February 26. However, follow-up PCR testing was negative. Blood cultures dated February 26 were both positive for gram-negative rods. Urine culture is pending. General: Alert, Cooperative HEENT: Atraumatic, PERRLA, Normocephalic, - - Photosensitivity noted by patient. Oral: No Gingival or Mucosal Lesions/ Ulcerations Neck: Supple, No Nodes, Trachea Midline, - - Tenderness with passive range of motion. Lungs: Normal air movement, No rhonchi, No wheeze, No rales Cardiovascular: Regular rate, Regular Rhythm Abdomen: Bowel Sounds Present, Soft, Non Tender Extremities: No clubbing, No cyanosis, No edema Skin: No breakdown Musculoskeletal: No Muscle Wasting Lymphatic: No Cervical, Supraclavicular, or Inguinal Adenopathy Neurological: Neuro grossly intact Psych/Mental Status: Normal Affect, Appropriate Vital Signs Temp Pulse Resp BP Pulse Ox 98.7 F 84 17 139/73 H 96 03/01/20 04:00 03/01/20 05:00 03/01/20 05:00 03/01/20 05:00 03/01/20 05:00 Oxygen Flow Rate (L/min) 2 Oxygen Delivery Method Room Air Weight: 203 lb 7.787 oz Body Mass Index (BMI) 32.8 Intake and Output for Last 24 Hours 02/28/20 02/29/20 03/01/20 23:59 23:59 23:59 Intake Total 3987.65 / 3987.65 1134.75 / 1134.75 220 / 220 Output Total 650 / 650 1675 / 1675 200 / 200 Balance 3337.65 / 3337.65 -540.25 / -540.25 Labs (Last 48 Hours) 02/27/20 02/28/20 02/28/20 17:57 04:08 10:35 WBC RBC Hgb Hct MCV MCH MCHC RDW Std Deviation RDW Coeff of Lonnie Plt Count MPV Immature Gran % (Auto) Neut % (Auto) Lymph % (Auto) Arthur % (Auto) Eos % (Auto) Baso % (Auto) Absolute Neuts (auto) Absolute Lymphs (auto) Nucleated RBC % Differential Comment Diff Path Review Reviewed Reviewed Platelet Estimate ESR APTT 55.3 H Sodium Potassium Chloride Carbon Dioxide Anion Gap BUN Creatinine Estim Creat Clear Calc Est GFR (MDRD) Af Amer Est GFR (MDRD) Non-Af BUN/Creatinine Ratio Glucose Calcium Total Bilirubin Direct Bilirubin AST ALT Alkaline Phosphatase C-React Prot Ext Range Total Protein Albumin Globulin 02/28/20 02/28/20 02/29/20 13:10 13:10 04:08 WBC 21.0 H 21.2 H RBC 4.70 4.63 Hgb 13.9 13.9 Hct 41.7 41.9 MCV 88.7 90.5 MCH 29.6 30.0 MCHC 33.3 33.2 RDW Std Deviation 46.0 H 48.9 H RDW Coeff of Lonnie 14.3 14.7 H Plt Count 28 L* 22 L* MPV 13.4 H Immature Gran % (Auto) 3.200 H 2.800 H Neut % (Auto) 84.9 H 83.4 H Lymph % (Auto) 5.9 L 6.0 L Arthur % (Auto) 5.3 7.2 Eos % (Auto) 0.1 0.0 Baso % (Auto) 0.6 0.6 Absolute Neuts (auto) 17.8 H 17.7 H Absolute Lymphs (auto) 1.23 1.27 Nucleated RBC % 0 0 Differential Comment Diff Path Review Reviewed Reviewed Platelet Estimate MKD DEC ESR 76 H APTT Sodium 137 Potassium 4.2 Chloride 111 H Carbon Dioxide 21.0 Anion Gap 5 BUN 51 H Creatinine 1.32 H Estim Creat Clear Calc 35.53 Est GFR (MDRD) Af Amer 51 L Est GFR (MDRD) Non-Af 42 L BUN/Creatinine Ratio 38.6 H Glucose 135 H Calcium 8.5 Total Bilirubin Direct Bilirubin AST ALT Alkaline Phosphatase C-React Prot Ext Range 179.00 H Total Protein Albumin Globulin 02/29/20 02/29/20 03/01/20 04:08 04:08 03:40 WBC 19.6 H RBC 4.65 Hgb 13.6 Hct 42.4 MCV 91.2 MCH 29.2 MCHC 32.1 RDW Std Deviation 50.2 H RDW Coeff of Lonnie 14.8 H Plt Count 27 L* MPV 12.6 H Immature Gran % (Auto) 3.800 H Neut % (Auto) 76.1 H Lymph % (Auto) 7.8 L Arthur % (Auto) 11.8 H Eos % (Auto) 0.2 Baso % (Auto) 0.3 Absolute Neuts (auto) 14.9 H Absolute Lymphs (auto) 1.53 Nucleated RBC % 0 Differential Comment SCANNED Diff Path Review May foll Platelet Estimate ESR APTT Sodium 140 Potassium 4.5 Chloride 112 H Carbon Dioxide 22.0 Anion Gap 6 BUN 46 H Creatinine 1.12 H Estim Creat Clear Calc 41.88 Est GFR (MDRD) Af Amer 61 Est GFR (MDRD) Non-Af 51 L BUN/Creatinine Ratio 41.1 H Glucose 134 H Calcium 8.8 Total Bilirubin 0.50 Direct Bilirubin 0.24 AST 26 ALT 29 Alkaline Phosphatase 310 H C-React Prot Ext Range Total Protein 6.0 L Albumin 2.0 L Globulin 4.0 03/01/20 03:40 WBC RBC Hgb Hct MCV MCH MCHC RDW Std Deviation RDW Coeff of Lonnie Plt Count MPV Immature Gran % (Auto) Neut % (Auto) Lymph % (Auto) Arthur % (Auto) Eos % (Auto) Baso % (Auto) Absolute Neuts (auto) Absolute Lymphs (auto) Nucleated RBC % Differential Comment Diff Path Review Platelet Estimate ESR APTT Sodium 139 Potassium 4.0 Chloride 111 H Carbon Dioxide 21.0 Anion Gap 7 BUN 47 H Creatinine 0.92 Estim Creat Clear Calc 50.98 Est GFR (MDRD) Af Amer 77 Est GFR (MDRD) Non-Af 63 BUN/Creatinine Ratio 50.9 H Glucose 82 Calcium 8.4 L Total Bilirubin 0.50 Direct Bilirubin 0.16 AST 27 ALT 27 Alkaline Phosphatase 215 H C-React Prot Ext Range Total Protein 5.5 L Albumin 1.9 L Globulin 3.6 Microbiology 02/27/20 20:15 Blood Culture (Wb) - Anticubital Left Blood Culture - Preliminary GNR lactose loss prevention analyst 02/27/20 20:00 Blood Culture (Wb) - Anticubital Right Blood Culture - Preliminary GNR lactose loss prevention analyst Clinical Impression(s) from Imaging Studies Chest X-Ray 02/27/20 18:15 IMPRESSION: Possible mild atelectasis or scarring in the lung bases, otherwise lungs clear. Electronically Signed: Jim Auguste MD at 18:31 EST , Service support , Venous Duplex 02/27/20 19:22 IMPRESSION: Normal venous Doppler ultrasound of the bilateral lower extremities. Electronically Signed: Olvin Delgado MD at 20:31 EST , Service support , Chest CT 02/27/20 20:01 IMPRESSION: Exam limited by the absence of IV contrast. COPD. Irregular densities primarily in the lower lung langford consistent with scarring, atelectasis, and/or infiltrate. Thickening and nodularity seen of the minor fissure, likely post inflammatory but neoplastic disease is not excluded. Possible right hilar adenopathy. Electronically Signed: Jim Auguste MD at 22:00 EST , Service support , Chest CTA 02/28/20 10:49 IMPRESSION: Normal CTA chest examination, without a demonstrated pulmonary embolism or arterial dissection. Patchy consolidation in both lower lobes worse on the right. Electronically Signed: Jim Auguste MD at 16:26 EST , Service support , Abdomen/Pelvis CT 02/28/20 14:40 IMPRESSION: Obstruction of the right kidney and collecting system from a 5 mm proximal right ureteral stone. Additional bilateral currently nonobstructing stones. Hepatomegaly. Abnormal endometrial echoes. Mass not excluded. Electronically Signed: Jim Auguste MD at 16:22 EST , Service support , Medical Necessity - Tobacco Use Smoking Status: Never smoker Tobacco Use: Non-smoker Assessment/Plan All Active Problems (Last Reviewed 09/13/19 @ 15:[address] Jin Ellis MD) COVID-19 (Acute) Pulmonary embolism (Acute) Thrombocytopenia (Acute) UTI (urinary tract infection) (Acute) ANGELIAC (acute kidney injury) (Acute) Fatigue (Acute) Nonproductive cough (Acute) Body aches (Acute) Shortness of breath (Acute) Sepsis (Acute) Kidney stone on right side (Acute) RECOMMENDATIONS: 1. Given severity of headache along with nuchal rigidity and photophobia, obtain CT head to rule out intracranial bleed. 2. Continue antimicrobials per ID recommendations. 3. Continue to monitor platelet count daily and transfuse if below 20,000. 4. Encourage incentive spirometer use and mobilize patient as tolerated. 5. Start scheduled NSAIDs and give one-time dose of Imitrex. 6. The patient is medically stable for transfer out of the intensive care unit. Given the patient's lack of further ICU or pulmonary needs, will sign off. Please call with any additional questions. IMPRESSIONS: 1. Acute hypoxemic respiratory failure Resolved. Although there was initial concern for possible COVID-19 pneumonia, based upon the patient's initial presenting symptoms, she has apparently had 2 - Covid PCR's in the last several days. Although her initial rapid antigen test was positive, her follow-up PCR was negative. CT chest only revealed evidence of atelectasis. The patient's oxygenation status has improved and she is currently stable on room air. Recommend continuing to encourage incentive spirometer use and mobilize patient as tolerated. 2. Severe sepsis Again, although there was initial concern for coronavirus, the patient does appear to have a possible gram pyelonephritis with secondary hematogenous spread. She is on appropriate antimicrobials. Infectious diseases is following to assist with management. 3. Acute kidney injury Resolved. Likely prerenal in etiology. The patient did initially receive supplemental IV fluid hydration, with subsequent improvement in creatinine. Plan to continue to monitor urine output for now. No current indication for renal replacement therapy. 4. Thrombocytopenia Unclear etiology and chronicity. However, the patient was evaluated by hematology and felt that the thrombocytopenia was likely the consequence of her sepsis. Recommend continuing to monitor counts daily and transfuse if platelet count drops below 20,000. 5. Severe headache The patient initially reported the presence of a severe headache, photophobia and some nuchal rigidity. Low index of suspicion for underlying meningitis. Given symptoms, CT head was obtained which failed to demonstrate evidence of intracranial bleed. The patient does have a reported history of migraines in the past. We will plan to treat conservatively with NSAIDs and Imitrex. 6. History of coronary artery disease/hyperlipidemia/depression/anxiety Complicates care, management, recovery and prognosis. Continue home medications as indicated. This note was generated with [employer] dictation software. It may contain incorrect words, spelling, and punctuation that were not noted in checking the note before signing. Inpatient E&M: 09828 Subs Hosp L3
--- NOTE | 2020-03-01 06:32 | CT_ITS ---
STUDY: CT BRAIN WITHOUT CONTRAST REASON FOR EXAM: Female, 74 years old. HEADACHE, PHOTOPHOBIA -- +COVID,ACUTE RENAL FAILURE RADIATION DOSAGE (If Supplied By Facility): CTDIvol = ( 44.99 ) mGy, DLP = ( 796.11 ) mGycm TECHNIQUE: Transaxial CT imaging of the brain was performed without administration of intravenous contrast material. Individualized dose optimization techniques were used for this CT. COMPARISON: No relevant priors. FINDINGS: Normal soft tissue structures. Normal calvarium. There is mild cerebral atrophy with widening of the extra-axial spaces and ventricular dilatation. Normal white matter tracts of the cerebral hemispheres. Normal basal ganglia and thalami. Normal brainstem. Normal cerebellum. There is no intracranial hemorrhage. There are no findings of an acute ischemic infarction. Normal visualized paranasal sinuses. CT/Brain/Head without Contrast IMPRESSION: Chronic involutional changes of the brain. Electronically Signed: Maxwell Stewart, at 8:26 EST , Service support ,
--- NOTE | 2020-03-01 07:37 | PN_ITS ---
Patient Problems: Active and Suspected Problems (Last Reviewed 09/13/19 @ 15:[address] Jin Ellis MD) COVID-19 (Acute) Pulmonary embolism (Acute) Thrombocytopenia (Acute) UTI (urinary tract infection) (Acute) ANGELICA (acute kidney injury) (Acute) Fatigue (Acute) Nonproductive cough (Acute) Body aches (Acute) Shortness of breath (Acute) Sepsis (Acute) Kidney stone on right side (Acute) Subjective: Patient seen and examined this morning. She complains of a severe headache with photophobia and neck pain. She does have a history of migraine headaches. She has otherwise remained hemodynamically stable and has not been febrile. She is on room air. She had ureteral stents placement by urology yesterday. Vitals/I&O's: Vital Signs Temp Pulse Resp BP Pulse Ox 98.7 F 79 14 141/81 H 95 03/01/20 04:00 03/01/20 06:00 03/01/20 06:00 03/01/20 06:00 03/01/20 06:50 Oxygen Flow Rate (L/min) 2 Oxygen Delivery Method Room Air Weight: 203 lb 7.787 oz Body Mass Index (BMI) 32.8 Intake and Output for Last 24 Hours 02/28/20 02/29/20 03/01/20 23:59 23:59 23:59 Intake Total 3987.65 / 3987.65 1134.75 / 1134.75 220 / 220 Output Total 650 / 650 1675 / 1675 200 / 200 Balance 3337.65 / 3337.65 -540.25 / -540.25 General: Alert, Oriented x3, Cooperative, Lethargic HEENT: Atraumatic, PERRLA, EOMI, Normocephalic Oral: Dry Mucosa Neck: Supple, No JVD, Negative Carotid Bruits Lungs: - - diminished breath sounds bibasally, no wheezes. has few crackles bibasally. on room air Cardiovascular: Regular rate, Regular Rhythm, Normal S1, Normal S2, No murmurs Abdomen: Bowel Sounds Present, Soft, Non Tender Extremities: No clubbing, No cyanosis, No edema, Capillary Refill Less than 3 Seconds Skin: No rashes, No breakdown Musculoskeletal: No Tenderness to Palpation of Joints or Extremities Lymphatic: No Cervical, Supraclavicular, or Inguinal Adenopathy Neurological: Cranial nerves II-XII grossly intact, Neuro grossly intact, Motor Exam 5/5 strength throughout, Kernig's and Brudzinski's signs were negative Psych/Mental Status: Normal Affect, Appropriate, Alert and oriented to time, place, person, mood and affect Microbiology Past 72 Hours 02/27/20 20:15 Blood Culture (Wb) - Anticubital Left Blood Culture - Preliminary GNR lactose agile developer 02/27/20 17:55 Mucosa - Nose Respiratory Panel (PCR) - Final 02/27/20 17:55 Mucosa - Nose SARS-CoV-2 Antigen (Rapid) - Final SARS-CoV-2 (COVID 19) Laboratory Results 02/28/20 13:10: Diff Path Review Reviewed 02/29/20 04:08: Diff Path Review Reviewed 02/29/20 04:08: Total Bilirubin 0.50, Direct Bilirubin 0.24, AST 26, ALT 29, Alkaline Phosphatase 310 H, Total Protein 6.0 L, Albumin 2.0 L, Globulin 4.0 03/01/20 03:40: WBC 19.6 H, RBC 4.65, Hgb 13.6, Hct 42.4, MCV 91.2, MCH 29.2, MCHC 32.1, RDW Std Deviation 50.2 H, RDW Coeff of Lonnie 14.8 H, Plt Count 27 L*, MPV 12.6 H, Immature Gran % (Auto) 3.800 H, Neut % (Auto) 76.1 H, Lymph % (Auto) 7.8 L, [place] % (Auto) 11.8 H, Eos % (Auto) 0.2, Baso % (Auto) 0.3, Absolute Neuts (auto) 14.9 H, Absolute Lymphs (auto) 1.53, Nucleated RBC % 0, Differential Comment SCANNED, Diff Path Review May 03/01/20 03:40: Sodium 139, Potassium 4.0, Chloride 111 H, Carbon Dioxide 21.0, Anion Gap 7, BUN 47 H, Creatinine 0.92, Estim Creat Clear Calc 50.98, Est GFR (MDRD) Af Amer 77, Est GFR (MDRD) Non-Af 63, BUN/Creatinine Ratio 50.9 H, Glucose 82, Calcium 8.4 L, Total Bilirubin 0.50, Direct Bilirubin 0.16, AST 27, ALT 27, Alkaline Phosphatase 215 H, Total Protein 5.5 L, Albumin 1.9 L, Globulin 3.6 Current Medications Acetaminophen (Acetaminophen 325 Mg Tablet) 650 mg PO Q6H PRN PRN PRN Reason: Pain Score 1-10/Temp > 100.7 F Last Admin: 03/01/20 01:35 Dose: 650 mg Documented by: Atorvastatin Calcium (Atorvastatin Calcium 10 Mg Tablet) 10 mg PO DAILY@2200 [facility] Last Admin: 02/29/20 19:55 Dose: 10 mg Documented by: Guaifenesin (Guaifenesin Dm 10 Ml Udc) 10 ml PO Q6H PRN PRN PRN Reason: COUGH Sodium Chloride () 250 mls @ 15 mls/hr IV .[id number] PRN PRN Reason: Saline Flush Last Infusion: 03/01/20 05:42 Dose: 0 mls/hr Documented by: Sodium Chloride () 250 mls @ 15 mls/hr IV .[id number] PRN PRN Reason: Additional IVPB Infusion Piperacillin Sod/Tazobactam (Sod 3.375 gm/ Sodium Chloride) 50 mls @ 12.5 mls/hr IV Q8 [facility] Last Admin: 03/01/20 05:41 Dose: 12.5 mls/hr Documented by: Naproxen (Naproxen 500 Mg Tablet) 500 mg PO BIDCM [facility] Ondansetron HCl (Ondansetron 4 Mg/2 Ml Vial) 4 mg IV Q8H PRN PRN PRN Reason: NAUSEA/VOMITING Oxycodone HCl (Oxycodone 5 Mg Tablet) 5 mg PO Q4H PRN PRN PRN Reason: Pain Score 4-10 Last Admin: 03/01/20 01:35 Dose: 5 mg Documented by: Sodium Chloride (0.9% Saline Lock 10 Ml Syringe) 10 - 40 ml IV UD PRN PRN Reason: SALINE FLUSH Temazepam (Temazepam 15 Mg Capsule) 15 mg PO QHS PRN PRN PRN Reason: INSOMNIA Last Admin: 02/29/20 23:53 Dose: 15 mg Documented by: Venlafaxine HCl (Venlafaxine Xr 75 Mg Capsule) 75 mg PO DAILY [facility] Last Admin: 02/29/20 13:42 Dose: 75 mg Documented by: STROKE Vital Signs/Narrative: Vital Signs Temp Pulse Resp BP Pulse Ox 03/01/20 06:50 95 03/01/20 06:00 79 14 141/81 H 95 03/01/20 05:00 84 17 139/73 H 96 03/01/20 04:00 98.7 F 78 13 135/72 H 96 Medical Necessity - Tobacco Use Smoking Status: Never smoker Tobacco Use: Non-smoker Assessment/Plan All Active Problems (Last Reviewed 09/13/19 @ 15:[address] Jin Ellis MD) COVID-19 (Acute) Pulmonary embolism (Acute) Thrombocytopenia (Acute) UTI (urinary tract infection) (Acute) ANGELICA (acute kidney injury) (Acute) Fatigue (Acute) Nonproductive cough (Acute) Body aches (Acute) Shortness of breath (Acute) Sepsis (Acute) Kidney stone on right side (Acute) # Acute hypoxic respiratory failure * PE ruled out with negative CTA * now on room air * 2D echo pending * breathing treatment with bronchodilators * titrate oxygen to maintain sats >90% * pulmonology on board * # Probable PE: PE ruled out with negative CTA * # Sepsis due to UTI and obstructive kidney stone * Showed evidence of UTI and blood cultures growing gram-negative lactose agile developer rods in 2/2 samples * wbc down to 19.6 today * on zosyn * ID on board: CT of the abdomen and pelvis done showed hydronephrosis and obstruction right 5 mm stone. Had ureteral stent placement by urology. * * #RIght obstructive kidney stone with hydronephrosis * as above. * had right urereteral stent placement yesterday. * urology on board * # Thromobocytopenia * platelets were 42 on admission, now 27 today. * heparin drip discontinued on account of negative CTA * hematology on board: Hematology reviewed peripheral smear slides and there was no evidence of schistocytes. Hematology therefore thinks that her thrombocytopenia is due to the severe sepsis. Expect platelets to recover once sepsis is treated. * Will trend platelets. * #Migraine headache: on Imitrex. CT of the brain was negative. # ANGELICA * resolved. #UTI * UA showed evidence of UTI. Urine cultures pending. On IV zosyn * # Elevated liver enzymes * resolved * CT of the abdomen showed hepatomegaly, with diffuse hepatic enlargement, normal gallbladder and extrahepatic biliary system #Afib * Patient developed A. fib with RVR overnight but is now in normal sinus rhythm. * Cardiology on board. * 2D echo pending * * # Hypokalemia: resolved # Hyperlipidemia: on statin DVT prophylaxis; SCDs Inpatient E&M: [id number] [facility] Hosp L3
[2020-03-01] MEDS: SUMAtriptan 6 MG/0.5 ML Vial SC (09:09)
[2020-03-01] MEDS: Naproxen 500 MG Tablet PO ×2 (09:11→16:26)
[2020-03-01] MEDS: Venlafaxine XR 75 MG Capsule PO (09:11)
--- NOTE | 2020-03-01 10:46 | PN_ITS ---
Patient Problems: Active and Suspected Problems (Last Reviewed 09/13/19 @ 15:[address] Jin Ellis MD) COVID-19 (Acute) Pulmonary embolism (Acute) Thrombocytopenia (Acute) UTI (urinary tract infection) (Acute) ANGELICA (acute kidney injury) (Acute) Fatigue (Acute) Nonproductive cough (Acute) Body aches (Acute) Shortness of breath (Acute) Sepsis (Acute) Kidney stone on right side (Acute) Subjective: 74-year-old female status post stent placement for urosepsis, microbiology still fully pending but looks like gram-negative rods. Continue with IV antibiotics till cultures so sensitivities. She is clinically stable in the intensive care unit. Slightly bloody urine which is okay and expect especially with a stent. Her pain is much better. She complains less of a headache today. - Physical Exam Vitals/I&O's: Vital Signs Temp Pulse Resp BP Pulse Ox 98.7 F 81 14 141/81 H 95 03/01/20 04:00 03/01/20 07:55 03/01/20 06:00 03/01/20 06:00 03/01/20 06:50 Oxygen Flow Rate (L/min) 2 Oxygen Delivery Method Room Air Weight: 92.3 kg Body Mass Index (BMI) 32.8 Intake and Output for Last 24 Hours 02/28/20 02/29/20 03/01/20 23:59 23:59 23:59 Intake Total 3987.65 / 3987.65 1134.75 / 1134.75 220 / 220 Output Total 650 / 650 1675 / 1675 200 / 200 Balance 3337.65 / 3337.65 -540.25 / -540.25 General: Alert, Oriented x3, Cooperative HEENT: Atraumatic, PERRLA, EOMI, Normocephalic Neck: Supple, No JVD, Negative Carotid Bruits Lungs: Clear to auscultation, Normal air movement Cardiovascular: Regular rate, No murmurs Abdomen: Bowel Sounds Present, Soft, Non Tender Extremities: No edema, Capillary Refill Less than 3 Seconds Skin: No rashes, No breakdown Musculoskeletal: No Tenderness to Palpation of Joints or Extremities Neurological: Cranial nerves II-XII grossly intact Psych/Mental Status: Normal Affect, Appropriate Microbiology Past 72 Hours 02/27/20 20:15 Blood Culture (Wb) - Anticubital Left Blood Culture - 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 02/27/20 20:00 Blood Culture (Wb) - Anticubital Right Blood Culture - Final Escherichia coli 02/27/20 17:55 Mucosa - Nose Respiratory Panel (PCR) - Final 02/27/20 17:55 Mucosa - Nose SARS-CoV-2 Antigen (Rapid) - Final SARS-CoV-2 (COVID 19) Laboratory Results 02/28/20 13:10: Diff Path Review Reviewed 02/29/20 04:08: Diff Path Review Reviewed 03/01/20 03:40: WBC 19.6 H, RBC 4.65, Hgb 13.6, Hct 42.4, MCV 91.2, MCH 29.2, MCHC 32.1, RDW Std Deviation 50.2 H, RDW Coeff of Lonnie 14.8 H, Plt Count 27 L*, MPV 12.6 H, Immature Gran % (Auto) 3.800 H, Neut % (Auto) 76.1 H, Lymph % (Auto) 7.8 L, [place] % (Auto) 11.8 H, Eos % (Auto) 0.2, Baso % (Auto) 0.3, Absolute Neuts (auto) 14.9 H, Absolute Lymphs (auto) 1.53, Nucleated RBC % 0, Differential Comment SCANNED, Diff Path Review May 03/01/20 03:40: Sodium 139, Potassium 4.0, Chloride 111 H, Carbon Dioxide 21.0, Anion Gap 7, BUN 47 H, Creatinine 0.92, Estim Creat Clear Calc 50.98, Est GFR (MDRD) Af Amer 77, Est GFR (MDRD) Non-Af 63, BUN/Creatinine Ratio 50.9 H, Glucose 82, Calcium 8.4 L, Total Bilirubin 0.50, Direct Bilirubin 0.16, AST 27, ALT 27, Alkaline Phosphatase 215 H, Total Protein 5.5 L, Albumin 1.9 L, Globulin 3.6 Current Medications Acetaminophen (Acetaminophen 325 Mg Tablet) 650 mg PO Q6H PRN PRN PRN Reason: Pain Score 1-10/Temp > 100.7 F Last Admin: 03/01/20 09:11 Dose: 650 mg Documented by: Atorvastatin Calcium (Atorvastatin Calcium 10 Mg Tablet) 10 mg PO DAILY@2200 [facility] Last Admin: 02/29/20 19:55 Dose: 10 mg Documented by: Guaifenesin (Guaifenesin Dm 10 Ml Udc) 10 ml PO Q6H PRN PRN PRN Reason: COUGH Sodium Chloride () 250 mls @ 15 mls/hr IV .[id number] PRN PRN Reason: Saline Flush Last Infusion: 03/01/20 05:42 Dose: 0 mls/hr Documented by: Sodium Chloride () 250 mls @ 15 mls/hr IV .[id number] PRN PRN Reason: Additional IVPB Infusion Piperacillin Sod/Tazobactam (Sod 3.375 gm/ Sodium Chloride) 50 mls @ 12.5 mls/hr IV Q8 [facility] Last Admin: 03/01/20 05:41 Dose: 12.5 mls/hr Documented by: Naproxen (Naproxen 500 Mg Tablet) 500 mg PO BIDCM [facility] Last Admin: 03/01/20 09:11 Dose: 500 mg Documented by: Ondansetron HCl (Ondansetron 4 Mg/2 Ml Vial) 4 mg IV Q8H PRN PRN PRN Reason: NAUSEA/VOMITING Oxycodone HCl (Oxycodone 5 Mg Tablet) 5 mg PO Q4H PRN PRN PRN Reason: Pain Score 4-10 Last Admin: 03/01/20 09:12 Dose: 5 mg Documented by: Sodium Chloride (0.9% Saline Lock 10 Ml Syringe) 10 - 40 ml IV UD PRN PRN Reason: SALINE FLUSH Temazepam (Temazepam 15 Mg Capsule) 15 mg PO QHS PRN PRN PRN Reason: INSOMNIA Last Admin: 02/29/20 23:53 Dose: 15 mg Documented by: Venlafaxine HCl (Venlafaxine Xr 75 Mg Capsule) 75 mg PO DAILY [facility] Last Admin: 03/01/20 09:11 Dose: 75 mg Documented by: Medical Necessity - Tobacco Use Smoking Status: Never smoker Tobacco Use: Non-smoker Assessment/Plan All Active Problems (Last Reviewed 09/13/19 @ 15:[address] Jin Ellis MD) COVID-19 (Acute) Pulmonary embolism (Acute) Thrombocytopenia (Acute) UTI (urinary tract infection) (Acute) ANGELICA (acute kidney injury) (Acute) Fatigue (Acute) Nonproductive cough (Acute) Body aches (Acute) Shortness of breath (Acute) Sepsis (Acute) Kidney stone on right side (Acute) 74-year-old female status post stent placement for urosepsis and obstruction she is clinically stable continue with IV antibiotics. Platelets are slightly low unclear cause could be from the sepsis could be from other sources. For now no plan for surgical intervention for the stone can I let her fully recover probably after discharge she can follow-up in the office and I will set her up for outpatient laser of the stone.
[2020-03-01 13:51] LABS: Pathologist Review Reviewed
--- NOTE | 2020-03-01 15:04 | PCM.PN.ID ---
Patient Problems: Active and Suspected Problems (Last Reviewed 09/13/19 @ 15:[address] Jin Ellis MD) COVID-19 (Acute) Pulmonary embolism (Acute) Thrombocytopenia (Acute) UTI (urinary tract infection) (Acute) ANGELICA (acute kidney injury) (Acute) Fatigue (Acute) Nonproductive cough (Acute) Body aches (Acute) Shortness of breath (Acute) Sepsis (Acute) Kidney stone on right side (Acute) Subjective: Feeling better, no fever, no abd pain - Physical Exam Vitals/I&O's: Vital Signs Temp Pulse Resp BP Pulse Ox 96.9 F L 92 22 H 127/67 H 95 03/01/20 12:00 03/01/20 12:00 03/01/20 12:00 03/01/20 13:00 03/01/20 13:00 Oxygen Flow Rate (L/min) 2 Oxygen Delivery Method Room Air Weight: 92.3 kg Body Mass Index (BMI) 32.8 Intake and Output for Last 24 Hours 02/28/20 02/29/20 03/01/20 23:59 23:59 23:59 Intake Total 3987.65 / 3987.65 1134.75 / 1134.75 470 / 470 Output Total 650 / 650 1675 / 1675 400 / 400 Balance 3337.65 / 3337.65 -540.25 / -540.25 70 / 70 General: Alert, Cooperative, No apparent distress Lungs: Clear to auscultation, Normal air movement Cardiovascular: Regular rate, Regular Rhythm Abdomen: Soft, Non Tender, Non-Distended Skin: No rashes Microbiology Past 72 Hours 02/27/20 20:15 Blood Culture (Wb) - Anticubital Left Blood 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 02/27/20 20:00 Blood Culture (Wb) - Anticubital Right Blood Culture - Final Escherichia coli 02/27/20 17:55 Mucosa - Nose Respiratory Panel (PCR) - Final 02/27/20 17:55 Mucosa - Nose SARS-CoV-2 Antigen (Rapid) - Final SARS-CoV-2 (COVID 19) Laboratory Results 03/01/20 03:40: WBC 19.6 H, RBC 4.65, Hgb 13.6, Hct 42.4, MCV 91.2, MCH 29.2, MCHC 32.1, RDW Std Deviation 50.2 H, RDW Coeff of Lonnie 14.8 H, Plt Count 27 L*, MPV 12.6 H, Immature Gran % (Auto) 3.800 H, Neut % (Auto) 76.1 H, Lymph % (Auto) 7.8 L, [place] % (Auto) 11.8 H, Eos % (Auto) 0.2, Baso % (Auto) 0.3, Absolute Neuts (auto) 14.9 H, Absolute Lymphs (auto) 1.53, Nucleated RBC % 0, Differential Comment SCANNED, Diff Path Review Reviewed 03/01/20 03:40: Sodium 139, Potassium 4.0, Chloride 111 H, Carbon Dioxide 21.0, Anion Gap 7, BUN 47 H, Creatinine 0.92, Estim Creat Clear Calc 50.98, Est GFR (MDRD) Af Amer 77, Est GFR (MDRD) Non-Af 63, BUN/Creatinine Ratio 50.9 H, Glucose 82, Calcium 8.4 L, Total Bilirubin 0.50, Direct Bilirubin 0.16, AST 27, ALT 27, Alkaline Phosphatase 215 H, Total Protein 5.5 L, Albumin 1.9 L, Globulin 3.6 Current Medications Acetaminophen (Acetaminophen 325 Mg Tablet) 650 mg PO Q6H PRN PRN PRN Reason: Pain Score 1-10/Temp > 100.7 F Last Admin: 03/01/20 09:11 Dose: 650 mg Documented by: Atorvastatin Calcium (Atorvastatin Calcium 10 Mg Tablet) 10 mg PO DAILY@2200 [facility] Last Admin: 02/29/20 19:55 Dose: 10 mg Documented by: Guaifenesin (Guaifenesin Dm 10 Ml Udc) 10 ml PO Q6H PRN PRN PRN Reason: COUGH Sodium Chloride () 250 mls @ 15 mls/hr IV .[id number] PRN PRN Reason: Saline Flush Last Infusion: 03/01/20 05:42 Dose: 0 mls/hr Documented by: Sodium Chloride () 250 mls @ 15 mls/hr IV .[id number] PRN PRN Reason: Additional IVPB Infusion Ceftriaxone Sodium 2 gm/ (Sodium Chloride) 50 mls @ 100 mls/hr IV Q24 [facility] Last Admin: 03/01/20 14:30 Dose: 100 mls/hr Documented by: Naproxen (Naproxen 500 Mg Tablet) 500 mg PO BIDCM [facility] Last Admin: 03/01/20 09:11 Dose: 500 mg Documented by: Ondansetron HCl (Ondansetron 4 Mg/2 Ml Vial) 4 mg IV Q8H PRN PRN PRN Reason: NAUSEA/VOMITING Oxycodone HCl (Oxycodone 5 Mg Tablet) 5 mg PO Q4H PRN PRN PRN Reason: Pain Score 4-10 Last Admin: 03/01/20 09:12 Dose: 5 mg Documented by: Sodium Chloride (0.9% Saline Lock 10 Ml Syringe) 10 - 40 ml IV UD PRN PRN Reason: SALINE FLUSH Temazepam (Temazepam 15 Mg Capsule) 15 mg PO QHS PRN PRN PRN Reason: INSOMNIA Last Admin: 02/29/20 23:53 Dose: 15 mg Documented by: Venlafaxine HCl (Venlafaxine Xr 75 Mg Capsule) 75 mg PO DAILY [facility] Last Admin: 03/01/20 09:11 Dose: 75 mg Documented by: Medical Necessity - Tobacco Use Smoking Status: Never smoker Tobacco Use: Non-smoker Route of nutrition/ use of supplements: [] Nutritional Intake: [] IV Site: [] Stern Catheter: [] - Assessment/Plan Antibiotics: [] Assessment/Plan: [] Active and Suspected Problems (Last Reviewed 09/13/19 @ 15:[address] Jin Ellis MD) COVID-19 (Acute) Pulmonary embolism (Acute) Thrombocytopenia (Acute) UTI (urinary tract infection) (Acute) ANGELICA (acute kidney injury) (Acute) Fatigue (Acute) Nonproductive cough (Acute) Body aches (Acute) Shortness of breath (Acute) Sepsis (Acute) severe sepsis with ANGELICA and ecoli bacteremia from urinary source - Covid Ag (+) but pcr neg. Based on symptoms and testing, overall low suspicion for covid. Agree with holding remdesivir at this point. Out of iso. CT showed hydro and stone, taken to OR 02/[address] Devlin for stent placement. Narrow abx to ceftriaxone. Will follow
[2020-03-01] MEDS: Furosemide 20 MG/2 ML VIAL IV (16:25)
[2020-03-01] MEDS: Temazepam 15 MG Capsule PO (21:24)
[2020-03-01] MEDS: Atorvastatin Calcium 10 MG Tablet PO (21:24)
[2020-03-02] VITALS (21 sets, daily range): BP systolic 98–131; BP diastolic 58–75; PULSE 77–99; RESP 7–33; TEMP 36.1–36.8; O2SAT 93–98
[2020-03-02] MEDS: oxyCODONE 5 MG Tablet PO ×4 (02:19→20:28)
[2020-03-02] MEDS: Acetaminophen 325 MG Tablet 650 MG PO ×3 (04:12→21:56)
[2020-03-02 04:19] LABS: Hematocrit 40.7 % (37-47); Hemoglobin 13.1 g/dL (12.0-15.0); Mean Corp Hgb Conc 32.2 g/dL (32-36); Mean Corpuscular Volume 90.2 fL (81-99); POSITIVE COUNT YES; POSITIVE DIFFERENTIAL YES; POSITIVE MORPHOLOGY YES; Platelet Count 50 K/mm3 (150-450); RBC Distribution Width CV 14.6 % (11.6-14.6); Red Blood Count 4.51 M/mm3 (4.2-5.4); White Blood Count 17.7 K/mm3 (4.4-11.0)
[2020-03-02 04:21] LABS: Differential Indicated MANUAL DIFF
[2020-03-02 04:39] LABS: AST(SGOT) 26 U/L (15-37); Alanine Aminotransfer ALT/SGPT 35 U/L (13-56); Albumin, Serum 1.9 g/dL (3.2-5.0); Alkaline Phosphatase 192 U/L (45-117); Anion Gap 6 (5-15); BUN 41 mg/dL (7-18); BUN/Creat Ratio 46.4 RATIO (10-20); Bilirubin, Direct 0.23 mg/dL (0.00-0.30); Calcium,Total 8.2 mg/dL (8.5-10.1); Chloride 109 mmol/L (98-107); Creatinine, Serum 0.88 mg/dL (0.55-1.02); EST Glomerular Filtration Rate 67 mL/min (>60); Est Glom Filt Rate - Afr Amer 81 mL/min (>60); Globulin 3.6 g/dL (2.2-4.2); Glucose 87 mg/dL (74-106); Potassium 3.7 mmol/L (3.5-5.1); Protein, Total 5.5 g/dL (6.4-8.2); Sodium Level 137 mmol/L (136-145)
[2020-03-02 04:48] LABS: Lymphocyte 12 % (19-41); Metamyelocyte 2 % (0-1); Monocyte 3 % (0-10); Neutrophil-Band 1 % (0-5); Neutrophil-Segmented 82 % (47-70); Platelet Estimate MKD DEC (ADEQ); Total Cells Counted 100 (MANUAL DIFF)
[2020-03-02 04:49] LABS: Absolute Lymphocyte Count 2.12 X10^3/uL (0.83-4.51); Absolute Neutrophil Count 14.7 X10^3/uL (2.0-7.7); Hypochromasia 2+; Lymphocyte # 2.12 X10^3/ul (4.0); Neutrophil # 14.65 X10^3/uL (2.7-7.7); Red Cell Morphology N CYTIC NORMAL (NORM C&C)
[2020-03-02] MEDS: Naproxen 500 MG Tablet PO ×2 (08:56→15:59)
[2020-03-02] MEDS: Venlafaxine XR 75 MG Capsule PO (08:57)
[2020-03-02] MEDS: 0.9% Saline Lock 10 ML Syringe IV (08:57)
--- NOTE | 2020-03-02 09:17 | PN_ITS ---
Patient Problems: Active and Suspected Problems (Last Reviewed 09/13/19 @ 15:[address] Jin Ellis MD) COVID-19 (Acute) Pulmonary embolism (Acute) Thrombocytopenia (Acute) UTI (urinary tract infection) (Acute) ANGELICA (acute kidney injury) (Acute) Fatigue (Acute) Nonproductive cough (Acute) Body aches (Acute) Shortness of breath (Acute) Sepsis (Acute) Kidney stone on right side (Acute) Subjective: 74-year-old female admitted for sepsis and obstructing stone underwent cystoscopy and stent placement on the right side. Her platelets are improving which is better. Her white count is also improving. In fact her only complaint now is a stiff neck not sure why we will continue to monitor hospitalist are also evaluating. - Physical Exam Vitals/I&O's: Vital Signs Temp Pulse Resp BP Pulse Ox 98.2 F 85 15 127/67 H 95 03/02/20 04:00 03/02/20 06:00 03/02/20 06:00 03/02/20 06:00 03/02/20 06:00 Oxygen Flow Rate (L/min) 2 Oxygen Delivery Method Room Air Weight: 92.9 kg Body Mass Index (BMI) 32.8 Intake and Output for Last 24 Hours 02/29/20 03/01/20 03/02/20 23:59 23:59 23:59 Intake Total 1134.75 / 1134.75 920 / 920 275 / 275 Output Total 1675 / 1675 1200 / 1600 925 / 925 Balance -540.25 / -540.25 -280 / -680 -650 / -650 General: Alert, Oriented x3, Cooperative HEENT: Atraumatic, PERRLA, EOMI, Normocephalic Neck: Supple, No JVD, Negative Carotid Bruits Lungs: Clear to auscultation, Normal air movement Cardiovascular: Regular rate, No murmurs Abdomen: Bowel Sounds Present, Soft, Non Tender Extremities: No edema, Capillary Refill Less than 3 Seconds Skin: No rashes, No breakdown Musculoskeletal: No Tenderness to Palpation of Joints or Extremities Neurological: Cranial nerves II-XII grossly intact Psych/Mental Status: Normal Affect, Appropriate Microbiology Past 72 Hours 02/27/20 20:15 Blood Culture (Wb) - Anticubital Left Blood 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 02/27/20 20:00 Blood Culture (Wb) - Anticubital Right Blood Culture - Final Escherichia coli Laboratory Results 03/01/20 03:40: Diff Path Review Reviewed 03/02/20 04:10: WBC 17.7 H, RBC 4.51, Hgb 13.1, Hct 40.7, MCV 90.2, MCH 29.0, MCHC 32.2, RDW Std Deviation 49.0 H, RDW Coeff of Lonnie 14.6, Plt Count 50 L*, MPV 12.0, Neut % (Auto) Not Reportable, Absolute Neuts (auto) 14.7 H, Absolute Lymphs (auto) 2.12, Total Counted 100, Neutrophils % (Manual) 82 H, Band Neutrophils % 1, Lymphocytes % (Manual) 12 L, Monocytes % (Manual) 3, Metamyelocytes % 2 H, Diff Path Review May foll, Platelet Estimate MKD DEC, RBC Morphology N CYTIC, Hypochromasia 2+ 03/02/20 04:10: Sodium 137, Potassium 3.7, Chloride 109 H, Carbon Dioxide 22.0, Anion Gap 6, BUN 41 H, Creatinine 0.88, Estim Creat Clear Calc 53.30, Est GFR (MDRD) Af Amer 81, Est GFR (MDRD) Non-Af 67, BUN/Creatinine Ratio 46.4 H, Glucose 87, Calcium 8.2 L, Total Bilirubin 0.50, Direct Bilirubin 0.23, AST 26, ALT 35, Alkaline Phosphatase 192 H, Total Protein 5.5 L, Albumin 1.9 L, Globulin 3.6 Current Medications Acetaminophen (Acetaminophen 325 Mg Tablet) 650 mg PO Q6H PRN PRN PRN Reason: Pain Score 1-10/Temp > 100.7 F Last Admin: 03/02/20 04:12 Dose: 650 mg Documented by: Atorvastatin Calcium (Atorvastatin Calcium 10 Mg Tablet) 10 mg PO DAILY@2200 [facility] Last Admin: 03/01/20 21:24 Dose: 10 mg Documented by: Guaifenesin (Guaifenesin Dm 10 Ml Udc) 10 ml PO Q6H PRN PRN PRN Reason: COUGH Sodium Chloride () 250 mls @ 15 mls/hr IV .[id number] PRN PRN Reason: Saline Flush Last Infusion: 03/01/20 05:42 Dose: 0 mls/hr Documented by: Sodium Chloride () 250 mls @ 15 mls/hr IV .[id number] PRN PRN Reason: Additional IVPB Infusion Ceftriaxone Sodium 2 gm/ (Sodium Chloride) 50 mls @ 100 mls/hr IV Q24 [facility] Last Admin: 03/02/20 08:55 Dose: 100 mls/hr Documented by: Naproxen (Naproxen 500 Mg Tablet) 500 mg PO BIDCM [facility] Last Admin: 03/02/20 08:56 Dose: 500 mg Documented by: Ondansetron HCl (Ondansetron 4 Mg/2 Ml Vial) 4 mg IV Q8H PRN PRN PRN Reason: NAUSEA/VOMITING Oxycodone HCl (Oxycodone 5 Mg Tablet) 5 mg PO Q4H PRN PRN PRN Reason: Pain Score 4-10 Last Admin: 03/02/20 08:55 Dose: 5 mg Documented by: Sodium Chloride (0.9% Saline Lock 10 Ml Syringe) 10 - 40 ml IV UD PRN PRN Reason: SALINE FLUSH Last Admin: 03/02/20 08:57 Dose: 10 ml Documented by: Temazepam (Temazepam 15 Mg Capsule) 15 mg PO QHS PRN PRN PRN Reason: INSOMNIA Last Admin: 03/01/20 21:24 Dose: 15 mg Documented by: Venlafaxine HCl (Venlafaxine Xr 75 Mg Capsule) 75 mg PO DAILY [facility] Last Admin: 03/02/20 08:57 Dose: 75 mg Documented by: Medical Necessity - Tobacco Use Smoking Status: Never smoker Tobacco Use: Non-smoker Assessment/Plan All Active Problems (Last Reviewed 09/13/19 @ 15:[address] Jin Ellis MD) COVID-19 (Acute) Pulmonary embolism (Acute) Thrombocytopenia (Acute) UTI (urinary tract infection) (Acute) ANGELICA (acute kidney injury) (Acute) Fatigue (Acute) Nonproductive cough (Acute) Body aches (Acute) Shortness of breath (Acute) Sepsis (Acute) Kidney stone on right side (Acute) 74-year-old female status post stent placement for obstructing stone of sepsis continue with IV antibiotics per IDs recommendation. Clinically stable no more pain in the right kidney. We will continue to follow.
--- NOTE | 2020-03-02 10:51 | PN_ITS ---
Patient Problems: Active and Suspected Problems (Last Reviewed 09/13/19 @ 15:[address] Jin Ellis MD) COVID-19 (Acute) Pulmonary embolism (Acute) Thrombocytopenia (Acute) UTI (urinary tract infection) (Acute) ANGELICA (acute kidney injury) (Acute) Fatigue (Acute) Nonproductive cough (Acute) Body aches (Acute) Shortness of breath (Acute) Sepsis (Acute) Kidney stone on right side (Acute) Subjective: Patient seen and examined. h complains of lower back pain. She is also complaining still of the headache; imitrex helped with headache yesterday. She denies any fever, chills, nausea, vomiting or diarrhea. Review of systems is otherwise negative. She has remained hemodynamically stable. Vitals/I&O's: Vital Signs Temp Pulse Resp BP Pulse Ox 96.9 F L 84 11 L 124/60 H 95 03/02/20 08:00 03/02/20 10:00 03/02/20 10:00 03/02/20 10:00 03/02/20 06:00 Oxygen Flow Rate (L/min) 2 Oxygen Delivery Method Room Air Weight: 204 lb 12.951 oz Body Mass Index (BMI) 32.8 Intake and Output for Last 24 Hours 02/29/20 03/01/20 03/02/20 23:59 23:59 23:59 Intake Total 1134.75 / 1134.75 920 / 920 475 / 475 Output Total 1675 / 1675 1200 / 1600 1175 / 1175 Balance -540.25 / -540.25 -280 / -680 -700 / -700 General: Alert, Oriented x3, Cooperative, Lethargic HEENT: Atraumatic, PERRLA, EOMI, Normocephalic Oral: Dry Mucosa Neck: Supple, No JVD, Negative Carotid Bruits Lungs: - - diminished breath sounds bibasally, no wheezes. has few crackles bibasally. on room air Cardiovascular: Regular rate, Regular Rhythm, Normal S1, Normal S2, No murmurs Abdomen: Bowel Sounds Present, Soft, Non Tender Extremities: No clubbing, No cyanosis, No edema, Capillary Refill Less than 3 Seconds Skin: No rashes, No breakdown Musculoskeletal: No Tenderness to Palpation of Joints or Extremities Lymphatic: No Cervical, Supraclavicular, or Inguinal Adenopathy Neurological: Cranial nerves II-XII grossly intact, Neuro grossly intact, Motor Exam 5/5 strength throughout Psych/Mental Status: Normal Affect, Appropriate, Alert and oriented to time, place, person, mood and affect Microbiology Past 72 Hours 02/27/20 20:15 Blood Culture (Wb) - Anticubital Left Blood Culture - Final GNR 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 02/27/20 20:00 Blood Culture (Wb) - Anticubital Right Blood Culture - Final Escherichia coli Laboratory Results 03/01/20 03:40: Diff Path Review Reviewed 03/02/20 04:10: WBC 17.7 H, RBC 4.51, Hgb 13.1, Hct 40.7, MCV 90.2, MCH 29.0, MCHC 32.2, RDW Std Deviation 49.0 H, RDW Coeff of Lonnie 14.6, Plt Count 50 L*, MPV 12.0, Neut % (Auto) Not Reportable, Absolute Neuts (auto) 14.7 H, Absolute Lymphs (auto) 2.12, Total Counted 100, Neutrophils % (Manual) 82 H, Band Neutrophils % 1, Lymphocytes % (Manual) 12 L, Monocytes % (Manual) 3, Metamyelocytes % 2 H, Diff Path Review May foll, Platelet Estimate MKD DEC, RBC Morphology N CYTIC, Hypochromasia 2+ 03/02/20 04:10: Sodium 137, Potassium 3.7, Chloride 109 H, Carbon Dioxide 22.0, Anion Gap 6, BUN 41 H, Creatinine 0.88, Estim Creat Clear Calc 53.30, Est GFR (MDRD) Af Amer 81, Est GFR (MDRD) Non-Af 67, BUN/Creatinine Ratio 46.4 H, Glucose 87, Calcium 8.2 L, Total Bilirubin 0.50, Direct Bilirubin 0.23, AST 26, ALT 35, Alkaline Phosphatase 192 H, Total Protein 5.5 L, Albumin 1.9 L, Globulin 3.6 Diagnostic Data Chest X-Ray 02/27/20 18:15 IMPRESSION: Possible mild atelectasis or scarring in the lung bases, otherwise lungs clear. Electronically Signed: Jim Auguste MD at 18:31 EST , Service support , Venous Duplex 02/27/20 19:22 IMPRESSION: Normal venous Doppler ultrasound of the bilateral lower extremities. Electronically Signed: Olvin Delgado MD at 20:31 EST , Service support , Chest CT 02/27/20 20:01 IMPRESSION: Exam limited by the absence of IV contrast. COPD. Irregular densities primarily in the lower lung langford consistent with scarring, atelectasis, and/or infiltrate. Thickening and nodularity seen of the minor fissure, likely post inflammatory but neoplastic disease is not excluded. Possible right hilar adenopathy. Electronically Signed: Jim Auguste MD at 22:00 EST , Service support , Chest CTA 02/28/20 10:49 IMPRESSION: Normal CTA chest examination, without a demonstrated pulmonary embolism or arterial dissection. Patchy consolidation in both lower lobes worse on the right. Electronically Signed: Jim Auguste MD at 16:26 EST , Service support , Abdomen/Pelvis CT 02/28/20 14:40 IMPRESSION: Obstruction of the right kidney and collecting system from a 5 mm proximal right ureteral stone. Additional bilateral currently nonobstructing stones. Hepatomegaly. Abnormal endometrial echoes. Mass not excluded. Electronically Signed: iJm Auguste MD at 16:22 EST , Service support , Brain CT 03/01/20 06:32 IMPRESSION: Chronic involutional changes of the brain. Electronically Signed: Maxwell Stewart, at 8:26 EST , Service support , Current Medications Acetaminophen (Acetaminophen 325 Mg Tablet) 650 mg PO Q6H PRN PRN PRN Reason: Pain Score 1-10/Temp > 100.7 F Last Admin: 03/02/20 04:12 Dose: 650 mg Documented by: Atorvastatin Calcium (Atorvastatin Calcium 10 Mg Tablet) 10 mg PO DAILY@2200 [facility] Last Admin: 03/01/20 21:24 Dose: 10 mg Documented by: Guaifenesin (Guaifenesin Dm 10 Ml Udc) 10 ml PO Q6H PRN PRN PRN Reason: COUGH Sodium Chloride () 250 mls @ 15 mls/hr IV .[id number] PRN PRN Reason: Saline Flush Last Infusion: 03/01/20 05:42 Dose: 0 mls/hr Documented by: Sodium Chloride () 250 mls @ 15 mls/hr IV .[id number] PRN PRN Reason: Additional IVPB Infusion Ceftriaxone Sodium 2 gm/ (Sodium Chloride) 50 mls @ 100 mls/hr IV Q24 [facility] Last Admin: 03/02/20 08:55 Dose: 100 mls/hr Documented by: Naproxen (Naproxen 500 Mg Tablet) 500 mg PO BIDCM [facility] Last Admin: 03/02/20 08:56 Dose: 500 mg Documented by: Ondansetron HCl (Ondansetron 4 Mg/2 Ml Vial) 4 mg IV Q8H PRN PRN PRN Reason: NAUSEA/VOMITING Oxycodone HCl (Oxycodone 5 Mg Tablet) 5 mg PO Q4H PRN PRN PRN Reason: Pain Score 4-10 Last Admin: 03/02/20 08:55 Dose: 5 mg Documented by: Sodium Chloride (0.9% Saline Lock 10 Ml Syringe) 10 - 40 ml IV UD PRN PRN Reason: SALINE FLUSH Last Admin: 03/02/20 08:57 Dose: 10 ml Documented by: Temazepam (Temazepam 15 Mg Capsule) 15 mg PO QHS PRN PRN PRN Reason: INSOMNIA Last Admin: 03/01/20 21:24 Dose: 15 mg Documented by: Venlafaxine HCl (Venlafaxine Xr 75 Mg Capsule) 75 mg PO DAILY [facility] Last Admin: 03/02/20 08:57 Dose: 75 mg Documented by: STROKE Vital Signs/Narrative: Vital Signs Temp Pulse Resp BP 12/05/20 10:00 84 11 L 124/60 H 03/02/20 09:00 88 20 H 131/70 H 03/02/20 08:00 96.9 F L 79 12 127/65 H 03/02/20 07:00 87 15 131/65 H Medical Necessity - Tobacco Use Smoking Status: Never smoker Tobacco Use: Non-smoker Assessment/Plan All Active Problems (Last Reviewed 09/13/19 @ 15:[address] Jin Ellis MD) COVID-19 (Acute) Pulmonary embolism (Acute) Thrombocytopenia (Acute) UTI (urinary tract infection) (Acute) ANGELICA (acute kidney injury) (Acute) Fatigue (Acute) Nonproductive cough (Acute) Body aches (Acute) Shortness of breath (Acute) Sepsis (Acute) Kidney stone on right side (Acute) # Acute hypoxic respiratory failure * PE ruled out with negative CTA * now on room air * 2D echo: EF of 55%, with RVSP of 38mmHg * breathing treatment with bronchodilators * titrate oxygen to maintain sats >90% * pulmonology on board * # Sepsis due to UTI and obstructive kidney stone * wbc down to 17 * urine cultured E coli, sensitive to ceftriaxone * ID on board: CT of the abdomen and pelvis done showed hydronephrosis and obstruction right 5 mm stone. Had ureteral stent placement by urology. * antibiotics narrowed down to IV ceftriaxone * #RIght obstructive kidney stone with hydronephrosis * as above. * had right urereteral stent placement * urology on board * # Thromobocytopenia * platelets up to 50 today. * hematology on board: Hematology reviewed peripheral smear slides and there was no evidence of schistocytes. Hematology therefore thinks that her thrombocytopenia is due to the severe sepsis. Expect platelets to recover once sepsis is treated. * Will trend platelets. * #Migraine headache: on Imitrex. CT of the brain was negative. #UTI * UA showed evidence of UTI. Urine cultures pending. On IV zosyn * # Elevated liver enzymes * resolved * CT of the abdomen showed hepatomegaly, with diffuse hepatic enlargement, normal gallbladder and extrahepatic biliary system #Afib * Patient developed A. fib with RVR on admission but is now in normal sinus rhythm. * Cardiology on board. * 2D echo as above # Hyperlipidemia: on statin DVT prophylaxis; SCDs Disposition: transfer to PCU today Inpatient E&M: [id number] [facility] H[facility] L3
--- NOTE | 2020-03-02 17:57 | NURSING ---
report called to pcu transferred per chair to room 123 with belongings
[2020-03-02] MEDS: Atorvastatin Calcium 10 MG Tablet PO (21:56)
[2020-03-02] MEDS: Temazepam 15 MG Capsule PO (21:56)
[2020-03-03] VITALS (9 sets, daily range): BP systolic 131–148; BP diastolic 67–83; PULSE 78–116; RESP 16–18; TEMP 36.4–37.6; O2SAT 93–97
[2020-03-03] MEDS: oxyCODONE 5 MG Tablet PO ×4 (02:49→20:04)
[2020-03-03 06:47] LABS: AST(SGOT) 19 U/L (15-37); Alanine Aminotransfer ALT/SGPT 28 U/L (13-56); Albumin, Serum 1.8 g/dL (3.2-5.0); Alkaline Phosphatase 205 U/L (45-117); Bilirubin, Direct 0.22 mg/dL (0.00-0.30); Globulin 3.8 g/dL (2.2-4.2); Protein, Total 5.6 g/dL (6.4-8.2)
[2020-03-03 08:06] LABS: Hematocrit 41.6 % (37-47); Hemoglobin 13.1 g/dL (12.0-15.0); Mean Corp Hgb Conc 31.5 g/dL (32-36); Mean Corpuscular Hgb 28.7 pg (27.0-32.0); Mean Corpuscular Volume 91.2 fL (81-99); Mean Platelet Vol. 11.7 fl (6.2-12.0); POSITIVE COUNT YES; POSITIVE MORPHOLOGY YES; Platelet Count 108 K/mm3 (150-450); RBC Distribution Width CV 14.8 % (11.6-14.6); RBC Distribution Width SD 49.7 fl (35.1-43.9); Red Blood Count 4.56 M/mm3 (4.2-5.4); White Blood Count 16.2 K/mm3 (4.4-11.0)
[2020-03-03 08:08] LABS: Differential Indicated MANUAL DIFF
--- NOTE | 2020-03-03 08:18 | MRI_ITS ---
STUDY: MRI BRAIN WITH AND WITHOUT CONTRAST REASON FOR EXAM: Female, 74 years old. neck pain, no trauma, h/o migraines, sepsis TECHNIQUE: Standardized multiplanar fat and water weighted pulse sequences were obtained. IV Yes dotarem was administered for the contrast portion of the examination. COMPARISON: CT 03/01/2020 FINDINGS: Normal size of the ventricles and extra-axial spaces for the patient''s age. Normal white matter tracts of the supratentorial brain. There is no evidence for recent intracranial ischemia or other cause of cytotoxic edema on diffusion weighted imaging (DWI). Normal T2* images of the brain without demonstrated susceptibility artifact. There is no demonstrated hemosiderin stain. Normal bilateral basal ganglia. Normal thalami. There is no extra-axial fluid accumulation. Normal flow voids within the major intracranial circulation suggesting patency by spin echo criteria. Normal venous enhancement. There is no enhancing intra-axial or extra-axial abnormality. Normal sella turcica, pituitary gland, infundibular stalk, optic chiasm and hypothalamus. Normal tectal plate and pineal gland. Normal midbrain, ricardo and medulla. Normal cerebellum. Normal basal cisterns. Normal bilateral temporal bones. Normal bilateral internal auditory canals. No demonstrated orbital abnormality, within the constraints of a routine brain study. Normal visualized paranasal sinuses. Normal calvarium and skull base. Normal visualized soft tissue structures. Normal visualized upper cervical spine. MRI/Brain W/WO Contrast IMPRESSION: Normal unenhanced and enhanced MRI of the brain. Electronically Signed: Antione Galeas MD at 14:14 EST Tel , Service support ,
--- NOTE | 2020-03-03 08:18 | MRI_ITS ---
STUDY: MRI CERVICAL SPINE WITHOUT CONTRAST REASON FOR EXAM: Female, 74 years old. neck pain, no trauma, h/o migraines, sepsis TECHNIQUE: Standardized fat and water weighted pulse sequences were obtained in the sagittal and axial planes. COMPARISON: None FINDINGS: Normal foramen magnum and brainstem-cervical cord junction. Normal craniovertebral junction. There is hypertrophy of the transverse ligament of the atlas with mild posterior displacement of the superior and inferior longitudinal fibers of the cruciform ligament, producing minimal ventral thecal sac flattening, but without cervical cord impingement. There are mild degenerative changes in the anterior atlantoaxial articulation. Normal odontoid process. Normal cervical lordosis. Normal vertebral bodies and posterior osseous elements. C2-3: Normal endplates. Normal disc height, signal and morphology. Normal central canal and intervertebral neural foramina. C3-4: Normal endplates. Normal disc height, signal and morphology. Normal central canal and intervertebral neural foramina. C4-5: Normal endplates. Normal disc height, signal and morphology. Normal central canal and intervertebral neural foramina. C5-6: 2 mm retrolisthesis of C5 on C6 with a mild broad disc osteophyte complex produces mild spinal stenosis and moderate left neural foraminal stenosis. C6-7: 5 mm of anterolisthesis of C6 on C7 with a mild broad disc osteophyte complex produces mild spinal stenosis and moderate bilateral neural foraminal stenosis. C7-T1: Normal endplates. Normal disc height, signal and morphology. Normal central canal and intervertebral neural foramina. Normal cervical cord. Normal visualized soft tissue structures. MRI/Spine Cervical (Routine) IMPRESSION: Multilevel degenerative changes, as described above. Electronically Signed: Antione Galeas MD at 14:30 EST Tel , Service support ,
[2020-03-03 08:32] LABS: Eosinophil 1 % (0-5); Lymphocyte 11 % (19-41); Monocyte 7 % (0-10); Neutrophil-Band 8 % (0-5); Neutrophil-Segmented 73 % (47-70); Total Cells Counted 100 (MANUAL DIFF)
[2020-03-03 08:33] LABS: Anion Gap 5 (5-15); BUN 25 mg/dL (7-18); BUN/Creat Ratio 37.9 RATIO (10-20); Calcium,Total 8.1 mg/dL (8.5-10.1); Chloride 113 mmol/L (98-107); Creatinine, Serum 0.66 mg/dL (0.55-1.02); EST Glomerular Filtration Rate 93 mL/min (>60); Est Glom Filt Rate - Afr Amer 113 mL/min (>60); Glucose 99 mg/dL (74-106); Potassium 3.7 mmol/L (3.5-5.1); Sodium Level 143 mmol/L (136-145)
[2020-03-03 08:34] LABS: Absolute Lymphocyte Count 1.78 X10^3/uL (0.83-4.51); Absolute Neutrophil Count 13.1 X10^3/uL (2.0-7.7)
[2020-03-03 08:35] LABS: Platelet Estimate ADEQUATE (ADEQ)
[2020-03-03] MEDS: Morphine 2 MG/ML Syringe IV (11:13)
[2020-03-03] MEDS: 0.9% Saline Lock 10 ML Syringe IV (11:14)
[2020-03-03] MEDS: Ondansetron 4 MG/2 ML Vial IV (11:14)
[2020-03-03] MEDS: Venlafaxine XR 75 MG Capsule PO (13:15)
--- NOTE | 2020-03-03 13:47 | PN_ITS ---
Patient Problems: Active and Suspected Problems (Last Reviewed 09/13/19 @ 15:[address] Jin Ellis MD) COVID-19 (Acute) Pulmonary embolism (Acute) Thrombocytopenia (Acute) UTI (urinary tract infection) (Acute) ANGELICA (acute kidney injury) (Acute) Fatigue (Acute) Nonproductive cough (Acute) Body aches (Acute) Shortness of breath (Acute) Sepsis (Acute) Kidney stone on right side (Acute) Subjective: Patient seen and examined today. She continues to complain of headache and neck pain. She also complains of pain all over which she thinks is due to her fibromyalgia. Patient looks weak and lethargic. Review of systems otherwise negative. He has remained hemodynamically stable. WBC has trended down to 16.2 and platelets are up to 108 today. Vitals/I&O's: Vital Signs Temp Pulse Resp BP Pulse Ox 98.4 F 94 18 148/78 H 95 03/03/20 08:40 03/03/20 11:22 03/03/20 08:40 03/03/20 08:40 03/03/20 08:40 Oxygen Flow Rate (L/min) 2 Oxygen Delivery Method Room Air Weight: 199 lb 15.348 oz Body Mass Index (BMI) 32.8 Intake and Output for Last 24 Hours 03/01/20 03/02/20 03/03/20 23:59 23:59 23:59 Intake Total 920 / 920 1025 / 1025 221.67 / 221.67 Output Total 1200 / 1600 1725 / 1725 700 / 700 Balance -280 / -680 -700 / -700 -478.33 / -478.33 General: Alert, Oriented x3, Cooperative, Lethargic HEENT: Atraumatic, PERRLA, EOMI, Normocephalic Oral: Dry Mucosa Neck: Supple, No JVD, Negative Carotid Bruits Lungs: - - diminished breath sounds bibasally, no wheezes. has few crackles bibasally. on room air Cardiovascular: Regular rate, Regular Rhythm, Normal S1, Normal S2, No murmurs Abdomen: Bowel Sounds Present, Soft, Non Tender Extremities: No clubbing, No cyanosis, No edema, Capillary Refill Less than 3 Seconds Skin: No rashes, No breakdown Musculoskeletal: No Tenderness to Palpation of Joints or Extremities Lymphatic: No Cervical, Supraclavicular, or Inguinal Adenopathy Neurological: Cranial nerves II-XII grossly intact, Neuro grossly intact, Motor Exam 5/5 strength throughout Psych/Mental Status: lethargic,Alert and oriented to time, place, person, mood and affect Microbiology Past 72 Hours 02/27/20 20:15 Blood Culture (Wb) - Anticubital Left Blood Culture - Final GNR 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 02/27/20 20:00 Blood Culture (Wb) - Anticubital Right Blood Culture - Final Escherichia coli Laboratory Results 03/03/20 05:42: Total Bilirubin 0.60, Direct Bilirubin 0.22, AST 19, ALT 28, Alkaline Phosphatase 205 H, Total Protein 5.6 L, Albumin 1.8 L, Globulin 3.8 03/03/20 05:42: WBC 16.2 H, RBC 4.56, Hgb 13.1, Hct 41.6, MCV 91.2, MCH 28.7, MCHC 31.5 L, RDW Std Deviation 49.7 H, RDW Coeff of Lonnie 14.8 H, Plt Count 108 L, MPV 11.7, Neut % (Auto) Not Reportable, Absolute Neuts (auto) 13.1 H, Absolute Lymphs (auto) 1.78, Total Counted 100, Neutrophils % (Manual) 73 H, Band Neutrophils % 8 H, Lymphocytes % (Manual) 11 L, Monocytes % (Manual) 7, Eosinophils % (Manual) 1, Platelet Estimate ADEQUATE 03/03/20 05:42: Sodium 143, Potassium 3.7, Chloride 113 H, Carbon Dioxide 25.0, Anion Gap 5, BUN 25 H, Creatinine 0.66, Estim Creat Clear Calc 46.90, Est GFR (MDRD) Af Amer 113, Est GFR (MDRD) Non-Af 93, BUN/Creatinine Ratio 37.9 H, Glucose 99, Calcium 8.1 L, Total Bilirubin Cancelled, AST Cancelled, ALT Cancelled, Alkaline Phosphatase Cancelled, Total Protein Cancelled, Albumin Cancelled, Globulin Cancelled, Albumin/Globulin Ratio Cancelled Current Medications Acetaminophen (Acetaminophen 325 Mg Tablet) 650 mg PO Q6H PRN PRN PRN Reason: Pain Score 1-10/Temp > 100.7 F Last Admin: 03/02/20 21:56 Dose: 650 mg Documented by: Atorvastatin Calcium (Atorvastatin Calcium 10 Mg Tablet) 10 mg PO DAILY@2200 [facility] Last Admin: 03/02/20 21:56 Dose: 10 mg Documented by: Guaifenesin (Guaifenesin Dm 10 Ml Udc) 10 ml PO Q6H PRN PRN PRN Reason: COUGH Sodium Chloride () 250 mls @ 15 mls/hr IV .[id number] PRN PRN Reason: Saline Flush Last Infusion: 03/02/20 18:35 Dose: Infused Documented by: Sodium Chloride () 250 mls @ 15 mls/hr IV .[id number] PRN PRN Reason: Additional IVPB Infusion Ceftriaxone Sodium 2 gm/ (Sodium Chloride) 50 mls @ 100 mls/hr IV Q24 [facility] Last Infusion: 03/03/20 13:28 Dose: 100 mls/hr Documented by: Morphine Sulfate (Morphine 2 Mg/Ml Syringe) 2 mg IV Q3H PRN PRN PRN Reason: Pain Score 6-10 Last Admin: 03/03/20 11:13 Dose: 2 mg Documented by: Ondansetron HCl (Ondansetron 4 Mg/2 Ml Vial) 4 mg IV Q8H PRN PRN PRN Reason: NAUSEA/VOMITING Last Admin: 03/03/20 11:14 Dose: 4 mg Documented by: Oxycodone HCl (Oxycodone 5 Mg Tablet) 5 mg PO Q4H PRN PRN PRN Reason: Pain Score 4-10 Last Admin: 03/03/20 13:15 Dose: 5 mg Documented by: Sodium Chloride (0.9% Saline Lock 10 Ml Syringe) 10 - 40 ml IV UD PRN PRN Reason: SALINE FLUSH Last Admin: 03/03/20 11:14 Dose: 10 ml Documented by: Temazepam (Temazepam 15 Mg Capsule) 15 mg PO QHS PRN PRN PRN Reason: INSOMNIA Last Admin: 03/02/20 21:56 Dose: 15 mg Documented by: Venlafaxine HCl (Venlafaxine Xr 75 Mg Capsule) 75 mg PO DAILY [facility] Last Admin: 03/03/20 13:15 Dose: 75 mg Documented by: STROKE Vital Signs/Narrative: Vital Signs Pulse 03/03/20 11:22 94 Medical Necessity - Tobacco Use Smoking Status: Never smoker Tobacco Use: Non-smoker Assessment/Plan All Active Problems (Last Reviewed 09/13/19 @ 15:[address] Jin Ellis MD) COVID-19 (Acute) Pulmonary embolism (Acute) Thrombocytopenia (Acute) UTI (urinary tract infection) (Acute) ANGELICA (acute kidney injury) (Acute) Fatigue (Acute) Nonproductive cough (Acute) Body aches (Acute) Shortness of breath (Acute) Sepsis (Acute) Kidney stone on right side (Acute) # Acute hypoxic respiratory failure due to sepsis * PE ruled out with negative CTA * now on room air * 2D echo: EF of 55%, with RVSP of 38mmHg * breathing treatment with bronchodilators * titrate oxygen to maintain sats >90% * pulmonology on board * # Sepsis due to UTI and obstructive kidney stone * wbc down to 16 today * urine cultured E coli, sensitive to ceftriaxone * ID on board: CT of the abdomen and pelvis done showed hydronephrosis and obstruction right 5 mm stone. Had ureteral stent placement by urology. * antibiotics narrowed down to IV ceftriaxone * blood cultures growing E coli. * of note, COVID antigen test was positive, but PCR was negative; ID determined she was low risk for COVID. * #RIght obstructive kidney stone with hydronephrosis * as above. * had right urereteral stent placement * urology on board * # Thromobocytopenia * platelets up to 102 today * hematology on board: Hematology reviewed peripheral smear slides and there was no evidence of schistocytes. Hematology therefore thinks that her thrombocytopenia is due to the severe sepsis. Expect platelets to recover once sepsis is treated. * * #Migraine headache: * on Imitrex. CT of the brain was negative. * still complaining of headache and neck pain. Kernig;s and Brudzinski's signs have remained negative * will get MRI of the brain and cervical spine for further evaluation in lgith of persistent headache. * # Elevated liver enzymes * resolved * CT of the abdomen showed hepatomegaly, with diffuse hepatic enlargement, normal gallbladder and extrahepatic biliary system #Afib * Patient developed A. fib with RVR on admission but is now in normal sinus rhythm. * Cardiology on board. * 2D echo as above # Hyperlipidemia: on statin DVT prophylaxis; SCDs Inpatient E&M: [id number] [facility] Hosp L3
[2020-03-03] MEDS: Methocarbamol 500 MG Tablet 1000 MG PO ×2 (16:34→21:35)
[2020-03-03] MEDS: SUMAtriptan 6 MG/0.5 ML Vial SC (21:35)
[2020-03-03] MEDS: MELATONIN 3 MG TABLET PO (21:35)
[2020-03-03] MEDS: Atorvastatin Calcium 10 MG Tablet PO (21:35)
[2020-03-03] MEDS: Temazepam 15 MG Capsule PO (21:35)
[2020-03-03 23:50] LABS: Red Cell Morphology NORM C+C NORMAL (NORM C&C)
[2020-03-04] VITALS (9 sets, daily range): BP systolic 122–145; BP diastolic 64–75; PULSE 82–104; RESP 15–18; TEMP 36.4–37.3; O2SAT 92–96
[2020-03-04] MEDS: oxyCODONE 5 MG Tablet PO ×3 (04:22→20:40)
[2020-03-04 06:22] LABS: Absolute Lymphocyte Count 1.25 X10^3/uL (0.83-4.51); Basophil% 0.6 % (0-1); Eosinophil# 0.22 X10^3/uL; Eosinophils% 1.3 % (0-5); Hematocrit 38.7 % (37-47); Hemoglobin 12.8 g/dL (12.0-15.0); Lymphocyte # 1.25 X10^3/ul (4.0); Lymphocyte % 7.5 % (19-41); Mean Corp Hgb Conc 33.1 g/dL (32-36); Mean Corpuscular Hgb 29.6 pg (27.0-32.0); Mean Corpuscular Volume 89.4 fL (81-99); Mean Platelet Vol. 10.8 fl (6.2-12.0); Monocyte# 1.23 X10^3/uL; Monocyte% 7.4 % (0-10); NRBC Flagged by Analyzer 0 % (0-5); Neutrophil # 12.95 X10^3/uL (2.7-7.7); Neutrophil % 78.2 % (47-70); Platelet Count 249 K/mm3 (150-450); RBC Distribution Width CV 14.6 % (11.6-14.6); RBC Distribution Width SD 47.8 fl (35.1-43.9); Red Blood Count 4.33 M/mm3 (4.2-5.4); White Blood Count 16.6 K/mm3 (4.4-11.0)
[2020-03-04 06:54] LABS: ALB/GLOB Ratio 0.5 RATIO (0.9-2.4); AST(SGOT) 17 U/L (15-37); Alanine Aminotransfer ALT/SGPT 26 U/L (13-56); Albumin, Serum 1.8 g/dL (3.2-5.0); Alkaline Phosphatase 245 U/L (45-117); Anion Gap 6 (5-15); BUN 16 mg/dL (7-18); BUN/Creat Ratio 29.9 RATIO (10-20); Calcium,Total 8.4 mg/dL (8.5-10.1); Chloride 108 mmol/L (98-107); Creatinine, Serum 0.54 mg/dL (0.55-1.02); EST Glomerular Filtration Rate 118 mL/min (>60); Est Glom Filt Rate - Afr Amer 143 mL/min (>60); Globulin 3.9 g/dL (2.2-4.2); Glucose 100 mg/dL (74-106); Potassium 3.8 mmol/L (3.5-5.1); Protein, Total 5.7 g/dL (6.4-8.2); Sodium Level 138 mmol/L (136-145)
--- NOTE | 2020-03-04 08:24 | PN_ITS ---
Patient Problems: Active and Suspected Problems (Last Reviewed 09/13/19 @ 15:[address] Jin Ellis MD) Thrombocytopenia (Acute) ANGELICA (acute kidney injury) (Acute) Sepsis (Acute) Kidney stone on right side (Acute) Subjective: Chief complaint: Follow-up after admission for sepsis due to UTI, bacteremia, obstructive kidney stone, thrombocytopenia and migraine. Patient seen and examined. No acute events overnight. She still complaining of headache and mild neck pain but improving. Still complaining of profound weakness and debility having difficulty ambulating. No focal weakness. Denied fever or chills. Denied cough or sputum production. Denied chest pain or shortness of breath. She has been afebrile, blood pressure lateral stable, pulse ox is 92% on room air. - Physical Exam Vitals/I&O's: Vital Signs Temp Pulse Resp BP Pulse Ox 97.6 F L 96 18 137/64 H 93 03/04/20 04:00 03/04/20 06:54 03/04/20 04:00 03/04/20 04:00 03/04/20 07:55 Oxygen Flow Rate (L/min) 2 Oxygen Delivery Method Room Air Weight: 203 lb 4.259 oz Body Mass Index (BMI) 32.8 Intake and Output for Last 24 Hours 03/02/20 03/03/20 03/04/20 23:59 23:59 23:59 Intake Total 1025 / 1025 880.00 / 880.00 Output Total 1725 / 1725 1350 / 1350 Balance -700 / -700 -470.00 / -470.00 General: Alert, Oriented x3, Cooperative, No apparent distress HEENT: Atraumatic, PERRLA, EOMI, Normocephalic Oral: Moist Mucosa, No Gingival or Mucosal Lesions/ Ulcerations Neck: Supple, No JVD, Negative Carotid Bruits, Trachea Midline, Thyroid Normal Size and Texture Lungs: Clear to auscultation, No rhonchi, No wheeze, No rales, Diminished Cardiovascular: Regular rate, Regular Rhythm, Normal S1, Normal S2, PMI Normal Abdomen: Bowel Sounds Present, Soft, Non Tender, Non-Distended, No Hepato- splenomegaly Extremities: No clubbing, No cyanosis, No edema Skin: No rashes, No breakdown Neurological: Cranial nerves II-XII grossly intact, Neuro grossly intact Psych/Mental Status: Normal Affect, Appropriate, Alert and oriented to time, place, person, mood and affect Microbiology Past 72 Hours 02/27/20 20:15 Blood Culture (Wb) - Anticubital Left 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 02/27/20 20:00 Blood Culture (Wb) - Anticubital Right Blood Culture - Final Escherichia coli Laboratory Results 03/03/20 05:42: Absolute Neuts (auto) 13.1 H, Absolute Lymphs (auto) 1.78, Total Counted 100, Neutrophils % (Manual) 73 H, Band Neutrophils % 8 H, Lymphocytes % (Manual) 11 L, Monocytes % (Manual) 7, Eosinophils % (Manual) 1, Diff Path Review July, Platelet Estimate ADEQUATE, RBC Morphology NORM C+C 03/03/20 05:42: Sodium 143, Potassium 3.7, Chloride 113 H, Carbon Dioxide 25.0, Anion Gap 5, BUN 25 H, Creatinine 0.66, Estim Creat Clear Calc 46.90, Est GFR (MDRD) Af Amer 113, Est GFR (MDRD) Non-Af 93, BUN/Creatinine Ratio 37.9 H, Glucose 99, Calcium 8.1 L 03/04/20 06:01: WBC 16.6 H, RBC 4.33, Hgb 12.8, Hct 38.7, MCV 89.4, MCH 29.6, MCHC 33.1 D, RDW Std Deviation 47.8 H, RDW Coeff of Lonnie 14.6, Plt Count 249, MPV 10.8, Immature Gran % (Auto) 5.000 H, Neut % (Auto) 78.2 H, Lymph % (Auto) 7.5 L, [place] % (Auto) 7.4, Eos % (Auto) 1.3, Baso % (Auto) 0.6, Absolute Neuts (auto) 13.0 H, Absolute Lymphs (auto) 1.25, Nucleated RBC % 0 03/04/20 06:01: Sodium 138, Potassium 3.8, Chloride 108 H, Carbon Dioxide 24.0, Anion Gap 6, BUN 16, Creatinine 0.54 L, Estim Creat Clear Calc 46.90, Est GFR (MDRD) Af Amer 143, Est GFR (MDRD) Non-Af 118, BUN/Creatinine Ratio 29.9 H, Glucose 100, Calcium 8.4 L, Total Bilirubin 0.70, AST 17, ALT 26, Alkaline Phosphatase 245 H, Total Protein 5.7 L, Albumin 1.8 L, Globulin 3.9, Albumin/Globulin Ratio 0.5 L Clinical Impression(s) from Imaging Studies Cervical Spine MRI 03/03/20 08:18 IMPRESSION: Multilevel degenerative changes, as described above. Electronically Signed: Antione Galeas MD at 14:30 EST Tel , Service support , Current Medications Acetaminophen (Acetaminophen 325 Mg Tablet) 650 mg PO Q6H PRN PRN PRN Reason: Pain Score 1-10/Temp > 100.7 F Last Admin: 03/02/20 21:56 Dose: 650 mg Documented by: Atorvastatin Calcium (Atorvastatin Calcium 10 Mg Tablet) 10 mg PO DAILY@2200 ON LICENSE OF [facility] Last Admin: 03/03/20 21:35 Dose: 10 mg Documented by: Guaifenesin (Guaifenesin Dm 10 Ml Udc) 10 ml PO Q6H PRN PRN PRN Reason: COUGH Sodium Chloride () 250 mls @ 15 mls/hr IV .[id number] PRN PRN Reason: Saline Flush Last Infusion: 03/02/20 18:35 Dose: Infused Documented by: Sodium Chloride () 250 mls @ 15 mls/hr IV .[id number] PRN PRN Reason: Additional IVPB Infusion Ceftriaxone Sodium 2 gm/ (Sodium Chloride) 50 mls @ 100 mls/hr IV Q24 ON LICENSE OF [facility] Last Infusion: 03/03/20 13:45 Dose: Infused Documented by: Melatonin (Melatonin 3 Mg Tablet) 3 mg PO QHS ON LICENSE OF [facility] Last Admin: 03/03/20 21:35 Dose: 3 mg Documented by: Methocarbamol (Methocarbamol 500 Mg Tablet) 1,000 mg PO 4X/DAY ON LICENSE OF [facility] Last Admin: 03/03/20 21:35 Dose: 1,000 mg Documented by: Morphine Sulfate (Morphine 2 Mg/Ml Syringe) 2 mg IV Q3H PRN PRN PRN Reason: Pain Score 6-10 Last Admin: 03/03/20 11:13 Dose: 2 mg Documented by: Ondansetron HCl (Ondansetron 4 Mg/2 Ml Vial) 4 mg IV Q8H PRN PRN PRN Reason: NAUSEA/VOMITING Last Admin: 03/03/20 11:14 Dose: 4 mg Documented by: Oxycodone HCl (Oxycodone 5 Mg Tablet) 5 mg PO Q4H PRN PRN PRN Reason: Pain Score 4-10 Last Admin: 03/04/20 04:22 Dose: 5 mg Documented by: Sodium Chloride (0.9% Saline Lock 10 Ml Syringe) 10 - 40 ml IV UD PRN PRN Reason: SALINE FLUSH Last Admin: 03/03/20 11:14 Dose: 10 ml Documented by: Temazepam (Temazepam 15 Mg Capsule) 15 mg PO QHS PRN PRN PRN Reason: INSOMNIA Last Admin: 03/03/20 21:35 Dose: 15 mg Documented by: Venlafaxine HCl (Venlafaxine Xr 75 Mg Capsule) 75 mg PO DAILY [facility] Last Admin: 03/03/20 13:15 Dose: 75 mg Documented by: Medical Necessity - Tobacco Use Smoking Status: Never smoker Tobacco Use: Non-smoker Assessment/Plan All Active Problems (Last Reviewed 09/13/19 @ 15:[address] Jin Ellis MD) Acute cystitis (Acute) Thrombocytopenia (Acute) ANGELICA (acute kidney injury) (Acute) Sepsis (Acute) Kidney stone on right side (Acute) This is a 74 years old female patient presented to the emergency room initially because of shortness of breath, was found to have positive COVID-19 antigens but COVID-19 PCR was negative, found to have acute cystitis, kidney stone with bacteremia complicated by thrombocytopenia and she has been complaining of profound generalized weakness and fatigue as well as headache and neck pain. #1 acute cystitis/sepsis: She is on IV Rocephin. She has been afebrile, still having leukocytosis. Urine culture showed no growth. Blood culture revealed E. coli. Other vital signs are stable. Plan to continue IV Rocephin. #2 E. coli bacteremia: Attributed to urinary source. Sensitivities reviewed. She is on IV Rocephin. Plan: Repeat blood culture today. # #3 obstructing right proximal ureteral calculi: Status post cystoscopy and stent placement. Kidney function is back to normal. #4 acute kidney injury: Due to sepsis and kidney stone. Kidney function is back to normal. #5 severe thrombocytopenia: Attributed to sepsis and infection. Platelet count is back to normal. #6 low suspicion of COVID-19 pneumonia/acute hypoxic respiratory failure: Initially, COVID-19 antigen was positive. COVID-19 PCR was negative. CTA chest showed no PE or dissection, revealed patchy consolidation of the lower lobes. Patient received couple of dose of IV dexamethasone. She was low suspicion for COVID-19. Infectious disease on the case. Isolation precautions discontinued. Initially, patient required oxygen of up to 4 L. Currently, she is on room air. I will repeat COVID-19 PCR. #7 intractable neck pain/headache/profound fatigue and weakness: She had MRI brain as well as MRI of the cervical spine, findings reviewed. Her symptoms could be due to fibromyalgia. She is already on venlafaxine. Plan: Start ibuprofen every 8 hours, amitriptyline nightly #8 nonobstructive CAD: Stable, no complaints. She is only on statins. #9 hyperlipidemia: Continue statins. #10 depression: Continue venlafaxine. #11 DVT prophylaxis: Platelet count is back to normal. We will start Lovenox for DVT prophylaxis. This note was generated with [employer] dictation software. It may contain incorrect words, spelling, and punctuation that were not noted in checking the note before signing. Inpatient E&M: 79092 Subs Hosp L2
[2020-03-04] MEDS: Acetaminophen 325 MG Tablet 650 MG PO (08:25)
[2020-03-04] MEDS: Methocarbamol 500 MG Tablet 1000 MG PO ×4 (08:31→20:39)
--- NOTE | 2020-03-04 10:03 | RAD_ITS ---
STUDY: X-RAY - ABDOMEN/PELVIS REASON FOR EXAM: Female, 74 years old. check kidney stone, abdomen pain TECHNIQUE: Single AP view of the abdomen / pelvis. COMPARISON: None. FINDINGS: Some bibasilar atelectasis. Gas in multiple loops of small bowel in a nonspecific bowel gas pattern. The visualized liver, spleen and kidneys are grossly normal in size and morphology. Right ureteral stent. No obvious ureteral stone. Normal visualized osseous structures. RAD/Abdomen Single View IMPRESSION: 1. Right ureteral stent. No obvious ureteral stone. 2. Nonspecific bowel gas pattern. Electronically Signed: Antione Galeas MD at 10:25 EST Tel , Service support ,
[2020-03-04] MEDS: 0.9% Saline Lock 10 ML Syringe IV (11:06)
[2020-03-04] MEDS: Venlafaxine XR 75 MG Capsule PO (11:07)
[2020-03-04 14:10] LABS: Pathologist Review Reviewed
[2020-03-04 14:19] LABS: Pathologist Review Reviewed
[2020-03-04 14:53] LABS: Probe Check PASS; Specimen Processing Control PASS
[2020-03-04] MEDS: Enoxaparin 40 MG/0.4 ML Syringe SC (15:46)
[2020-03-04] MEDS: Ibuprofen 400 MG Tablet PO ×2 (15:46→20:39)
--- NOTE | 2020-03-04 17:00 | CASEMGMT ---
FRANCOIS CHAN NOTE: Call received from Dr Ellis, asking RN CM to place call to pt's to assist him with pt getting set up with [facility] and any medical equipment pt may need. Per Desirae @ [facility], they are not in-network with pt's primary insurance, [employer]. Call placed to pt's , Antione. Antione also placed their daughter, Veronica, on the phone. FRANCOIS CHAN introduced self and role of RN DUSTIN. They [facility] about [facility]. They are aware [facility] is not in network w/[employer], but state [facility] is their preference. RN DUSTIN advised them to contact pt's insurance to inquire if [employer] would work with [facility] for a one-time contract agreement with [facility]. Antione states he is working on it. FRANCOIS CHAN reviewed PT/OT notes and discussed findings with Antione and Veronica. Veronica states this is an improvement from what pt was able to do previously. They had several questions about HHC. Discussed process of HHC--that SN is typically a once a week visit, and therapy 2-3 x's/week, depending on HHC evaluation and pt's needs. Also discussed any DME needs. Veronica confirms pt has a walker, and states she has a toilet w/bilat rails, but feels a shower chair would also be beneficial. She was made aware shower chairs are not typically covered by insurance, but this can be purchased [id number] at a local drug store, such as [employer], [employer], or even on [employer], if they prefer. They voice appreciation of info. They also had questions about COVID-19 precautions that HHC follow. RN DUSTIN advised them to contact [facility] to discuss this and any further questions they may have re: HHC protocol. They were provided with [facility] contact info. They were made aware therapy would work with pt again on and further discussion with them about HHC, any additional medical equip, and any further questions they have can be discussed again tomorrow. They were provided with this RN CM's contact info as well for them to call if any further questions/needs/concerns may arise. FRANCOIS CHAN to f/u with family and [facility] re: [employer] insurance approval/if they will allow a one-time contract agreement. Rosana BSN RN CM
--- NOTE | 2020-03-04 17:10 | PN.ID_ITS ---
Patient Problems: Active and Suspected Problems (Last Reviewed 09/13/19 @ 15:[address] Jin Ellis MD) Thrombocytopenia (Acute) ANGELICA (acute kidney injury) (Acute) Sepsis (Acute) Kidney stone on right side (Acute) Subjective: Headache and neck pain better with meds today. No fever. - Physical Exam Vitals/I&O's: Vital Signs Temp Pulse Resp BP Pulse Ox 99.1 F 98 15 145/67 H 92 03/04/20 15:39 03/04/20 15:39 03/04/20 15:39 03/04/20 15:39 03/04/20 15:39 Oxygen Flow Rate (L/min) 2 Oxygen Delivery Method Room Air Weight: 92.2 kg Body Mass Index (BMI) 32.8 Intake and Output for Last 24 Hours 03/02/20 03/03/20 03/04/20 23:59 23:59 23:59 Intake Total 1025 / 1025 880.00 / 880.00 750 / 750 Output Total 1725 / 1725 1350 / 1350 Balance -700 / -700 -470.00 / -470.00 750 / 750 General: Alert, Cooperative, No apparent distress Neck: - - some neck movement, limited by pain Lungs: Clear to auscultation, Normal air movement Cardiovascular: Regular rate, Regular Rhythm Abdomen: Soft, Non Tender, Non-Distended Skin: No rashes Laboratory Results 03/02/20 04:10: Diff Path Review Reviewed 03/03/20 05:42: Diff Path Review Reviewed, RBC Morphology NORM C+C 03/04/20 06:01: WBC 16.6 H, RBC 4.33, Hgb 12.8, Hct 38.7, MCV 89.4, MCH 29.6, MCHC 33.1 D, RDW Std Deviation 47.8 H, RDW Coeff of Lonnie 14.6, Plt Count 249, MPV 10.8, Immature Gran % (Auto) 5.000 H, Neut % (Auto) 78.2 H, Lymph % (Auto) 7.5 L, [place] % (Auto) 7.4, Eos % (Auto) 1.3, Baso % (Auto) 0.6, Absolute Neuts (auto) 13.0 H, Absolute Lymphs (auto) 1.25, Nucleated RBC % 0 03/04/20 06:01: Sodium 138, Potassium 3.8, Chloride 108 H, Carbon Dioxide 24.0, Anion Gap 6, BUN 16, Creatinine 0.54 L, Estim Creat Clear Calc 46.90, Est GFR (MDRD) Af Amer 143, Est GFR (MDRD) Non-Af 118, BUN/Creatinine Ratio 29.9 H, Glucose 100, Calcium 8.4 L, Total Bilirubin 0.70, AST 17, ALT 26, Alkaline Phosphatase 245 H, Total Protein 5.7 L, Albumin 1.8 L, Globulin 3.9, Albumin/Globulin Ratio 0.5 L 03/04/20 13:35: COVID-19 (SAMIR) Negative Current Medications Acetaminophen (Acetaminophen 325 Mg Tablet) 650 mg PO Q6H PRN PRN PRN Reason: Pain Score 1-10/Temp > 100.7 F Last Admin: 03/04/20 08:25 Dose: 650 mg Documented by: Amitriptyline HCl (Amitriptyline 25 Mg Tablet) 25 mg PO QHS [facility] Atorvastatin Calcium (Atorvastatin Calcium 10 Mg Tablet) 10 mg PO DAILY@2200 [facility] Last Admin: 03/03/20 21:35 Dose: 10 mg Documented by: Enoxaparin Sodium (Enoxaparin 40 Mg/0.4 Ml Syringe) 40 mg SC DAILY [facility] Last Admin: 03/04/20 15:46 Dose: 40 mg Documented by: Guaifenesin (Guaifenesin Dm 10 Ml Udc) 10 ml PO Q6H PRN PRN PRN Reason: COUGH Sodium Chloride () 250 mls @ 15 mls/hr IV .[id number] PRN PRN Reason: Saline Flush Last Infusion: 03/02/20 18:35 Dose: Infused Documented by: Sodium Chloride () 250 mls @ 15 mls/hr IV .[id number] PRN PRN Reason: Additional IVPB Infusion Ceftriaxone Sodium 2 gm/ (Sodium Chloride) 50 mls @ 100 mls/hr IV Q24 [facility] Last Infusion: 03/04/20 12:38 Dose: Infused Documented by: Ibuprofen (Ibuprofen 400 Mg Tablet) 400 mg PO Q8 [facility] Last Admin: 03/04/20 15:46 Dose: 400 mg Documented by: Melatonin (Melatonin 3 Mg Tablet) 3 mg PO QHS [facility] Last Admin: 03/03/20 21:35 Dose: 3 mg Documented by: Methocarbamol (Methocarbamol 500 Mg Tablet) 1,000 mg PO 4X/DAY [facility] Last Admin: 03/04/20 13:21 Dose: 1,000 mg Documented by: Morphine Sulfate (Morphine 2 Mg/Ml Syringe) 2 mg IV Q3H PRN PRN PRN Reason: Pain Score 6-10 Last Admin: 03/03/20 11:13 Dose: 2 mg Documented by: Ondansetron HCl (Ondansetron 4 Mg/2 Ml Vial) 4 mg IV Q8H PRN PRN PRN Reason: NAUSEA/VOMITING Last Admin: 03/03/20 11:14 Dose: 4 mg Documented by: Oxycodone HCl (Oxycodone 5 Mg Tablet) 5 mg PO Q4H PRN PRN PRN Reason: Pain Score 4-10 Last Admin: 03/04/20 08:31 Dose: 5 mg Documented by: Sodium Chloride (0.9% Saline Lock 10 Ml Syringe) 10 - 40 ml IV UD PRN PRN Reason: SALINE FLUSH Last Admin: 03/04/20 11:06 Dose: 10 ml Documented by: Temazepam (Temazepam 15 Mg Capsule) 15 mg PO QHS PRN PRN PRN Reason: INSOMNIA Last Admin: 03/03/20 21:35 Dose: 15 mg Documented by: Venlafaxine HCl (Venlafaxine Xr 75 Mg Capsule) 75 mg PO DAILY [facility] Last Admin: 03/04/20 11:07 Dose: 75 mg Documented by: Medical Necessity - Tobacco Use Smoking Status: Never smoker Tobacco Use: Non-smoker Route of nutrition/ use of supplements: [] Nutritional Intake: [] IV Site: [] Stern Catheter: [] - Assessment/Plan Antibiotics: [] Assessment/Plan: [] Active and Suspected Problems (Last Reviewed 09/13/19 @ 15:[address] Jin Ellis MD) COVID-19 (Acute) Pulmonary embolism (Acute) Thrombocytopenia (Acute) UTI (urinary tract infection) (Acute) ANGELICA (acute kidney injury) (Acute) Fatigue (Acute) Nonproductive cough (Acute) Body aches (Acute) Shortness of breath (Acute) Sepsis (Acute) severe sepsis with ANGELICA and ecoli bacteremia from urinary source - Covid Ag (+) but pcr neg. Based on symptoms and testing, overall low suspicion for covid. Agree with holding remdesivir at this point. Out of iso. CT showed hydro and stone, taken to OR 02/[address] Devlin for stent placement. Narrowed abx to ceftriaxone. Headache and neck pain over past 2-3 days. Feeling better today. Repeat covid pcr neg today. Given improvement with symptomatic meds, low suspicion for meningitis, will not plan on LP at this time. Will follow
[2020-03-04] MEDS: MELATONIN 3 MG TABLET PO (20:39)
[2020-03-04] MEDS: Amitriptyline 25 MG Tablet PO (20:40)
[2020-03-04] MEDS: Atorvastatin Calcium 10 MG Tablet PO (20:40)
[2020-03-05] VITALS (11 sets, daily range): BP systolic 119–148; BP diastolic 62–77; PULSE 88–111; RESP 15–18; TEMP 36.9–37.4; O2SAT 92–96
[2020-03-05] MEDS: Ibuprofen 400 MG Tablet PO ×3 (05:15→20:07)
--- NOTE | 2020-03-05 07:59 | PCM.PN.BLA ---
Progress Note 74-year-old female with obstructing right ureteral calculus plan to take her to surgery tomorrow for ureteroscopy and laser of the obstructing fragment and possible removal of stent, n.p.o. at midnight for surgery, obtain consent. At this point I think she is clinically stable and ready for surgical intervention for her obstructing stone. STROKE Vital Signs/Narrative: Vital Signs Temp Pulse Resp BP Pulse Ox 03/05/20 07:02 92 03/05/20 06:59 103 H 03/05/20 05:13 98.5 F 93 18 148/77 H 92
--- NOTE | 2020-03-05 08:21 | PN_ITS ---
Patient Problems: Active and Suspected Problems (Last Reviewed 09/13/19 @ 15:[address] Jin Ellis MD) Thrombocytopenia (Acute) ANGELICA (acute kidney injury) (Acute) Sepsis (Acute) Kidney stone on right side (Acute) Subjective: Chief complaint: Follow-up after admission for sepsis due to UTI, bacteremia, obstructive kidney stone, thrombocytopenia and migraine. Patient seen and examined. No acute events overnight this morning, she reported some improvement of her symptoms including headache and neck pain, she is able to move her neck more freely but pain still there. She has been afebrile. She reported improvement of all of her symptoms including weakness and fatigue. Denied chest pain or shortness of breath, no cough or sputum production. She has been afebrile, blood pressure and heart rate are stable, pulse ox is 92% on room air. - Physical Exam Vitals/I&O's: Vital Signs Temp Pulse Resp BP Pulse Ox 98.5 F 103 H 18 148/77 H 92 03/05/20 05:13 03/05/20 06:59 03/05/20 05:13 03/05/20 05:13 03/05/20 07:02 Oxygen Flow Rate (L/min) 2 Oxygen Delivery Method Room Air Weight: 200 lb 2.876 oz Body Mass Index (BMI) 32.8 Intake and Output for Last 24 Hours 03/03/20 03/04/20 03/05/20 23:59 23:59 23:59 Intake Total 880.00 / 880.00 1350 / 1470 120 / 120 Output Total 1350 / 1350 350 / 350 Balance -470.00 / -470.00 1350 / 1170 -230 / -230 General: Alert, Oriented x3, Cooperative, No apparent distress HEENT: Atraumatic, PERRLA, EOMI, Normocephalic Oral: Moist Mucosa, No Gingival or Mucosal Lesions/ Ulcerations Neck: Supple, No JVD, Negative Carotid Bruits Lungs: Clear to auscultation, Normal air movement, No rhonchi, No wheeze, No rales, Diminished Cardiovascular: Regular rate, Regular Rhythm, Normal S1, Normal S2, PMI Normal Abdomen: Bowel Sounds Present, Soft, Non Tender, Non-Distended, No Hepato- splenomegaly Extremities: No clubbing, No cyanosis, No edema Skin: No rashes, No breakdown Lymphatic: No Cervical, Supraclavicular, or Inguinal Adenopathy Neurological: Cranial nerves II-XII grossly intact, Neuro grossly intact Psych/Mental Status: Normal Affect, Appropriate, Alert and oriented to time, place, person, mood and affect Laboratory Results 03/02/20 04:10: Diff Path Review Reviewed 03/03/20 05:42: Diff Path Review Reviewed 03/04/20 13:35: COVID-19 (SAMIR) Negative Current Medications Acetaminophen (Acetaminophen 325 Mg Tablet) 650 mg PO Q6H PRN PRN PRN Reason: Pain Score 1-10/Temp > 100.7 F Last Admin: 03/04/20 08:25 Dose: 650 mg Documented by: Amitriptyline HCl (Amitriptyline 25 Mg Tablet) 25 mg PO QHS [facility] Last Admin: 03/04/20 20:40 Dose: 25 mg Documented by: Atorvastatin Calcium (Atorvastatin Calcium 10 Mg Tablet) 10 mg PO DAILY@2200 [facility] Last Admin: 03/04/20 20:40 Dose: 10 mg Documented by: Enoxaparin Sodium (Enoxaparin 40 Mg/0.4 Ml Syringe) 40 mg SC DAILY [facility] Last Admin: 03/04/20 15:46 Dose: 40 mg Documented by: Guaifenesin (Guaifenesin Dm 10 Ml Udc) 10 ml PO Q6H PRN PRN PRN Reason: COUGH Sodium Chloride () 250 mls @ 15 mls/hr IV .[id number] PRN PRN Reason: Saline Flush Last Infusion: 03/02/20 18:35 Dose: Infused Documented by: Sodium Chloride () 250 mls @ 15 mls/hr IV .[id number] PRN PRN Reason: Additional IVPB Infusion Ceftriaxone Sodium 2 gm/ (Sodium Chloride) 50 mls @ 100 mls/hr IV Q24 [facility] Last Infusion: 03/04/20 12:38 Dose: Infused Documented by: Ibuprofen (Ibuprofen 400 Mg Tablet) 400 mg PO Q8 [facility] Last Admin: 03/05/20 05:15 Dose: 400 mg Documented by: Magnesium Hydroxide (Magnesium Hydroxide 30 Ml Udc) 15 ml PO DAILY [facility] Melatonin (Melatonin 3 Mg Tablet) 3 mg PO QHS [facility] Last Admin: 03/04/20 20:39 Dose: 3 mg Documented by: Methocarbamol (Methocarbamol 500 Mg Tablet) 1,000 mg PO 4X/DAY [facility] Last Admin: 03/04/20 20:39 Dose: 1,000 mg Documented by: Morphine Sulfate (Morphine 2 Mg/Ml Syringe) 2 mg IV Q3H PRN PRN PRN Reason: Pain Score 6-10 Last Admin: 03/03/20 11:13 Dose: 2 mg Documented by: Ondansetron HCl (Ondansetron 4 Mg/2 Ml Vial) 4 mg IV Q8H PRN PRN PRN Reason: NAUSEA/VOMITING Last Admin: 03/03/20 11:14 Dose: 4 mg Documented by: Oxycodone HCl (Oxycodone 5 Mg Tablet) 5 mg PO Q4H PRN PRN PRN Reason: Pain Score 4-10 Last Admin: 03/04/20 20:40 Dose: 5 mg Documented by: Senna (Senna Tablet) 2 tablet PO DAILY PRN PRN PRN Reason: CONSTIPATION Sodium Chloride (0.9% Saline Lock 10 Ml Syringe) 10 - 40 ml IV UD PRN PRN Reason: SALINE FLUSH Last Admin: 03/04/20 11:06 Dose: 10 ml Documented by: Temazepam (Temazepam 15 Mg Capsule) 15 mg PO QHS PRN PRN PRN Reason: INSOMNIA Last Admin: 03/03/20 21:35 Dose: 15 mg Documented by: Venlafaxine HCl (Venlafaxine Xr 75 Mg Capsule) 75 mg PO DAILY [facility] Last Admin: 03/04/20 11:07 Dose: 75 mg Documented by: Medical Necessity - Tobacco Use Smoking Status: Never smoker Tobacco Use: Non-smoker Assessment/Plan All Active Problems (Last Reviewed 09/13/19 @ 15:[address] Jin Ellis MD) Acute cystitis (Acute) Thrombocytopenia (Acute) ANGELICA (acute kidney injury) (Acute) Sepsis (Acute) Kidney stone on right side (Acute) This is a 74 years old female patient presented to the emergency room initially because of shortness of breath, was found to have positive COVID-19 antigens but COVID-19 PCR was negative x2, found to have acute cystitis, kidney stone with bacteremia complicated by thrombocytopenia and she has been complaining of profound generalized weakness and fatigue as well as headache/migraine and neck pain. #1 acute cystitis/sepsis: Remained on IV Rocephin. She has been afebrile, still having leukocytosis. Urine culture showed no growth. Blood culture revealed E. coli. Repeat blood cultures pending. Other vital signs are stable. Plan to continue IV Rocephin. #2 E. coli bacteremia: Attributed to urinary source. Sensitivities reviewed. Remained on IV Rocephin. Repeat blood cultures pending. # #3 obstructing right proximal ureteral calculi: Status post cystoscopy and stent placement. Kidney function is back to normal. Urology on the case, planning for ureteroscopy and laser therapy for the obstructing kidney stone fragments and possible removal of the stent. #4 acute kidney injury: Due to sepsis and kidney stone. Kidney function is back to normal. #5 severe thrombocytopenia: Attributed to sepsis and infection. Platelet count is back to normal. #6 low suspicion of COVID-19 pneumonia/acute hypoxic respiratory failure: Initially, COVID-19 antigen was positive. COVID-19 PCR was negative. Repeat COVID-19 PCR done yesterday and was negative again. CTA chest showed no PE or dissection, revealed patchy consolidation of the lower lobes. Patient received couple of dose of IV dexamethasone. She was low suspicion for COVID-19. Infectious disease on the case. Isolation precautions discontinued. Initially, patient required oxygen of up to 4 L. Currently, she is on room air. #7 intractable neck pain/headache/migraine/profound fatigue and weakness: She had MRI brain as well as MRI of the cervical spine, findings reviewed. Her symptoms could be due to fibromyalgia. She is already on venlafaxine. She was started on ibuprofen and amitriptyline yesterday. Today, patient reported some improvement of her symptoms and she is doing better. Plan to continue same treatment. #8 nonobstructive CAD: Stable, no complaints. She is only on statins. #9 hyperlipidemia: Continue statins. #10 depression: Continue venlafaxine. #11 DVT prophylaxis: Subcu Lovenox. This note was generated with [employer] dictation software. It may contain incorrect words, spelling, and punctuation that were not noted in checking the note before signing. Inpatient E&M: 33752 Subs Hosp L2
[2020-03-05] MEDS: Senna Tablet 2 TABLET PO (10:45)
[2020-03-05] MEDS: Venlafaxine XR 75 MG Capsule PO (10:45)
[2020-03-05] MEDS: 0.9% Saline Lock 10 ML Syringe IV (10:45)
[2020-03-05] MEDS: Methocarbamol 500 MG Tablet 1000 MG PO ×4 (10:45→20:07)
[2020-03-05] MEDS: Enoxaparin 40 MG/0.4 ML Syringe SC (10:46)
[2020-03-05] MEDS: Magnesium Hydroxide 30 ML UDC 15 ML PO (10:46)
--- NOTE | 2020-03-05 11:38 | PN.ID_ITS ---
Patient Problems: Active and Suspected Problems (Last Reviewed 09/13/19 @ 15:[address] Jin Ellis MD) Thrombocytopenia (Acute) ANGELICA (acute kidney injury) (Acute) Sepsis (Acute) Kidney stone on right side (Acute) Subjective: Neck pain improved, headache better, no fever - Physical Exam Vitals/I&O's: Vital Signs Temp Pulse Resp BP Pulse Ox 99.4 F H 97 15 137/71 H 94 03/05/20 11:19 03/05/20 11:19 03/05/20 11:19 03/05/20 11:19 03/05/20 11:19 Oxygen Flow Rate (L/min) 2 Oxygen Delivery Method Room Air Weight: 90.8 kg Body Mass Index (BMI) 32.8 Intake and Output for Last 24 Hours 03/03/20 03/04/20 03/05/20 23:59 23:59 23:59 Intake Total 880.00 / 880.00 1350 / 1470 120 / 120 Output Total 1350 / 1350 350 / 350 Balance -470.00 / -470.00 1350 / 1170 -230 / -230 General: Alert, Cooperative, No apparent distress Lungs: Clear to auscultation, Normal air movement Cardiovascular: Regular rate, Regular Rhythm Abdomen: Soft, Non Tender, Non-Distended Skin: No rashes Laboratory Results 03/02/20 04:10: Diff Path Review Reviewed 03/03/20 05:42: Diff Path Review Reviewed 03/04/20 13:35: COVID-19 (SAMIR) Negative Current Medications Acetaminophen (Acetaminophen 325 Mg Tablet) 650 mg PO Q6H PRN PRN PRN Reason: Pain Score 1-10/Temp > 100.7 F Last Admin: 03/04/20 08:25 Dose: 650 mg Documented by: Amitriptyline HCl (Amitriptyline 25 Mg Tablet) 25 mg PO QHS [facility] Last Admin: 03/04/20 20:40 Dose: 25 mg Documented by: Atorvastatin Calcium (Atorvastatin Calcium 10 Mg Tablet) 10 mg PO DAILY@2200 [facility] Last Admin: 03/04/20 20:40 Dose: 10 mg Documented by: Enoxaparin Sodium (Enoxaparin 40 Mg/0.4 Ml Syringe) 40 mg SC DAILY [facility] Last Admin: 03/05/20 10:46 Dose: 40 mg Documented by: Guaifenesin (Guaifenesin Dm 10 Ml Udc) 10 ml PO Q6H PRN PRN PRN Reason: COUGH Sodium Chloride () 250 mls @ 15 mls/hr IV .[id number] PRN PRN Reason: Saline Flush Last Infusion: 03/02/20 18:35 Dose: Infused Documented by: Sodium Chloride () 250 mls @ 15 mls/hr IV .[id number] PRN PRN Reason: Additional IVPB Infusion Ceftriaxone Sodium 2 gm/ (Sodium Chloride) 50 mls @ 100 mls/hr IV Q24 [facility] Last Admin: 03/05/20 10:45 Dose: 100 mls/hr Documented by: Ibuprofen (Ibuprofen 400 Mg Tablet) 400 mg PO Q8 [facility] Last Admin: 03/05/20 05:15 Dose: 400 mg Documented by: Magnesium Hydroxide (Magnesium Hydroxide 30 Ml Udc) 15 ml PO DAILY [facility] Last Admin: 03/05/20 10:46 Dose: 15 ml Documented by: Melatonin (Melatonin 3 Mg Tablet) 3 mg PO QHS [facility] Last Admin: 03/04/20 20:39 Dose: 3 mg Documented by: Methocarbamol (Methocarbamol 500 Mg Tablet) 1,000 mg PO 4X/DAY [facility] Last Admin: 03/05/20 10:45 Dose: 1,000 mg Documented by: Morphine Sulfate (Morphine 2 Mg/Ml Syringe) 2 mg IV Q3H PRN PRN PRN Reason: Pain Score 6-10 Last Admin: 03/03/20 11:13 Dose: 2 mg Documented by: Ondansetron HCl (Ondansetron 4 Mg/2 Ml Vial) 4 mg IV Q8H PRN PRN PRN Reason: NAUSEA/VOMITING Last Admin: 03/03/20 11:14 Dose: 4 mg Documented by: Oxycodone HCl (Oxycodone 5 Mg Tablet) 5 mg PO Q4H PRN PRN PRN Reason: Pain Score 4-10 Last Admin: 03/04/20 20:40 Dose: 5 mg Documented by: Senna (Senna Tablet) 2 tablet PO DAILY PRN PRN PRN Reason: CONSTIPATION Last Admin: 03/05/20 10:45 Dose: 2 tablet Documented by: Sodium Chloride (0.9% Saline Lock 10 Ml Syringe) 10 - 40 ml IV UD PRN PRN Reason: SALINE FLUSH Last Admin: 03/05/20 10:45 Dose: 20 ml Documented by: Temazepam (Temazepam 15 Mg Capsule) 15 mg PO QHS PRN PRN PRN Reason: INSOMNIA Last Admin: 03/03/20 21:35 Dose: 15 mg Documented by: Venlafaxine HCl (Venlafaxine Xr 75 Mg Capsule) 75 mg PO DAILY [facility] Last Admin: 03/05/20 10:45 Dose: 75 mg Documented by: Medical Necessity - Tobacco Use Smoking Status: Never smoker Tobacco Use: Non-smoker Route of nutrition/ use of supplements: [] Nutritional Intake: [] IV Site: [] Stern Catheter: [] - Assessment/Plan Antibiotics: [] Assessment/Plan: [] Active and Suspected Problems (Last Reviewed 09/13/19 @ 15:[address] Jin Ellis MD) COVID-19 (Acute) Pulmonary embolism (Acute) Thrombocytopenia (Acute) UTI (urinary tract infection) (Acute) ANGELICA (acute kidney injury) (Acute) Fatigue (Acute) Nonproductive cough (Acute) Body aches (Acute) Shortness of breath (Acute) Sepsis (Acute) severe sepsis with ANGELICA and ecoli bacteremia from urinary source - Covid Ag (+) but pcr neg x2 including on 03/04. Out of iso. CT showed hydro and stone, taken to OR 02/[address] Devlin for stent placement. Narrowed abx to ceftriaxone. Headache and neck pain for 2-3 days. Feeling better today. Given improvement with symptomatic meds, low suspicion for meningitis, will not plan on LP at this time. Neck pain continues to improve. Will follow
--- NOTE | 2020-03-05 11:48 | PCM.PN.BLA ---
Progress Note 74-year-old female status post stent placement on the right side for obstructing stone KUB demonstrates is a radiolucent stone can see on x-ray but she still has a stone she will need surgery at some point today discussed with the patient possibly going to surgery tomorrow but her neck is super stiff she still not feeling well she is tolerating regular food but she is not 100% recovered from her septic episode. At this point there is no nichole to do her surgery she stent is in place she is clinically stable I get a hold off on her surgical procedure I want her to get fully recovered she can go home she can see me in the office for preop visit were set up for surgery at some point after she is fully recovered but there is really no nichole to proceed with ureteroscopy given that she is not completely better. She was okay with holding off the surgery I will let the team know. STROKE Vital Signs/Narrative: Vital Signs Temp Pulse Resp BP Pulse Ox 03/05/20 11:19 99.4 F H 97 15 137/71 H 94
--- NOTE | 2020-03-05 11:50 | DCINST_ITS ---
Discharge Diet: Light diet - advance as tolerated Discharge Activity: Return to Normal Activity Allergies/Adverse Reactions: Allergies niacin Adverse Reaction (Verified 02/27/20 17:36) flushing oxycodone Adverse Reaction (Verified 02/27/20 17:36) Itching Medications to take at Discharge cholecalciferol (vitamin D3) unit PO QDAY ml 08/04/17 diclofenac sodium 1 % topical gel 2 g TOPICAL BID PRN #100 g 08/04/17 super greens PO 08/04/17 turmeric root extract 1,053 mg tablet 1,320 mg PO QDAY tab 08/04/17 rosuvastatin 5 mg tablet 5 mg PO DAILY 09/13/19 venlafaxine 75 mg tablet 75 mg PO DAILY 09/13/19 Primary Care Physician: Quentin Carter DO [Primary Care Provider] - Test Results: Test results from this visit will be discussed in further detail at your follow- up appointment, if applicable. Please Follow Up With: Adolfo Devlin MD - [phone] When: please call to make an appointment.
[2020-03-05] MEDS: oxyCODONE 5 MG Tablet PO (14:39)
--- NOTE | 2020-03-05 16:00 | CASEMGMT ---
FRANCOIS CHAN Note: Call received from Desirae @ [facility]. She states she has spoken w/Jackie who uses [employer] for C services. [facility] is not in network with [facility] and [employer] will not do a one-time contract with them. Call placed to pt's . He states they ordered a shower chair for pt yesterday and he denies needing any other DME at this time. He states that he just spoke w/Jackie and that he was informed that [facility] is in network. He states he will contact Jackie again. Discussed option of paying for [facility] [id number]. Antione made aware cost is approx $187 per discipline, per visit. He states, if they are not able to get anything worked out with insurance, that this amt is affordable and they would be willing to pay this, as they only want [facility]. Asked Antione if they would like SN in addition to PT. He states he is not sure and he would like Dr Ellis to make this decision. Antione was also made aware, once PT comes out to work with pt, if they decide they would like SN or OT, to discuss this with [facility] staff. He voices understanding. Spoke w/Dr Ellis re: option of SN for [facility] and that Antione would like Dr Ellis to make this decision. Dr Ellis states he does not feel SN is needed at this time. Call placed back to Desirae [facility]. She was made aware pt's is wiling to pay for C visits [id number] and that only PT will be needed at this time. She states she is still working on trying to get insurance coverage for pt for C. Rosana BATEMAN RN, CM
[2020-03-05] MEDS: Atorvastatin Calcium 10 MG Tablet PO (20:07)
[2020-03-05] MEDS: Amitriptyline 25 MG Tablet PO (20:07)
[2020-03-05] MEDS: MELATONIN 3 MG TABLET PO (20:07)
--- NOTE | 2020-03-05 20:14 | NURSING ---
Pt requesting meds at this time so she can get some sleep. Pt having major headache and doesnt want to be woke up if she is sleeping well.
--- NOTE | 2020-03-05 23:04 | PCS.PANDOC ---
PANDEMIC DOCUMENTATION INITIATED: Date: Time:
[2020-03-06] VITALS (9 sets, daily range): BP systolic 132–149; BP diastolic 55–72; PULSE 82–103; RESP 15–19; TEMP 36.2–36.8; O2SAT 92–94
[2020-03-06] MEDS: Acetaminophen 325 MG Tablet 650 MG PO ×2 (03:07→18:01)
[2020-03-06] MEDS: Ibuprofen 400 MG Tablet PO ×3 (05:49→22:49)
[2020-03-06] MEDS: Enoxaparin 40 MG/0.4 ML Syringe SC (09:00)
[2020-03-06] MEDS: Venlafaxine XR 75 MG Capsule PO (09:01)
[2020-03-06] MEDS: Methocarbamol 500 MG Tablet 1000 MG PO ×4 (09:01→22:49)
[2020-03-06] MEDS: 0.9% Saline Lock 10 ML Syringe IV (09:02)
[2020-03-06] MEDS: Magnesium Hydroxide 30 ML UDC 15 ML PO (09:18)
--- NOTE | 2020-03-06 10:59 | PCM.PROGNOTE ---
Patient Problems: Active and Suspected Problems (Last Reviewed 09/13/19 @ 15:[address] Jin Ellis MD) Thrombocytopenia (Acute) ANGELICA (acute kidney injury) (Acute) Sepsis (Acute) Kidney stone on right side (Acute) Subjective: Chief complaint: Follow-up after admission for sepsis due to UTI, bacteremia, obstructive kidney stone, thrombocytopenia and migraine. Patient seen and examined. Yesterday evening, patient started having headache and neck pain again as well as body aches. She was given Tylenol and Motrin as well as amitriptyline overnight and this morning, she is feeling better. Still having this weakness and fatigue but has been improving gradually. Her vital signs are stable, afebrile, pulse ox is 92% on room air. - Physical Exam Vitals/I&O's: Vital Signs Temp Pulse Resp BP Pulse Ox 98.3 F 83 15 149/68 H 92 03/06/20 08:58 03/06/20 08:58 03/06/20 08:58 03/06/20 08:58 03/06/20 08:58 Oxygen Flow Rate (L/min) 2 Oxygen Delivery Method Room Air Weight: 195 lb 5.273 oz Body Mass Index (BMI) 32.8 Intake and Output for Last 24 Hours 03/04/20 03/05/20 03/06/20 23:59 23:59 23:59 Intake Total 1350 / 1470 1530 / 1530 Output Total 1625 / 1625 310 / 310 Balance 1350 / 1170 -95 / -95 -310 / -310 General: Alert, Oriented x3, Cooperative, No apparent distress HEENT: Atraumatic, PERRLA, EOMI, Normocephalic Oral: Moist Mucosa, No Gingival or Mucosal Lesions/ Ulcerations Neck: Supple, No JVD, Negative Carotid Bruits, Trachea Midline, Thyroid Normal Size and Texture Lungs: Clear to auscultation, Normal air movement, No rhonchi, No wheeze, No rales, Diminished Cardiovascular: Regular rate, Regular Rhythm, Normal S1, Normal S2, No murmurs, PMI Normal Abdomen: Bowel Sounds Present, Soft, Non Tender, Non-Distended, No Hepato-splenomegaly Extremities: No clubbing, No cyanosis, No edema Skin: No rashes, No breakdown Lymphatic: No Cervical, Supraclavicular, or Inguinal Adenopathy Neurological: Cranial nerves II-XII grossly intact, Neuro grossly intact Psych/Mental Status: Normal Affect, Appropriate, Alert and oriented to time, place, person, mood and affect Current Medications Acetaminophen (Acetaminophen 325 Mg Tablet) 650 mg PO Q6H PRN PRN PRN Reason: Pain Score 1-10/Temp > 100.7 F Last Admin: 03/06/20 03:07 Dose: 650 mg Documented by: Amitriptyline HCl (Amitriptyline 25 Mg Tablet) 25 mg PO QHS [facility] Last Admin: 03/05/20 20:07 Dose: 25 mg Documented by: Atorvastatin Calcium (Atorvastatin Calcium 10 Mg Tablet) 10 mg PO DAILY@2200 [facility] Last Admin: 03/05/20 20:07 Dose: 10 mg Documented by: Enoxaparin Sodium (Enoxaparin 40 Mg/0.4 Ml Syringe) 40 mg SC DAILY [facility] Last Admin: 03/06/20 09:00 Dose: 40 mg Documented by: Guaifenesin (Guaifenesin Dm 10 Ml Udc) 10 ml PO Q6H PRN PRN PRN Reason: COUGH Sodium Chloride () 250 mls @ 15 mls/hr IV .[id number] PRN PRN Reason: Saline Flush Last Infusion: 03/02/20 18:35 Dose: Infused Documented by: Sodium Chloride () 250 mls @ 15 mls/hr IV .[id number] PRN PRN Reason: Additional IVPB Infusion Ceftriaxone Sodium 2 gm/ (Sodium Chloride) 50 mls @ 100 mls/hr IV Q24 [facility] Last Admin: 03/06/20 09:10 Dose: 100 mls/hr Documented by: Ibuprofen (Ibuprofen 400 Mg Tablet) 400 mg PO Q8 [facility] Last Admin: 03/06/20 05:49 Dose: 400 mg Documented by: Magnesium Hydroxide (Magnesium Hydroxide 30 Ml Udc) 15 ml PO DAILY [facility] Last Admin: 03/06/20 09:18 Dose: 15 ml Documented by: Melatonin (Melatonin 3 Mg Tablet) 3 mg PO QHS [facility] Last Admin: 03/05/20 20:07 Dose: 3 mg Documented by: Methocarbamol (Methocarbamol 500 Mg Tablet) 1,000 mg PO 4X/DAY [facility] Last Admin: 03/06/20 09:01 Dose: 1,000 mg Documented by: Morphine Sulfate (Morphine 2 Mg/Ml Syringe) 2 mg IV Q3H PRN PRN PRN Reason: Pain Score 6-10 Last Admin: 03/03/20 11:13 Dose: 2 mg Documented by: Nutritional Formula (Lactose Free) (Ensure Enlive 120 Ml Liquid) 120 ml PO 4X/DAY [facility] Last Admin: 03/06/20 09:01 Dose: 120 ml Documented by: Ondansetron HCl (Ondansetron 4 Mg/2 Ml Vial) 4 mg IV Q8H PRN PRN PRN Reason: NAUSEA/VOMITING Last Admin: 03/03/20 11:14 Dose: 4 mg Documented by: Oxycodone HCl (Oxycodone 5 Mg Tablet) 5 mg PO Q4H PRN PRN PRN Reason: Pain Score 4-10 Last Admin: 03/05/20 14:39 Dose: 5 mg Documented by: Senna (Senna Tablet) 2 tablet PO DAILY PRN PRN PRN Reason: CONSTIPATION Last Admin: 03/05/20 10:45 Dose: 2 tablet Documented by: Sodium Chloride (0.9% Saline Lock 10 Ml Syringe) 10 - 40 ml IV UD PRN PRN Reason: SALINE FLUSH Last Admin: 03/06/20 09:02 Dose: 20 ml Documented by: Temazepam (Temazepam 15 Mg Capsule) 15 mg PO QHS PRN PRN PRN Reason: INSOMNIA Last Admin: 03/03/20 21:35 Dose: 15 mg Documented by: Venlafaxine HCl (Venlafaxine Xr 75 Mg Capsule) 75 mg PO DAILY [facility] Last Admin: 03/06/20 09:01 Dose: 75 mg Documented by: Medical Necessity - Tobacco Use Smoking Status: Never smoker Tobacco Use: Non-smoker Assessment/Plan All Active Problems (Last Reviewed 09/13/19 @ 15:[address] Jin Ellis MD) Acute cystitis (Acute) Thrombocytopenia (Acute) ANGELICA (acute kidney injury) (Acute) Sepsis (Acute) Kidney stone on right side (Acute) This is a 74 years old female patient presented to the emergency room initially because of shortness of breath, was found to have positive COVID-19 antigens but COVID-19 PCR was negative x2, found to have acute cystitis, kidney stone with bacteremia complicated by thrombocytopenia and she has been complaining of profound generalized weakness and fatigue as well as headache/migraine and neck pain. #1 acute cystitis/sepsis: Remained on IV Rocephin. She has been afebrile, still having leukocytosis but WBC is trending down. Urine culture showed no growth. Blood culture revealed E. coli. Repeat blood cultures pending. Other vital signs are stable. Plan to continue IV Rocephin, awaiting repeat blood culture results, anticipate discharge home tomorrow.. #2 E. coli bacteremia: Attributed to urinary source. Sensitivities reviewed. Remained on IV Rocephin. Repeat blood cultures pending. # #3 obstructing right proximal ureteral calculi: Status post cystoscopy and stent placement. Kidney function is back to normal. Urology on the case, planning for ureteroscopy and laser therapy for the obstructing kidney stone fragments and possible removal of the stent as outpatient. #4 acute kidney injury: Due to sepsis and kidney stone. Kidney function is back to normal. #5 severe thrombocytopenia: Attributed to sepsis and infection. Platelet count is back to normal. #6 low suspicion of COVID-19 pneumonia/acute hypoxic respiratory failure: Initially, COVID-19 antigen was positive. COVID-19 PCR was negative. Repeat COVID-19 PCR done yesterday and was negative again. CTA chest showed no PE or dissection, revealed patchy consolidation of the lower lobes. Patient received couple of dose of IV dexamethasone. She was low suspicion for COVID-19. Infectious disease on the case. Isolation precautions discontinued. Initially, patient required oxygen of up to 4 L. Currently, remained on room air. #7 intractable neck pain/headache/migraine/profound fatigue and weakness: She is on Motrin and amitriptyline as well as OxyIR as needed and morphine as needed. She had MRI brain as well as MRI of the cervical spine, findings reviewed. Her symptoms could be due to fibromyalgia. She is already on venlafaxine. Her symptoms have been waxing and waning. Plan for PT OT, continue same treatment, anticipate discharge home tomorrow. #8 nonobstructive CAD: Stable, no complaints. She is only on statins. #9 hyperlipidemia: Continue statins. #10 depression: Continue venlafaxine. #11 DVT prophylaxis: Subcu Lovenox. This note was generated with Narrativeation software. It may contain incorrect words, spelling, and punctuation that were not noted in checking the note before signing. Inpatient E&M: 08228 Subs Hosp L2
--- NOTE | 2020-03-06 12:30 | CASEMGMT ---
FRANCOIS CHAN NOTE: Call received Heydi Paul @ [facility]. She states they are able to accept pt. She is aware anticipate discharge tomorrow, 03/07. She states she is continuing to work on insurance approval and states will reach out to pt's , Antione, to talk with him about this as well. Rosana BATEMAN RN CM
[2020-03-06] MEDS: oxyCODONE 5 MG Tablet PO ×2 (14:40→22:50)
--- NOTE | 2020-03-06 16:38 | CASEMGMT ---
FRANCOIS CHAN NOTE: VM received from Antione, pt's , asking for a return call. FRANCIOS CHAN called Antione at this time. He is aware anticipated discharge is for tomorrow and he had several questions about the discharge process. Questions answered at this time. He asks for nurse to call him and his daughter, Veronica, when pt is ready for discharge and to go over discharge instructions with them. Criss PARRISH, made aware and will pass this information to oncoming shift. Antione was provided w/Yuliet Newsome RN CM, phone number at this time, as she will be RN DUSTIN covering PCU tomorrow. He was also provided german/Afua Bhakta, manager bench of [employer], contact number as well. Rosana BATEMAN RN, CM
--- NOTE | 2020-03-06 16:44 | PCM.PN.ID ---
Patient Problems: Active and Suspected Problems (Last Reviewed 09/13/19 @ 15:[address] Jin Ellis MD) Thrombocytopenia (Acute) ANGELICA (acute kidney injury) (Acute) Sepsis (Acute) Kidney stone on right side (Acute) Subjective: Still some headache and neck pain, thinks her symptoms are best helped by imitrex. No fever. - Physical Exam Vitals/I&O's: Vital Signs Temp Pulse Resp BP Pulse Ox 98.3 F 83 15 149/68 H 92 03/06/20 08:58 03/06/20 08:58 03/06/20 08:58 03/06/20 08:58 03/06/20 08:58 Oxygen Flow Rate (L/min) 2 Oxygen Delivery Method Room Air Weight: 88.6 kg Body Mass Index (BMI) 32.8 Intake and Output for Last 24 Hours 03/04/20 03/05/20 03/06/20 23:59 23:59 23:59 Intake Total 1350 / 1470 1530 / 1530 450 / 450 Output Total 1625 / 1625 310 / 310 Balance 1350 / 1170 -95 / -95 140 / 140 General: Alert, Cooperative, No apparent distress Lungs: Clear to auscultation, Normal air movement Cardiovascular: Regular rate, Regular Rhythm Abdomen: Soft, Non Tender, Non-Distended Skin: No rashes Microbiology Past 72 Hours 03/04/20 14:05 Blood Culture (Wb) - Right Hand Blood Culture - Preliminary No growth in 48 hours. 03/04/20 13:54 Blood Culture (Wb) - Anticubital Left Blood Culture - Preliminary No growth in 48 hours. Current Medications Acetaminophen (Acetaminophen 325 Mg Tablet) 650 mg PO Q6H PRN PRN PRN Reason: Pain Score 1-10/Temp > 100.7 F Last Admin: 03/06/20 03:07 Dose: 650 mg Documented by: Amitriptyline HCl (Amitriptyline 25 Mg Tablet) 25 mg PO QHS [facility] Last Admin: 03/05/20 20:07 Dose: 25 mg Documented by: Atorvastatin Calcium (Atorvastatin Calcium 10 Mg Tablet) 10 mg PO DAILY@2200 [facility] Last Admin: 03/05/20 20:07 Dose: 10 mg Documented by: Enoxaparin Sodium (Enoxaparin 40 Mg/0.4 Ml Syringe) 40 mg SC DAILY [facility] Last Admin: 03/06/20 09:00 Dose: 40 mg Documented by: Guaifenesin (Guaifenesin Dm 10 Ml Udc) 10 ml PO Q6H PRN PRN PRN Reason: COUGH Sodium Chloride () 250 mls @ 15 mls/hr IV .[id number] PRN PRN Reason: Saline Flush Last Infusion: 03/02/20 18:35 Dose: Infused Documented by: Sodium Chloride () 250 mls @ 15 mls/hr IV .[id number] PRN PRN Reason: Additional IVPB Infusion Ceftriaxone Sodium 2 gm/ (Sodium Chloride) 50 mls @ 100 mls/hr IV Q24 [facility] Last Infusion: 03/06/20 09:45 Dose: Infused Documented by: Ibuprofen (Ibuprofen 400 Mg Tablet) 400 mg PO Q8 [facility] Last Admin: 03/06/20 14:23 Dose: 400 mg Documented by: Magnesium Hydroxide (Magnesium Hydroxide 30 Ml Udc) 15 ml PO DAILY [facility] Last Admin: 03/06/20 09:18 Dose: 15 ml Documented by: Melatonin (Melatonin 3 Mg Tablet) 3 mg PO QHS [facility] Last Admin: 03/05/20 20:07 Dose: 3 mg Documented by: Methocarbamol (Methocarbamol 500 Mg Tablet) 1,000 mg PO 4X/DAY [facility] Last Admin: 03/06/20 14:23 Dose: 1,000 mg Documented by: Morphine Sulfate (Morphine 2 Mg/Ml Syringe) 2 mg IV Q3H PRN PRN PRN Reason: Pain Score 6-10 Last Admin: 03/03/20 11:13 Dose: 2 mg Documented by: Nutritional Formula (Lactose Free) (Ensure Enlive 120 Ml Liquid) 120 ml PO 4X/DAY [facility] Last Admin: 03/06/20 14:23 Dose: 120 ml Documented by: Ondansetron HCl (Ondansetron 4 Mg/2 Ml Vial) 4 mg IV Q8H PRN PRN PRN Reason: NAUSEA/VOMITING Last Admin: 03/03/20 11:14 Dose: 4 mg Documented by: Oxycodone HCl (Oxycodone 5 Mg Tablet) 5 mg PO Q4H PRN PRN PRN Reason: Pain Score 4-10 Last Admin: 03/06/20 14:40 Dose: 5 mg Documented by: Senna (Senna Tablet) 2 tablet PO DAILY PRN PRN PRN Reason: CONSTIPATION Last Admin: 03/05/20 10:45 Dose: 2 tablet Documented by: Sodium Chloride (0.9% Saline Lock 10 Ml Syringe) 10 - 40 ml IV UD PRN PRN Reason: SALINE FLUSH Last Admin: 03/06/20 09:02 Dose: 20 ml Documented by: Temazepam (Temazepam 15 Mg Capsule) 15 mg PO QHS PRN PRN PRN Reason: INSOMNIA Last Admin: 03/03/20 21:35 Dose: 15 mg Documented by: Venlafaxine HCl (Venlafaxine Xr 75 Mg Capsule) 75 mg PO DAILY [facility] Last Admin: 03/06/20 09:01 Dose: 75 mg Documented by: Medical Necessity - Tobacco Use Smoking Status: Never smoker Tobacco Use: Non-smoker Route of nutrition/ use of supplements: [] Nutritional Intake: [] IV Site: [] Stern Catheter: [] - Assessment/Plan Antibiotics: [] Assessment/Plan: [] Active and Suspected Problems (Last Reviewed 09/13/19 @ 15:[address] Jin Ellis MD) COVID-19 (Acute) Pulmonary embolism (Acute) Thrombocytopenia (Acute) UTI (urinary tract infection) (Acute) ANGELICA (acute kidney injury) (Acute) Fatigue (Acute) Nonproductive cough (Acute) Body aches (Acute) Shortness of breath (Acute) Sepsis (Acute) severe sepsis with ANGELICA and ecoli bacteremia from urinary source - Covid Ag (+) but pcr neg x2 including on 03/04. Out of iso. CT showed hydro and stone, taken to OR 02/[address] Devlin for stent placement. Narrowed abx to ceftriaxone. Headache and neck pain for 2-3 days. Feeling better today. Given improvement with symptomatic meds, low suspicion for meningitis, will not plan on LP at this time. Neck pain continues to improve with migraine treatments. Will order labs for the AM. Will follow
[2020-03-06] MEDS: MELATONIN 3 MG TABLET PO (22:49)
[2020-03-06] MEDS: Amitriptyline 25 MG Tablet PO (22:49)
[2020-03-06] MEDS: Atorvastatin Calcium 10 MG Tablet PO (22:49)
[2020-03-07 03:00] VITALS: PULSE 79
[2020-03-07] MEDS: oxyCODONE 5 MG Tablet PO (04:45)
[2020-03-07] MEDS: Acetaminophen 325 MG Tablet 650 MG PO (04:45)
[2020-03-07 04:47] VITALS: BP 137/76; PULSE 75; RESP 17; TEMP 36.7; O2SAT 96
[2020-03-07] MEDS: Ibuprofen 400 MG Tablet PO (05:38)
[2020-03-07 06:34] LABS: Hematocrit 35.9 % (37-47); Hemoglobin 11.5 g/dL (12.0-15.0); Mean Corpuscular Hgb 28.8 pg (27.0-32.0); Mean Corpuscular Volume 89.8 fL (81-99); Mean Platelet Vol. 9.5 fl (6.2-12.0); Platelet Count 587 K/mm3 (150-450); RBC Distribution Width CV 14.4 % (11.6-14.6); RBC Distribution Width SD 47.7 fl (35.1-43.9); White Blood Count 11.8 K/mm3 (4.4-11.0)
[2020-03-07 07:01] LABS: Anion Gap 5 (5-15); BUN 12 mg/dL (7-18); BUN/Creat Ratio 23.4 RATIO (10-20); Calcium,Total 8.2 mg/dL (8.5-10.1); Chloride 104 mmol/L (98-107); Creatinine, Serum 0.51 mg/dL (0.55-1.02); EST Glomerular Filtration Rate 125 mL/min (>60); Est Glom Filt Rate - Afr Amer 151 mL/min (>60); Glucose 96 mg/dL (74-106); Potassium 3.8 mmol/L (3.5-5.1); Sodium Level 136 mmol/L (136-145)
[2020-03-07 07:12] VITALS: PULSE 91
--- NOTE | 2020-03-07 07:18 | PCM.PN.BLA ---
Progress Note 74-year-old female status post stent placement for sepsis and stone she looks good this morning probably can go home follow-up my office will call her to get a set up for surgery as an outpatient to take care of the remaining stone fragment. STROKE Vital Signs/Narrative: Vital Signs Temp Pulse Resp BP Pulse Ox 03/07/20 04:47 98.0 F 75 17 137/76 H 96
--- NOTE | 2020-03-07 08:43 | DCINST_ITS ---
- Discharge Diagnoses Current Active Problems: Current Active and Chronic Problems (Last Reviewed 09/13/19 @ 15:[address] Jin Ellis MD) Thrombocytopenia (Acute) ANGELICA (acute kidney injury) (Acute) Sepsis (Acute) Kidney stone on right side (Acute) You will use the following diet at home:: Regular Your food should be the consistency of: Regular Discharge Activity: Return to Normal Activity Weight Bearing Status: Full weight bearing Call your doctor if you observe: Fever of 101 or Higher, Shortness of breath, Dizziness, Fainting spells, Chest pain, Increased palpitations (irregular heartbeat), Uncontrolled pain Additional Instructions: Take ibuprofen 400 mg by mouth every 8 hours as needed. Allergies/Adverse Reactions: Allergies niacin Adverse Reaction (Verified 02/27/20 17:36) flushing oxycodone Adverse Reaction (Verified 02/27/20 17:36) Itching Medications to take at Discharge cholecalciferol (vitamin D3) unit PO QDAY ml 08/04/17 diclofenac sodium 1 % topical gel 2 g TOPICAL BID PRN #100 g 08/04/17 super greens PO 08/04/17 turmeric root extract 1,053 mg tablet 1,320 mg PO QDAY tab 08/04/17 rosuvastatin 5 mg tablet 5 mg PO DAILY 09/13/19 venlafaxine 75 mg tablet 75 mg PO DAILY 09/13/19 Amitriptyline HCl [Elavil] 25 mg PO QHS #30 tab 03/07/20 Cefdinir [Omnicef [equiv]] 300 mg PO Q12H #14 cap 03/07/20 Ibuprofen [Motrin] 400 mg PO Q8H PRN PRN #30 tab 03/07/20 Sumatriptan Succinate 50 mg PO X1 #14 tab 03/07/20 The following prescriptions were given: Amitriptyline HCl [Elavil] 25 mg PO QHS #30 tab Transmission Status: Pending to [id number] Ibuprofen [Motrin] 400 mg PO Q8H PRN PRN #30 tab PRN Reason: Pain Score 4-10 Transmission Status: Pending to [id number] Cefdinir [Omnicef [equiv]] 300 mg PO Q12H #14 cap Transmission Status: Pending to [id number] Sumatriptan Succinate 50 mg PO X1 #14 tab Transmission Status: Pending to [id number] Primary Care Physician: Quentin Carter DO [Primary Care Provider] - Please follow up with your Primary Care Physician in: 1 week. Test Results: Test results from this visit will be discussed in further detail at your follow- up appointment, if applicable. Please Follow Up With: Adolfo Devlin MD - [phone] When: please call to make an appointment.
[2020-03-07] MEDS: Methocarbamol 500 MG Tablet 1000 MG PO (09:47)
[2020-03-07] MEDS: Venlafaxine XR 75 MG Capsule PO (09:48)
[2020-03-07] MEDS: Magnesium Hydroxide 30 ML UDC 15 ML PO (09:49)
--- NOTE | 2020-03-07 10:00 | PCM.DC.SUM ---
Discharge Date and Diagnosis - Problem List Patient Problems: Active and Suspected Problems (Last Reviewed 09/13/19 @ 15:[address] Jin Ellis MD) Thrombocytopenia (Acute) ANGELICA (acute kidney injury) (Acute) Sepsis (Acute) Kidney stone on right side (Acute) Date of Admission: 02/27/20 Date of Discharge: 03/07/20 - Primary Discharge Diagnosis Acute Problems: Active Problems (Last Reviewed 09/13/19 @ 15:[address] Jin Ellis MD) #1 acute cystitis, sepsis, urine culture was negative. #2 E. coli bacteremia. #3 obstructing right proximal ureteral calculi status post cystoscopy and stent placement. #4 acute kidney injury. #5 severe thrombocytopenia, attributed to sepsis, resolved. #6 COVID-19 pneumonia, ruled out. #7 intractable neck pain/headache/migraine/profound fatigue and weakness, probably due to fibromyalgia. - Secondary Discharge Diagnosis Chronic Problems: Chronic Problems (Last Reviewed 09/13/19 @ 15:[address] Jin Ellis MD) Nonobstructive atherosclerosis of coronary artery (Chronic) non obstructive CAD of Prox LAD ~30% per cath 2010 Hyperlipidemia (Chronic) Hospital Course and Treatment Imaging Results: Clinical Impression(s) from Imaging Studies Chest X-Ray 02/27/20 18:15 IMPRESSION: Possible mild atelectasis or scarring in the lung bases, otherwise lungs clear. Electronically Signed: Jim Auguste MD at 18:31 EST , Service support , Venous Duplex 02/27/20 19:22 IMPRESSION: Normal venous Doppler ultrasound of the bilateral lower extremities. Electronically Signed: Olvin Delgado MD at 20:31 EST , Service support , Chest CT 02/27/20 20:01 IMPRESSION: Exam limited by the absence of IV contrast. COPD. Irregular densities primarily in the lower lung [place] consistent with scarring, atelectasis, and/or infiltrate. Thickening and nodularity seen of the minor fissure, likely post inflammatory but neoplastic disease is not excluded. Possible right hilar adenopathy. Electronically Signed: Jim Aguuste MD at 22:00 EST , Service support , Chest CTA 02/28/20 10:49 IMPRESSION: Normal CTA chest examination, without a demonstrated pulmonary embolism or arterial dissection. Patchy consolidation in both lower lobes worse on the right. Electronically Signed: Jim Auguste MD at 16:26 EST , Service support , Abdomen/Pelvis CT 02/28/20 14:40 IMPRESSION: Obstruction of the right kidney and collecting system from a 5 mm proximal right ureteral stone. Additional bilateral currently nonobstructing stones. Hepatomegaly. Abnormal endometrial echoes. Mass not excluded. Electronically Signed: Jim Auguste MD at 16:22 EST , Service support , Brain CT 03/01/20 06:32 IMPRESSION: Chronic involutional changes of the brain. Electronically Signed: Maxwell Stewart at 8:26 EST , Service support , Brain MRI 03/03/20 08:18 IMPRESSION: Normal unenhanced and enhanced MRI of the brain. Electronically Signed: Antione Galeas MD at 14:14 EST Tel , Service support , Cervical Spine MRI 03/03/20 08:18 IMPRESSION: Multilevel degenerative changes, as described above. Electronically Signed: Antione Galeas MD at 14:30 EST Tel , Service support , KUB X-Ray 03/04/20 10:03 IMPRESSION: 1. Right ureteral stent. No obvious ureteral stone. 2. Nonspecific bowel gas pattern. Electronically Signed: Antione Galeas MD at 10:25 EST Tel , Service support , Dr. hampton, infectious disease. Dr. Devlin, urology. Dr. Ellis, cardiology. Procedures: 2-D Echocardiogram, EKG Summary of Care Provided: Patient seen and examined on the day of discharge and appeared to be stable to be discharged home. Symptoms of neck pain, headache and fatigue improved. She has been afebrile. Her vital signs are stable. The patient is a 74 year old F presented to the emergency room because of shortness of breath, found to have positive COVID-19 antigens but COVID-19 PCR was negative x2 and she was found to have acute cystitis with sepsis, kidney stones with bacteremia and she had a prolonged hospital stay due to intractable fibromyalgia symptoms including headache, neck pain, generalized weakness and fatigue. #1 acute cystitis/sepsis: Treated with IV Rocephin. She remained afebrile for more than 5 days and WBC is almost back to normal. Urine culture showed no growth. Blood culture revealed E. coli. Repeat blood cultures showed no growth in 48 hours. Patient discharged home on cefdinir 300 mg p.o. twice daily for 7 days more to complete total of 14 days of treatment for bacteremia. #2 E. coli bacteremia: Attributed to urinary source. Treated with IV Rocephin. Repeat urine culture showed no growth in 48 hours as above. Patient discharged on cefdinir as above. # #3 obstructing right proximal ureteral calculi: Status post cystoscopy and stent placement. Kidney function is back to normal. Urology on the case, planning for ureteroscopy and laser therapy for the obstructing kidney stone fragments and possible removal of the stent as outpatient. Recommended follow-up with urology as outpatient. #4 acute kidney injury: Due to sepsis and kidney stone. Treated with IV fluids and kidney function is back to normal. #5 severe thrombocytopenia: Attributed to sepsis and infection. Platelet count is back to normal. #6 low suspicion of COVID-19 pneumonia/acute hypoxic respiratory failure: Initially, COVID-19 antigen was positive. COVID-19 PCR was negative. Repeat COVID-19 PCR done yesterday and was negative again. CTA chest showed no PE or dissection, revealed patchy consolidation of the lower lobes. Patient received couple of dose of IV dexamethasone. She was low suspicion for COVID-19. Patient remained on room air for several days. Discharged home without oxygen. #7 intractable neck pain/headache/migraine/profound fatigue and weakness: This is what made patient stay in the hospital for long time. We tried multiple medications including Motrin and amitriptyline as well as OxyIR and IV morphine as needed. Her symptoms improved very slowly. MRI brain as well as MRI of the cervical spine done and showed no acute findings. Patient discharged home on amitriptyline 25 mg p.o. nightly, instructed to take ibuprofen as needed, discharged on sumatriptan tablets as needed for migraine headaches. Patient discharged home with home health in a stable medical condition, discharged on amitriptyline, Motrin as needed, sumatriptan as needed for migraine, continue with on her previous medications without any changes, plan to follow-up with urology as outpatient, recommended follow-up with PCP in 1 week. This note was generated with [employer] dictation software. It may contain incorrect words, spelling, and punctuation that were not noted in checking the note before signing. Patient Problems: Active and Suspected Problems (Last Reviewed 09/13/19 @ 15:[address] Jin Ellis MD) Thrombocytopenia (Acute) ANGELICA (acute kidney injury) (Acute) Sepsis (Acute) Kidney stone on right side (Acute) - Physical Exam Vitals/I&O's: Vital Signs Temp Pulse Resp BP Pulse Ox 98.0 F 91 17 137/76 H 96 03/07/20 04:47 03/07/20 07:12 03/07/20 04:47 03/07/20 04:47 03/07/20 04:47 Oxygen Flow Rate (L/min) 2 Oxygen Delivery Method Room Air Weight: 196 lb 10.437 oz Body Mass Index (BMI) 32.8 Intake and Output for Last 24 Hours 03/05/20 03/06/20 03/07/20 23:59 23:59 23:59 Intake Total 1530 / 1530 1100 / 1340 440 / 440 Output Total 1625 / 1625 310 / 310 Balance -95 / -95 790 / 1030 440 / 440 General: Alert, Oriented x3, Cooperative, No apparent distress HEENT: Atraumatic, PERRLA, EOMI, Normocephalic Oral: Moist Mucosa, No Gingival or Mucosal Lesions/ Ulcerations Neck: Supple, No JVD, Negative Carotid Bruits, Trachea Midline, Thyroid Normal Size and Texture Lungs: Clear to auscultation, Normal air movement, No rhonchi, No wheeze, No rales Cardiovascular: Regular rate, Regular Rhythm, Normal S1, Normal S2, PMI Normal Abdomen: Bowel Sounds Present, Soft, Non Tender, Non-Distended, No Hepato-splenomegaly Extremities: No clubbing, No cyanosis, No edema Skin: No rashes, No breakdown Lymphatic: No Cervical, Supraclavicular, or Inguinal Adenopathy Neurological: Cranial nerves II-XII grossly intact, Neuro grossly intact Psych/Mental Status: Normal Affect, Appropriate Microbiology Past 72 Hours 03/04/20 14:05 Blood Culture (Wb) - Right Hand Blood Culture - Preliminary No growth in 48 hours. 03/04/20 13:54 Blood Culture (Wb) - Anticubital Left Blood Culture - Preliminary No growth in 48 hours. Laboratory Results 03/07/20 06:05: WBC 11.8 H, RBC 4.00 L, Hgb 11.5 L, Hct 35.9 L, MCV 89.8, MCH 28.8, MCHC 32.0, RDW Std Deviation 47.7 H, RDW Coeff of Lonnie 14.4, Plt Count 587 H, MPV 9.5 03/07/20 06:05: Sodium 136, Potassium 3.8, Chloride 104, Carbon Dioxide 27.0, Anion Gap 5, BUN 12, Creatinine 0.51 L, Estim Creat Clear Calc 46.90, Est GFR (MDRD) Af Amer 151, Est GFR (MDRD) Non-Af 125, BUN/Creatinine Ratio 23.4 H, Glucose 96, Calcium 8.2 L Current Medications Acetaminophen (Acetaminophen 325 Mg Tablet) 650 mg PO Q6H PRN PRN PRN Reason: Pain Score 1-10/Temp > 100.7 F Last Admin: 03/07/20 04:45 Dose: 650 mg Documented by: Amitriptyline HCl (Amitriptyline 25 Mg Tablet) 25 mg PO QHS [facility] Last Admin: 03/06/20 22:49 Dose: 25 mg Documented by: Atorvastatin Calcium (Atorvastatin Calcium 10 Mg Tablet) 10 mg PO DAILY@2200 [facility] Last Admin: 03/06/20 22:49 Dose: 10 mg Documented by: Enoxaparin Sodium (Enoxaparin 40 Mg/0.4 Ml Syringe) 40 mg SC DAILY [facility] Last Admin: 03/07/20 09:46 Dose: Not Given Documented by: Guaifenesin (Guaifenesin Dm 10 Ml Udc) 10 ml PO Q6H PRN PRN PRN Reason: COUGH Sodium Chloride () 250 mls @ 15 mls/hr IV .[id number] PRN PRN Reason: Saline Flush Last Infusion: 03/02/20 18:35 Dose: Infused Documented by: Sodium Chloride () 250 mls @ 15 mls/hr IV .[id number] PRN PRN Reason: Additional IVPB Infusion Ceftriaxone Sodium 2 gm/ (Sodium Chloride) 50 mls @ 100 mls/hr IV Q24 [facility] Last Admin: 03/07/20 09:46 Dose: 100 mls/hr Documented by: Ibuprofen (Ibuprofen 400 Mg Tablet) 400 mg PO Q8 [facility] Last Admin: 03/07/20 05:38 Dose: 400 mg Documented by: Magnesium Hydroxide (Magnesium Hydroxide 30 Ml Udc) 15 ml PO DAILY [facility] Last Admin: 03/07/20 09:49 Dose: 15 ml Documented by: Melatonin (Melatonin 3 Mg Tablet) 3 mg PO QHS [facility] Last Admin: 03/06/20 22:49 Dose: 3 mg Documented by: Methocarbamol (Methocarbamol 500 Mg Tablet) 1,000 mg PO 4X/DAY [facility] Last Admin: 03/07/20 09:47 Dose: 1,000 mg Documented by: Morphine Sulfate (Morphine 2 Mg/Ml Syringe) 2 mg IV Q3H PRN PRN PRN Reason: Pain Score 6-10 Last Admin: 03/03/20 11:13 Dose: 2 mg Documented by: Nutritional Formula (Lactose Free) (Ensure Enlive 120 Ml Liquid) 120 ml PO 4X/DAY [facility] Last Admin: 03/07/20 09:46 Dose: Not Given Documented by: Ondansetron HCl (Ondansetron 4 Mg/2 Ml Vial) 4 mg IV Q8H PRN PRN PRN Reason: NAUSEA/VOMITING Last Admin: 03/03/20 11:14 Dose: 4 mg Documented by: Oxycodone HCl (Oxycodone 5 Mg Tablet) 5 mg PO Q4H PRN PRN PRN Reason: Pain Score 4-10 Last Admin: 03/07/20 04:45 Dose: 5 mg Documented by: Senna (Senna Tablet) 2 tablet PO DAILY PRN PRN PRN Reason: CONSTIPATION Last Admin: 03/05/20 10:45 Dose: 2 tablet Documented by: Sodium Chloride (0.9% Saline Lock 10 Ml Syringe) 10 - 40 ml IV UD PRN PRN Reason: SALINE FLUSH Last Admin: 03/06/20 09:02 Dose: 20 ml Documented by: Temazepam (Temazepam 15 Mg Capsule) 15 mg PO QHS PRN PRN PRN Reason: INSOMNIA Last Admin: 03/03/20 21:35 Dose: 15 mg Documented by: Venlafaxine HCl (Venlafaxine Xr 75 Mg Capsule) 75 mg PO DAILY [facility] Last Admin: 03/07/20 09:48 Dose: 75 mg Documented by: Discharge Diet: Light diet - advance as tolerated Discharge Activity: Return to Normal Activity Weight Bearing Status: Full weight bearing Call your doctor if you observe: Fever of 101 or Higher, Shortness of breath, Dizziness, Fainting spells, Chest pain, Increased palpitations (irregular heartbeat), Uncontrolled pain Home Medications: Medications to take at Discharge cholecalciferol (vitamin D3) unit PO QDAY ml 08/04/17 diclofenac sodium 1 % topical gel 2 g TOPICAL BID PRN #100 g 08/04/17 super greens PO 08/04/17 turmeric root extract 1,053 mg tablet 1,320 mg PO QDAY tab 08/04/17 rosuvastatin 5 mg tablet 5 mg PO DAILY 09/13/19 venlafaxine 75 mg tablet 75 mg PO DAILY 09/13/19 Amitriptyline HCl [Elavil] 25 mg PO QHS #30 tab 03/07/20 Cefdinir [Omnicef [equiv]] 300 mg PO Q12H #14 cap 03/07/20 Ibuprofen [Motrin] 400 mg PO Q8H PRN PRN #30 tab 03/07/20 Sumatriptan Succinate 50 mg PO X1 #14 tab 03/07/20 Following Prescriptions Were Given to Patient: Amitriptyline HCl [Elavil] 25 mg PO QHS #30 tab Transmission Status: Received by [facility]/pharmacy #[id number] Ibuprofen [Motrin] 400 mg PO Q8H PRN PRN #30 tab PRN Reason: Pain Score 4-10 Transmission Status: Received by [facility]acy [id number] Cefdinir [Omnicef [equiv]] 300 mg PO Q12H #14 cap Transmission Status: Received by [id number] Sumatriptan Succinate 50 mg PO X1 #14 tab Transmission Status: Received by [id number] Primary Care Physician: Quentin Carter DO [Primary Care Provider] - Please follow up with your Primary Care Physician in: 1 week. Please Follow Up With: Adolfo Devlin MD - [phone] When: please call to make an appointment. Disposition: Home with Home Health Minutes spent on discharge:: 34 Patient Condition:: Stable Medical Necessity - Tobacco Use Smoking Status: Never smoker Tobacco Use: Non-smoker Meaningful Use Info Meaningful Use Diagnoses (Choose all that apply): None applicable Inpatient E&M: 25219 Disch Hosp
[2020-03-07 10:44] VITALS: BP 126/57; PULSE 63; RESP 16; TEMP 36.1; O2SAT 96
--- NOTE | 2020-03-07 11:04 | CASEMGMT ---
Per Alondra at [facility], they are taking pt and they will do start of care tomorrow for pt. Alesia PARRISH CM
--- NOTE | 2020-03-07 11:19 | PN.ID_ITS ---
Patient Problems: Active and Suspected Problems (Last Reviewed 09/13/19 @ 15:[address] Jin Ellis MD) Thrombocytopenia (Acute) ANGELICA (acute kidney injury) (Acute) Sepsis (Acute) Kidney stone on right side (Acute) Subjective: Feeling better, mild headache, no fever - Physical Exam Vitals/I&O's: Vital Signs Temp Pulse Resp BP Pulse Ox 97 F L 63 16 126/57 H 96 03/07/20 10:44 03/07/20 10:44 03/07/20 10:44 03/07/20 10:44 03/07/20 10:44 Oxygen Flow Rate (L/min) 2 Oxygen Delivery Method Room Air Weight: 89.2 kg Body Mass Index (BMI) 32.8 Intake and Output for Last 24 Hours 03/05/20 03/06/20 03/07/20 23:59 23:59 23:59 Intake Total 1530 / 1530 1100 / 1340 490 / 490 Output Total 1625 / 1625 310 / 310 Balance -95 / -95 790 / 1030 490 / 490 General: Alert, Cooperative, No apparent distress Lungs: Clear to auscultation, Normal air movement Cardiovascular: Regular rate, Regular Rhythm Abdomen: Soft, Non Tender, Non-Distended Skin: No rashes Microbiology Past 72 Hours 03/04/20 14:05 Blood Culture (Wb) - Right Hand Blood Culture - Preliminary No growth in 48 hours. 03/04/20 13:54 Blood Culture (Wb) - Anticubital Left Blood Culture - Preliminary No growth in 48 hours. Laboratory Results 03/07/20 06:05: WBC 11.8 H, RBC 4.00 L, Hgb 11.5 L, Hct 35.9 L, MCV 89.8, MCH 28.8, MCHC 32.0, RDW Std Deviation 47.7 H, RDW Coeff of Lonnie 14.4, Plt Count 587 H, MPV 9.5 03/07/20 06:05: Sodium 136, Potassium 3.8, Chloride 104, Carbon Dioxide 27.0, Anion Gap 5, BUN 12, Creatinine 0.51 L, Estim Creat Clear Calc 46.90, Est GFR (MDRD) Af Amer 151, Est GFR (MDRD) Non-Af 125, BUN/Creatinine Ratio 23.4 H, Glucose 96, Calcium 8.2 L Current Medications Acetaminophen (Acetaminophen 325 Mg Tablet) 650 mg PO Q6H PRN PRN PRN Reason: Pain Score 1-10/Temp > 100.7 F Last Admin: 03/07/20 04:45 Dose: 650 mg Documented by: Amitriptyline HCl (Amitriptyline 25 Mg Tablet) 25 mg PO QHS REPLACED BY [facility] Last Admin: 03/06/20 22:49 Dose: 25 mg Documented by: Atorvastatin Calcium (Atorvastatin Calcium 10 Mg Tablet) 10 mg PO DAILY@2200 REPLACED BY [facility] Last Admin: 03/06/20 22:49 Dose: 10 mg Documented by: Enoxaparin Sodium (Enoxaparin 40 Mg/0.4 Ml Syringe) 40 mg SC DAILY REPLACED BY [facility] Last Admin: 03/07/20 09:46 Dose: Not Given Documented by: Guaifenesin (Guaifenesin Dm 10 Ml Udc) 10 ml PO Q6H PRN PRN PRN Reason: COUGH Sodium Chloride () 250 mls @ 15 mls/hr IV .[id number] PRN PRN Reason: Saline Flush Last Infusion: 03/02/20 18:35 Dose: Infused Documented by: Sodium Chloride () 250 mls @ 15 mls/hr IV .[id number] PRN PRN Reason: Additional IVPB Infusion Ceftriaxone Sodium 2 gm/ (Sodium Chloride) 50 mls @ 100 mls/hr IV Q24 REPLACED BY [facility] Last Infusion: 03/07/20 10:53 Dose: Infused Documented by: Ibuprofen (Ibuprofen 400 Mg Tablet) 400 mg PO Q8 REPLACED BY [facility] Last Admin: 03/07/20 05:38 Dose: 400 mg Documented by: Magnesium Hydroxide (Magnesium Hydroxide 30 Ml Udc) 15 ml PO DAILY REPLACED BY [facility] Last Admin: 03/07/20 09:49 Dose: 15 ml Documented by: Melatonin (Melatonin 3 Mg Tablet) 3 mg PO QHS REPLACED BY [facility] Last Admin: 03/06/20 22:49 Dose: 3 mg Documented by: Methocarbamol (Methocarbamol 500 Mg Tablet) 1,000 mg PO 4X/DAY REPLACED BY [facility] Last Admin: 03/07/20 09:47 Dose: 1,000 mg Documented by: Morphine Sulfate (Morphine 2 Mg/Ml Syringe) 2 mg IV Q3H PRN PRN PRN Reason: Pain Score 6-10 Last Admin: 03/03/20 11:13 Dose: 2 mg Documented by: Nutritional Formula (Lactose Free) (Ensure Enlive 120 Ml Liquid) 120 ml PO 4X/DAY REPLACED BY [facility] Last Admin: 03/07/20 09:46 Dose: Not Given Documented by: Ondansetron HCl (Ondansetron 4 Mg/2 Ml Vial) 4 mg IV Q8H PRN PRN PRN Reason: NAUSEA/VOMITING Last Admin: 03/03/20 11:14 Dose: 4 mg Documented by: Oxycodone HCl (Oxycodone 5 Mg Tablet) 5 mg PO Q4H PRN PRN PRN Reason: Pain Score 4-10 Last Admin: 03/07/20 04:45 Dose: 5 mg Documented by: Senna (Senna Tablet) 2 tablet PO DAILY PRN PRN PRN Reason: CONSTIPATION Last Admin: 03/05/20 10:45 Dose: 2 tablet Documented by: Sodium Chloride (0.9% Saline Lock 10 Ml Syringe) 10 - 40 ml IV UD PRN PRN Reason: SALINE FLUSH Last Admin: 03/06/20 09:02 Dose: 20 ml Documented by: Temazepam (Temazepam 15 Mg Capsule) 15 mg PO QHS PRN PRN PRN Reason: INSOMNIA Last Admin: 03/03/20 21:35 Dose: 15 mg Documented by: Venlafaxine HCl (Venlafaxine Xr 75 Mg Capsule) 75 mg PO DAILY REPLACED BY [facility] Last Admin: 03/07/20 09:48 Dose: 75 mg Documented by: Medical Necessity - Tobacco Use Smoking Status: Never smoker Tobacco Use: Non-smoker Route of nutrition/ use of supplements: [] Nutritional Intake: [] IV Site: [] Stern Catheter: [] - Assessment/Plan Antibiotics: [] Assessment/Plan: [] Active and Suspected Problems (Last Reviewed 09/13/19 @ 15:[address] Jin Ellis MD) COVID-19 (Acute) Pulmonary embolism (Acute) Thrombocytopenia (Acute) UTI (urinary tract infection) (Acute) ANGELICA (acute kidney injury) (Acute) Fatigue (Acute) Nonproductive cough (Acute) Body aches (Acute) Shortness of breath (Acute) Sepsis (Acute) severe sepsis with ANGELICA and ecoli bacteremia from urinary source - Covid Ag (+) but pcr neg x2 including on 03/04. Out of iso. CT showed hydro and stone, taken to OR 02/[address] Claus for stent placement. Narrowed abx to ceftriaxone. Headache and neck pain for 2-3 days. Feeling better today. Given improvement with symptomatic meds, low suspicion for meningitis, will not plan on LP at this time. Neck pain continues to improve with migraine treatments. Wbc nearly normal, ok for d/c home off of abx. Will follow
--- NOTE | 2020-03-07 11:30 | PHA.DC.MC ---
Pharmacy Service has performed discharge medication reconciliation and counseling for this patient. 1. AMITRIPTYLINE 25MG PO QHS 2. CEFDINIR 300MG PO Q12 X 7 DAYS 3. IBUPROFEN 400MG PO Q8H PRN PAIN 4-10 4. SUMATRIPTAN 50MG PO X1 THEN MAY REPEAT IN 2 HOURS IF NO IMPROVEMENT The patient's discharge medication list was reviewed for discrepancies and discrepancies were resolved. Home Medications cholecalciferol (vitamin D3) unit PO QDAY ml 08/04/17 diclofenac sodium 1 % topical gel 2 g TOPICAL BID PRN #100 g 08/04/17 super greens PO 08/04/17 turmeric root extract 1,053 mg tablet 1,320 mg PO QDAY tab 08/04/17 rosuvastatin 5 mg tablet 5 mg PO DAILY 09/13/19 venlafaxine 75 mg tablet 75 mg PO DAILY 09/13/19 Amitriptyline HCl [Elavil] 25 mg PO QHS #30 tab 03/07/20 Cefdinir [Omnicef [equiv]] 300 mg PO Q12H #14 cap 03/07/20 Ibuprofen [Motrin] 400 mg PO Q8H PRN PRN #30 tab 03/07/20 Sumatriptan Succinate 50 mg PO X1 #14 tab 03/07/20 The patient was counseled on the following discharge medications and changes in medications for homegoing were reviewed. The Reason for Use, instructions for use, and potential side effects were reviewed for all new medications. The patient's questions regarding all of their medications were answered. The patient was able to verbally demonstrate an understanding of their discharge medications.
== END 2020-03-07 11:55 | disposition home health service (06) | DRG 854 ==
LOC: ED 21:41 → ICU 22:01 → PCU 03-02 18:16
PROVIDERS: Internal Medicine Infectious Disease; Student in an Organized Health Care Education/Training Program; Urology; Admitting Provider Internal Medicine; Emergency Provider Emergency Medicine; PCP Student in an Organized Health Care Education/Training Program; Referring Provider Internal Medicine; Visit Provider Hospitalist
PROC: 0T768DZ Dilation of Right Ureter with Intraluminal Device, Via Natural or Artificial Opening Endoscopic (ICD-10-PCS; CPT 52332; principal; 2020-02-29 07:50)
DX: A41.51 Sepsis due to Escherichia coli [E. coli] (principal); N17.9 Acute kidney failure, unspecified; N13.6 Pyonephrosis; R65.20 Severe sepsis without septic shock; G43.909 Migraine, unspecified, not intractable, without status migrainosus; M43.6 Torticollis; I48.0 Paroxysmal atrial fibrillation; D69.59 Other secondary thrombocytopenia; E87.6 Hypokalemia; E86.0 Dehydration; I25.10 Atherosclerotic heart disease of native coronary artery without angina pectoris; E78.5 Hyperlipidemia, unspecified; M79.7 Fibromyalgia; K58.9 Irritable bowel syndrome, unspecified; K21.9 Gastro-esophageal reflux disease without esophagitis; F32.9 Major depressive disorder, single episode, unspecified; F41.9 Anxiety disorder, unspecified; Z78.0 Asymptomatic menopausal state; Z79.899 Other long term (current) drug therapy; Z87.442 Personal history of urinary calculi
CPT/HCPCS: 36415; 70450; 70553; 71045; 71250; 71275; 72141; 74018; 74177; 76000; 80048; 80053; 80076; 81001; 83605; 83880; 84484; 85025; 85027; 85379; 85610; 85652; 85730; 86140; 87040; 87077; 87086; 87186; 87426; 87633; 87635; 93005; 93306; 93970; 97110; 97116; 97162; 97166; 97530; 97535; 97803; 99251; 99285; A9575; J7030; J7050; P9612; Q9957; Q9967; A4216; C1769; C2617; C8929; G0463; J0696; J1940; J2405; J3030; U0002

== ENCOUNTER → 2020-03-15 16:12 | Outpatient (CLI) | payer OTHER, SELFPAY ==
[2020-02-29 09:03] VITALS: BMI 32.8
[2020-03-15 17:28] LABS: Absolute Lymphocyte Count 0.77 X10^3/uL (0.83-4.51); Absolute Neutrophil Count 15.6 X10^3/uL (2.0-7.7); Basophil# 0.09 X10^3/uL; Basophil% 0.5 % (0-1); Hemoglobin 11.9 g/dL (12.0-15.0); Lymphocyte # 0.77 X10^3/ul (4.0); Lymphocyte % 4.5 % (19-41); Mean Corp Hgb Conc 31.3 g/dL (32-36); Mean Corpuscular Hgb 28.3 pg (27.0-32.0); Mean Corpuscular Volume 90.5 fL (81-99); Mean Platelet Vol. 9.2 fl (6.2-12.0); Monocyte# 0.64 X10^3/uL; Monocyte% 3.7 % (0-10); NRBC Flagged by Analyzer 0 % (0-5); Neutrophil # 15.59 X10^3/uL (2.7-7.7); Neutrophil % 90.3 % (47-70); Platelet Count 625 K/mm3 (150-450); RBC Distribution Width CV 14.2 % (11.6-14.6); RBC Distribution Width SD 47.8 fl (35.1-43.9); White Blood Count 17.3 K/mm3 (4.4-11.0)
[2020-03-15 17:44] LABS: ALB/GLOB Ratio 0.4 RATIO (0.9-2.4); AST(SGOT) 72 U/L (15-37); Alanine Aminotransfer ALT/SGPT 70 U/L (13-56); Albumin, Serum 2.3 g/dL (3.2-5.0); Alkaline Phosphatase 221 U/L (45-117); Anion Gap 7 (5-15); BUN 10 mg/dL (7-18); BUN/Creat Ratio 11.2 RATIO (10-20); Calcium,Total 8.8 mg/dL (8.5-10.1); Chloride 108 mmol/L (98-107); Creatinine, Serum 0.89 mg/dL (0.55-1.02); EST Glomerular Filtration Rate 66 mL/min (>60); Est Glom Filt Rate - Afr Amer 80 mL/min (>60); Globulin 5.2 g/dL (2.2-4.2); Glucose 144 mg/dL (74-106); Potassium 4.2 mmol/L (3.5-5.1); Protein, Total 7.5 g/dL (6.4-8.2); Sodium Level 138 mmol/L (136-145)
== END ==
PROVIDERS: PCP Student in an Organized Health Care Education/Training Program; Referring Provider Student in an Organized Health Care Education/Training Program; Visit Provider Student in an Organized Health Care Education/Training Program
DX: D47.3 Essential (hemorrhagic) thrombocythemia (principal); R79.89 Other specified abnormal findings of blood chemistry
CPT/HCPCS: 36415; 80053; 85025

== ENCOUNTER → 2020-03-18 | Outpatient (CLI) | payer OTHER, SELFPAY ==
[2020-02-29 09:03] VITALS: BMI 32.8
== END | disposition home or self-care (01) ==
LOC: LABSPEC 15:04
PROVIDERS: PCP Student in an Organized Health Care Education/Training Program; Referring Provider Urology; Visit Provider Urology
DX: N39.0 Urinary tract infection, site not specified (principal)
CPT/HCPCS: 87077; 87086; 87088; 87186

== ENCOUNTER 2020-03-20 14:36 | Outpatient (RCR) | payer OTHER, SELFPAY ==
[2020-02-29 09:03] VITALS: BMI 32.8
[2020-03-12 10:46] LABS: Bacteria 0 SEEN /hpf (None Seen)
[2020-03-12 10:51] LABS: Absolute Lymphocyte Count 1.38 X10^3/uL (0.83-4.51); Absolute Neutrophil Count 6.6 X10^3/uL (2.0-7.7); Basophil# 0.09 X10^3/uL; Eosinophil# 0.22 X10^3/uL; Eosinophils% 2.4 % (0-5); Hematocrit 39.8 % (37-47); Hemoglobin 12.2 g/dL (12.0-15.0); Lymphocyte # 1.38 X10^3/ul (4.0); Lymphocyte % 14.9 % (19-41); Mean Corp Hgb Conc 30.7 g/dL (32-36); Mean Corpuscular Hgb 28.6 pg (27.0-32.0); Mean Corpuscular Volume 93.2 fL (81-99); Mean Platelet Vol. 9.3 fl (6.2-12.0); Monocyte# 0.88 X10^3/uL; Monocyte% 9.5 % (0-10); NRBC Flagged by Analyzer 0 % (0-5); Neutrophil # 6.62 X10^3/uL (2.7-7.7); Neutrophil % 71.3 % (47-70); POSITIVE COUNT YES; RBC Distribution Width CV 14.3 % (11.6-14.6); RBC Distribution Width SD 49.1 fl (35.1-43.9); Red Blood Count 4.27 M/mm3 (4.2-5.4); White Blood Count 9.3 K/mm3 (4.4-11.0)
[2020-03-12 10:52] LABS: Color, Urine Yellow (Yellow); Glucose, Dipstick Normal (Normal); Ketone-Dipstick 5 mg/dl (Negative); Leukocyte Esterase-Dipstick 500 /ul (Negative); Nitrite-Dipstick Negative (Negative); Occult Blood-Urine 250 /ul (Negative); Protein-Dipstick 100 mg/dl (Negative); Urine Bilirubin Dipstick Negative (Negative); Urine Clarity Cloudy (Clear); Urine Urobilinogen Normal (Normal)
[2020-03-12 11:04] LABS: Differential Indicated SCAN CRITERIA MET; Platelet Count 796 K/mm3 (150-450)
[2020-03-12 11:13] LABS: ALB/GLOB Ratio 0.5 RATIO (0.9-2.4); AST(SGOT) 45 U/L (15-37); Alanine Aminotransfer ALT/SGPT 61 U/L (13-56); Albumin, Serum 2.3 g/dL (3.2-5.0); Alkaline Phosphatase 211 U/L (45-117); Anion Gap 7 (5-15); BUN 10 mg/dL (7-18); BUN/Creat Ratio 14.1 RATIO (10-20); Calcium,Total 8.9 mg/dL (8.5-10.1); Chloride 105 mmol/L (98-107); Creatinine, Serum 0.71 mg/dL (0.55-1.02); EST Glomerular Filtration Rate 86 mL/min (>60); Est Glom Filt Rate - Afr Amer 104 mL/min (>60); Globulin 5.1 g/dL (2.2-4.2); Glucose 88 mg/dL (74-106); Potassium 3.5 mmol/L (3.5-5.1); Protein, Total 7.4 g/dL (6.4-8.2); Sodium Level 139 mmol/L (136-145)
[2020-03-12 11:15] LABS: Red Blood Cells-Urine > 100 SEEN /hpf (0-5); Squamous Epithelial Cells - UA 10-25 SEEN /hpf (5-10); White Blood Cells 5-10 SEEN /hpf (0-5)
[2020-03-12 11:16] LABS: Mucous, Urine 2+ /hpf (<or=2+)
[2020-03-12 11:25] LABS: Platelet Estimate MKD INC (ADEQ); Red Cell Morphology NORM C+C NORMAL (NORM C&C)
[2020-03-12 16:22] LABS: D-Dimer Quantitative (DVT/PE) 3.05 FEU/ug/m (0.27-0.49)
[2020-03-13 12:54] LABS: Pathologist Review Reviewed
[2020-03-20 16:09] LABS: Absolute Lymphocyte Count 1.48 X10^3/uL (0.83-4.51); Absolute Neutrophil Count 13.8 X10^3/uL (2.0-7.7); Basophil# 0.08 X10^3/uL; Basophil% 0.5 % (0-1); Eosinophil# 0.34 X10^3/uL; Eosinophils% 1.9 % (0-5); Hematocrit 34.6 % (37-47); Hemoglobin 10.9 g/dL (12.0-15.0); Lymphocyte # 1.48 X10^3/ul (4.0); Lymphocyte % 8.5 % (19-41); Mean Corp Hgb Conc 31.5 g/dL (32-36); Mean Corpuscular Hgb 28.8 pg (27.0-32.0); Mean Corpuscular Volume 91.5 fL (81-99); Mean Platelet Vol. 9.6 fl (6.2-12.0); Monocyte# 1.56 X10^3/uL; Monocyte% 8.9 % (0-10); NRBC Flagged by Analyzer 0 % (0-5); Neutrophil # 13.79 X10^3/uL (2.7-7.7); Neutrophil % 78.8 % (47-70); POSITIVE DIFFERENTIAL YES; Platelet Count 594 K/mm3 (150-450); RBC Distribution Width CV 14.2 % (11.6-14.6); RBC Distribution Width SD 47.7 fl (35.1-43.9); Red Blood Count 3.78 M/mm3 (4.2-5.4); White Blood Count 17.5 K/mm3 (4.4-11.0)
[2020-03-20 16:15] LABS: ALB/GLOB Ratio 0.5 RATIO (0.9-2.4); AST(SGOT) 31 U/L (15-37); Alanine Aminotransfer ALT/SGPT 59 U/L (13-56); Albumin, Serum 2.2 g/dL (3.2-5.0); Alkaline Phosphatase 186 U/L (45-117); Anion Gap 6 (5-15); BUN 12 mg/dL (7-18); BUN/Creat Ratio 16.6 RATIO (10-20); Calcium,Total 8.6 mg/dL (8.5-10.1); Chloride 108 mmol/L (98-107); Creatinine, Serum 0.72 mg/dL (0.55-1.02); EST Glomerular Filtration Rate 84 mL/min (>60); Est Glom Filt Rate - Afr Amer 101 mL/min (>60); Globulin 4.7 g/dL (2.2-4.2); Glucose 98 mg/dL (74-106); Protein, Total 6.9 g/dL (6.4-8.2); Sodium Level 139 mmol/L (136-145)
[2020-03-20 16:47] LABS: Differential Indicated SCAN CRITERIA MET
[2020-03-20 16:49] LABS: Differential Comment SCANNED
[2020-03-21 10:19] LABS: Pathologist Review Reviewed
== END 2020-03-20 18:00 | disposition home or self-care (01) ==
LOC: HHLAB 14:36
PROVIDERS: PCP Student in an Organized Health Care Education/Training Program; Referring Provider Student in an Organized Health Care Education/Training Program; Visit Provider Student in an Organized Health Care Education/Training Program
DX: R79.89 Other specified abnormal findings of blood chemistry (principal); M15.0 Primary generalized (osteo)arthritis; M54.2 Cervicalgia; M79.7 Fibromyalgia; N20.0 Calculus of kidney; N17.9 Acute kidney failure, unspecified
CPT/HCPCS: 80053; 81001; 85025; 85379; 87086; 87088

== ENCOUNTER → 2020-04-08 13:58 | Outpatient (CLI) | payer OTHER, SELFPAY ==
[2020-02-29 09:03] VITALS: BMI 32.8
--- NOTE | 2020-04-08 14:04 | MRI_ITS ---
We are attempting to reach an attending provider to discuss findings. An addendum with communication details will be sent when the communication is complete. STUDY: MRI LUMBAR SPINE WITH AND WITHOUT CONTRAST REASON FOR EXAM: Female, 74 years old. low back pain, sepsis X 6 WEEKS TECHNIQUE: Standardized fat and water weighted pulse sequences were obtained in the sagittal and axial planes. dotarem 15ml iv was administered for the contrast portion of the examination. COMPARISON: None FINDINGS: T12-L1: Mild bilateral facet hypertrophy and ligament flavum hypertrophy. 5 mm retrolisthesis of T12 on L1. The moderate bilobed disc protrusion produces moderate spinal stenosis but no cord compression and moderate bilateral neural foraminal stenosis. Furthermore, there is edema of the disc with the severe marrow edema of the adjacent T12 and L1 vertebral bodies with contrast enhancement worrisome for discitis and osteomyelitis. No evidence of epidural abscess. Normal lumbar lordosis. Mild levoscoliosis centered at L2/L3. Normal conus medullaris that terminates at the L1/L2. L1-2: Mild bilateral facet hypertrophy and ligament flavum hypertrophy. 5 mm retrolisthesis of L1 on L2 with a mild bilobed disc protrusion produces moderate spinal stenosis and moderate bilateral neural foraminal stenosis. L2-3: Moderate bilateral facet hypertrophy and ligament flavum hypertrophy. Disc desiccation but no disc protrusion, spinal stenosis, or neural foraminal stenosis. L3-4: Moderate bilateral facet hypertrophy and ligament flavum hypertrophy. Moderate broad disc protrusion produces moderate spinal stenosis with the moderate bilateral lateral recess stenosis with abutment of the L4 nerve roots bilaterally and moderate bilateral neural foraminal stenosis with abutment of the exiting L3 nerve root laterally. L4-5: Severe bilateral facet hypertrophy and moderate ligament flavum hypertrophy. 5 mm of anterolisthesis of L4 and L5 with a moderate broad disc protrusion produces severe spinal stenosis with severe bilateral lateral recess stenosis with effacement of the L5 nerve roots bilaterally and moderate bilateral neural foraminal stenosis with abutment of the exiting L4 nerve roots bilaterally. L5-S1: Moderate bilateral facet hypertrophy and ligament flavum hypertrophy. Mild broad disc protrusion produces mild spinal stenosis and mild bilateral neural foraminal stenosis. Normal visualized sacral ala. Normal visualized paraspinous soft tissue structures. MRI/Spine Lumbar W/WO Contrast IMPRESSION: 1. 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 No epidural abscess. 2. Levoscoliosis and degenerative disc disease as described above. Electronically Signed: Antione Galeas MD at 16:19 EST Tel , Service support ,
== END ==
PROVIDERS: PCP Student in an Organized Health Care Education/Training Program; Referring Provider Internal Medicine Cardiovascular Disease; Visit Provider Internal Medicine Cardiovascular Disease
DX: M54.5 Low back pain (principal); A41.9 Sepsis, unspecified organism
CPT/HCPCS: 72158; A9575

== ENCOUNTER 2020-04-09 09:00 | Outpatient (RCR) | payer OTHER, SELFPAY ==
[2020-02-29 09:03] VITALS: BMI 32.8
== END 2020-04-09 23:59 ==
LOC: IMMUN 09:00
PROVIDERS: PCP Student in an Organized Health Care Education/Training Program; Visit Provider Family Medicine
DX: Z23 Encounter for immunization (principal)
CPT/HCPCS: 0011A; 0012A; 91301

== ENCOUNTER 2020-04-22 12:43 | Outpatient (RCR) | payer OTHER, SELFPAY ==
[2020-02-29 09:03] VITALS: BMI 32.8
[2020-04-22 13:11] LABS: Absolute Lymphocyte Count 1.26 X10^3/uL (0.83-4.51); Absolute Neutrophil Count 3.1 X10^3/uL (2.0-7.7); Basophil# 0.08 X10^3/uL; Basophil% 1.3 % (0-1); Eosinophils% 8.1 % (0-5); Hematocrit 34.4 % (37-47); Hemoglobin 10.4 g/dL (12.0-15.0); Lymphocyte # 1.26 X10^3/ul (4.0); Lymphocyte % 20.5 % (19-41); Mean Corp Hgb Conc 30.2 g/dL (32-36); Mean Corpuscular Hgb 27.2 pg (27.0-32.0); Mean Corpuscular Volume 89.8 fL (81-99); Mean Platelet Vol. 9.3 fl (6.2-12.0); Monocyte# 1.16 X10^3/uL; Monocyte% 18.9 % (0-10); NRBC Flagged by Analyzer 0 % (0-5); Neutrophil # 3.12 X10^3/uL (2.7-7.7); Neutrophil % 50.7 % (47-70); Platelet Count 433 K/mm3 (150-450); RBC Distribution Width CV 15.4 % (11.6-14.6); RBC Distribution Width SD 50.7 fl (35.1-43.9); Red Blood Count 3.83 M/mm3 (4.2-5.4); White Blood Count 6.2 K/mm3 (4.4-11.0)
[2020-04-22 13:29] LABS: Vancomycin, Trough Level 12.1 ug/mL (5.0-15.0)
[2020-04-22 13:30] LABS: Creatinine, Serum 0.72 mg/dL (0.55-1.02); EST Glomerular Filtration Rate 84 mL/min (>60); Est Glom Filt Rate - Afr Amer 102 mL/min (>60)
== END 2020-04-22 18:00 | disposition home or self-care (01) ==
LOC: HHLAB 12:43
PROVIDERS: PCP Student in an Organized Health Care Education/Training Program; Referring Provider Student in an Organized Health Care Education/Training Program; Visit Provider Student in an Organized Health Care Education/Training Program
DX: M15.0 Primary generalized (osteo)arthritis (principal); M54.2 Cervicalgia
CPT/HCPCS: 80202; 82565; 85025; 86140

== ENCOUNTER 2020-05-06 11:56 | Outpatient (RCR) | payer OTHER, SELFPAY ==
[2020-02-29 09:03] VITALS: BMI 32.8
[2020-04-29 11:45] LABS: ALB/GLOB Ratio 0.6 RATIO (0.9-2.4); AST(SGOT) 50 U/L (15-37); Alanine Aminotransfer ALT/SGPT 38 U/L (13-56); Albumin, Serum 2.9 g/dL (3.2-5.0); Alkaline Phosphatase 95 U/L (45-117); Anion Gap 7 (5-15); BUN 12 mg/dL (7-18); BUN/Creat Ratio 16.9 RATIO (10-20); Calcium,Total 9.2 mg/dL (8.5-10.1); Chloride 106 mmol/L (98-107); Creatinine, Serum 0.71 mg/dL (0.55-1.02); EST Glomerular Filtration Rate 86 mL/min (>60); Est Glom Filt Rate - Afr Amer 104 mL/min (>60); Glucose 85 mg/dL (74-106); Potassium 3.7 mmol/L (3.5-5.1); Protein, Total 7.9 g/dL (6.4-8.2); Sodium Level 139 mmol/L (136-145)
[2020-04-29 11:47] LABS: Hematocrit 36.7 % (37-47); Hemoglobin 10.8 g/dL (12.0-15.0); Mean Corp Hgb Conc 29.4 g/dL (32-36); Mean Corpuscular Volume 88.4 fL (81-99); Mean Platelet Vol. 9.2 fl (6.2-12.0); Platelet Count 443 K/mm3 (150-450); RBC Distribution Width CV 15.2 % (11.6-14.6); RBC Distribution Width SD 49.6 fl (35.1-43.9); Red Blood Count 4.15 M/mm3 (4.2-5.4); White Blood Count 4.8 K/mm3 (4.4-11.0)
[2020-04-29 11:48] LABS: Erythrocyte Sedimentation Rate 82 mm/hr (0-30)
[2020-05-06 15:11] LABS: Basophil# 0.11 X10^3/uL; Basophil% 2.1 % (0-1); Eosinophil# 0.48 X10^3/uL; Eosinophils% 9.1 % (0-5); Hematocrit 35.5 % (37-47); Hemoglobin 10.6 g/dL (12.0-15.0); Lymphocyte % 18.9 % (19-41); Mean Corp Hgb Conc 29.9 g/dL (32-36); Mean Corpuscular Hgb 26.2 pg (27.0-32.0); Mean Corpuscular Volume 87.9 fL (81-99); Mean Platelet Vol. 9.2 fl (6.2-12.0); Monocyte# 0.69 X10^3/uL; Monocyte% 13.1 % (0-10); NRBC Flagged by Analyzer 0 % (0-5); Neutrophil # 2.98 X10^3/uL (2.7-7.7); Neutrophil % 56.4 % (47-70); Platelet Count 525 K/mm3 (150-450); RBC Distribution Width CV 15.4 % (11.6-14.6); RBC Distribution Width SD 49.8 fl (35.1-43.9); Red Blood Count 4.04 M/mm3 (4.2-5.4); White Blood Count 5.3 K/mm3 (4.4-11.0)
[2020-05-06 15:33] LABS: ALB/GLOB Ratio 0.6 RATIO (0.9-2.4); AST(SGOT) 32 U/L (15-37); Alanine Aminotransfer ALT/SGPT 30 U/L (13-56); Albumin, Serum 2.9 g/dL (3.2-5.0); Alkaline Phosphatase 92 U/L (45-117); Anion Gap 7 (5-15); BUN 13 mg/dL (7-18); BUN/Creat Ratio 17.4 RATIO (10-20); Calcium,Total 9.1 mg/dL (8.5-10.1); Chloride 107 mmol/L (98-107); Creatinine, Serum 0.75 mg/dL (0.55-1.02); EST Glomerular Filtration Rate 80 mL/min (>60); Est Glom Filt Rate - Afr Amer 97 mL/min (>60); Globulin 4.7 g/dL (2.2-4.2); Glucose 73 mg/dL (74-106); Potassium 3.7 mmol/L (3.5-5.1); Protein, Total 7.6 g/dL (6.4-8.2); Sodium Level 140 mmol/L (136-145)
== END 2020-05-06 18:00 | disposition home or self-care (01) ==
LOC: HHLAB 11:56
PROVIDERS: PCP Student in an Organized Health Care Education/Training Program; Referring Provider Student in an Organized Health Care Education/Training Program; Visit Provider Student in an Organized Health Care Education/Training Program
DX: M46.35 Infection of intervertebral disc (pyogenic), thoracolumbar region (principal); M48.062 Spinal stenosis, lumbar region with neurogenic claudication
CPT/HCPCS: 80053; 85025; 85027; 85652; 86140

== ENCOUNTER → 2020-06-14 11:09 | Outpatient (CLI) | payer OTHER, SELFPAY ==
[2020-02-29 09:03] VITALS: BMI 32.8
--- NOTE | 2020-06-14 | ASPS_PTH ---
PATIENT: ZULEYKA GAMEZ LOC: [facility] U#:[id number] AGE/SX: 79/F ROOM: RE06/14/[address]: Dr. Pako Abad MD : 1945 BED: DIS: SPEC #: [id number] RECD: 06/14/20 11:17 STATUS: MEEK REAlec #: [id number] EVELIA: 06/14/20 00:[address]: Pako Abad DEPT: CYTOLOGY RECD BY: Rodo Abreu ENTERED: 06/14/20 11:17 SP TYPE: ASPIRATION OTHR DR: Dr. Quentin Carter, DO Tissues: Thyroid gland, NOS Procedures: Special Stain Group II Cytology Other HEADER OPERATION: Left thyroid FNA PRE-OP DIAGNOSIS: Uninodular goiter TISSUE SUBMITTED: Left thyroid FNA slides x12 DIAGNOSIS CYTOLOGY Fine needle aspiration, left thyroid nodule (smears): Follicular lesion of undetermined significance. See microscopic description. AM:jessika 06/14/2020 CYTOLOGY STUDY Slides are reviewed. The smears contain follicular cells in a microfollicular pattern with scattered cytologic atypia. Features of papillary carcinoma are not identified. Clinical correlation is necessary. CYTOLOGY GROSS Received are 12 smears labeled with the patient's name and designated per the requisition as left thyroid. Submitted for staining. / rg 06/13/20 TC:? CPT: 84616 ADDENDUM ADDENDUM ADDENDUM ADDENDUM ADDENDUM ADDENDUM ADDENDUM ADDENDUM ADDENDUM ADDENDUM ADDENDUM 07/02/2020 11:32 ADDENDUM 07/02/2020 11:32 ADDENDUM 07/02/2020 11:32 ADDENDUM 07/02/2020 11:32 ADDENDUM 07/02/2020 11:32 This addendum is added to incorporate an outside pathology consultation report. The case was examined at [facility] (#[id number]) and the following diagnosis was rendered. Left thyroid nodule, fine needle aspiration: Evaluation limited by scant cellularity and obscuring blood elements. Atypia of undetermined significance. Please see complete above mentioned consultation report in EMR
== END ==
PROVIDERS: PCP Student in an Organized Health Care Education/Training Program; Referring Provider Surgery; Visit Provider Surgery
DX: E04.1 Nontoxic single thyroid nodule (principal)
CPT/HCPCS: 88161; 88313

== ENCOUNTER 2020-06-21 10:05 | Day surgery (SDC) | payer OTHER, SELFPAY ==
[2020-02-29 09:03] VITALS: BMI 32.8
--- NOTE | 2020-06-20 21:17 | PCM.HPOB.BLA ---
- Problem List (1) Abnormal findings on diagnostic imaging of other abdominal regions, including retroperitoneum Status: Acute History and Physical Date of Admission: 06/21/20 Chief Complaint : Presenting for surgery- hysteroscopy with dilation and curettage for incidental findig of significantly thickened endometrial stripe during work up for other conditions on recent hospitalisation. History of Present Illness: 74y.o. WF ,0,0,3 with incidental finding during hospitalization last year of thickened endometrial stripe suggestive of polyp. 2cm + stripe with cystic appearance in parts. Patient has not experienced any postmenopausal bleeding. Review of Systems BARIATRIC PROGRAM COORDINATOR: Menopause at age 55. Denies ever having postmenopausal bleeding. Took femhrt for a couple of years then after [facility] study she stopped. ~ age 59, and nothing since. HRT was stopped because of family history of medical illnesses that did not augur well for HRT use. No vaginal Discharge. Denies pelvic pain. BREAST: mammograms up to date & normal. Self-Breast Exams: Regularly . Tenderness: Denied . Discharge: Denied . Masses: Denied . URINARY: Patient denies leakage due to activity . No dysuria. No . No urgency. No sensation of incomplete voiding. No nocturia. No bladder issues. Obstetric History:- SVDs x 2, then last one by emergency . Past medical History: Fibromyalgia Urosepsis Osteomyelitis of spine Nephrolithiasis Past Surgical History: Spine surgery for infection Multiple ortho - rotator cuff, meniscus, wrist section Knee replacement Tonsillectomy Family History: Grandparent: stroke Father: PR causing at 52 Mother: stroke, breast cancer Social History: , no tobacco, 1-2 drinks/week Medications Home Medications (14) Active ciprofloxacin 500 mg oral tablet 500 mg = 1 tab(s), Oral, BID Co Q-10 100 mg oral capsule 100 mg = 1 cap(s), Oral, Daily Colace , Oral, BID cyclobenzaprine 10 mg oral tablet Dexilant 60 mg oral delayed release capsule 60 mg = 1 cap(s), Oral, qDay gabapentin 300 mg oral capsule GNP VITAMIN C 500 MG TABLET magnesium oxide , Oral Patrick Red Krill Oil 300mg oral capsule melatonin , qHS MiraLax oral powder for reconstitution 17 gram(s), PRN, Oral, qDay rosuvastatin 5 mg oral tablet , Mon/Wed/Fri Tylenol See Instructions venlafaxine 75 mg oral capsule, extended release 75 mg = 1 cap(s), Oral, qDay Allergies: Oxycodone Diagnostics: Abnormal CT scan of pelvis showing uterus with thick stripe. Same finding, led to the ultrasound, confirming the same and cystic appearance in parts, possible polyp. . PHYSICAL EXAM Vitals Height : 168.9 cm(Converted to: 5 ft 6 inch(es)) Dosing Weight : 75 kg(Converted to: 165 lb 6 oz) Height in inches : 66.5 inch(es) Weight Lbs : 165 lb Body Mass Index : 26.29 kg/m2 Elderly WF in NAD,, A&O x 3. Walks with aid of cane. CVS: RRR , no murmur Lungs: CTAB Abdomen:soft, non tender, no organomegaly palpable Back: no costovertebral angle tenderness, sacral scar Pelvic: see Operative note Extremeties: non tender, no edema Assessment/Plan 1. Abnormal endometrial ultrasound, thickened stripe with cystic changes. Advised thickness above 12mm so even in absence of bleeding, evaluation is recommended. For hysteroscopy with dilation and curettage. Counseled on procedure, with risks and benefits. All questions answered and patient desiring to proceed with surgery on 20 june if approved by PCP. Patient discussed with PCP who felt timing was acceptable. Allergies (Active) oxyCODONE Estimated Onset Date: Unspecified ; Reactions: itching ; Created By: Bridgette Kern LPN; Reaction Status: Active ; Category: Drug ; Substance: oxyCODONE ; Type: Allergy ; Updated By: Bridgette Kern LPN; Reviewed Date: 06/04/2020 10:33 EST ( melatonin : melatonin ; Status: Documented ; Ordered As Mnemonic: melatonin ; Simple Display Line: qHS, 0 Refill(s) ; Catalog Code: melatonin ; Order Dt/Tm: 06/04/2020 10:47:11 EST herbal/nutritional product : herbal/nutritional product ; Status: Documented ; Ordered As Mnemonic: Patrick Red Krill Oil 300mg oral capsule ; Simple Display Line: 0 Refill(s) ; Catalog Code: herbal/nutritional product ; Order Dt/Tm: 06/04/2020 10:46:23 EST ubiquinone : ubiquinone ; Status: Documented ; Ordered As Mnemonic: Co Q-10 100 mg oral capsule ; Simple Display Line: 100 mg, 1 cap(s), Oral, Daily, 0 Refill(s) ; Catalog Code: ubiquinone ; Order Dt/Tm: 06/04/2020 10:45:51 EST dexlansoprazole : dexlansoprazole ; Status: Documented ; Ordered As Mnemonic: Dexilant 60 mg oral delayed release capsule ; Simple Display Line: 60 mg, 1 cap(s), Oral, qDay, 30 cap(s), 0 Refill(s) ; Catalog Code: dexlansoprazole ; Order Dt/Tm: 06/04/2020 10:48:18 EST acetaminophen : acetaminophen ; Status: Documented ; Ordered As Mnemonic: Tylenol ; Simple Display Line: See Instructions, Oral TID, 0 Refill(s) ; Catalog Code: acetaminophen ; Order Dt/Tm: 06/04/2020 10:42:29 EST rosuvastatin : rosuvastatin ; Status: Documented ; Ordered As Mnemonic: rosuvastatin 5 mg oral tablet ; Simple Display Line: Mon/Wed/Fri, 0 Refill(s) ; Catalog Code: rosuvastatin ; Order Dt/Tm: 06/04/2020 10:48:18 EST venlafaxine : venlafaxine ; Status: Documented ; Ordered As Mnemonic: venlafaxine 75 mg oral capsule, extended release ; Simple Display Line: 75 mg, 1 cap(s), Oral, qDay, 30 cap(s), 0 Refill(s) ; Catalog Code: venlafaxine ; Order Dt/Tm: 06/04/2020 10:48:18 EST ciprofloxacin : ciprofloxacin ; Status: Documented ; Ordered As Mnemonic: ciprofloxacin 500 mg oral tablet ; Simple Display Line: 500 mg, 1 tab(s), Oral, BID, 0 Refill(s) ; Catalog Code: ciprofloxacin ; Order Dt/Tm: 06/04/2020 10:48:18 EST ; Comment: Do not give within 2 to 4 hours of antacids or products containing iron or zinc or other products containing calcium.May take with food to lessen GI upset (avoid antacids). docusate : docusate ; Status: Documented ; Ordered As Mnemonic: Colace ; Simple Display Line: Oral, BID, 0 Refill(s) ; Catalog Code: docusate ; Order Dt/Tm: 06/04/2020 10:36:05 EST polyethylene glycol 3350 : polyethylene glycol 3350 ; Status: Documented ; Ordered As Mnemonic: MiraLax oral powder for reconstitution ; Simple Display Line: 17 gram(s), Oral, qDay, PRN: Constipation, 0 Refill(s) ; Catalog Code: polyethylene glycol 3350 ; Order Dt/Tm: 06/04/2020 10:36:24 EST Misc Medication : Misc Medication ; Status: Documented ; Ordered As Mnemonic: GNP VITAMIN C 500 MG TABLET ; Simple Display Line: 0 Refill(s) ; Catalog Code: Misc Medication ; Order Dt/Tm: 06/04/2020 10:48:18 EST ;
[2020-06-21] VITALS (8 sets, daily range): BP systolic 100–148; BP diastolic 69–90; PULSE 64–83; RESP 16; TEMP 36.1–36.8; O2SAT 94–100; BMI 26.6
--- NOTE | 2020-06-21 | EMB_PTH ---
PATIENT: ZULEYKA GAMEZ LOC: [facility] [place] U#:[id number] AGE/SX: 75/F ROOM: RE06/21/[address]: Dr. Cornelia Ch MD : 1945 BED: DIS: 06/21/2020 SPEC #: [id number] RECD: 06/21/20 13:53 STATUS: MEEK REQ #: [id number] EVELIA: 06/21/20 00:[address]: Cornelia Ch DEPT: SURGICAL PATHOLOGY RECD BY: Rodo Abreu ENTERED: 06/24/20 07:39 SP TYPE: ENDOM BX/C OT DR: Dr. Quentin Carter, DO Tissues: Endometrium, NOS Procedures: Surgery Specimen Level IV HEADER OPERATION: Hysteroscopy, D & C Symphion PRE-OP DIAGNOSIS: Abnormal findings on diagnostic imaging TISSUE SUBMITTED: Endometrial curettings polyp/fibroid MICROSCOPIC DIAGNOSIS Endometrial curettings polyp/fibroid: Simple cystic endometrial hyperplasia without atypia. See comment. LUIS MANUEL:jessika 06/25/2020 COMMENT Most of the fragments appear to consist of fragments of endometrial polyp. Changes consistent with leiomyoma are seen. Clinical correlation and appropriate follow up are necessary. MICROSCOPIC DESCRIPTION Slides are reviewed. GROSS DESCRIPTION Received in fixative is one container labeled with the patient's name and designated endometrial curettings polyp/fibroid. The specimen consists of multiple irregular fragments of beyer-pink soft tissue that in aggregate measure 7.5 x 3 x 0.6 cm. Two pieces of beyer-pink congested, polypoid tissue are also noted measuring 1.2 and 1.5 cm in greatest dimension. The largest polypoid piece is bisected. The entire specimen is submitted in six cassettes. Cassette 1 contains the polypoid piece. / LUIS MANUEL:jessika 06/24/20 TC:5 CPT: 63665
[2020-06-21] MEDS: Lactated Ringers 1,000 ML 100 ML IV ×2 (10:48→13:06)
[2020-06-21] MEDS: Lidocaine 1% (30 ml sdv) 30 ML Vial (12:35)
--- NOTE | 2020-06-21 13:10 | PCM.OPRPT ---
Problem List (1) Abnormal findings on diagnostic imaging of other abdominal regions, including retroperitoneum Status: Acute Report of Operation Date of Procedure: 06/21/20 Pre-Operative Diagnosis: Thickened endometrial stripe Post-Operative Diagnosis: Same with multiple polypoid lesions. Some suggestive of a fibroid and others of polyp. Surgery/Procedure Performed:: Hysteroscopy with dilation and curettage and tissue resection using the Symphion Description of Surgical Findings:: Multiple polypoid lesions some with prominent vascularity but this vascularity was regular there were also cystic and calcified appearing spaces on some of the lesions. Others looked simply like a polyp. No atypical vasculature was noted and the endometrial cavity itself was largely atrophic. stile ripsaw operator: Colton Pedroza Type of Anesthesia:: Local, MAC Anesthesiologist: Tayo Special Medications: 1% plain lidocaine 10 mL distributed between the anterior lip of the cervix and the 2 uterosacral ligaments. Specimen's removed: Polypoid endometrial tissue removed by sharp resection and by sharp curettage and using the polyp forceps. Drains: Bladder was emptied for small amount of urine preoperatively. Estimated Blood Loss (mL): 2 0 mL Fluids Replaced: 1 L Description of Procedure: Once the patient was appropriately sedated she was prepped and draped in the usual sterile fashion in the dorsolithotomy position and the bladder was catheterized for small amount of clear urine some of which was sent for culture. A weighted speculum was placed and the anterior lip of the cervix grasped with a Delarosa tenaculum. The endocervical canal was dilated very easily to a #18 [place] and then the hysteroscope was inserted and using saline as the distending medium the cavity was inspected and found to have multiple polypoid growths however , most of them were mobile/pedunculated and it was possible to go all the way to the fundus and visualize both ostia. The hysteroscope was withdrawn and the Symphion was introduced and under direct visualization the largest of these polyps was resected using the resectoscope. This lesion appeared to be rather firm and whorled, white, suggestive of a fibroid. When approximately 80% of this had been removed the visibility was diminished and so the Symphion resectoscope was switched out for the regular hysteroscope and the cavity inspected again and multiple lesions still noted in it. Using sharp curettage at least 5 specimens each greater than 8 x 12 x 5 mm was removed. Hysteroscopy was carried out again and there were still a couple of lesions left so the Symphion was reintroduced and this time it was impossible to empty the cavity completely of lesions. One spot which was bleeding was cauterized for good hemostasis and at the end of the procedure pictures of an empty cavity were obtained. There was minimal bleeding when all instruments were removed and the patient was awakened and taken to the recovery area awake and in stable condition. A total of 400 mL saline fluid deficit was noted at the end of the procedure. Preoperative pelvic exam shows normal vulva, mildly atrophic vagina and a short cervix with a parous os. Bimanual exam confirmed an anteverted uterus of normal size with free adnexa. - Complications None noted - Admit VTE Documentation VTE Present on Admission: No VTE Mechan Device Prophylaxis: SCD's VTE Pharm Prophylaxis ordered?: No
[2020-06-21] MEDS: Furosemide 20 MG/2 ML VIAL IV (13:14)
== END 2020-06-21 14:23 | disposition home or self-care (01) ==
LOC: SDC 10:06 → AC 10:07
PROVIDERS: PCP Student in an Organized Health Care Education/Training Program; Referring Provider Obstetrics & Gynecology Gynecology; Visit Provider Obstetrics & Gynecology Gynecology
PROC: 0UB98ZZ Excision of Uterus, Via Natural or Artificial Opening Endoscopic (ICD-10-PCS; CPT 58558; principal; 2020-06-21 11:15)
DX: N85.01 Benign endometrial hyperplasia (principal); N84.0 Polyp of corpus uteri; N95.2 Postmenopausal atrophic vaginitis; N85.4 Malposition of uterus; I25.10 Atherosclerotic heart disease of native coronary artery without angina pectoris; M79.7 Fibromyalgia; M54.41 Lumbago with sciatica, right side; K21.9 Gastro-esophageal reflux disease without esophagitis; I25.2 Old myocardial infarction; Z20.828 Contact with and (suspected) exposure to other viral communicable diseases; Z87.19 Personal history of other diseases of the digestive system; Z79.899 Other long term (current) drug therapy
CPT/HCPCS: 58558; 87086; 87426; 88305; C9803; J7120; J1940

== ENCOUNTER 2021-11-27 12:30 | Outpatient (RCR) | payer OTHER, SELFPAY ==
--- NOTE | 2022-03-09 11:29 | HP.PTDCSUM_ITS ---
It has been my pleasure to treat ZULEYKA GAMEZ referred by MARIA T YN, with the diagnosis of L TKR for a total of 15 visit(s). Discharge Date: 03/09/22 Please see the following information for a summary of their discharge status. Subjective: Lala has been traveling extensively. I called her today and she is in [place] for a week then back after the new years. She said that she is having a pain on the outside of her knee and that her surgeon doesnt what to see her for another year. Left Knee Pain Intensity (Out of 10): 2 - Depends on activity % Improvement: 80 Objective/Function: Measure str next visit in a nichole today as catching flight Goal 1:: Patient will be able to return demo her HEP Goal Progress: Goal Met Goal 2:: Improve ROM by 10% Goal Progress: Goal Met Goal 3:: Improve Strength by 10% Goal Progress: Goal Met Plan: Discharge and do a courtesy checkup in March when she returns Discharge Comments: Will follow next year when she returns home If there are questions or concerns regarding this patient's physical therapy, please feel free to call me at [phone]. Thank you for the referral of this patient. Sincerely, Braden Hernandez, PT, SIMON, SCS, CSCS Balance/Gait/Functional tests - Balance/Special Test Scores Lower Extremity Functional Score: 52 WOMAC Total Score: 31 WOMAC Percentage: 67.7100
== END 2021-11-27 19:00 | disposition home or self-care (01) ==
LOC: PT 12:30
PROVIDERS: PCP Student in an Organized Health Care Education/Training Program
DX: Z47.1 Aftercare following joint replacement surgery (principal); M17.12 Unilateral primary osteoarthritis, left knee; Z96.652 Presence of left artificial knee joint
CPT/HCPCS: 97016; 97110; 97164

== ENCOUNTER → 2022-01-28 | Outpatient (CLI) | payer OTHER, SELFPAY ==
[2022-01-28 14:02] LABS: Color, Urine Yellow (Yellow); Glucose, Dipstick Normal (Normal); Ketone-Dipstick 5 mg/dl (Negative); Urine Bilirubin Dipstick Negative (Negative); Urine Clarity Sl. Cloudy (Clear)
[2022-01-28 14:03] LABS: Leukocyte Esterase-Dipstick 100 /ul (Negative); Nitrite-Dipstick Positive (Negative); Occult Blood-Urine 10 /ul (Negative); Protein-Dipstick Negative (Negative); Urine Urobilinogen Normal (Normal)
== END | disposition home or self-care (01) ==
LOC: LAB 13:09
PROVIDERS: PCP Student in an Organized Health Care Education/Training Program; Referring Provider Obstetrics & Gynecology Gynecology; Visit Provider Obstetrics & Gynecology Gynecology
DX: R39.11 Hesitancy of micturition (principal)
CPT/HCPCS: 81002; 87077; 87086; 87088; 87186

== ENCOUNTER → 2022-03-02 | Outpatient (CLI) | payer OTHER, SELFPAY | END | disposition home or self-care (01) | LOC: LAB 13:56 | PROVIDERS: PCP Student in an Organized Health Care Education/Training Program; Visit Provider Obstetrics & Gynecology Gynecology | DX: R39.9 Unspecified symptoms and signs involving the genitourinary system (principal) | CPT/HCPCS: 87086; 87088; 87186 ==

== ENCOUNTER → 2022-03-17 | Outpatient (CLI) | payer OTHER, SELFPAY | END | disposition home or self-care (01) | LOC: LAB 15:06 | PROVIDERS: PCP Student in an Organized Health Care Education/Training Program; Visit Provider Obstetrics & Gynecology Gynecology | DX: N39.0 Urinary tract infection, site not specified (principal) | CPT/HCPCS: 87086; 87088 ==

== ENCOUNTER → 2022-05-22 | Outpatient (CLI) | payer OTHER, SELFPAY ==
[2022-05-22 14:02] LABS: Anion Gap 7 (5-15); BUN 16 mg/dL (7-18); BUN/Creat Ratio 19.3 RATIO (10-20); Calcium,Total 9.2 mg/dL (8.5-10.1); Chloride 107 mmol/L (98-107); Creatinine, Serum 0.83 mg/dL (0.55-1.02); EST Glomerular Filtration Rate 71 mL/min (>60); Est Glom Filt Rate - Afr Amer 86 mL/min (>60); Glucose 86 mg/dL (74-106); Sodium Level 141 mmol/L (136-145)
[2022-05-22 15:10] LABS: Hemoglobin A1c 5.4 % (3.8-5.6)
== END | disposition home or self-care (01) ==
LOC: LAB 12:18
PROVIDERS: PCP Student in an Organized Health Care Education/Training Program; Visit Provider Internal Medicine Cardiovascular Disease
DX: E78.00 Pure hypercholesterolemia, unspecified (principal); R03.0 Elevated blood-pressure reading, without diagnosis of hypertension
CPT/HCPCS: 36415; 80048; 83036

== ENCOUNTER 2022-12-24 10:31 | Outpatient (RCR) | payer OTHER, SELFPAY ==
[2022-12-24 10:47] VITALS: BP 156/76; PULSE 87; RESP 18; TEMP 36.6
--- NOTE | 2022-12-24 13:35 | HP.PCM_ITS ---
History of Present Illness Date of Service: 12/24/22 Chief Complaint: Left lower extremity wound History of Wound: Patient is a 77-year-old female who presents to the wound care center today with a left lower extremity ulceration that has not healed. Patient states that she bumped her leg on a tool about 4 weeks ago and the wound has not made much progression. She denies puncture and states that this instrument scraped the front of her leg. She has been applying triple antibiotic ointment without much progress in healing. She was following with her primary care physician Dr. Mix who referred her to the wound care center for continued care of nonhealing wound to the lower leg. She has not taken antibiotic course. No documented signs of infection. Denies N/V/F/chills. Denies further complaints. [facility] Medical History Abnormal findings on diagnostic imaging of other abdominal regions, including retroperitoneum Acute cystitis ANGELICA (acute kidney injury) Arthritis of knee, degenerative Diverticulosis of colon Elevated blood pressure reading in office without diagnosis of hypertension Encounter for pre-operative cardiovascular clearance Fibromyalgia First detected episode of atrial fibrillation (02/28/20) Gastritis without bleeding History of nephrolithiasis Hyperlipidemia IBS (irritable bowel syndrome) Internal hemorrhoid Kidney stone on right side Nonobstructive atherosclerosis of coronary artery Osteoarthritis Sepsis Thrombocytopenia Thyroid nodule Vitamin D deficiency Home Medications diclofenac sodium 1 % topical gel (Voltaren) 2 g topical BID PRN osteoarthritis #100 grams 08/04/17 [Rx Last Taken Unknown] L.acidoph, paracasei,B. lactis 10 billion cell capsule 1 ea PO DAILY 04/04/20 [History Last Taken Unknown] acetaminophen 500 mg tablet 500 - 1,000 mg PO Q6H PRN PRN Pain 1-10 Or Fever 04/04/20 [History Last Taken Unknown] calcium carbonate 600 mg-vitamin D3 20 mcg (800 unit) tablet (Caltrate with Vitamin D3) 1 tab PO BID 05/22/22 [History Last Taken Unknown] cholecalciferol (vitamin D3) 25 mcg (1,000 unit) tablet 25 mcg PO BID 05/22/22 [History Last Taken Unknown] estradiol 10 mcg vaginal tablet (Yuvafem) 10 mcg vaginal 2XW 05/22/22 [History Last Taken Unknown] gabapentin 300 mg capsule 600 mg PO QHS 05/22/22 [History Last Taken Unknown] pantoprazole 40 mg tablet,delayed release 40 mg PO DAILY #90 tabs 05/22/22 [Rx Last Taken Unknown] progesterone micronized 100 mg capsule 100 mg PO DAILY 05/22/22 [History Last Taken Unknown] trospium 60 mg capsule,extended release 24 hr 60 mg PO DAILY 05/22/22 [History Last Taken Unknown] venlafaxine 75 mg tablet 75 mg PO DAILY 12/24/22 [History Last Taken Unknown] Allergy/AdvReac Type Severity Reaction Status Date / Time niacin AdvReac flushing Verified 12/24/22 11:05 oxycodone AdvReac Itching Verified 12/24/22 11:05 Family History Father , from an MS age 52 Myocardial infarction from an MS age 52 Mother Breast cancer CVA (cerebral vascular accident) Surgical History H/O repair of right rotator cuff History of History of knee surgery History of laminectomy (05/15/20) History of left heart catheterization (03/06/10) History of left knee replacement (~10/10/21) History of open reduction and internal fixation (ORIF) procedure History of repair of rotator cuff (07/2018) History of tonsillectomy and adenoidectomy S/P thyroid biopsy (07/2020) Social History Smoking Status: Never smoker alcohol intake: current alcohol intake frequency: a few times a week substance use type: does not use caffeine: Yes Type: carbonated beverages, coffee and tea ROS Constitutional Constitutional: Denies anorexia, chills, fatigue or fever(s) Eyes Eyes: Denies double vision, dry eyes or eye pain ENT HEENT: Denies dysphagia, nasal congestion, nasal discharge or sore throat Cardiovascular Cardiovascular: Denies chest pain, claudication or fatigue Respiratory/Chest Respiratory/Chest: Denies cough, shortness of breath at rest or wheezing Gastrointestinal Gastrointestinal: Denies abdominal pain, constipation, diarrhea, nausea or vomiting Genitourinary Genitourinary: Denies dysuria, hematuria, urinary frequency or urinary hesitancy Musculoskeletal Musculoskeletal: Denies joint pain, joint stiffness or joint swelling Integumentary Integumentary: Denies lesions, pruritus or rash Neurologic Neurologic: Denies dizziness, numbness or seizures Endocrine Endocrinology: Denies cold intolerance or heat intolerance Hematologic/Lymphatic Hematologic/Lymphatic: Denies easy bleeding, easy bruising or lymphadenopathy Vital Signs Vital Signs Vital Signs: 12/24/22 10:47 Temperature 98 F Temperature Source Temporal Pulse Rate 87 Respiratory Rate 18 Blood Pressure 156/76 H Blood Pressure Mean 102 Blood Pressure Source Monitor Physical Exam Const alert, oriented x3 and no apparent distress General Appearance: cooperative HEENT normocephalic Eyes General Eye: normal appearance of both eyes Neck General: normal visual inspection Lymph Lymphatic: no lymphadenopathy noted and no lymphedema noted Resp normal respiratory effort Cardio regular rate and regular rhythm Extremity normal capillary refill, no joint enlargement, no calf tenderness and no pedal edema Extremity Narrative: DP and PT pulses palpable to the left lower extremity. Brisk capillary fill time to the digits of the left lower extremity. Dermatological: There is a wound to the anterior aspect of the left lower extremity secondary to scraping against tool. Wound demonstrates mixed fibrogranular tissue. No purulent drainage, no erythema, no malodor, no palpable fluctuance/bogginess noted, no lymphangitic streaking. Dermatological: Muscle strength 5 of 5 and age-appropriate. Decreased range of motion ankle joint and first metatarsophalangeal joint. There is mild tenderness to palpation about the wound site. Skin no rashes or lesions noted, skin turgor normal and no jaundice Neuro oriented x3, moves all extremities and no sensory deficits noted Debridement Note Debridement Note Wound debrided: Left lower extremity Laterality: Left Wound Grade/Stage: Gomez stage I Type of Debridement: Excisional debridement Anesthesia Used: 5% Lidocaine Gel Depth: Down to and including healthy tissue and in the subcutaneous layer Percentage of wound debrided: 100 Instrument Used: 5mm curette Tissue Removed: Fibrous, devitalized subcutaneous, biofilm, slough Severity: Fat Layer Exposed Amount of bleeding with debridement: Mild Bleeding Controlled with: Compression and gauze Patient tolerated procedure: Patient tolerated procedure well Post-Debridement Measurements and Additional Note: Post-Debridement Measurements/Treatment INA - Nurse 1 - General Ulcer Assessment Start: 12/24/22 10:33 Freq: Status: Active Protocol: WC.LOWEXT Activity Type Activity Date Activity User E-sign Co-sign Detail Recorded Client Recorded Date Recorded By Document 12/24/22 10:47 DL Desktop 12/24/22 11:02 DL 12/24/22 10:47 - Today's Visit Information Type of service Initial Visit Arrival Mode Ambulatory Transfer Assistance None Patient Identification Verified (Name & Yes ) Patient Requires Transmission-Based No Precautions Vital Signs Temperature (97.8 F-99.1 F) 98 F Temperature Source Temporal Pulse Rate (60-100) 87 Pulse Location Monitor Respiratory Rate (12-18) 18 Respiratory rate source Observation Blood Pressure (90/60-120/80) 156/76 H Blood Pressure Mean 102 Source Monitor Pain Scale: 0-10 Numeric Is Patient Pain Free? Yes Lower Extremity Assessment/ Foot Assessment/ Toe Nail Assessment Left -Posterior Tibial Palpable Yes -Dorsalis Pedis Palpable Yes -Extremity Color Hemosiderin -Hair Growth on Legs No -Hair Growth on Toes No -Temperature of Extremity Warm -Capillary Refill Less than 3 Seconds -Dependent Rubor No -Blanched when Elevated No -Lipodermatosclerosis No -Other Deformity No -Prior Foot Ulcer No -Charcot Joint No -Prior Amputation No -Thick No -Discolored No -Deformed No -Improper Length & Hygeine No Right -Posterior Tibial Palpable Yes -Dorsalis Pedis Palpable Yes -Extremity Color Hemosiderin -Hair Growth on Legs No -Hair Growth on Toes No -Temperature of Extremity Warm -Capillary Refill Less than 3 Seconds -Dependent Rubor No -Blanched when Elevated No -Lipodermatosclerosis No -Other Deformity No -Prior Foot Ulcer No -Charcot Joint No -Prior Amputation No -Thick No -Discolored No -Deformed No -Improper Length & Hygeine No Neuropathy Assessment Feet - Top Side and Bottom <Entered> (a) Communication Assessment Preferred language Indian Able to Read Yes Able to Write Yes Communication Tools None Right Hearing Abillity Normal Left Hearing Abillity Normal Visual Assistive Devices Glasses Teaching Assessment Preferences Verbal,Written, Demonstration Barriers to Learning None Readiness To Learn Good Willingness to Engage in Self Management Med Activies Readiness to Engage in Self Management Med Activities Anxiety Level Calm Cooperation Cooperative Perception Coherent Interest in Health Problem Asks Questions Education Importance Acknowledges Need Does Patient Smoke tobacco or other No substances Smoking Status Never smoker Is Patient Diabetic No Functional Assessment Recent Decline in Ability to Perform Denies Any Declines Culture/Buddhist/Housing Development Specialist Cultural/Buddhist Needs that may affect No Treatment Plan Would you allow our hospital auto crane driver to No meet you for the purpose of spiritual/ emotional support? Housing Development Specialist to contact place of cheondoism No Teaching: Wound Center Discharge Instructions -Person Taught Patient Dressing Your Wound -Person Taught Patient *Welcome to the Wound Center -Person Taught Patient (a) 1 - + WC - Nurse 1 - General Ulcer Measurement Start: 12/24/22 10:33 Freq: Status: Active Protocol: Activity Type Activity Date Activity User E-sign Co-sign Detail Recorded Client Recorded Date Recorded By Document 12/24/22 10:47 DL Desktop 12/24/22 11:02 DL 12/24/22 10:47 Wound Center Nurse 1 #1 L [place] -Current Size (cm) - Length 0.9 -Current Size (cm) - Width 2.6 -Current Size (cm) - Depth 0.1 -Total Square Cm 2.34 -Photo Taken Yes -Classification - Thickness Full Thickness without Exposed Support Structure -Exudate Amt Medium -Exudate Type Serosanguineous -Wound Margin Distinct, Outline Attached -Granulation Amt Small (1-33%) -Granulation Quality [place] -Necrosis Amt Large (67-100%) -Necrotic Tissue Type Adherent Slough -Structure Exposed N/A -Texture (Sun-wound Skin Appearance) Localized Edema ,Scarring -Moisture (Sun-wound Skin Appearance) Dry/Scaly -Color (Sun-wound Skin Appearance) Hemosiderin Staining -Temperature (Sun-wound Skin No Abnormality Appearance) (Pt Warm) -Tenderness on Palpation (Sun-wound No Skin Appearance) -Ulcer Cleansing Soap and Water -Foul Odor after Cleansing No -Anesthetic Used 5% Lidocaine Gel Right Calf (cm) 39.5 Right Ankle (cm) 25.3 Left Calf (cm) 39.7 Left Ankle (cm) 24.4 WC - Nurse 2 - General Ulcer CM Notes Start: 12/24/22 10:33 Freq: Status: Active Protocol: Activity Type Activity Date Activity User E-sign Co-sign Detail Recorded Client Recorded Date Recorded By Document 12/24/22 12:51 PL [id number] 12/24/22 12:52 PL 12/24/22 12:51 Wound Center Nurse 2 #1 L [place] -Time 11:17 -Correct Patient Yes -Correct Side, Site, Position Yes -Correct Procedure Yes -Procedure Performed Yes -Type of Procedure Debridement -Clinical Debridement Subcutaneous -Tissue Removed Subcutaneous -Post Debridement (cm) - Length 0.5 -Post Debridement (cm) - Width 2.9 -Post Debridement (cm) - Depth 0.2 -Total Square (Post) (cm) 1.45 -Area of Debridement (cm) - Length 0.5 -Area of Debridement (cm) - Width 2.9 -Total Square (Area) (cm) 1.45 -Tunneling No -Undermining/Tunneling No -Circular Undermining No -Wound/Ulcer Outcome Not Healed -Ulcer Cleansing Rinsed/ Irrigated with Saline -Foul Odor after Cleansing No -Bioengineered Tissue No -Bleeding Controlled with Pressure -Treatment Response Procedure Tolerated Well -Debridement - Subq, 1st 20sq cm Yes Pain Scale: 0-10 Numeric Is Patient Pain Free? Yes - Nurse 3 - General Ulcer D/C NN Start: 12/24/22 10:33 Freq: Status: Active Protocol: Activity Type Activity Date Activity User E-sign Co-sign Detail Recorded Client Recorded Date Recorded By Document 12/24/22 11:31 KW Desktop 12/24/22 11:33 KW 12/24/22 11:31 Wound Care Center Nurse 3 #1 L [place] -Ulcer Cleansing Rinsed/ Irrigated with Saline -Primary Dressing Applied Promogran Alyce Matter -Promogran Alyce Matter 1 LT -Tubular Bandage Single Layer -Size of Tubigrip Used Size D -Size D ($) 1 Pain Scale: 0-10 Numeric Is Patient Pain Free? Yes LT alvarado -Intensity 3 -Duration (hours) Acute -Alleviating Factors/Interventions Medication WC - Visit Discharge Discharge Condition Stable Ambulatory Status Ambulatory Transportation Private Auto Medication Reconcilliation completed & No provided to patient/care provider Clinical Summary of Care Provided Yes Assessment/Plan Assessment/Plan (1) Localized edema: CODE(S): R60.0 - Localized edema (2) Non-pressure chronic ulcer of left calf with fat layer exposed: CODE(S): L97.222 - Non-pressure chronic ulcer of left calf with fat layer exposed (3) Hyperlipidemia: CODE(S): E78.5 - Hyperlipidemia, unspecified QUALIFIERS: Hyperlipidemia type: pure hypercholesterolemia Qualified Code(s): E78.00 - Pure hypercholesterolemia, unspecified; E78.0 - Pure hypercholesterolemia PLAN: Plan Patient seen and evaluated Ulceration to the left anterior lower extremity is debrided as noted in the clinical panel above. Ulcerative site measures 0.5 cm x 2.9 cm x 0.2 cm. No signs of infection. Alyce applied to the ulcerative base today and dressed with dry sterile dressing. Tubigrip stocking applied to left lower extremity. She is to change dressing daily. Discussed continued elevation of lower extremities to aid in edema control. Discussed adequate protein intake, vitamin C, zinc, to continue to aid in wound healing. Mitchell supplementation recommended. We will apply for advanced wound care product, EpiFix to be applied at next visit. The following work up and care recommendations were made: Dressing: Alyce and dry sterile dressing. Tubigrip compression stocking left lower extremity Wash: Soap and water Tissue growth optimization: Alyce Offload: Ensure nothing bumps wound site anterior leg Vascular: DP and PT pulses intact with adequate capillary fill time. Do not feel vascular status is impacting healing as wound is secondary to trauma comp licated by lower extremity edema Edema: Tubigrip compression stockings. Elevate lower extremities at all times of rest for edema control. We will transition to graded compression stocking following healing of wound. Infection: No signs of infection Pain: May take [id number] Tylenol extra strength for discomfort Host factors: Lower extremity edema and hyperlipidemia I answered all the patient's questions. To return to the wound healing center in 1 week or call sooner if the patient has any questions or concerns.
== END 2022-12-26 23:59 | disposition home or self-care (01) ==
LOC: WC 10:31
PROVIDERS: PCP Student in an Organized Health Care Education/Training Program; Visit Provider Student in an Organized Health Care Education/Training Program
DX: L97.222 Non-pressure chronic ulcer of left calf with fat layer exposed (principal); R60.0 Localized edema; E78.00 Pure hypercholesterolemia, unspecified; I25.10 Atherosclerotic heart disease of native coronary artery without angina pectoris; Z79.1 Long term (current) use of non-steroidal anti-inflammatories (NSAID); Z79.899 Other long term (current) drug therapy
CPT/HCPCS: 11042; 99213; G0463

== ENCOUNTER 2023-01-21 08:45 | Outpatient (RCR) | payer OTHER, SELFPAY ==
[2022-12-27 00:49] VITALS: BP 156/76; PULSE 87; RESP 18; TEMP 36.6
[2022-12-31 09:00] VITALS: BP 143/98; PULSE 82; RESP 18; TEMP 35.9
--- NOTE | 2022-12-31 10:58 | PN.PCM_ITS ---
History of Present Illness Date of Service: 12/31/22 Chief Complaint: Left lower extremity wound History of Wound: Patient is a 77-year-old female who presents to the wound care center today with a left lower extremity ulceration that has not healed. Patient states that she bumped her leg on a tool about 4 weeks ago and the wound has not made much progression. She denies puncture and states that this instrument scraped the front of her leg. She has been applying triple antibiotic ointment without much progress in healing. She was following with her primary care physician Dr. Mix who referred her to the wound care center for continued care of nonhealing wound to the lower leg. She has not taken antibiotic course. No documented signs of infection. Denies N/V/F/chills. Denies further complaints. Subjective Subjective This is a 77-year-old female who presents to the wound care center today for a follow-up of her left anterior lower extremity ulceration. She states she is on her feet a lot and her leg does still swell some. Has been changing dressings daily. Denies constitutional symptoms. Denies further complaints today. Objective Data Objective Data Vital Signs: Vital Signs Temp Pulse Resp BP O2 Del Method 96.7 F L 82 18 143/98 H Room Air 12/31/22 09:00 12/31/22 09:00 12/31/22 09:00 12/31/22 09:00 12/31/22 09:00 Oxygen Delivery Method Room Air Physical Exam Const alert, oriented x3 and no apparent distress General Appearance: cooperative HEENT normocephalic Eyes General Eye: normal appearance of both eyes Neck General: normal visual inspection Lymph Lymphatic: no lymphadenopathy noted and no lymphedema noted Resp normal respiratory effort Cardio regular rate and regular rhythm Extremity normal capillary refill, no joint enlargement, no calf tenderness and no pedal edema Extremity Narrative: DP and PT pulses palpable to the left lower extremity. Brisk capillary fill time to the digits of the left lower extremity. Dermatological: There is a wound to the anterior aspect of the left lower extremity secondary to scraping against tool. Wound demonstrates mixed fibrogranular tissue. No purulent drainage, no erythema, no malodor, no palpab le fluctuance/bogginess noted, no lymphangitic streaking. Dermatological: Muscle strength 5 of 5 and age-appropriate. Decreased range of motion ankle joint and first metatarsophalangeal joint. There is mild tenderness to palpation about the wound site. Skin no rashes or lesions noted, skin turgor normal and no jaundice Neuro moves all extremities Debridement Note Debridement Note Wound debrided: Left lower extremity Laterality: Left Wound Grade/Stage: Gomez stage I Type of Debridement: Excisional debridement Anesthesia Used: 5% Lidocaine Gel and - (5 cc 2% lidocaine plain) Depth: Down to and including healthy tissue and in the subcutaneous layer Percentage of wound debrided: 100 Instrument Used: 5mm curette Tissue Removed: Fibrous, devitalized subcutaneous, biofilm, slough Severity: Fat Layer Exposed Amount of bleeding with debridement: Mild Bleeding Controlled with: Compression and gauze Patient tolerated procedure: Patient tolerated procedure well Post-Debridement Measurements and Additional Note: Post-Debridement Measurements/Treatment WC - Nurse 1 - General Ulcer Assessment Start: 12/31/22 09:00 Freq: Status: Active Protocol: KEVIN Activity Type Activity Date Activity User E-sign Co-sign Detail Recorded Client Recorded Date Recorded By Document 12/31/22 09:00 KW Desktop 12/31/22 09:07 KW 12/31/22 09:00 WC - Today's Visit Information Type of service Follow-up Visit (Physician/[employer] ) Arrival Mode Ambulatory Patient Identification Verified (Name & Yes ) Vital Signs Temperature (97.8 F-99.1 F) 96.7 F L Temperature Source Temporal Pulse Rate (60-100) 82 Pulse Location Monitor Respiratory Rate (12-18) 18 Respiratory rate source Ausculation Oxygen Delivery Method Room Air Blood Pressure (90/60-120/80) 143/98 H Blood Pressure Mean (mm Hg) 113 Source Monitor Position Semi-Fowlers Blood Pressure Location Left Arm History Since Last Visit- (Skip if this is Patient's initial visit) Have you changed medications since your No last visit? Any new allergies or adverse reactions No Had a fall/change in ADL's that may No increase risk of falls Signs or symptoms of abuse and/or No neglect since last visit Have you been in the hospital since your No last visit? Has dressing in place as prescribed Yes Has compression in place as prescribed Yes Has offloadiing in place as prescribed No Experienced any changes in pain level or No management Left Footwear Regular Shoe Right Footwear Regular Shoe Pain Scale: 0-10 Numeric Is Patient Pain Free? Yes WC - Nurse 1 - General Ulcer Measurement Start: 12/31/22 09:00 Freq: Status: Active Protocol: Activity Type Activity Date Activity User E-sign Co-sign Detail Recorded Client Recorded Date Recorded By Document 12/31/22 09:00 KW Desktop 12/31/22 09:07 KW 12/31/22 09:00 Wound Center Nurse 1 #1 L [place] -Current Size (cm) - Length 0.8 -Current Size (cm) - Width 2.3 -Current Size (cm) - Depth 0.1 -Total Square Cm 1.84 -Granulation Amt Small (1-33%) -Granulation Quality Red -Necrosis Amt Small (1-33%) -Necrotic Tissue Type Adherent Slough -Texture (Sun-wound Skin Appearance) Assessed, Localized Edema -Moisture (Sun-wound Skin Appearance) Assessed -Color (Sun-wound Skin Appearance) Assessed, Erythema -Temperature (Sun-wound Skin No Abnormality Appearance) (Pt Warm) -Ulcer Cleansing Rinsed/ Irrigated with Saline -Foul Odor after Cleansing No -Anesthetic Used 5% Lidocaine Gel Left Calf (cm) 39 Left Ankle (cm) 26 - Nurse 3 - General Ulcer D/C NN Start: 12/31/22 09:00 Freq: Status: Active Protocol: Activity Type Activity Date Activity User E-sign Co-sign Detail Recorded Client Recorded Date Recorded By Document 12/31/22 09:37 KW Desktop 12/31/22 09:38 KW 12/31/22 09:37 Wound Care Center Nurse 3 #1 L [place] -Ulcer Cleansing Rinsed/ Irrigated with Saline -Primary Dressing Applied Mepilex Border, Promogran Alyce Matter -Mepilex Border 1 -Promogran Alyce Matter 1 Pain Scale: 0-10 Numeric Is Patient Pain Free? Yes - Visit Discharge Discharge Condition Stable Ambulatory Status Ambulatory Transportation Private Auto Medication Reconcilliation completed & No provided to patient/care provider Clinical Summary of Care Provided Yes Assessment/Plan Assessment/Plan (1) Non-pressure chronic ulcer of left calf with fat layer exposed: CODE(S): L97.222 - Non-pressure chronic ulcer of left calf with fat layer exposed (2) Localized edema: CODE(S): R60.0 - Localized edema (3) Hyperlipidemia: CODE(S): E78.5 - Hyperlipidemia, unspecified QUALIFIERS: Hyperlipidemia type: pure hypercholesterolemia Qualified Code(s): E78.00 - Pure hypercholesterolemia, unspecified; E78.0 - Pure hypercholesterolemia PLAN: Plan Patient seen and evaluated Ulceration to the left anterior lower extremity is debrided as noted in the clinical panel above. Ulcerative site measures 0.9 cm x 2.5 cm x 0.2 cm. No signs of infection. Alyce applied to the ulcerative base today and dressed with dry sterile dressing. Tubigrip stocking applied to left lower extremity. She is to change dressing daily. Wound demonstrates slight reduction in size vs previous visit. Discussed continued elevation of lower extremities to aid in edema control. Discussed continued wearing of the Tubi-commuter pilot compression stocking. Discussed adequate protein intake, vitamin C, zinc, to continue to aid in wound healing. Mitchell supplementation recommended. She was denied for advanced skin substitute/graft. Will continue with Alyce at this time. The following work up and care recommendations were made: Dressing: Alyce and dry sterile dressing. Tubigrip compression stocking left lower extremity Wash: Soap and water Tissue growth optimization: Alyce Offload: Ensure nothing bumps wound site anterior leg Vascular: DP and PT pulses intact with adequate capillary fill time. Do not feel vascular status is impacting healing as wound is secondary to trauma complicated by lower extremity edema Edema: Tubigrip compression stockings. Elevate lower extremities at all times of rest for edema control. We will transition to graded compression stocking following healing of wound. Infection: No signs of infection Pain: May take [id number] Tylenol extra strength for discomfort Host factors: Lower extremity edema and hyperlipidemia I answered all the patient's questions. To return to the wound healing center in 1 week or call sooner if the patient has any questions or concerns.
[2023-01-07 08:59] VITALS: BP 147/98; PULSE 94; RESP 18; TEMP 35.8
--- NOTE | 2023-01-07 09:27 | PN.PCM_ITS ---
History of Present Illness Date of Service: 01/07/23 Chief Complaint: Left lower extremity wound History of Wound: Patient is a 77-year-old female who presents to the wound care center today with a left lower extremity ulceration that has not healed. Patient states that she bumped her leg on a tool about 4 weeks ago and the wound has not made much progression. She denies puncture and states that this instrument scraped the front of her leg. She has been applying triple antibiotic ointment without much progress in healing. She was following with her primary care physician Dr. Mix who referred her to the wound care center for continued care of nonhealing wound to the lower leg. She has not taken antibiotic course. No documented signs of infection. Denies N/V/F/chills. Denies further complaints. Subjective Subjective This is a 77-year-old female who presents to the wound care center today for a follow-up of her left anterior lower extremity ulceration. Has been changing dressings daily. Denies constitutional symptoms. Denies further complaints today. Objective Data Objective Data Vital Signs: Vital Signs Temp Pulse Resp BP O2 Del Method 96.4 F L 94 18 147/98 H Room Air 01/07/23 08:59 01/07/23 08:59 01/07/23 08:59 01/07/23 08:59 12/31/22 09:00 Oxygen Delivery Method Room Air Physical Exam Const alert, oriented x3 and no apparent distress General Appearance: cooperative HEENT normocephalic Eyes General Eye: normal appearance of both eyes Neck General: normal visual inspection Lymph Lymphatic: no lymphadenopathy noted and no lymphedema noted Resp normal respiratory effort Cardio regular rate and regular rhythm Extremity normal capillary refill, no joint enlargement, no calf tenderness and no pedal edema Extremity Narrative: DP and PT pulses palpable to the left lower extremity. Brisk capillary fill time to the digits of the left lower extremity. Dermatological: There is a wound to the anterior aspect of the left lower extremity secondary to scraping against tool. Wound demonstrates mixed fibrogranular tissue. No purulent drainage, no erythema, no malodor, no palpable fluctuance/bogginess noted, no lymphangitic streaking. Dermatological: Muscle strength 5 of 5 and age-appropriate. Decreased range of motion ankle joint and first metatarsophalangeal joint. There is mild tenderness to palpation about the wound site. Skin no rashes or lesions noted, skin turgor normal and no jaundice Neuro moves all extremities Debridement Note Debridement Note Wound debrided: Anterior left lower extremity Laterality: Left Wound Grade/Stage: Gomez stage I Type of Debridement: Excisional debridement Anesthesia Used: 5% Lidocaine Gel and - (5 cc 2% lidocaine plain) Depth: Down to and including healthy tissue and - Percentage of wound debrided: 100 Instrument Used: 5mm curette Tissue Removed: Fibrous, devitalized subcutaneous, biofilm, slough Severity: Fat Layer Exposed Amount of bleeding with debridement: Mild Bleeding Controlled with: Compression and gauze Patient tolerated procedure: Patient tolerated procedure well Post-Debridement Measurements and Additional Note: Post-Debridement Measurements/Treatment - Nurse 1 - General Ulcer Assessment Start: 12/31/22 09:00 Freq: Status: Active Protocol: KEVIN Activity Type Activity Date Activity User E-sign Co-sign Detail Recorded Client Recorded Date Recorded By Document 12/31/22 09:00 [employer] 12/31/22 09:07 KW Document 01/07/23 08:59 GRACIELA Desktop 01/07/23 09:06 GRACIELA 12/31/22 01/07/23 09:00 08:59 - Today's Visit Information Type of service Follow-up Visit Follow-up Visit (Physician/CONSTRUCTION PROJECT ASSISTANT (Physician/CONSTRUCTION PROJECT ASSISTANT ) ) Arrival Mode Ambulatory Ambulatory Patient Identification Verified (Name & Yes Yes ) Patient Requires Transmission-Based No Precautions Vital Signs Temperature (97.8 F-99.1 F) 96.7 F L 96.4 F L Temperature Source Temporal Temporal Pulse Rate (60-100) 82 94 Pulse Location Monitor Monitor Respiratory Rate (12-18) 18 18 Respiratory rate source Ausculation Observation Oxygen Delivery Method Room Air Blood Pressure (90/60-120/80) 143/98 H 147/98 H Blood Pressure Mean (mm Hg) 113 114 Source Monitor Monitor Position Semi-Fowlers Semi-Fowlers Blood Pressure Location Left Arm Left Arm History Since Last Visit- (Skip if this is Patient's initial visit) Have you changed medications since your No No last visit? Any new allergies or adverse reactions No No Had a fall/change in ADL's that may No No increase risk of falls Signs or symptoms of abuse and/or No No neglect since last visit Have you been in the hospital since your No No last visit? Has dressing in place as prescribed Yes Yes Has compression in place as prescribed Yes Yes Has offloadiing in place as prescribed No N/A Experienced any changes in pain level or No No management Left Footwear Regular Shoe Regular Shoe Right Footwear Regular Shoe Regular Shoe Pain Scale: 0-10 Numeric Is Patient Pain Free? Yes Yes INA - Nurse 1 - General Ulcer Measurement Start: 12/31/22 09:00 Freq: Status: Active Protocol: Activity Type Activity Date Activity User E-sign Co-sign Detail Recorded Client Recorded Date Recorded By Document 12/31/22 09:00 KW Desktop 12/31/22 09:07 KW Document 01/07/23 08:59 JF Desktop 01/07/23 09:06 JF 12/31/22 01/07/23 09:00 08:59 Wound Center Nurse 1 #1 L [place] -Combined with other wound No -Current Size (cm) - Length 0.8 0.9 -Current Size (cm) - Width 2.3 2.3 -Current Size (cm) - Depth 0.1 0.1 -Total Square Cm 1.84 2.07 -Photo Taken No -Epithelialization Small 1-33% -Tunneling No -Undermining/Tunneling No -Circular Undermining No -Exudate Amt Small -Exudate Type Serosanguineous -Wound Margin Flat & Intact -Granulation Amt Small (1-33%) Small (1-33%) -Granulation Quality [place] -Slough/Fibrin Yes -Necrosis Amt Small (1-33%) Small (1-33%) -Necrotic Tissue Type Adherent Slough Adherent Slough -Structure Exposed N/A -Texture (Sun-wound Skin Appearance) Assessed, Assessed Localized Edema -Moisture (Sun-wound Skin Appearance) Assessed Assessed, Maceration, Weeping -Color (Sun-wound Skin Appearance) Assessed, Assessed Erythema -Temperature (Sun-wound Skin No Abnormality No Abnormality Appearance) (Pt Warm) (Pt Warm) -Tenderness on Palpation (Sun-wound No Skin Appearance) -Ulcer Cleansing Rinsed/ Rinsed/ Irrigated with Irrigated with Saline Saline -Foul Odor after Cleansing No No -Anesthetic Used 5% Lidocaine 5% Lidocaine Gel Gel Lower Limb Edema Present Yes Left Calf (cm) 39 39.7 Left Ankle (cm) 26 23.6 - Nurse 2 - General Ulcer CM Notes Start: 12/31/22 09:00 Freq: Status: Active Protocol: Activity Type Activity Date Activity User E-sign Co-sign Detail Recorded Client Recorded Date Recorded By Document 12/31/22 16:26 PL [id number] 12/31/22 16:29 PL 12/31/22 16:26 Wound Center Nurse 2 #1 L [place] -Time 09:13 -Correct Patient Yes -Correct Side, Site, Position Yes -Correct Procedure Yes -Procedure Performed Yes -Type of Procedure Debridement -Clinical Debridement Subcutaneous -Tissue Removed Subcutaneous -Post Debridement (cm) - Length 0.9 -Post Debridement (cm) - Width 2.5 -Post Debridement (cm) - Depth 0.2 -Total Square (Post) (cm) 2.25 -Area of Debridement (cm) - Length 0.9 -Area of Debridement (cm) - Width 2.5 -Total Square (Area) (cm) 2.25 -Tunneling No -Undermining/Tunneling No -Circular Undermining No -Wound/Ulcer Outcome Not Healed -Ulcer Cleansing Rinsed/ Irrigated with Saline -Foul Odor after Cleansing No -Bioengineered Tissue No -Bleeding Controlled with Pressure -Treatment Response Procedure Tolerated Well -Debridement - Subq, 1st 20sq cm Yes Pain Scale: 0-10 Numeric Is Patient Pain Free? Yes - Nurse 3 - General Ulcer D/C NN Start: 12/31/22 09:00 Freq: Status: Active Protocol: Activity Type Activity Date Activity User E-sign Co-sign Detail Recorded Client Recorded Date Recorded By Document 12/31/22 09:37 KW Desktop 12/31/22 09:38 KW 12/31/22 09:37 Wound Care Center Nurse 3 #1 L [place] -Ulcer Cleansing Rinsed/ Irrigated with Saline -Primary Dressing Applied Mepilex Border, Promogran Alyce Matter -Mepilex Border 1 -Promogran Alyce Matter 1 Pain Scale: 0-10 Numeric Is Patient Pain Free? Yes WC - Visit Discharge Discharge Condition Stable Ambulatory Status Ambulatory Transportation Private Auto Medication Reconcilliation completed & No provided to patient/care provider Clinical Summary of Care Provided Yes Assessment/Plan Assessment/Plan (1) Non-pressure chronic ulcer of left calf with fat layer exposed: CODE(S): L97.222 - Non-pressure chronic ulcer of left calf with fat layer exposed (2) Localized edema: CODE(S): R60.0 - Localized edema (3) Hyperlipidemia: CODE(S): E78.5 - Hyperlipidemia, unspecified QUALIFIERS: Hyperlipidemia type: pure hypercholesterolemia Qualified Code(s): E78.00 - Pure hypercholesterolemia, unspecified; E78.0 - Pure hypercholesterolemia PLAN: Plan Patient seen and evaluated Ulceration to the left anterior lower extremity is debrided as noted in the clinical panel above. Ulcerative site measures 1.0 cm x 2.2 cm x 0.2 cm. No signs of infection. Donated AmnioEffect advanced skin substitute applied to ulcerative base today and dressed with Adaptic touch and anchored with Steri- Strips. Dressed with Mepilex foam border. Tubigrip stocking applied to left lower extremity. She is to change dressing daily. Wound demonstrates slight reduction in size vs previous visit. Discussed continued elevation of lower extremities to aid in edema control. Discussed continued wearing of the Tubi-academic hospitalist compression stocking. Discussed adequate protein intake, vitamin C, zinc, to continue to aid in wound healing. Mitchell supplementation recommended. She was denied for advanced skin substitute/graft. Will continue with Alyce at this time. The following work up and care recommendations were made: Dressing: Donated AmnioEffect skin substitute, Adaptic touch and Steri-Strips and Mepilex foam border. Tubigrip compression stocking left lower extremity Wash: Do not get wet Tissue growth optimization: Donated AmnioEffect Offload: Ensure nothing bumps wound site anterior leg Vascular: DP and PT pulses intact with adequate capillary fill time. Do not feel vascular status is impacting healing as wound is secondary to trauma complicated by lower extremity edema Edema: Tubigrip compression stockings. Elevate lower extremities at all times of rest for edema control. We will transition to graded compression stocking following healing of wound. Infection: No signs of infection Pain: May take [id number] Tylenol extra strength for discomfort Host factors: Lower extremity edema and hyperlipidemia I answered all the patient's questions. To return to the wound healing center in 1 week or call sooner if the patient has any questions or concerns.
[2023-01-14 09:01] VITALS: BP 135/98; PULSE 98; RESP 18; TEMP 36.4
--- NOTE | 2023-01-15 00:23 | PCM.WC.PN ---
History of Present Illness Date of Service: 01/14/23 Chief Complaint: Left lower extremity wound History of Wound: Patient is a 77-year-old female who presents to the wound care center today with a left lower extremity ulceration that has not healed. Patient states that she bumped her leg on a tool about 4 weeks ago and the wound has not made much progression. She denies puncture and states that this instrument scraped the front of her leg. She has been applying triple antibiotic ointment without much progress in healing. She was following with her primary care physician Dr. Mix who referred her to the wound care center for continued care of nonhealing wound to the lower leg. She has not taken antibiotic course. No documented signs of infection. Denies N/V/F/chills. Denies further complaints. Subjective Subjective This is a 77-year-old female who presents to the wound care center today for a follow-up of her left anterior lower extremity ulceration. Has been changing dressings daily. She states local anesthetic prior to debridement at last visit did help. Denies constitutional symptoms. Denies further complaints today. Objective Data Objective Data Vital Signs: Vital Signs Temp Pulse Resp BP O2 Del Method 97.5 F L 98 18 135/98 H Room Air 01/14/23 09:01 01/14/23 09:01 01/14/23 09:01 01/14/23 09:01 01/14/23 09:01 Oxygen Delivery Method Room Air Physical Exam Const alert, oriented x3 and no apparent distress General Appearance: cooperative HEENT normocephalic Eyes General Eye: normal appearance of both eyes Neck General: normal visual inspection Lymph Lymphatic: no lymphadenopathy noted and no lymphedema noted Resp normal respiratory effort Cardio regular rate and regular rhythm Extremity normal capillary refill, no joint enlargement, no calf tenderness and no pedal edema Extremity Narrative: DP and PT pulses palpable to the left lower extremity. Brisk capillary fill time to the digits of the left lower extremity. Dermatological: There is a wound to the anterior aspect of the left lower extremity secondary to scraping against tool. Wound demonstrates mixed fibrogranular tissue. No purulent drainage, no erythema, no malodor, no palpable fluctuance/bogginess noted, no lymphangitic streaking. Dermatological: Muscle strength 5 of 5 and age-appropriate. Decreased range of motion ankle joint and first metatarsophalangeal joint. There is mild tenderness to palpation about the wound site. Skin no rashes or lesions noted, skin turgor normal and no jaundice Neuro moves all extremities Debridement Note Debridement Note Wound debrided: Left anterior lower extremity Laterality: Left Wound Grade/Stage: Gomez stage I Type of Debridement: Excisional debridement Anesthesia Used: 5% Lidocaine Gel and - (5 cc 1% lidocaine with epinephrine) Depth: Down to and including healthy tissue and in the subcutaneous layer Percentage of wound debrided: 100 Instrument Used: 5mm curette Tissue Removed: Fibrous, devitalized subcutaneous, biofilm, slough Severity: Fat Layer Exposed Amount of bleeding with debridement: Mild Bleeding Controlled with: Compression and gauze Patient tolerated procedure: Patient tolerated procedure well Post-Debridement Measurements and Additional Note: Post-Debridement Measurements/Treatment - Nurse 1 - General Ulcer Assessment Start: 12/31/22 09:00 Freq: Status: Active Protocol: INA.KYLER Activity Type Activity Date Activity User E-sign Co-sign Detail Recorded Client Recorded Date Recorded By Document 12/31/22 09:00 [employer] 12/31/22 09:07 KW Document 01/07/23 08:59 Desktop 01/07/23 09:06 Document 01/14/23 09:01 KW [employer] 01/14/23 09:06 KW 12/31/22 01/07/23 01/14/23 09:00 08:59 09:01 - Today's Visit Information Type of service Follow-up Visit Follow-up Visit Follow-up Visit (Physician/SUPERVISOR COMMERCIAL FISH HATCHERY (Physician/SUPERVISOR COMMERCIAL FISH HATCHERY (Physician/SUPERVISOR COMMERCIAL FISH HATCHERY ) ) ) Arrival Mode Ambulatory Ambulatory Ambulatory Patient Identification Verified (Name & Yes Yes ) Patient Requires Transmission-Based No Precautions Vital Signs Temperature (97.8 F-99.1 F) 96.7 F L 96.4 F L 97.5 F L Temperature Source Temporal Temporal Temporal Pulse Rate (60-100) 82 94 98 Pulse Location Monitor Monitor Monitor Respiratory Rate (12-18) 18 18 18 Respiratory rate source Ausculation Observation Observation Oxygen Delivery Method Room Air Room Air Blood Pressure (90/60-120/80) 143/98 H 147/98 H 135/98 H Blood Pressure Mean (mm Hg) 113 114 110 Source Monitor Monitor Monitor Position Semi-Fowlers Semi-Fowlers Sitting Blood Pressure Location Left Arm Left Arm Left Arm History Since Last Visit- (Skip if this is Patient's initial visit) Have you changed medications since your No No No last visit? Any new allergies or adverse reactions No No No Had a fall/change in ADL's that may No No No increase risk of falls Signs or symptoms of abuse and/or No No No neglect since last visit Have you been in the hospital since your No No No last visit? Has dressing in place as prescribed Yes Yes Yes Has compression in place as prescribed Yes Yes Yes Has offloadiing in place as prescribed No N/A No Experienced any changes in pain level or No No No management Left Footwear Regular Shoe Regular Shoe Regular Shoe Right Footwear Regular Shoe Regular Shoe Regular Shoe Pain Scale: 0-10 Numeric Is Patient Pain Free? Yes Yes Yes WC - Nurse 1 - General Ulcer Measurement Start: 12/31/22 09:00 Freq: Status: Active Protocol: Activity Type Activity Date Activity User E-sign Co-sign Detail Recorded Client Recorded Date Recorded By Document 12/31/22 09:00 KW Desktop 12/31/22 09:07 KW Document 01/07/23 08:59 JF Desktop 01/07/23 09:06 JF Document 01/14/23 09:01 KW Desktop 01/14/23 09:06 KW 12/31/22 01/07/23 01/14/23 09:00 08:59 09:01 Wound Center Nurse 1 #1 L [place] -Combined with other wound No -Current Size (cm) - Length 0.8 0.9 0.7 -Current Size (cm) - Width 2.3 2.3 1.9 -Current Size (cm) - Depth 0.1 0.1 0.2 -Total Square Cm 1.84 2.07 1.33 -Photo Taken No -Epithelialization Small 1-33% -Tunneling No -Undermining/Tunneling No -Circular Undermining No -Exudate Amt Small Small -Exudate Type Serosanguineous Serosanguineous -Wound Margin Flat & Intact Distinct, Outline Attached -Granulation Amt Small (1-33%) Small (1-33%) Medium (34-66%) -Granulation Quality [place] -Slough/Fibrin Yes -Necrosis Amt Small (1-33%) Small (1-33%) Medium (34-66%) -Necrotic Tissue Type Adherent Slough Adherent Slough Adherent Slough -Structure Exposed N/A -Texture (Sun-wound Skin Appearance) Assessed, Assessed Assessed, Localized Edema Localized Edema -Moisture (Sun-wound Skin Appearance) Assessed Assessed, Assessed, Maceration, Maceration Weeping -Color (Sun-wound Skin Appearance) Assessed, Assessed Assessed, Erythema Erythema -Temperature (Sun-wound Skin No Abnormality No Abnormality No Abnormality Appearance) (Pt Warm) (Pt Warm) (Pt Warm) -Tenderness on Palpation (Sun-wound No Yes Skin Appearance) -Ulcer Cleansing Rinsed/ Rinsed/ Soap and Water Irrigated with Irrigated with Saline Saline -Foul Odor after Cleansing No No -Anesthetic Used 5% Lidocaine 5% Lidocaine 5% Lidocaine Gel Gel Gel Lower Limb Edema Present Yes Left Calf (cm) 39 39.7 39.5 Left Ankle (cm) 26 23.6 WC - Nurse 2 - General Ulcer CM Notes Start: 12/31/22 09:00 Freq: Status: Active Protocol: Activity Type Activity Date Activity User E-sign Co-sign Detail Recorded Client Recorded Date Recorded By Document 12/31/22 16:26 PL [id number] 12/31/22 16:29 PL Document 01/07/23 18:02 PL [id number] 01/07/23 18:03 PL Document 01/14/23 16:24 PL [id number] 01/14/23 16:25 PL 12/31/22 01/07/23 01/14/23 16:26 18:02 16:24 Wound Center Nurse 2 #1 L [place] -Time 09:13 09:10 09:34 -Correct Patient Yes Yes Yes -Correct Side, Site, Position Yes Yes Yes -Correct Procedure Yes Yes Yes -Procedure Performed Yes Yes Yes -Type of Procedure Debridement Debridement Debridement -Clinical Debridement Subcutaneous Subcutaneous Subcutaneous -Tissue Removed Subcutaneous Subcutaneous Subcutaneous -Post Debridement (cm) - Length 0.9 1.0 0.6 -Post Debridement (cm) - Width 2.5 2.2 2.0 -Post Debridement (cm) - Depth 0.2 0.2 0.2 -Total Square (Post) (cm) 2.25 2.20 1.20 -Area of Debridement (cm) - Length 0.9 1.0 0.6 -Area of Debridement (cm) - Width 2.5 2.2 2.0 -Total Square (Area) (cm) 2.25 2.20 1.20 -Tunneling No No No -Undermining/Tunneling No No No -Circular Undermining No No No -Wound/Ulcer Outcome Not Healed Not Healed Not Healed -Ulcer Cleansing Rinsed/ Rinsed/ Rinsed/ Irrigated with Irrigated with Irrigated with Saline Saline Saline -Foul Odor after Cleansing No No No -Bioengineered Tissue No No No -Bleeding Controlled with Pressure Pressure Pressure -Treatment Response Procedure Procedure Procedure Tolerated Well Tolerated Well Tolerated Well -Debridement - Subq, 1st 20sq cm Yes Yes Yes Pain Scale: 0-10 Numeric Is Patient Pain Free? Yes Yes Yes - Nurse 3 - General Ulcer D/C NN Start: 12/31/22 09:00 Freq: Status: Active Protocol: Activity Type Activity Date Activity User E-sign Co-sign Detail Recorded Client Recorded Date Recorded By Document 12/31/22 09:37 KW Desktop 12/31/22 09:38 KW Document 01/14/23 09:54 DL Desktop 01/14/23 09:55 DL 12/31/22 01/14/23 09:37 09:54 Wound Care Center Nurse 3 #1 L [place] -Ulcer Cleansing Rinsed/ Irrigated with Saline -Foul Odor after Cleansing No -Primary Dressing Applied Mepilex Border, Promogran Alyce Matter -Other Dressing graft -Primary Dressing Covered/Secured with Dry Gauze & Roll Gauze, Secured with Tape -Mepilex Border 1 -Promogran Alyce Matter 1 Left -Tubular Bandage Single Layer -Size of Tubigrip Used Size D -Size D ($) 1 Treatment Response Procedure Tolerated Well Pain Scale: 0-10 Numeric Is Patient Pain Free? Yes Yes - Visit Discharge Discharge Condition Stable Stable Ambulatory Status Ambulatory Ambulatory Transportation Private Auto Private Auto Medication Reconcilliation completed & No provided to patient/care provider Clinical Summary of Care Provided Yes Assessment/Plan Assessment/Plan (1) Non-pressure chronic ulcer of left calf with fat layer exposed: CODE(S): L97.222 - Non-pressure chronic ulcer of left calf with fat layer exposed (2) Localized edema: CODE(S): R60.0 - Localized edema (3) Hyperlipidemia: CODE(S): E78.5 - Hyperlipidemia, unspecified QUALIFIERS: Hyperlipidemia type: pure hypercholesterolemia Qualified Code(s): E78.00 - Pure hypercholesterolemia, unspecified; E78.0 - Pure hypercholesterolemia PLAN: Plan Patient seen and evaluated Ulceration to the left anterior lower extremity is debrided as noted in the clinical panel above. Ulcerative site measures 0.6 cm x 2.0 cm x 0.2 cm. No signs of infection. Donated AmnioEffect advanced skin substitute applied to ulcerative base today and dressed with Adaptic touch and anchored with Steri-Strips. Dressed with Mepilex foam border. Tubigrip stocking applied to left lower extremity. She is to change dressing daily. Wound demonstrates reduction in size vs previous visit. Discussed continued elevation of lower extremities to aid in edema control. Discussed continued wearing of the Tubi-speech pathology supervisor compression stocking. Discussed adequate protein intake, vitamin C, zinc, to continue to aid in wound healing. Mitchell supplementation recommended. She was denied for advanced skin substitute/graft. Will continue with Alyce at this time. Discussed signs and symptoms of infection. Discussed if she notices any redness about the wound margin that spreads up the leg, any purulent drainage from the wound site, foul odor from the wound site, or if she experiences fever greater than 101 degree, nausea, vomiting, chills these are signs of a progressing infection and she should report to the ED. She voices understanding of this. The following work up and care recommendations were made: Dressing: Donated AmnioEffect skin substitute, Adaptic touch and Steri-Strips and Mepilex foam border. Tubigrip compression stocking left lower extremity Wash: Do not get wet Tissue growth optimization: Donated AmnioEffect Offload: Ensure nothing bumps wound site anterior leg Vascular: DP and PT pulses intact with adequate capillary fill time. Do not feel vascular status is impacting healing as wound is secondary to trauma complicated by lower extremity edema Edema: Tubigrip compression stockings. Elevate lower extremities at all times of rest for edema control. We will transition to graded compression stocking following healing of wound. Infection: No signs of infection Pain: May take [id number] Tylenol extra strength for discomfort Host factors: Lower extremity edema and hyperlipidemia I answered all the patient's questions. To return to the wound healing center in 1 week or call sooner if the patient has any questions or concerns.
[2023-01-21 08:44] VITALS: BP 133/74; PULSE 82; RESP 18; TEMP 36.3
--- NOTE | 2023-01-21 08:48 | PCM.WC.PN ---
History of Present Illness Date of Service: 01/21/23 Chief Complaint: Left lower extremity wound History of Wound: Patient is a 77-year-old female who presents to the wound care center today with a left lower extremity ulceration that has not healed. Patient states that she bumped her leg on a tool about 4 weeks ago and the wound has not made much progression. She denies puncture and states that this instrument scraped the front of her leg. She has been applying triple antibiotic ointment without much progress in healing. She was following with her primary care physician Dr. Mix who referred her to the wound care center for continued care of nonhealing wound to the lower leg. She has not taken antibiotic course. No documented signs of infection. Denies N/V/F/chills. Denies further complaints. Subjective Subjective This is a 77-year-old female who presents to the wound care center today for a follow-up of her left anterior lower extremity ulceration. Has been changing dressings daily. She states local anesthetic prior to debridement continues to help. She states she will be leaving town for vacation and will be back in a couple of weeks. Denies constitutional symptoms. Denies further complaints today. Objective Data Objective Data Vital Signs: Vital Signs Temp Pulse Resp BP O2 Del Method 97.5 F L 98 18 135/98 H Room Air 01/14/23 09:01 01/14/23 09:01 01/14/23 09:01 01/14/23 09:01 01/14/23 09:01 Oxygen Delivery Method Room Air Physical Exam Const alert, oriented x3 and no apparent distress General Appearance: cooperative HEENT normocephalic Eyes General Eye: normal appearance of both eyes Neck General: normal visual inspection Lymph Lymphatic: no lymphadenopathy noted and no lymphedema noted Resp normal respiratory effort Cardio regular rate and regular rhythm Extremity normal capillary refill, no joint enlargement, no calf tenderness and no pedal edema Extremity Narrative: DP and PT pulses palpable to the left lower extremity. Brisk capillary fill time to the digits of the left lower extremity. Dermatological: There is a wound to the anterior aspect of the left lower extremity secondary to scraping against tool. Wound demonstrates mixed fibrogranular tissue. No purulent drainage, no erythema, no malodor, no palpable fluctuance/bogginess noted, no lymphangitic streaking. Dermatological: Muscle strength 5 of 5 and age-appropriate. Decreased range of motion ankle joint and first metatarsophalangeal joint. There is mild tenderness to palpation about the wound site. Skin no rashes or lesions noted, skin turgor normal and no jaundice Neuro moves all extremities Debridement Note Debridement Note Wound debrided: Left lower extremity Wound Grade/Stage: Gomez stage I Type of Debridement: Excisional debridement Anesthesia Used: - (5 cc 1% lidocaine with epinephrine) Depth: Down to and including healthy tissue and in the subcutaneous layer Percentage of wound debrided: 100 Instrument Used: 5mm curette Tissue Removed: Fibrous, devitalized subcutaneous, biofilm, slough Severity: Fat Layer Exposed Amount of bleeding with debridement: Mild Bleeding Controlled with: Compression and gauze Patient tolerated procedure: Patient tolerated procedure well Post-Debridement Measurements and Additional Note: Post-Debridement Measurements/Treatment - Nurse 1 - General Ulcer Assessment Start: 12/31/22 09:00 Freq: Status: Active Protocol: INA.KYLER Activity Type Activity Date Activity User E-sign Co-sign Detail Recorded Client Recorded Date Recorded By Document 12/31/22 09:00 [employer] 12/31/22 09:07 KW Document 01/07/23 08:59 [employer] 01/07/23 09:06 Document 01/14/23 09:01 [employer] 01/14/23 09:06 KW 12/31/22 01/07/23 01/14/23 09:00 08:59 09:01 - Today's Visit Information Type of service Follow-up Visit Follow-up Visit Follow-up Visit (Physician/ELEVATOR OPERATOR FREIGHT (Physician/ELEVATOR OPERATOR FREIGHT (Physician/ELEVATOR OPERATOR FREIGHT ) ) ) Arrival Mode Ambulatory Ambulatory Ambulatory Patient Identification Verified (Name & Yes Yes ) Patient Requires Transmission-Based No Precautions Vital Signs Temperature (97.8 F-99.1 F) 96.7 F L 96.4 F L 97.5 F L Temperature Source Temporal Temporal Temporal Pulse Rate (60-100) 82 94 98 Pulse Location Monitor Monitor Monitor Respiratory Rate (12-18) 18 18 18 Respiratory rate source Ausculation Observation Observation Oxygen Delivery Method Room Air Room Air Blood Pressure (90/60-120/80) 143/98 H 147/98 H 135/98 H Blood Pressure Mean (mm Hg) 113 114 110 Source Monitor Monitor Monitor Position Semi-Fowlers Semi-Fowlers Sitting Blood Pressure Location Left Arm Left Arm Left Arm History Since Last Visit- (Skip if this is Patient's initial visit) Have you changed medications since your No No No last visit? Any new allergies or adverse reactions No No No Had a fall/change in ADL's that may No No No increase risk of falls Signs or symptoms of abuse and/or No No No neglect since last visit Have you been in the hospital since your No No No last visit? Has dressing in place as prescribed Yes Yes Yes Has compression in place as prescribed Yes Yes Yes Has offloadiing in place as prescribed No N/A No Experienced any changes in pain level or No No No management Left Footwear Regular Shoe Regular Shoe Regular Shoe Right Footwear Regular Shoe Regular Shoe Regular Shoe Pain Scale: 0-10 Numeric Is Patient Pain Free? Yes Yes Yes WC - Nurse 1 - General Ulcer Measurement Start: 12/31/22 09:00 Freq: Status: Active Protocol: Activity Type Activity Date Activity User E-sign Co-sign Detail Recorded Client Recorded Date Recorded By Document 12/31/22 09:00 [employer] 12/31/22 09:07 KW Document 01/07/23 08:59 JF Desktop 01/07/23 09:06 Document 01/14/23 09:01 KW Desktop 01/14/23 09:06 KW 12/31/22 01/07/23 01/14/23 09:00 08:59 09:01 Wound Center Nurse 1 #1 L [place] -Combined with other wound No -Current Size (cm) - Length 0.8 0.9 0.7 -Current Size (cm) - Width 2.3 2.3 1.9 -Current Size (cm) - Depth 0.1 0.1 0.2 -Total Square Cm 1.84 2.07 1.33 -Photo Taken No -Epithelialization Small 1-33% -Tunneling No -Undermining/Tunneling No -Circular Undermining No -Exudate Amt Small Small -Exudate Type Serosanguineous Serosanguineous -Wound Margin Flat & Intact Distinct, Outline Attached -Granulation Amt Small (1-33%) Small (1-33%) Medium (34-66%) -Granulation Quality [place] -Slough/Fibrin Yes -Necrosis Amt Small (1-33%) Small (1-33%) Medium (34-66%) -Necrotic Tissue Type Adherent Slough Adherent Slough Adherent Slough -Structure Exposed N/A -Texture (Sun-wound Skin Appearance) Assessed, Assessed Assessed, Localized Edema Localized Edema -Moisture (Sun-wound Skin Appearance) Assessed Assessed, Assessed, Maceration, Maceration Weeping -Color (Sun-wound Skin Appearance) Assessed, Assessed Assessed, Erythema Erythema -Temperature (Sun-wound Skin No Abnormality No Abnormality No Abnormality Appearance) (Pt Warm) (Pt Warm) (Pt Warm) -Tenderness on Palpation (Sun-wound No Yes Skin Appearance) -Ulcer Cleansing Rinsed/ Rinsed/ Soap and Water Irrigated with Irrigated with Saline Saline -Foul Odor after Cleansing No No -Anesthetic Used 5% Lidocaine 5% Lidocaine 5% Lidocaine Gel Gel Gel Lower Limb Edema Present Yes Left Calf (cm) 39 39.7 39.5 Left Ankle (cm) 26 23.6 WC - Nurse 2 - General Ulcer CM Notes Start: 12/31/22 09:00 Freq: Status: Active Protocol: Activity Type Activity Date Activity User E-sign Co-sign Detail Recorded Client Recorded Date Recorded By Document 12/31/22 16:26 PL [id number] 12/31/22 16:29 PL Document 01/07/23 18:02 PL [id number] 01/07/23 18:03 PL Document 01/14/23 16:24 PL [id number] 01/14/23 16:25 PL 12/31/22 01/07/23 01/14/23 16:26 18:02 16:24 Wound Center Nurse 2 #1 L [place] -Time 09:13 09:10 09:34 -Correct Patient Yes Yes Yes -Correct Side, Site, Position Yes Yes Yes -Correct Procedure Yes Yes Yes -Procedure Performed Yes Yes Yes -Type of Procedure Debridement Debridement Debridement -Clinical Debridement Subcutaneous Subcutaneous Subcutaneous -Tissue Removed Subcutaneous Subcutaneous Subcutaneous -Post Debridement (cm) - Length 0.9 1.0 0.6 -Post Debridement (cm) - Width 2.5 2.2 2.0 -Post Debridement (cm) - Depth 0.2 0.2 0.2 -Total Square (Post) (cm) 2.25 2.20 1.20 -Area of Debridement (cm) - Length 0.9 1.0 0.6 -Area of Debridement (cm) - Width 2.5 2.2 2.0 -Total Square (Area) (cm) 2.25 2.20 1.20 -Tunneling No No No -Undermining/Tunneling No No No -Circular Undermining No No No -Wound/Ulcer Outcome Not Healed Not Healed Not Healed -Ulcer Cleansing Rinsed/ Rinsed/ Rinsed/ Irrigated with Irrigated with Irrigated with Saline Saline Saline -Foul Odor after Cleansing No No No -Bioengineered Tissue No No No -Bleeding Controlled with Pressure Pressure Pressure -Treatment Response Procedure Procedure Procedure Tolerated Well Tolerated Well Tolerated Well -Debridement - Subq, 1st 20sq cm Yes Yes Yes Pain Scale: 0-10 Numeric Is Patient Pain Free? Yes Yes Yes - Nurse 3 - General Ulcer D/C NN Start: 12/31/22 09:00 Freq: Status: Active Protocol: Activity Type Activity Date Activity User E-sign Co-sign Detail Recorded Client Recorded Date Recorded By Document 12/31/22 09:37 KW Desktop 12/31/22 09:38 KW Document 01/14/23 09:54 DL Desktop 01/14/23 09:55 DL 12/31/22 01/14/23 09:37 09:54 Wound Care Center Nurse 3 #1 L [place] -Ulcer Cleansing Rinsed/ Irrigated with Saline -Foul Odor after Cleansing No -Primary Dressing Applied Mepilex Border, Promogran Alyce Matter -Other Dressing graft -Primary Dressing Covered/Secured with Dry Gauze & Roll Gauze, Secured with Tape -Mepilex Border 1 -Promogran Alyce Matter 1 Left -Tubular Bandage Single Layer -Size of Tubigrip Used Size D -Size D ($) 1 Treatment Response Procedure Tolerated Well Pain Scale: 0-10 Numeric Is Patient Pain Free? Yes Yes - Visit Discharge Discharge Condition Stable Stable Ambulatory Status Ambulatory Ambulatory Transportation Private Auto Private Auto Medication Reconcilliation completed & No provided to patient/care provider Clinical Summary of Care Provided Yes Assessment/Plan Assessment/Plan (1) Non-pressure chronic ulcer of left calf with fat layer exposed: CODE(S): L97.222 - Non-pressure chronic ulcer of left calf with fat layer exposed (2) Localized edema: CODE(S): R60.0 - Localized edema (3) Hyperlipidemia: CODE(S): E78.5 - Hyperlipidemia, unspecified QUALIFIERS: Hyperlipidemia type: pure hypercholesterolemia Qualified Code(s): E78.00 - Pure hypercholesterolemia, unspecified; E78.0 - Pure hypercholesterolemia PLAN: Plan Patient seen and evaluated Ulceration to the left anterior lower extremity is debrided as noted in the clinical panel above. Ulcerative site measures 0.6 cm x 1.9 cm x 0.2 cm. No signs of infection. Donated AmnioEffect advanced skin substitute (#3) applied to ulcerative base today and dressed with Adaptic touch and anchored with Steri-Strips. Dressed with Mepilex foam border. Tubigrip stocking applied to left lower extremity. She is to change dressing daily. She was instructed in 2 weeks to remove dressing wash with soap and water and apply Alyce for the following week daily. Wound demonstrates slight reduction in size vs previous visit. Discussed continued elevation of lower extremities to aid in edema control. Discussed continued wearing of the Tubi-automotive service assistant compression stocking. Discussed adequate protein intake, vitamin C, zinc, to continue to aid in wound healing. Mitchell supplementation recommended. She was denied for advanced skin substitute/graft. Will continue with Alyce at this time. Discussed signs and symptoms of infection. Discussed if she notices any redness about the wound margin that spreads up the leg, any purulent drainage from the wound site, foul odor from the wound site, or if she experiences fever greater than 101 degree, nausea, vomiting, chills these are signs of a progressing infection and she should report to the ED. She voices understanding of this. The following work up and care recommendations were made: Dressing: Donated AmnioEffect skin substitute, Adaptic touch and Steri-Strips and Mepilex foam border. Tubigrip compression stocking left lower extremity Wash: Do not get wet Tissue growth optimization: Donated AmnioEffect Offload: Ensure nothing bumps wound site anterior leg Vascular: DP and PT pulses intact with adequate capillary fill time. Do not feel vascular status is impacting healing as wound is secondary to trauma complicated by lower extremity edema Edema: Tubigrip compression stockings. Elevate lower extremities at all times of rest for edema control. We will transition to graded compression stocking following healing of wound. Infection: No signs of infection Pain: May take [id number] Tylenol extra strength for discomfort Host factors: Lower extremity edema and hyperlipidemia I answered all the patient's questions. To return to the wound healing center in 3 weeks or call sooner if the patient has any questions or concerns.
== END 2023-01-26 23:59 | disposition home or self-care (01) ==
LOC: WC 08:45
PROVIDERS: PCP Student in an Organized Health Care Education/Training Program; Visit Provider Student in an Organized Health Care Education/Training Program
DX: L97.222 Non-pressure chronic ulcer of left calf with fat layer exposed (principal); S80.812S Abrasion, left lower leg, sequela; W22.09XS Striking against other stationary object, sequela; R60.0 Localized edema; E78.5 Hyperlipidemia, unspecified; Z79.899 Other long term (current) drug therapy
CPT/HCPCS: 11042

== ENCOUNTER 2023-02-11 08:13 | Outpatient (RCR) | payer OTHER, SELFPAY ==
[2023-01-27 00:52] VITALS: BP 133/74; PULSE 82; RESP 18; TEMP 36.3
[2023-02-11 08:18] VITALS: BP 141/83; PULSE 82; RESP 18
--- NOTE | 2023-02-11 09:38 | PN.PCM_ITS ---
History of Present Illness Chief Complaint: Left lower extremity wound History of Wound: Patient is a 77-year-old female who presents to the wound care center today with a left lower extremity ulceration that has not healed. Patient states that she bumped her leg on a tool about 4 weeks ago and the wound has not made much progression. She denies puncture and states that this instrument scraped the front of her leg. She has been applying triple antibiotic ointment without much progress in healing. She was following with her primary care physician Dr. Mix who referred her to the wound care center for continued care of nonhealing wound to the lower leg. She has not taken antibiotic course. No documented signs of infection. Denies N/V/F/chills. Denies further complaints. Subjective Subjective This is a 77-year-old female who presents to the wound care center today for a follow-up of her left anterior lower extremity ulceration. She has returned from vacation and states trip went well. She states she has been changing dressings as instructed during vacation time. Denies constitutional symptoms. Denies further complaints today. Objective Data Objective Data Vital Signs: Vital Signs Temp Pulse Resp BP O2 Del Method 97.3 F L 82 18 141/83 H Room Air 01/27/23 00:52 02/11/23 08:18 02/11/23 08:18 02/11/23 08:18 02/11/23 08:18 Oxygen Delivery Method Room Air Physical Exam Const alert, oriented x3 and no apparent distress General Appearance: cooperative HEENT normocephalic Eyes General Eye: normal appearance of both eyes Neck General: normal visual inspection Lymph Lymphatic: no lymphadenopathy noted and no lymphedema noted Resp normal respiratory effort Cardio regular rate and regular rhythm Extremity normal capillary refill, no joint enlargement, no calf tenderness and no pedal edema Extremity Narrative: DP and PT pulses palpable to the left lower extremity. Brisk capillary fill time to the digits of the left lower extremity. Dermatological: Wound to the anterior aspect of the left lower extremity secondary to scraping against tool has healed. No signs of infection Dermatological: Muscle strength 5 of 5 and age-appropriate. Decreased range of motion ankle joint and first metatarsophalangeal joint. There is mild tenderness to palpation about the wound site. Skin no rashes or lesions noted, skin turgor normal and no jaundice Neuro oriented x3 and moves all extremities Debridement Note Debridement Note No debridement was completed: No debridement was completed today Post-Debridement Measurements and Additional Note: Post-Debridement Measurements/Treatment INA - Nurse 1 - General Ulcer Assessment Start: 02/11/23 08:18 Freq: Status: Active Protocol: KEVIN Activity Type Activity Date Activity User E-sign Co-sign Detail Recorded Client Recorded Date Recorded By Document 02/11/23 08:18 KW Desktop 02/11/23 08:29 KW 02/11/23 08:18 WC - Today's Visit Information Type of service Follow-up Visit (Physician/ASSOCIATE PROFESSOR OF MUSICOLOGY ) Arrival Mode Ambulatory Patient Identification Verified (Name & Yes ) Vital Signs Pulse Rate (60-100) 82 Pulse Location Monitor Respiratory Rate (12-18) 18 Respiratory rate source Observation Oxygen Delivery Method Room Air Blood Pressure (90/60-120/80) 141/83 H Blood Pressure Mean (mm Hg) 102 Source Monitor Position Semi-Fowlers Blood Pressure Location Left Arm History Since Last Visit- (Skip if this is Patient's initial visit) Have you changed medications since your No last visit? Any new allergies or adverse reactions No Had a fall/change in ADL's that may No increase risk of falls Signs or symptoms of abuse and/or No neglect since last visit Have you been in the hospital since your No last visit? Has dressing in place as prescribed Yes Has compression in place as prescribed Yes Has offloadiing in place as prescribed No Experienced any changes in pain level or No management Left Footwear Regular Shoe Right Footwear Regular Shoe Pain Scale: 0-10 Numeric Is Patient Pain Free? Yes INA - Nurse 1 - General Ulcer Measurement Start: 02/11/23 08:18 Freq: Status: Active Protocol: Activity Type Activity Date Activity User E-sign Co-sign Detail Recorded Client Recorded Date Recorded By Document 02/11/23 08:18 KW Desktop 02/11/23 08:29 KW 02/11/23 08:18 Wound Center Nurse 1 #1 L [place] -Current Size (cm) - Length 0.6 -Current Size (cm) - Width 1.0 -Current Size (cm) - Depth 0.1 -Total Square Cm 0.60 -Exudate Amt Small -Exudate Type Serosanguineous -Wound Margin Distinct, Outline Attached -Texture (Sun-wound Skin Appearance) Not Assessed, Localized Edema -Moisture (Sun-wound Skin Appearance) Assessed -Color (Sun-wound Skin Appearance) Assessed, Erythema -Temperature (Sun-wound Skin No Abnormality Appearance) (Pt Warm) -Ulcer Cleansing Soap and Water -Anesthetic Used 5% Lidocaine Gel -Wound Comment(s) scabbed Left Calf (cm) 40 Left Ankle (cm) 23.5 Assessment/Plan Assessment/Plan (1) Non-pressure chronic ulcer of left calf with fat layer exposed: CODE(S): L97.222 - Non-pressure chronic ulcer of left calf with fat layer exposed (2) Localized edema: CODE(S): R60.0 - Localized edema (3) Hyperlipidemia: CODE(S): E78.5 - Hyperlipidemia, unspecified QUALIFIERS: Hyperlipidemia type: pure hypercholesterolemia Qualified Code(s): E78.00 - Pure hypercholesterolemia, unspecified; E78.0 - Pure hypercholesterolemia PLAN: Plan Patient seen and evaluated Ulceration to the left anterior lower extremity is debrided as noted in the clinical panel above. Ulcerative site measures 0.6 cm x 1.9 cm x 0.2 cm. No signs of infection. Donated AmnioEffect advanced skin substitute (#3) applied to ulcerative base today and dressed with Adaptic touch and anchored with Steri- Strips. Dressed with Mepilex foam border. Tubigrip stocking applied to left lower extremity. She is to change dressing daily. Wound demonstrates reduction in size vs previous visit with healed status. Discussed continued elevation of lower extremities to aid in edema control. Discussed continued wearing of the Tubi-separator operator shellfish meats compression stocking. Discussed adequate protein intake, vitamin C, zinc, to continue to aid in wound healing. Mitchell supplementation recommended. The following work up and care recommendations were made: Dressing: Band-Aid next 7 to 10 days for protection Wash: Soap and water Tissue growth optimization: None Offload: Ensure nothing bumps wound site anterior leg Vascular: DP and PT pulses intact with adequate capillary fill time. Do not feel vascular status is impacting healing as wound is secondary to trauma complicated by lower extremity edema Edema: Tubigrip compression stockings. Elevate lower extremities at all times of rest for edema control. We will transition to graded compression stocking following healing of wound. Infection: No signs of infection Pain: May take [id number] Tylenol extra strength for discomfort Host factors: Lower extremity edema and hyperlipidemia Due to healed status patient is being discharged from the wound care center today I answered all the patient's questions. To return to the wound healing center as needed or call sooner if the patient has any questions or concerns.
== END 2023-02-25 23:59 | disposition home or self-care (01) ==
LOC: WC 08:13
PROVIDERS: PCP Student in an Organized Health Care Education/Training Program; Visit Provider Student in an Organized Health Care Education/Training Program
DX: Z09 Encounter for follow-up examination after completed treatment for conditions other than malignant neoplasm (principal); R60.0 Localized edema; E78.00 Pure hypercholesterolemia, unspecified; Z79.899 Other long term (current) drug therapy
CPT/HCPCS: 99213; G0463

== ENCOUNTER 2023-09-19 11:56 | Observation (INO) | payer OTHER, SELFPAY ==
[2023-09-19] VITALS (13 sets, daily range): BP systolic 151–198; BP diastolic 85–150; PULSE 61–89; RESP 14–20; TEMP 35.9–36.7; O2SAT 89–99; BMI 32.9; BMI 32.4
--- NOTE | 2023-09-19 12:14 | NURSING ---
STROKE ALERT CALLED
--- NOTE | 2023-09-19 12:15 | CT_ITS ---
STUDY: CT BRAIN WITHOUT CONTRAST REASON FOR EXAM: Female, 78 years old. CVA RADIATION DOSAGE (If Supplied By Facility): CTDIvol = ( 44.99 ) mGy, DLP = ( 745.49 ) mGycm TECHNIQUE: Transaxial CT imaging of the brain was performed without administration of intravenous contrast material. Individualized dose optimization techniques were used for this CT. COMPARISON: No relevant priors. FINDINGS: Normal soft tissue structures. Normal calvarium. Normal size ventricles and extra-axial spaces for the patient''s age. Normal white matter tracts of the cerebral hemispheres. Normal basal ganglia and thalami. Normal brainstem. Normal cerebellum. There is no intracranial hemorrhage. There are no findings of an acute ischemic infarction. ASPECTS Score for Acute Strokes: 10 Normal visualized paranasal sinuses. CT/STROKE Brain/Head without Cont IMPRESSION: Age consistent changes, no acute findings N.B. : The above Results were Read Back by Star Wise MD to Magalys Jacobo MD, and understanding confirmed on 09/19/2023 12:41:36 (ET). Electronically Signed: Star Wise MD at 12:42 EDT ,
--- NOTE | 2023-09-19 12:15 | EKG12_ITS ---
Test Reason : STROKE Blood Pressure : / mmHG Vent. Rate : 072 BPM Atrial Rate : 072 BPM P-R Int : 152 ms QRS Dur : 080 ms QT Int : 372 ms P-R-T Axes : 044 000 011 degrees QTc Int : 407 ms Normal sinus rhythm Normal ECG Confirmed by Marv Bourne ([id number]), photography editor GRACIE SIU ([id number]) on 09/21/2023 7:57:35 AM Referred By: Confirmed By:Marv Bourne
--- NOTE | 2023-09-19 12:16 | EDS_ITS ---
HPI History of Present Illness Chief Complaint: Eye Problem Informant: patient and other (Ophthalmology) Narrative Narrative: Patient presents with left eye vision loss since 815-830 this morning. She states that she noted losing medial vision from her left eye with occasional haziness to the lateral portion of her vision. She called her can reconditioner to met her at the office for exam. She has evidence of a retinal artery occlusion. I received a call from the can reconditioner and the patient was being sent over for a full stroke workup. She presents here 4 hours after onset of symptoms. Patient does have an episode of A-fib noted in her chart review. She states this was in 2009 and was very brief. She has not had known A-fib since that time. [facility] Medical History Elevated blood pressure reading in office without diagnosis of hypertension Encounter for pre-operative cardiovascular clearance Thyroid nodule Abnormal findings on diagnostic imaging of other abdominal regions, including retroperitoneum First detected episode of atrial fibrillation (02/28/20) Acute cystitis Kidney stone on right side Sepsis ANGELICA (acute kidney injury) Thrombocytopenia Nonobstructive atherosclerosis of coronary artery Arthritis of knee, degenerative Hyperlipidemia History of nephrolithiasis Vitamin D deficiency Fibromyalgia Diverticulosis of colon Gastritis without bleeding Internal hemorrhoid IBS (irritable bowel syndrome) Osteoarthritis Home Medications ?Medication ?Instructions ?Recorded ?Last Taken ?Type diclofenac sodium 1 % topical gel 2 g topical BID PRN osteoarthritis 08/04/17 Unknown Rx (Voltaren) #100 grams L.acidoph, paracasei,B. lactis 10 1 ea PO DAILY 04/04/20 Unknown History billion cell capsule acetaminophen 500 mg tablet 500 - 1,000 mg PO Q6H PRN PRN Pain 04/04/20 Unknown History 1-10 Or Fever calcium carbonate 600 mg-vitamin 1 tab PO BID 05/22/22 Unknown History D3 20 mcg (800 unit) tablet (Caltrate with Vitamin D3) cholecalciferol (vitamin D3) 25 25 mcg PO BID 05/22/22 Unknown History mcg (1,000 unit) tablet estradiol 10 mcg vaginal tablet 10 mcg vaginal 2XW 05/22/22 Unknown History (Yuvafem) gabapentin 300 mg capsule 600 mg PO QHS 05/22/22 Unknown History pantoprazole 40 mg tablet,delayed 40 mg PO DAILY #90 tabs 05/22/22 Unknown Rx release progesterone micronized 100 mg 100 mg PO DAILY 05/22/22 Unknown History capsule trospium 60 mg capsule,extended 60 mg PO DAILY 05/22/22 Unknown History release 24 hr venlafaxine 75 mg tablet 75 mg PO DAILY 12/24/22 Unknown History Allergy/AdvReac Type Severity Reaction Status Date / Time niacin AdvReac flushing Verified 09/19/23 11:59 oxycodone AdvReac Itching Verified 09/19/23 11:59 Family History Father , from an MD age 52 Myocardial infarction from an MD age 52 Mother Breast cancer CVA (cerebral vascular accident) Surgical History History of left knee replacement (~10/10/21) History of laminectomy (05/15/20) History of open reduction and internal fixation (ORIF) procedure S/P thyroid biopsy (07/2020) History of knee surgery History of repair of rotator cuff (07/2018) H/O repair of right rotator cuff History of left heart catheterization (03/06/10) History of History of tonsillectomy and adenoidectomy Social History Smoking Status: Never smoker alcohol intake: current alcohol intake frequency: a few times a week substance use type: does not use caffeine: Yes Type: carbonated beverages, coffee and tea ROS ROS ED Constitutional Constitutional ED: Denies chills or fever(s) Eyes Eyes: Reports change in vision left; Denies discharge from eye(s) ENT ENT ED: Denies discharge from eye(s), rhinorrhea or sore throat Cardiovascular Cardiovascular: Denies chest pain Respiratory/Chest Respiratory/Chest: Denies cough or dyspnea Gastrointestinal Gastrointestinal: Denies abdominal pain, diarrhea, nausea or vomiting Genitourinary Genitourinary ED: Denies dysuria Musculoskeletal Musculoskeletal: Denies back pain or extremity pain Integumentary Denies Abrasions or rash Neurologic Neurologic: Denies headache(s) or weakness Psychiatric Psychiatric: Denies anxiety or depression Allergic/Immunologic Allergic/Immunologic ED: Denies lip swelling or urticaria EXAM Physical Exam Const Vital Signs: 09/19/23 11:57 09/19/23 12:15 09/19/23 12:44 Temperature 96.6 F L Temperature Source Temporal Temporal Pulse Rate 78 74 Respiratory Rate 14 20 H Blood Pressure 174/88 H 160/85 H Blood Pressure Mean 116 110 Pulse Ox 98 96 Oxygen Delivery Method Room Air Room Air Room Air Oxygen Flow Rate (L/min) 09/19/23 13:15 09/19/23 13:30 09/19/23 14:00 Temperature Temperature Source Pulse Rate 71 87 70 Respiratory Rate 18 18 17 Blood Pressure 151/124 H 154/93 H 191/150 H Blood Pressure Mean 133 113 163 Pulse Ox 97 98 95 Oxygen Delivery Method Nasal Cannula Nasal Cannula Room Air Oxygen Flow Rate (L/min) 2 2 Positive well nourished and well developed General Appearance ED: well developed HEENT Reports moist mucous membranes Eyes Eyes Narrative: Eyes are dilated bilaterally from recent ophthalmology exam. Extraocular movements are intact. Patient does report diminished vision to the medial portion of her left eye. Chest Wall inspection of chest normal and palpation of chest normal Resp normal respiratory effort and clear to auscultation bilaterally GI normal to inspection, nondistended, normoactive bowel sounds Extremity normal to inspection Neuro oriented x3 and no sensory deficits noted Psych mental status grossly normal NIHSS NIHSS Initial: 1a Level of Consciousness: 0 1b LOC Questions (Score 2 if aphasic/stupor): 0 1c LOC Commands (Only score 1st attempt): 0 2 Best Gaze (If aphasic, use reflexive mvmts.): 0 3 Visual: 2 4 Facial Palsy: 0 5 Motor Arm Right (UN = amputation/fusion): 0 5 Motor Arm Left: 0 6 Motor Leg Right: 0 6 Motor Leg Left: 0 7 Limb ataxia (Only + if out of proportion): 0 8 Sensory (Aphasia/stupor=0 or 1, coma=2): 0 9 Best Language: 0 10 Dysarthria (mute, coma=2, intubated=UN): 0 11 Extinction and Inattention (only scored if +): 0 Total Score: 2 MDM MDM MDM Narrative Medical decision making narrative: Given the patient presents with vision loss in 4 hours after onset with known artery occlusion, stroke alert is initiated. IV line established. Labwork obtained to evaluate for leukocytosis, anemia, and electrolyte derangement. EKG obtained to evaluate for cardiac arrhythmia/ischemia. Patient sent for CT imaging of the brain along with CTA of the head and neck. Sed rate and CRP are also added per Dr. Dos Santos's request. History & Record Review Discussion w/independent historian: Patient and Other (Ophthalmology) Lab Data Attestation: I reviewed the patient's lab results. Labs: Laboratory Results - last 24 hr 09/19/23 12:30 WBC 9.3 RBC 5.37 Hgb 15.3 H Hct 48.3 H MCV 89.9 MCH 28.5 MCHC 31.7 L RDW Std Deviation 50.1 H RDW Coeff of Lonnie 15.2 H Plt Count 493 H MPV 9.5 Immature Gran % (Auto) 0.500 Neut % (Auto) 71.0 H Lymph % (Auto) 12.2 L Routt % (Auto) 11.7 H Eos % (Auto) 3.6 Baso % (Auto) 1.0 Absolute Neuts (auto) 6.6 Absolute Lymphs (auto) 1.13 Nucleated RBC % 0 ESR 7 PT 13.9 INR 1.1 APTT 31.2 Sodium 140 Potassium 4.0 Chloride 111 H Carbon Dioxide 24.0 Anion Gap 5 BUN 15 Creatinine 0.85 Estim Creat Clear Calc 59.15 Est GFR (MDRD) Af Amer 84 Est GFR (MDRD) Non-Af 69 BUN/Creatinine Ratio 17.7 Glucose 86 Calcium 9.0 Troponin I High Sens 12 C-React Prot Ext Range < 2.90 Radiography Chest X-Ray - ED: 1 View, Read by ED Physician, Chronic Changes and No Infiltrates Diagnostic Testing: Clinical Impression(s) from Imaging Studies Head/Neck CTA 09/19/23 12:25 IMPRESSION: No evidence of arterial stenosis, occlusion, dissection or intracranial aneurysm. 1.4 cm left thyroid nodule. Follow-up thyroid ultrasound may be indicated. Electronically Signed: Bjorn Cerna MD at 12:54 EDT , ADDENDUM: 09/19/23 1314 IMPRESSION: No evidence of arterial stenosis, occlusion, dissection or intracranial aneurysm. 1.4 cm left thyroid nodule. Follow-up thyroid ultrasound may be indicated. N.B. : The above Results were Read Back by Bjorn Cerna MD to Magalys Jacobo MD, and understanding confirmed on 09/19/2023 13:07:48 (ET). Electronically Signed: Bjorn Cerna MD at 12:54 EDT Reading Location ID and State: [facility] / [place] Tel , Service support , Chest X-Ray 09/19/23 13:41 IMPRESSION: No acute cardiopulmonary disease. Electronically Signed: Bjorn Cerna MD at 14:23 EDT , EKG Initial EKG: Attestation: I personally reviewed and interpreted this EKG as follows: Interpretation: Sinus Rhythm (Sinus at 72 with no acute ischemia.) Treatment and Re-Evaluation Narrative: CBC was normal white count 9.3 with a hemoglobin of 15.3. 71% neutrophils noted. Chemistry studies are unremarkable. Troponin is normal at 12. CRP is less than 2.9 and sed rate is normal at 7. EKG is sinus rhythm with no evidence of acute ischemia. We have not seen any evidence of arrhythmia on electronic device monitor. Chest x-ray per my interpretation reveals chronic changes with no focal infiltrate. Radiology interpretation reviewed and agrees. CT scan of the head reveals no acute findings per discussion with radiologist. CTA of the head and neck reveals no evidence of arterial stenosis, occlusion, dissection, or aneurysm. A 1.4 cm left thyroid nodule is noted. The neurologist [facility] did be made and examined the patient. I am told by nursing staff that they wanted the patient to be admitted for the remainder of the workup and to be loaded with aspirin and Plavix. Dr. Dos Santos will also contact a retina specialist for the patient to follow-up with and he is going to contact the family tomorrow with this information. Discharge Plan Triage Chief Complaint: Eye Problem ED Provider: Magalys Jacobo Dx/Rx/DC Orders Clinical Impression: Acute retinal artery occlusion Prescriptions: No Action diclofenac sodium [Voltaren] 1 % gel 2 g TOPICAL BID PRN (Reason: osteoarthritis) Qty: 100 6RF cholecalciferol (vitamin D3) 25 mcg (1,000 unit) tablet 25 mcg PO BID estradiol [Yuvafem] 10 mcg tablet 10 mcg vaginal 2XW progesterone micronized 100 mg capsule 100 mg PO DAILY Rx Instructions: Has not started yet trospium 60 mg capsule,extended release 24hr 60 mg PO DAILY Patient Comments: TAKE 1 CAPSULE BY MOUTH ONCE DAILY Rx Instructions: Has not started calcium carbonate-vitamin D3 [Caltrate with Vitamin D3] 600 mg-20 mcg (800 unit) tablet 1 tab PO BID pantoprazole 40 mg tablet,delayed release (DR/EC) 40 mg PO DAILY Qty: 90 3RF acetaminophen 500 MG tablet 500 - 1,000 mg PO Q6H PRN PRN (Reason: Pain 1-10 Or Fever) L.acidoph, paracasei,B. lactis 1 EACH capsule 1 ea PO DAILY gabapentin 300 mg capsule 600 mg PO QHS venlafaxine 75 mg tablet 75 mg PO DAILY Primary Care Provider: Quentin Carter Referrals: Quentin Carter DO [Primary Care Provider] - Print Language: Egyptian Disposition Disposition: Home, Self Care
--- NOTE | 2023-09-19 12:25 | CT_ITS ---
We are attempting to reach an attending provider to discuss findings. An addendum with communication details will be sent when the communication is complete. INDICATION: EYE PROBLEM, RETINAL ARTERY OCCLUSION EXAMINATION: CTA HEAD - CTA Head and Neck W/ Contrast Injection (and W/O Contrast Images if performed) TECHNIQUE: Ione of [place]azar/head CT angiogram protocol was performed following IV contrast. Routine carotid CT angiogram protocol was performed with IV contrast. NASCET criteria using the distal ICAs for comparison were used for evaluation of stenoses. 3D reconstructions were reviewed of the CT angiogram head and neck. A radiation dose optimization technique was used for this scan. IV Contrast dosage and agent: 100 cc [id number] COMPARISON: None. FINDINGS: --Anterior cerebral circulation: ACAs: No significant stenosis at the visualized segments. ACOM: Not present. Both ophthalmic arteries are visualized. MCAs: No significant stenosis at the visualized segments. --Posterior cerebral circulation: PCOMs: Not present snow fence erector: No significant stenosis at the visualized segments. BASILAR ARTERY: No significant stenosis. --Carotid and vertebral circulation: AORTIC ARCH AND BRANCHES: Normal anatomy, patent. RIGHT CCA: No occlusion, significant stenosis or dissection. RIGHT ICA: No occlusion, significant stenosis or dissection. LEFT CCA: No occlusion, significant stenosis or dissection. LEFT ICA: No occlusion, significant stenosis or dissection. RIGHT VERTEBRAL ARTERY: No occlusion, significant stenosis or dissection. LEFT VERTEBRAL ARTERY: No occlusion, significant stenosis or dissection. NECK SOFT TISSUES: 2.4 cm left thyroid nodule. Recommend follow-up thyroid ultrasound if clinically warranted. LUNG APICES: Clear. BONES: Unremarkable. CT/CTA Head AND Neck W/ Contrast IMPRESSION: No evidence of arterial stenosis, occlusion, dissection or intracranial aneurysm. 1.4 cm left thyroid nodule. Follow-up thyroid ultrasound may be indicated. Electronically Signed: Bjorn Cerna MD at 12:54 EDT Reading Location ID and State: [address] [place] [address] Tel , Service support ,
[2023-09-19 12:41] LABS: Erythrocyte Sedimentation Rate 7 mm/hr (0-30)
[2023-09-19 12:42] LABS: Absolute Lymphocyte Count 1.13 X10^3/uL (0.83-4.51); Absolute Neutrophil Count 6.6 X10^3/uL (2.0-7.7); Basophil# 0.09 X10^3/uL; Eosinophil# 0.33 X10^3/uL; Eosinophils% 3.6 % (0-5); Hematocrit 48.3 % (37-47); Hemoglobin 15.3 g/dL (12.0-15.0); Lymphocyte # 1.13 X10^3/ul (0.83-4.51); Lymphocyte % 12.2 % (19-41); Mean Corp Hgb Conc 31.7 g/dL (32-36); Mean Corpuscular Hgb 28.5 pg (27.0-32.0); Mean Corpuscular Volume 89.9 fL (81-99); Mean Platelet Vol. 9.5 fl (6.2-12.0); Monocyte# 1.08 X10^3/uL; Monocyte% 11.7 % (0-10); NRBC Flagged by Analyzer 0 % (0-5); Neutrophil # 6.59 X10^3/uL (2.7-7.7); Platelet Count 493 K/mm3 (150-450); RBC Distribution Width CV 15.2 % (11.6-14.6); RBC Distribution Width SD 50.1 fl (35.1-43.9); Red Blood Count 5.37 M/mm3 (4.2-5.4); White Blood Count 9.3 K/mm3 (4.4-11.0)
[2023-09-19 12:54] LABS: International Normalized Ratio 1.1; Prothrombin Time (Protime)PT. 13.9 SECONDS (11.7-14.9)
[2023-09-19 12:55] LABS: Partial Thromboplast Time 31.2 Seconds (24.1-36.2)
[2023-09-19 13:00] LABS: Anion Gap 5 (5-15); BUN 15 mg/dL (7-18); BUN/Creat Ratio 17.7 RATIO (10-20); CRP < 2.90 mg/L (0.0-3.0); Chloride 111 mmol/L (98-107); Creatinine, Serum 0.85 mg/dL (0.55-1.02); EST Glomerular Filtration Rate 69 mL/min (>60); Est Glom Filt Rate - Afr Amer 84 mL/min (>60); Estimated Creatinine Clearance 59.15 ml/min; Glucose 86 mg/dL (74-106); Sodium Level 140 mmol/L (136-145); Troponin-I HS 12 pg/mL (3.0-54.0)
--- NOTE | 2023-09-19 13:41 | RAD_ITS ---
EXAM: XR CHEST, 1 VIEW CLINICAL INDICATION: Neuro deficit, acute, stroke suspected TECHNIQUE: Frontal view of the chest. COMPARISON: No relevant prior studies available. FINDINGS: LUNGS AND PLEURAL SPACES: Normal. No consolidation or edema. No pneumothorax. No effusion. HEART: Normal heart size. MEDIASTINUM: No mediastinal or hilar mass. BONES/JOINTS: No acute abnormality. RAD/Chest 1 View IMPRESSION: No acute cardiopulmonary disease. Electronically Signed: Bjorn Cerna MD at 14:23 EDT ,
[2023-09-19] MEDS: Clopidogrel Bisulfate 300 MG Tablet PO (15:25)
[2023-09-19] MEDS: Aspirin 325 MG Tablet PO (15:25)
--- NOTE | 2023-09-19 15:48 | NURSING ---
PCU OBS CONNER RETINAL ARTERY OCCLUSION
--- NOTE | 2023-09-19 15:51 | ECHOD_ITS ---
Version 2 Reason For Study: TIA/CVA Procedure This was a 2D Doppler, Color Flow transthoracic echocardiogram. Exam performed portable in patient room. Left Ventricle Normal LV size. Mild concentric left ventricular hypertrophy. Left ventricular systolic function is normal. The left ventricular ejection fraction is 65 %. Stage 1 diastolic dysfunction. No regional wall motion abnormalities noted. Right Ventricle Normal RV size. Normal systolic function. Atria Normal left atrium. Normal right atrium. Bubble contrast study negative for right to left interatrial shunt. Mitral Valve There is mild to moderate mitral annular calcification. Mild (1+) eccentric mitral valve insufficiency. Tricuspid Valve Normal tricuspid valve. Mild (1+) tricuspid valve insufficiency. Pulmonary artery systolic pressure is 30 mmHg. Aortic Valve Trisinus/trileaflet aortic valve. Pulmonic Valve Normal pulmonic valve. Great Vessels Normal aortic root. The pulmonary artery is normal size. Normal inferior vena cava. Inferior vena cava collapse with sniff. Pericardium/Pleural No pericardial effusion. Medication Performed a rapid injection of agitated mix of 9 cc saline and 1cc air to assess for atrial septal defect. MMode/2D Measurements & Calculations LVIDd: 3.9 cm IVSd: 1.2 cm Ao root diam: 3.6 cm LVIDs: 2.4 cm LVPWd: 1.2 cm RVDd: 3.2 cm FS: 36.9 % LAV(MOD-bp): 50.1 ml LVAd ap4: 26.6 cm2 LVAd ap2: 24.5 cm2 LAV(MOD-bp) Indexed: 26.1 ml/m2 LVLd ap4: 8.0 cm LVLd ap2: 7.7 cm LAV(MOD-sp2): 42.4 ml EDV(MOD-sp4): 73.4 ml EDV(MOD-sp2): 65.9 ml LAV(MOD-sp4): 55.2 ml EDV(sp4-el): 75.0 ml EDV(sp2-el): 66.7 ml LVAs ap4: 12.9 cm2 LVAs ap2: 13.2 cm2 LVLs ap4: 6.1 cm LVLs ap2: 6.8 cm ESV(MOD-sp4): 24.4 ml ESV(MOD-sp2): 22.5 ml ESV(sp4-el): 23.5 ml ESV(sp2-el): 21.9 ml EF(MOD-sp4): 66.7 % EF(MOD-sp2): 65.9 % EF(sp4-el): 68.7 % SV(MOD-sp4): 49.0 ml SV(MOD-sp2): 43.4 ml SV(sp4-el): 51.5 ml LA A4 area: 19.0 cm2 LA dimension(2D): 3.8 cm RA A4 area: 15.4 cm2 TAPSE: 2.0 cm Time Measurements MV dec time: 0.27 sec Doppler Measurements & Calculations MV E max young: 96.3 cm/sec Lat Peak E' Young: 8.1 cm/sec Med Peak E' Young: 5.5 cm/sec MV A max young: 105.6 cm/sec E/E' lat: 11.9 E/E' med: 17.4 MV E/A: 0.91 Ao V2 max: 154.1 cm/sec LV V1 max: 102.2 cm/sec MV dec slope: 354.8 cm/sec2 Ao max P.5 mmHg LV V1 max P.2 mmHg Ao V2 mean: 102.2 cm/sec LV V1 mean P.4 mmHg Ao mean P.9 mmHg LV V1 mean: 72.8 cm/sec Ao V2 VTI: 37.7 cm LV V1 VTI: 28.3 cm AV (velocity ratio): 0.75 PA V2 max: 86.4 cm/sec TR max young: 251.2 cm/sec TR max P.2 mmHg ECHO/Echo Complete Interpretation Summary Normal LV size. Left ventricular systolic function is normal. The left ventricular ejection fraction is 65 %. Mild concentric left ventricular hypertrophy. Stage 1 diastolic dysfunction. There is mild to moderate mitral annular calcification. Bubble contrast study negative for right to left interatrial shunt. Compared to the previous the above is unchanged. Ordering Physician: Inez Nolasco Referring Physician: Quentin Carter Performed By: Radha Nuñez RDCS
--- NOTE | 2023-09-19 15:52 | PCM.HP.STD ---
HPI - General General Date of Admission: 09/19/23 Date of Service: 09/19/23 Chief Complaint: Sudden vision loss left eye HPI Narrative ZULEYKA GAMEZ, is a 78 F who presented to the emergency department [facility] on 09/18/2022 with sudden vision loss in the medial portion of her left eye. Symptoms started at about 8 15-8 30 on the morning of presentation. She called her hop separator and they met her at the office for an exam. 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 At the time presentation, had been 4 hours since the symptom onset. She reports that she had a remote history of atrial fibrillation. She stated that this is in 2009 and very brief and has not had any known A-fib since that point in time. She is not on any anticoagulation or antiplatelet therapy at this time. She has no other deficits or complaints. Initial NIH was 2 with only visual deficits noted. Vital signs at the time of presentation showed temperature of 96.6, heart rate 78, respiratory rate was 14, blood pressure was 174/88 with repeat at 160/85, and pulse ox was 98% on room air. CBC showed erythrocytosis and thrombocytosis but was otherwise unremarkable. Coags were normal. Chemistry panel showed normal electrolytes with normal renal function. Troponin was normal at 12. ESR was 7 and CRP was less than 2.9. EKG was sinus rhythm with a rate of 72, normal intervals and no acute ischemia. CT of the brain was unremarkable for any acute findings. CTA of the head and neck showed normal vertebrals bilaterally and normal carotids bilaterally with a 1.4 cm left thyroid nodule. She was unfortunately out of the window for tenecteplase administration but neurology and ophthalmology recommended evaluation for further stroke workup. [facility] Medical History Elevated blood pressure reading in office without diagnosis of hypertension Encounter for pre-operative cardiovascular clearance Thyroid nodule Abnormal findings on diagnostic imaging of other abdominal regions, including retroperitoneum First detected episode of atrial fibrillation (02/28/20) Acute cystitis Kidney stone on right side Sepsis ANGELICA (acute kidney injury) Thrombocytopenia Nonobstructive atherosclerosis of coronary artery Arthritis of knee, degenerative Hyperlipidemia History of nephrolithiasis Vitamin D deficiency Fibromyalgia Diverticulosis of colon Gastritis without bleeding Internal hemorrhoid IBS (irritable bowel syndrome) Osteoarthritis Home Medications ?Medication ?Instructions ?Recorded ?Last Taken ?Type diclofenac sodium 1 % topical gel 2 g topical BID PRN osteoarthritis 08/04/17 Unknown Rx (Voltaren) #100 grams L.acidoph, paracasei,B. lactis 10 1 ea PO DAILY 04/04/20 Unknown History billion cell capsule acetaminophen 500 mg tablet 500 - 1,000 mg PO Q6H PRN PRN Pain 04/04/20 Unknown History 1-10 Or Fever calcium carbonate 600 mg-vitamin 1 tab PO BID 05/22/22 Unknown History D3 20 mcg (800 unit) tablet (Caltrate with Vitamin D3) cholecalciferol (vitamin D3) 25 25 mcg PO BID 05/22/22 Unknown History mcg (1,000 unit) tablet gabapentin 300 mg capsule 600 mg PO QHS 05/22/22 Unknown History trospium 60 mg capsule,extended 60 mg PO DAILY 05/22/22 Unknown History release 24 hr venlafaxine 75 mg tablet 37.5 mg PO DAILY 12/24/22 Unknown History Allergy/AdvReac Type Severity Reaction Status Date / Time niacin AdvReac flushing Verified 09/19/23 11:59 oxycodone AdvReac Itching Verified 09/19/23 11:59 Family History Father , from an IN age 52 Myocardial infarction from an IN age 52 Mother Breast cancer CVA (cerebral vascular accident) Surgical History History of left knee replacement (~10/10/21) History of laminectomy (05/15/20) History of open reduction and internal fixation (ORIF) procedure S/P thyroid biopsy (07/2020) History of knee surgery History of repair of rotator cuff (07/2018) H/O repair of right rotator cuff History of left heart catheterization (03/06/10) History of History of tonsillectomy and adenoidectomy Social History Smoking Status: Never smoker alcohol intake: current alcohol intake frequency: a few times a week substance use type: does not use caffeine: Yes Type: carbonated beverages, coffee and tea ROS Constitutional Constitutional: Denies anorexia, change in weight, chills, fatigue, fever(s), malaise, night sweats, weakness or other Eyes Eyes: Reports change in vision left and loss of vision ENT HEENT: Denies abnormal hearing, dysphagia, ear pain, epistaxis, headache(s), hearing loss, nasal congestion, nasal discharge, post nasal drip, sinus pressure, sore throat or other Cardiovascular Cardiovascular: Denies chest pain, claudication, dyspnea on exertion, edema, lightheadedness, orthopnea, palpitations, paroxysmal nocturnal dyspnea, rapid heart rate, syncope or other Respiratory/Chest Respiratory/Chest: Denies cough, dyspnea, excessive phlegm production, hemoptysis, productive cough, shortness of breath at rest, shortness of breath with exertion, wheezing or other Gastrointestinal Gastrointestinal: Reports dyspepsia; Denies abdominal pain, coffee ground emesis, constipation, diarrhea, hematemesis, hematochezia, loose stools, melena, nausea, vomiting or other Genitourinary Genitourinary: Denies burning urination, difficulty urinating, dysuria, hematuria, nocturia, urinary frequency, urinary hesitancy, urinary incontinence, urinary urgency or other Musculoskeletal Musculoskeletal: Denies arthralgias, back pain, joint pain, joint stiffness, joint swelling, myalgias, neck pain or other Neurologic Neurologic: Denies abnormal gait, abnormal speech, confusion, disequilibrium, dizziness, focal weakness, headache(s), numbness, paresthesias, seizure-like activity, seizures, syncope, tingling, tremor(s) or other Psychiatric Psychiatric: Denies anxiety, depression, homicidal ideation, suicidal ideation or other Endocrine Endocrinology: Denies change in body appearance, cold intolerance, excessive sweating, heat intolerance, polydipsia, polyuria or other Hematologic/Lymphatic Hematologic/Lymphatic: Denies anemia, easy bleeding, easy bruising, lymphadenopathy or other Allergic/Immunologic Allergic/Immunologic: Denies rhinitis, hives, eczemia, asthma or other Vital Signs Vital Signs Vital Signs: 09/19/23 11:57 09/19/23 12:15 09/19/23 12:44 Temperature 96.6 F L Temperature Source Temporal Temporal Pulse Rate 78 74 Respiratory Rate 14 20 H Blood Pressure 174/88 H 160/85 H Blood Pressure Mean 116 110 Pulse Ox 98 96 Oxygen Delivery Method Room Air Room Air Room Air Oxygen Flow Rate (L/min) 09/19/23 13:15 09/19/23 13:30 09/19/23 14:00 Temperature Temperature Source Pulse Rate 71 87 70 Respiratory Rate 18 18 17 Blood Pressure 151/124 H 154/93 H 191/150 H Blood Pressure Mean 133 113 163 Pulse Ox 97 98 95 Oxygen Delivery Method Nasal Cannula Nasal Cannula Room Air Oxygen Flow Rate (L/min) 2 2 09/19/23 14:30 09/19/23 15:00 09/19/23 15:00 Temperature Temperature Source Pulse Rate 69 68 Respiratory Rate 17 20 H Blood Pressure 170/114 H 178/101 H 178/101 H Blood Pressure Mean 132 126 126 Pulse Ox 99 97 Oxygen Delivery Method Nasal Cannula Nasal Cannula Oxygen Flow Rate (L/min) 2 2 Weight Weight: 86.954 kg Body Mass Index (BMI) 32.9 Physical Exam Const alert, oriented x3, no apparent distress, healthy appearing and well nourished Constitutional Narrative: Overweight, older, white female, sitting up in bed, appears comfortable, nontoxic General Appearance: cooperative HEENT normocephalic, head/scalp atraumatic, hearing grossly normal bilaterally and moist oral mucous membranes HEENT Narrative: Dentition is good for age, Mallampati is 2, no thrush Eyes PERRL, EOMs intact bilaterally and conjunctivae normal Eyes Narrative: No scleral icterus Neck no lymphadenopathy, supple, no JVD and No no carotid bruits Resp normal respiratory effort, no retractions, no use of accessory muscles and clear to auscultation bilaterally Auscultation: Negative for rales, rhonchi or wheezes Cardio regular rate, regular rhythm, S1 normal heart sound, S2 normal heart sound, no murmurs, no rub, no gallops and no clicks GI normal to inspection, nondistended, normoactive bowel sounds, soft to palpation and non-tender Extremity no clubbing, cyanosis or edema Extremity Narrative: Pedal and radial pulses are 2+ Neuro oriented x3, No CN's II-XII intact bilaterally, moves all extremities and no focal motor deficits Neuro Narrative: Sensation is normal, visual field cut medial aspect of left eye Speech: speech normal Motor Exam: strength 5/5 throughout Psych affect normal Psych Narrative: Very pleasant, interacts appropriately Results Lab / Micro Data 09/19/23 12:30 09/19/23 12:30 Labs: Laboratory Results - last 24 hr 09/19/23 12:30: WBC 9.3, RBC 5.37, Hgb 15.3 H, Hct 48.3 H, MCV 89.9, MCH 28.5, MCHC 31.7 L, RDW Std Deviation 50.1 H, RDW Coeff of Lonnie 15.2 H, Plt Count 493 H, MPV 9.5, Immature Gran % (Auto) 0.500, Neut % (Auto) 71.0 H, Lymph % (Auto) 12.2 L, [place] % (Auto) 11.7 H, Eos % (Auto) 3.6, Baso % (Auto) 1.0, Absolute Neuts (auto) 6.6, Absolute Lymphs (auto) 1.13, Nucleated RBC % 0, ESR 7, PT 13.9, INR 1.1, APTT 31.2, Sodium 140, Potassium 4.0, Chloride 111 H, Carbon Dioxide 24.0, Anion Gap 5, BUN 15, Creatinine 0.85, Estim Creat Clear Calc 59.15, Est GFR (MDRD) Af Amer 84, Est GFR (MDRD) Non-Af 69, BUN/Creatinine Ratio 17.7, Glucose 86, Calcium 9.0, Troponin I High Sens 12, C-React Prot Ext Range < 2.90 Imaging Radiology Impression Head/Neck CTA 09/19/23 12:25 IMPRESSION: No evidence of arterial stenosis, occlusion, dissection or intracranial aneurysm. 1.4 cm left thyroid nodule. Follow-up thyroid ultrasound may be indicated. Electronically Signed: Bjorn Cerna MD at 12:54 EDT , ADDENDUM: 09/19/23 1314 IMPRESSION: No evidence of arterial stenosis, occlusion, dissection or intracranial aneurysm. 1.4 cm left thyroid nodule. Follow-up thyroid ultrasound may be indicated. N.B. : The above Results were Read Back by Bjorn Cerna MD to Magalys Jacobo MD, and understanding confirmed on 09/19/2023 13:07:48 (ET). Electronically Signed: Bjorn Cerna MD at 12:54 EDT , Chest X-Ray 09/19/23 13:41 IMPRESSION: No acute cardiopulmonary disease. Electronically Signed: Bjorn Cerna MD at 14:23 EDT , Assessment & Plan Assessment/Plan (1) Acute retinal artery occlusion: (2) Erythrocytosis: (3) Thrombocytosis: (4) Left thyroid nodule: PLAN: Plan Left acute central retinal artery occlusion -Was evaluated by ophthalmology today and findings were consistent with central retinal artery occlusion -Stroke order set utilized the patient out of window for tenecteplase dosing at the time of arrival -Check lipids -Blood sugars are normal so we will defer hemoglobin A1c -start atorvastatin 40 mg daily -Will allow for some permissive hypertension and utilize as needed hydralazine and labetalol per stroke order set -Loaded with aspirin and Plavix per neurology request in the emergency department -Continue aspirin 81 mg daily and Plavix 75 mg daily -Check echocardiogram -check MRI in a.m. -CTA is negative for any LVO or stenosis -PT and OT evaluations per protocol -Neuro consult -Vice President Quality to call patient tomorrow and give the name of retinal specialist to follow-up with on Wednesday -Will need event monitor at discharge -[facility] telene[facility]rology consult Left thyroid nodule -1.[address] of the head and neck -Check TSH -Will have patient follow-up with primary care physician for outpatient follow-up Thrombocytosis -Chronic -stable Erythrocytosis -This appears to be new -Will reevaluate tomorrow with CBC next-May need outpatient follow-up Remote history of A-fib -Occurrence was in 2019 -Not anticoagulated -Currently in sinus rhythm -Monitor on telemetry -Will likely need event monitor at discharge versus full anticoagulation and will wait neuro recommendations tomorrow Elevated blood pressure -Patient does not have baseline diagnosis of hypertension however blood pressure is markedly elevated -Will monitor -Patient may need initiation of blood pressure medication at the time of discharge -Currently will allow for permissive hypertension given the above -PRNs available CAD -Previous cardiac CT which showed demonstrated calcification and abnormal stress test -Had left heart cath including clinic which demonstrated 30% LAD lesion with the rest of the vessels being normal -Not on any aspirin at baseline -Follows with cardiology Urinary incontinence -Continue trospium Neuropathy -Continue home gabapentin History of nephrolithiasis -Currently stable Fibromyalgia/osteoarthritis -Continue as needed Tylenol Depression -Continue home venlafaxine Obesity -BMI 32.9 -Recommend weight loss next-complicates treatment, prognosis, outcomes DVT prophylaxis -Subcu Lovenox daily CODE STATUS -Discussed with emergency department and patient remain full code at this time Charges/Coding Visit Charges Inpatient E&M: 26031 Init Hosp L2
[2023-09-19] MEDS: Aspirin 81 MG TAB.CHEW PO (18:38)
[2023-09-19] MEDS: Gabapentin 600 MG Tablet PO (21:46)
[2023-09-19] MEDS: MELATONIN 3 MG TABLET PO (21:46)
[2023-09-19] MEDS: Atorvastatin Calcium 40 MG Tablet PO (21:46)
[2023-09-20 01:45] VITALS: BP 148/90; PULSE 78; RESP 18; TEMP 36.6; O2SAT 96
[2023-09-20 05:45] VITALS: BP 148/68; PULSE 65; RESP 18; TEMP 36.9; O2SAT 95
[2023-09-20] MEDS: Acetaminophen 325 MG Tablet 650 MG PO (05:58)
[2023-09-20 06:02] LABS: Absolute Lymphocyte Count 1.41 X10^3/uL (0.83-4.51); Absolute Neutrophil Count 4.4 X10^3/uL (2.0-7.7); Basophil# 0.09 X10^3/uL; Basophil% 1.3 % (0-1); Eosinophil# 0.34 X10^3/uL; Eosinophils% 4.8 % (0-5); Hematocrit 46.3 % (37-47); Lymphocyte # 1.41 X10^3/ul (0.83-4.51); Mean Corp Hgb Conc 32.4 g/dL (32-36); Mean Corpuscular Hgb 29.3 pg (27.0-32.0); Mean Corpuscular Volume 90.4 fL (81-99); Mean Platelet Vol. 9.6 fl (6.2-12.0); Monocyte# 0.79 X10^3/uL; Monocyte% 11.2 % (0-10); NRBC Flagged by Analyzer 0 % (0-5); Neutrophil # 4.38 X10^3/uL (2.7-7.7); Neutrophil % 62.1 % (47-70); Platelet Count 444 K/mm3 (150-450); RBC Distribution Width CV 15.2 % (11.6-14.6); RBC Distribution Width SD 50.4 fl (35.1-43.9); Red Blood Count 5.12 M/mm3 (4.2-5.4); White Blood Count 7.1 K/mm3 (4.4-11.0)
[2023-09-20 06:47] LABS: AST(SGOT) 20 U/L (15-37); Alanine Aminotransfer ALT/SGPT 23 U/L (13-56); Albumin, Serum 3.2 g/dL (3.2-5.0); Alkaline Phosphatase 64 U/L (45-117); Anion Gap 6 (5-15); BUN 16 mg/dL (7-18); BUN/Creat Ratio 23.1 RATIO (10-20); Calcium,Total 8.6 mg/dL (8.5-10.1); Chloride 111 mmol/L (98-107); Cholesterol 133 mg/dL (200); Creatinine, Serum 0.69 mg/dL (0.55-1.02); EST Glomerular Filtration Rate 87 mL/min (>60); Est Glom Filt Rate - Afr Amer 106 mL/min (>60); Estimated Creatinine Clearance 62.42 ml/min; Globulin 3.1 g/dL (2.2-4.2); Glucose 104 mg/dL (74-106); High Density Lipoprotein 43 mg/dL; Magnesium 2.2 mg/dL (1.6-2.6); Phosphorus 3.4 mg/dL (2.5-4.9); Potassium 3.9 mmol/L (3.5-5.1); Protein, Total 6.3 g/dL (6.4-8.2); Sodium Level 141 mmol/L (136-145); Thyroid Stim Hormone (TSH) 1.43 uIU/mL (0.358-3.74); Triglycerides 105 mg/dL; Very Low Density Lipoprotein 21 mg/dL (5-40)
[2023-09-20 07:46] VITALS: O2SAT 96
--- NOTE | 2023-09-20 09:00 | MRI_ITS ---
HISTORY: Sudden vision loss left eye, central retinal artery occlusion. TECHNIQUE: Multiplanar and multisequence MR images of the brain were obtained without contrast. 295 images. COMPARISON: CT prior day. MRI 03/03/2020. FINDINGS: BRAIN PARENCHYMA: Very mild chronic periventricular white matter changes. No abnormal focus of restricted diffusion. No acute intracranial hemorrhage identified. CSF SPACES: Chronic mild volume loss. No significant midline shift or other mass effect.No extra-axial fluid collection. VASCULAR SYSTEM: Major intracranial flow voids are maintained. PARANASAL SINUSES AND MASTOID AIR CELLS: No significant air fluid levels. ORBITS: Symmetric contents. MRI/Brain without Contrast IMPRESSION: No evidence for acute infarct. Mild chronic involutional and white matter changes. Electronically Signed: Zoë Nelson MD at 10:03 EDT ,
[2023-09-20 09:55] VITALS: BP 148/75; PULSE 73; RESP 16; TEMP 36.5; O2SAT 97
--- NOTE | 2023-09-20 10:38 | NURSING ---
NIHSS late at 0945 due to pt being down at MRI.
--- NOTE | 2023-09-20 10:40 | STROKE.CONS ---
Assessment and Plan: Stroke Assessment/Plan ZULEYKA GAMEZ is a 78 F with a history of HLD, ? transient Afib in past not on AP or AC who presents for evaluation of loss of vision in left eye from CRAO. Neurological examination shows decreased vision left eye. Neuroimaging shows CT head negative, CTA negative, LD: 69. MRI negative, ECHO: okay Not a TNK or IR candidate. 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 1. Continue ASA, plavix. Continue DAPT for 21 days then ASA alone 2. Plan 30 day event monitor upon DC. 3. HLD: Continue statin to keep LDL <70 Thanks for consult Spent 50 minutes in evaluation of this patient. HPI Consult Data Date of Consult: 09/21/23 HPI Narrative HPI Narrative: ZULEYKA GAMEZ, is a 78 F who presents to the emergency department [facility] on 09/18/2022 with sudden vision loss in the medial portion of her left eye. Symptoms started at about 8 15-8 30 on the morning of presentation. She called her shellfish sorter and they met her at the office for an exam. 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 She reports that she had a remote history of atrial fibrillation. She stated that this is in 2009 and very brief and has not had any known A-fib since that point in time. She is not on any anticoagulation or antiplatelet therapy at this time. She has no other deficits or complaints. Initial NIH was 2 with only visual deficits noted. CT of the brain was unremarkable for any acute findings. CTA of the head and neck showed normal vertebrals bilaterally and normal carotids bilaterally with a 1.4 cm left thyroid nodule. She was unfortunately out of the window for tenecteplase administration. [facility] Medical History Elevated blood pressure reading in office without diagnosis of hypertension Encounter for pre-operative cardiovascular clearance Thyroid nodule Abnormal findings on diagnostic imaging of other abdominal regions, including retroperitoneum First detected episode of atrial fibrillation (02/28/20) Acute cystitis Kidney stone on right side Sepsis ANGELICA (acute kidney injury) Thrombocytopenia Nonobstructive atherosclerosis of coronary artery Arthritis of knee, degenerative Hyperlipidemia History of nephrolithiasis Vitamin D deficiency Fibromyalgia Diverticulosis of colon Gastritis without bleeding Internal hemorrhoid IBS (irritable bowel syndrome) Osteoarthritis Home Medications ?Medication ?Instructions ?Recorded ?Last Taken ?Type diclofenac sodium 1 % topical gel 2 g topical BID PRN osteoarthritis 08/04/17 Unknown Rx (Voltaren) #100 grams L.acidoph, paracasei,B. lactis 10 1 ea PO DAILY supplement 04/04/20 Unknown History billion cell capsule acetaminophen 500 mg tablet 500 - 1,000 mg PO Q6H PRN PRN Pain 04/04/20 Unknown History 1-10 Or Fever calcium carbonate 600 mg-vitamin 1 tab PO BID supplement 05/22/22 Unknown History D3 20 mcg (800 unit) tablet (Caltrate with Vitamin D3) cholecalciferol (vitamin D3) 25 25 mcg PO BID Supplement 05/22/22 Unknown History mcg (1,000 unit) tablet gabapentin 300 mg capsule 600 mg PO QHS 05/22/22 Unknown History trospium 60 mg capsule,extended 60 mg PO DAILY 05/22/22 Unknown History release 24 hr venlafaxine 75 mg tablet 37.5 mg PO DAILY 12/24/22 Unknown History aspirin 81 mg capsule 81 mg PO DAILY #1 cap 09/20/23 Unknown Rx atorvastatin 40 mg tablet 40 mg PO QHS #30 tabs 09/20/23 Unknown Rx clopidogrel 75 mg tablet 75 mg PO DAILY #21 tabs 09/20/23 Unknown Rx losartan 25 mg tablet 25 mg PO DAILY #90 tabs 09/20/23 Unknown Rx Allergy/AdvReac Type Severity Reaction Status Date / Time niacin AdvReac flushing Verified 09/19/23 11:59 oxycodone AdvReac Itching Verified 09/19/23 11:59 Family History Father , from an [facility] age 52 Myocardial infarction from an [facility] age 52 Mother Breast cancer CVA (cerebral vascular accident) Surgical History History of left knee replacement (~10/10/21) History of laminectomy (05/15/20) History of open reduction and internal fixation (ORIF) procedure S/P thyroid biopsy (07/2020) History of knee surgery History of repair of rotator cuff (07/2018) H/O repair of right rotator cuff History of left heart catheterization (03/06/10) History of History of tonsillectomy and adenoidectomy Social History Smoking Status: Unknown if ever smoked alcohol intake: current alcohol intake frequency: a few times a week substance use type: does not use caffeine: Yes Type: carbonated beverages, coffee and tea Vital Signs Vital Signs Vital Signs: 09/19/23 11:57 09/19/23 12:15 09/19/23 12:44 Temperature 96.6 F L Temperature Source Temporal Temporal Pulse Rate 78 74 Pulse Strength Respiratory Rate 14 20 H Blood Pressure 174/88 H 160/85 H Blood Pressure Mean 116 110 Blood Pressure Source Blood Pressure Position Blood Pressure Location Pulse Ox 98 96 Oxygen Delivery Method Room Air Room Air Room Air Oxygen Flow Rate (L/min) 09/19/23 13:15 09/19/23 13:30 09/19/23 14:00 Temperature Temperature Source Pulse Rate 71 87 70 Pulse Strength Respiratory Rate 18 18 17 Blood Pressure 151/124 H 154/93 H 191/150 H Blood Pressure Mean 133 113 163 Blood Pressure Source Blood Pressure Position Blood Pressure Location Pulse Ox 97 98 95 Oxygen Delivery Method Nasal Cannula Nasal Cannula Room Air Oxygen Flow Rate (L/min) 2 2 09/19/23 14:30 09/19/23 15:00 09/19/23 15:00 Temperature Temperature Source Pulse Rate 69 68 Pulse Strength Respiratory Rate 17 20 H Blood Pressure 170/114 H 178/101 H 178/101 H Blood Pressure Mean 132 126 126 Blood Pressure Source Blood Pressure Position Blood Pressure Location Pulse Ox 99 97 Oxygen Delivery Method Nasal Cannula Nasal Cannula Oxygen Flow Rate (L/min) 2 2 09/19/23 15:30 09/19/23 16:00 09/19/23 16:12 Temperature 97 F L Temperature Source Pulse Rate 67 68 68 Pulse Strength Respiratory Rate 18 18 18 Blood Pressure 181/102 H 198/108 H 198/108 H Blood Pressure Mean 128 138 138 Blood Pressure Source Blood Pressure Position Blood Pressure Location Pulse Ox 98 98 99 Oxygen Delivery Method Nasal Cannula Room Air Oxygen Flow Rate (L/min) 2 09/19/23 17:45 09/19/23 20:14 09/19/23 21:45 Temperature 97.3 F L 98.1 F Temperature Source Temporal Temporal Pulse Rate 61 89 Pulse Strength Weak (1+) Respiratory Rate 18 18 Blood Pressure 163/92 H 160/98 H Blood Pressure Mean 115 118 Blood Pressure Source Monitor Monitor Blood Pressure Position Semi-Fowlers Semi-Fowlers Blood Pressure Location Left Arm Left Arm Pulse Ox 98 94 Oxygen Delivery Method Room Air Room Air Oxygen Flow Rate (L/min) 09/19/23 22:52 09/20/23 01:45 09/20/23 05:45 Temperature 97.8 F 98.4 F Temperature Source Temporal Temporal Pulse Rate 78 65 Pulse Strength Respiratory Rate 18 18 Blood Pressure 148/90 H 148/68 H Blood Pressure Mean 109 94 Blood Pressure Source Blood Pressure Position Blood Pressure Location Pulse Ox 89 96 95 Oxygen Delivery Method Room Air Room Air Room Air Oxygen Flow Rate (L/min) 09/20/23 07:46 09/20/23 09:55 Temperature 97.7 F L Temperature Source Oral Pulse Rate 73 Pulse Strength Respiratory Rate 16 Blood Pressure 148/75 H Blood Pressure Mean 99 Blood Pressure Source Monitor Blood Pressure Position Sitting Blood Pressure Location Right Arm Pulse Ox 96 97 Oxygen Delivery Method Room Air Room Air Oxygen Flow Rate (L/min) Weight Weight: 85.8 kg Body Mass Index (BMI) 32.4 EEG Results Procedure Details EEG Procedure Details: ZULEYKA GAMEZ is a 78 year old F with a past medical history of , who presents for evaluation of Electroencephalogram on DATE at TIME NIHSS NIHSS Nursing Documentation NIHSS Nursing Documentation: NIHSS: Ischemic Stroke/TIA Start: 09/19/23 17:58 Text: For PCU Patients: NIH and Neuro Check every 4 Status: Active hours, PRN and with change in RN caregiver. Freq: [id number] Protocol: Activity Type Activity Date Activity User E-sign Co-sign Detail Recorded Client Recorded Date Recorded By Document 09/20/23 05:45 AML [id number] 09/20/23 06:22 AML 09/20/23 05:45 NIH Stroke Scale [NIHSS] A score of 0 is normal or asymptomatic . Total possible score is 42. Inpatient: RN or Physician to activate a stroke alert for onset of new stroke symptoms or with NIHSS increase >/= 3 points. Following change in neurological status, NIHSS will be performed per physician order or more frequently PRN. -1a. Level of Consciousness Alert; keenly responsive -1b. LOC Questions Answers BOTH questions correctly. -1c. LOC Commands Performs both tasks correctly . -2. Best Gaze Normal -3. Visual Partial hemianopia -4. Facial Palsy Normal symmetrical movements -5a. Left Arm No drift; arm holds 90 (or 45 ) degrees for full 10 seconds -5b. Right Arm No drift; arm holds 90 (or 45 ) degrees for full 10 seconds -6a. Left Leg No drift; leg holds 30-degree position for full 5 seconds -6b. Right Leg No drift; leg holds 30-degree position for full 5 seconds -7. Limb Ataxia Absent -8. Sensory Normal; no sensory loss -9. Best Language No aphasia; normal -10. Dysarthria Normal -11. Extinction and Inattention No abnormality -Total 1 Query Text:A score of 0 is normal or asymptomatic. Total possible score is 42 . ED: Notify Physician for NIHSS increase by > / = 3 points. Inpatient: RN or Physician to activate a stroke alert for NIHSS increase of > / = 3 points. NIHSS 1a. Level of Consciousness: Alert; keenly responsive 1b. LOC Questions: Answers BOTH questions correctly. 1c. LOC Commands: Performs both tasks correctly. 2. Best Gaze: Normal 3. Visual: Partial hemianopia 4. Facial Palsy: Normal symmetrical movements 5a. Left Arm: No drift; arm holds 90 (or 45) degrees for full 10 seconds 5b. Right Arm: No drift; arm holds 90 (or 45) degrees for full 10 seconds 6a. Left Leg: No drift; leg holds 30-degree position for full 5 seconds 6b. Right Leg: No drift; leg holds 30-degree position for full 5 seconds 7. Limb Ataxia: Absent 8. Sensory: Normal; no sensory loss 9. Best Language: No aphasia; normal 10. Dysarthria: Normal 11. Extinction and Inattention: No abnormality Total: 1 Physical Exam Const alert, oriented x3 and no apparent distress General Appearance: cooperative, comfortable, well kempt and well developed Resp normal respiratory effort, no retractions and no use of accessory muscles Neuro Neuro Narrative: Awake, alert Speech fluent, comprehension intact Cranial nerves: Decraesed vision in left eye, no facial droop Motor power 5/5 Sensation: Intact No ataxia Lab / Micro Data 09/20/23 05:24 09/20/23 05:24 Labs: Laboratory Results - last 24 hr 09/19/23 12:30: WBC 9.3, RBC 5.37, Hgb 15.3 H, Hct 48.3 H, MCV 89.9, MCH 28.5, MCHC 31.7 L, RDW Std Deviation 50.1 H, RDW Coeff of Lonnie 15.2 H, Plt Count 493 H, MPV 9.5, Immature Gran % (Auto) 0.500, Neut % (Auto) 71.0 H, Lymph % (Auto) 12.2 L, Rusk % (Auto) 11.7 H, Eos % (Auto) 3.6, Baso % (Auto) 1.0, Absolute Neuts (auto) 6.6, Absolute Lymphs (auto) 1.13, Nucleated RBC % 0, ESR 7, PT 13.9, INR 1.1, APTT 31.2, Sodium 140, Potassium 4.0, Chloride 111 H, Carbon Dioxide 24.0, Anion Gap 5, BUN 15, Creatinine 0.85, Estim Creat Clear Calc 59.15, Est GFR (MDRD) Af Amer 84, Est GFR (MDRD) Non-Af 69, BUN/Creatinine Ratio 17.7, Glucose 86, Calcium 9.0, Troponin I High Sens 12, C-React Prot Ext Range < 2.90 09/20/23 05:24: WBC 7.1, RBC 5.12, Hgb 15.0, Hct 46.3, MCV 90.4, MCH 29.3, MCHC 32.4, RDW Std Deviation 50.4 H, RDW Coeff of Lonnie 15.2 H, Plt Count 444, MPV 9.6, Immature Gran % (Auto) 0.600, Neut % (Auto) 62.1, Lymph % (Auto) 20.0, Rusk % (Auto) 11.2 H, Eos % (Auto) 4.8, Baso % (Auto) 1.3 H, Absolute Neuts (auto) 4.4, Absolute Lymphs (auto) 1.41, Nucleated RBC % 0, Sodium 141, Potassium 3.9, Chloride 111 H, Carbon Dioxide 24.0, Anion Gap 6, BUN 16, Creatinine 0.69, Estim Creat Clear Calc 62.42, Est GFR (MDRD) Af Amer 106, Est GFR (MDRD) Non-Af 87, BUN/Creatinine Ratio 23.1 H, Glucose 104, Calcium 8.6, Phosphorus 3.4, Magnesium 2.2, Total Bilirubin 0.30, AST 20, ALT 23, Alkaline Phosphatase 64, Total Protein 6.3 L, Albumin 3.2, Globulin 3.1, Albumin/Globulin Ratio 1.0, Triglycerides 105, Cholesterol 133, LDL Cholesterol 69, VLDL Cholesterol 21, HDL Cholesterol 43, TSH 1.43 Imaging Radiology Impression Brain CT 09/19/23 12:15 IMPRESSION: Age consistent changes, no acute findings N.B. : The above Results were Read Back by Star Wise MD to Magalys Jacobo MD, and understanding confirmed on 09/19/2023 12:41:36 (ET). Electronically Signed: Star Wise MD at 12:42 EDT , Head/Neck CTA 09/19/23 12:25 IMPRESSION: No evidence of arterial stenosis, occlusion, dissection or intracranial aneurysm. 1.4 cm left thyroid nodule. Follow-up thyroid ultrasound may be indicated. Electronically Signed: Bjorn Cerna MD at 12:54 EDT , ADDENDUM: 09/19/23 1314 IMPRESSION: No evidence of arterial stenosis, occlusion, dissection or intracranial aneurysm. 1.4 cm left thyroid nodule. Follow-up thyroid ultrasound may be indicated. N.B. : The above Results were Read Back by Bjorn Cerna MD to Magalys Jacobo MD, and understanding confirmed on 09/19/2023 13:07:48 (ET). Electronically Signed: Bjorn Cerna MD at 12:54 EDT , Chest X-Ray 09/19/23 13:41 IMPRESSION: No acute cardiopulmonary disease. Electronically Signed: Bjorn Cerna MD at 14:23 EDT , Echocardiogram 09/19/23 15:51 Interpretation Summary Normal LV size. Left ventricular systolic function is normal. The left ventricular ejection fraction is 65 %. Mild concentric left ventricular hypertrophy. Stage 1 diastolic dysfunction. There is mild to moderate mitral annular calcification. Bubble contrast study negative for right to left interatrial shunt. Compared to the previous the above is unchanged. Ordering Physician: Inez Nolasco Referring Physician: Quentin Carter Performed By: Radha Nuñez RDCS Brain MRI 09/20/23 09:00 IMPRESSION: No evidence for acute infarct. Mild chronic involutional and white matter changes. Electronically Signed: Zoë Nelson MD at 10:03 EDT , Active Medications Active Medications Active Medications: Current Medications Generic Name Dose Route Start Last Admin Trade Name Freq PRN Reason Stop Dose Admin Acetaminophen 650 mg 09/19/23 17:58 09/20/23 05:58 Acetaminophen 325 Mg Tablet PO 650 mg Q4H PRN PRN Administration Pain 1-10 Or Fever>99.6 Atorvastatin Calcium 40 mg 09/19/23 22:00 09/19/23 21:46 Atorvastatin Calcium 40 Mg Tablet PO 40 mg QHS HOLA Administration Clopidogrel Bisulfate 75 mg 09/20/23 10:00 Clopidogrel Bisulfate 75 Mg Tablet PO DAILY HOLA Enoxaparin Sodium 40 mg 09/20/23 10:00 Enoxaparin 40 Mg/0.4 Ml Syringe SC DAILY HOLA Gabapentin 600 mg 09/19/23 22:00 09/19/23 21:46 Gabapentin 600 Mg Tablet PO 600 mg QHS HOLA Administration Hydralazine HCl 5 mg 09/19/23 17:58 Hydralazine 20 Mg/Ml Vial IV 09/20/23 17:58 Q30M PRN maintain BP parameters with HR <60 Labetalol HCl 10 - 20 mg 09/19/23 17:58 Labetalol (Compound) 20 Mg/4 Ml Syringe IV 09/20/23 17:58 Q10M PRN PRN maintain BP parameters with HR >/=60 Melatonin 3 mg 09/19/23 17:58 09/19/23 21:46 Melatonin 3 Mg Tablet PO 3 mg QHS PRN PRN Administration INSOMNIA Ondansetron HCl 4 mg 09/19/23 17:58 Ondansetron 4 Mg/2 Ml Vial IV Q8H PRN PRN NAUSEA/VOMITING Senna/Docusate Sodium 2 tablet 09/19/23 17:58 Senna/Docusate Sodium 1 Tablet PO BID PRN PRN Constipation Sodium Chloride 10 - 40 ml 09/19/23 17:31 0.9% Saline Lock 10 Ml Syringe IV UD PRN SALINE FLUSH Tolterodine Tartrate 4 mg 09/20/23 10:00 Tolterodine Tartrate 4 Mg Cap.Sa PO DAILY HOLA Venlafaxine HCl 37.5 mg 09/20/23 10:00 Venlafaxine Xr 37.5 Mg Capsule PO DAILY HOLA
[2023-09-20] MEDS: Enoxaparin 40 MG/0.4 ML Syringe SC (10:48)
[2023-09-20] MEDS: Clopidogrel Bisulfate 75 MG Tablet PO (10:48)
[2023-09-20] MEDS: Lactobacillis Acidophilus 1 CAP PO (10:48)
[2023-09-20] MEDS: Tolterodine Tartrate 4 MG CAP.SA PO (10:48)
[2023-09-20] MEDS: Venlafaxine XR 37.5 MG Capsule PO (10:48)
--- NOTE | 2023-09-20 11:05 | CASEMGMT ---
Social Work- SW met with pt to administer PHQ9. Pt scored 0. Pt denies any need for resources or information. CLAIRE Salguero
--- NOTE | 2023-09-20 11:24 | PCM.DC.SUM ---
Providers Date of Admission: 09/19/23 Date of Discharge: 09/20/23 Primary Care Physician: Dr. Quentin Carter, Consultations 09/19/23 17:58 Consult: Tele-Neurology Routine Consulting Provider: [facility] Reason for Consult: Acute Ischemic Stroke/TIA EMERGENT Consult: No MD Notified: Yes Date Notified: 09/19/23 Time Notified: 18:49 Method of Notification: Answering Service Nursing Unit Staff Notify [facility] of Tele-Neurology Consult: Yes Reason For Visit: CRAO Diagnosis Discharge Diagnosis (1) Acute retinal artery occlusion: Status: Acute Code(s): H34.9 - Unspecified retinal vascular occlusion (2) Erythrocytosis: Status: Acute Code(s): D75.1 - Secondary polycythemia (3) Thrombocytosis: Status: Acute Code(s): D75.839 - Thrombocytosis, unspecified (4) Left thyroid nodule: Status: Acute Code(s): E04.1 - Nontoxic single thyroid nodule Medications at Discharge Home Medications diclofenac sodium 1 % topical gel (Voltaren) 2 g topical BID PRN osteoarthritis #100 grams 08/04/17 L.acidoph, paracasei,B. lactis 10 billion cell capsule 1 ea PO DAILY 04/04/20 acetaminophen 500 mg tablet 500 - 1,000 mg PO Q6H PRN PRN Pain 1-10 Or Fever 04/04/20 calcium carbonate 600 mg-vitamin D3 20 mcg (800 unit) tablet (Caltrate with Vitamin D3) 1 tab PO BID 05/22/22 cholecalciferol (vitamin D3) 25 mcg (1,000 unit) tablet 25 mcg PO BID 05/22/22 gabapentin 300 mg capsule 600 mg PO QHS 05/22/22 trospium 60 mg capsule,extended release 24 hr 60 mg PO DAILY 05/22/22 venlafaxine 75 mg tablet 37.5 mg PO DAILY 12/24/22 aspirin 81 mg capsule 81 mg PO DAILY #1 cap 09/20/23 atorvastatin 40 mg tablet 40 mg PO QHS #30 tabs 09/20/23 clopidogrel 75 mg tablet 75 mg PO DAILY #21 tabs 09/20/23 losartan 25 mg tablet 25 mg PO DAILY #1 TAB 09/20/23 Hospital Course Operations None Procedures 2-D Echocardiogram, EKG and - (CT brain/CTA head and neck/chest x-ray/MRI brain) Summary of Care Provided Minutes Spent on Discharge: 41 Hospital Course: ZULEYKA GAMEZ, is a 78 F who presented to the emergency department [facility] on 09/18/2022 with sudden vision loss in the medial portion of her left eye. Symptoms started at about 8 15-8 30 on the morning of presentation. She called her automobile mechanic radiator and they met her at the office for an exam. 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 At the time presentation, had been 4 hours since the symptom onset. She reports that she had a remote history of atrial fibrillation. She stated that this is in 2009 and very brief and has not had any known A-fib since that point in time. She is not on any anticoagulation or antiplatelet therapy at this time. She has no other deficits or complaints. Initial NIH was 2 with only visual deficits noted. Vital signs at the time of presentation showed temperature of 96.6, heart rate 78, respiratory rate was 14, blood pressure was 174/88 with repeat at 160/85, and pulse ox was 98% on room air. CBC showed erythrocytosis and thrombocytosis but was otherwise unremarkable. Coags were normal. Chemistry panel showed normal electrolytes with normal renal function. Troponin was normal at 12. ESR was 7 and CRP was less than 2.9. EKG was sinus rhythm with a rate of 72, normal intervals and no acute ischemia. CT of the brain was unremarkable for any acute findings. CTA of the head and neck showed normal vertebrals bilaterally and normal carotids bilaterally with a 1.4 cm left thyroid nodule. She was admitted to the telemetry floor for further workup. An echocardiogram and MRI were ordered. Her echocardiogram showed an EF of 65% with mild concentric LVH, stage I diastolic dysfunction and mild to moderate mitral annular calcification with a negative bubble study and unchanged from previous. Her MRI was unremarkable for acute stroke. We obtained her cholesterol and found a total cholesterol 133/triglycerides 105/HDL 43/LDL 69. We did not obtain a hemoglobin A1c as her blood sugars were not elevated all fasting or prandial. In the emergency department it was recommended that she get loaded with Plavix 300 mg and aspirin 81 mg. This was given and she is subsequently been continued on Plavix and aspirin at 81 mg and 75 mg respectively. Her vision overall was improving by 09/20/2023. Teleneurology from [facility] evaluated the patient and recommended continuing the aspirin and Plavix for a total of 21 days and then stopping the Plavix, continuing the atorvastatin and improve blood pressure control, and obtaining an event monitor at discharge. Her blood pressure was noted to be elevated above recommended goal for stroke during her hospital course. She had previously been on losartan 50 mg daily. I am unsure if she will need 50 mg so I asked her to start 25 mg daily and cut the tablet she has at home and half. She has seen Dr. Ellis in the past for this so I will have her follow-up as an outpatient with him to reevaluate her blood pressure and uptitrate if needed. I did discuss with her her goal blood pressure is now 130/80 or under. Prescriptions for the statin and Plavix were sent to the local pharmacy. She indicated she had losartan at home and will cut those tablets in half and she was encouraged to buy [id number] aspirin. She is able to be discharged home in stable condition on 09/20/2023. She was noted to have a left thyroid nodule on the CT of her head and neck and I have encouraged outpatient follow-up with her primary care physician for this. Her TSH was within normal limits. An event monitor was ordered and will be sent to her house. Patient was given notification of this. Discharge diagnoses: Left central retinal artery occlusion Hypertension Left thyroid nodule--> TSH was within normal limits Erythrocytosis-resolved Thrombocytosis-resolved Remote history of atrial fibrillation CAD-nonobstructive Urinary incontinence Neuropathy History of nephrolithiasis Fibromyalgia Osteoarthritis Depression Obesity Physical Exam Const alert, oriented x3, no apparent distress, no limitations, healthy appearing and well nourished; Negative for average body habitus Constitutional Narrative: Overweight, older, white female, sitting up in a chair at the bedside, texting on phone, appears comfortable, nontoxic General Appearance: cooperative, comfortable, well kempt and well developed Orientation / Consciousness: awake, oriented to person, oriented to place and oriented to time Exam Limitations: no limitations Nutritional Appearance: obese HEENT normocephalic, head/scalp atraumatic, hearing grossly normal bilaterally and moist oral mucous membranes HEENT Narrative: Mallampati 2, no thrush Eyes PERRL, EOMs intact bilaterally and conjunctivae normal Eyes Narrative: No scleral icterus Neck no lymphadenopathy and supple Neck Narrative: Trachea midline Resp normal respiratory effort, no retractions, no use of accessory muscles and clear to auscultation bilaterally Auscultation: Negative for rales, rhonchi or wheezes Cardio regular rate, regular rhythm, S1 normal heart sound, S2 normal heart sound, no murmurs, no rub, no gallops and no clicks GI normal to inspection, nondistended, normoactive bowel sounds, soft to palpation and non-tender Extremity no clubbing, cyanosis or edema Extremity Narrative: Pedal and radial pulses are 2+ Skin no rashes or lesions noted, no wounds, skin turgor normal and no jaundice Neuro oriented x3, No CN's II-XII intact bilaterally, moves all extremities, no focal motor deficits and no sensory deficits noted Neuro Narrative: Sensation is normal, visual field cut medial aspect of left eye--> deficit is resolving Speech: speech normal Psych affect normal Psych Narrative: Very pleasant, interacts appropriately Weight / BMI Weight Weight: 85.8 kg Body Mass Index (BMI) 32.4 ABG / Lab / Microbiology Data 09/20/23 05:24 09/20/23 05:24 Laboratory: Laboratory Results - last 24 hr 09/19/23 12:30: WBC 9.3, RBC 5.37, Hgb 15.3 H, Hct 48.3 H, MCV 89.9, MCH 28.5, MCHC 31.7 L, RDW Std Deviation 50.1 H, RDW Coeff of Lonnie 15.2 H, Plt Count 493 H, MPV 9.5, Immature Gran % (Auto) 0.500, Neut % (Auto) 71.0 H, Lymph % (Auto) 12.2 L, Chaves % (Auto) 11.7 H, Eos % (Auto) 3.6, Baso % (Auto) 1.0, Absolute Neuts (auto) 6.6, Absolute Lymphs (auto) 1.13, Nucleated RBC % 0, ESR 7, PT 13.9, INR 1.1, APTT 31.2, Sodium 140, Potassium 4.0, Chloride 111 H, Carbon Dioxide 24.0, Anion Gap 5, BUN 15, Creatinine 0.85, Estim Creat Clear Calc 59.15, Est GFR (MDRD) Af Amer 84, Est GFR (MDRD) Non-Af 69, BUN/Creatinine Ratio 17.7, Glucose 86, Calcium 9.0, Troponin I High Sens 12, C-React Prot Ext Range < 2.90 09/20/23 05:24: WBC 7.1, RBC 5.12, Hgb 15.0, Hct 46.3, MCV 90.4, MCH 29.3, MCHC 32.4, RDW Std Deviation 50.4 H, RDW Coeff of Lonnie 15.2 H, Plt Count 444, MPV 9.6, Immature Gran % (Auto) 0.600, Neut % (Auto) 62.1, Lymph % (Auto) 20.0, Chaves % (Auto) 11.2 H, Eos % (Auto) 4.8, Baso % (Auto) 1.3 H, Absolute Neuts (auto) 4.4, Absolute Lymphs (auto) 1.41, Nucleated RBC % 0, Sodium 141, Potassium 3.9, Chloride 111 H, Carbon Dioxide 24.0, Anion Gap 6, BUN 16, Creatinine 0.69, Estim Creat Clear Calc 62.42, Est GFR (MDRD) Af Amer 106, Est GFR (MDRD) Non-Af 87, BUN/Creatinine Ratio 23.1 H, Glucose 104, Calcium 8.6, Phosphorus 3.4, Magnesium 2.2, Total Bilirubin 0.30, AST 20, ALT 23, Alkaline Phosphatase 64, Total Protein 6.3 L, Albumin 3.2, Globulin 3.1, Albumin/Globulin Ratio 1.0, Triglycerides 105, Cholesterol 133, LDL Cholesterol 69, VLDL Cholesterol 21, HDL Cholesterol 43, TSH 1.43 Radiography Diagnostic Testing: Radiology Impression Brain CT 09/19/23 12:15 IMPRESSION: Age consistent changes, no acute findings N.B. : The above Results were Read Back by Star Wise MD to Magalys Jacobo MD, and understanding confirmed on 09/19/2023 12:41:36 (ET). Electronically Signed: Star Wise MD at 12:42 EDT , Head/Neck CTA 09/19/23 12:25 IMPRESSION: No evidence of arterial stenosis, occlusion, dissection or intracranial aneurysm. 1.4 cm left thyroid nodule. Follow-up thyroid ultrasound may be indicated. Electronically Signed: Bjorn Cerna MD at 12:54 EDT , ADDENDUM: 09/19/23 1314 IMPRESSION: No evidence of arterial stenosis, occlusion, dissection or intracranial aneurysm. 1.4 cm left thyroid nodule. Follow-up thyroid ultrasound may be indicated. N.B. : The above Results were Read Back by Bjorn Cerna MD to Magalys Jacobo MD, and understanding confirmed on 09/19/2023 13:07:48 (ET). Electronically Signed: Bjorn Cerna MD at 12:54 EDT , Chest X-Ray 09/19/23 13:41 IMPRESSION: No acute cardiopulmonary disease. Electronically Signed: Bjorn Cerna MD at 14:23 EDT , Echocardiogram 09/19/23 15:51 Interpretation Summary Normal LV size. Left ventricular systolic function is normal. The left ventricular ejection fraction is 65 %. Mild concentric left ventricular hypertrophy. Stage 1 diastolic dysfunction. There is mild to moderate mitral annular calcification. Bubble contrast study negative for right to left interatrial shunt. Compared to the previous the above is unchanged. Ordering Physician: Inez Nolasco Referring Physician: Quentin Carter Performed By: Radha Nuñez RDCS Brain MRI 09/20/23 09:00 IMPRESSION: No evidence for acute infarct. Mild chronic involutional and white matter changes. Electronically Signed: Zoë Nelson MD at 10:03 EDT Reading Location ID and State: [facility] / [place] Tel , Service support , D/C Instructions Discharge Diet: Low fat / Low cholesterol Discharge Activity: Return to Normal Activity Meaningful Use Info Meaningful Use Meaningful Use Diagnoses (Choose all that apply): None applicable Ischemic Stroke Statin Dosing Therapy Reference: STATIN DOSE THERAPY REFERENCE: * Patients > 75 years receive moderate or high dose statin therapy. * Patients 75 years or YOUNGER should receive HIGH intensity statin dose unless contraindicated. You will be required to document reason for non-treatment if statin daily dose does not meet guidelines. HIGH DOSE STATIN THERAPY DAILY Atorvastatin > than or = to 40 mg Rosuvastatin > than or = to 20 mg Amlodipine + Atorvastatin > than or = to 2.5/40 mg Ezetimibe + Simvastatin 10/80 mg Simvastatin 80mg Discharge Plan Admission Admit Date/Time: 09/19/23 15:46 Primary Reason for Your Visit: Vision change left eye Attending Provider: Inez Nolasco Primary Care Provider: Quentin Carter Consulting Providers: Jamil Chaney; Yovani Peña; Shelbie Dodge; Jennifer Saavedra; Marcela Wei; Shyam Gay; Geno Washington; Sam Pittman; Jason Mckeon; Ángel Brito; Casandra Martinez; Keon Akbar; Jessica Silva; Zackary Julien; Candelaria Fallon; Nico Bee; Ford Maharaj; Sergo Escoto; Margo Nolasco; Taylor,Jones Instructions Additional Instructions / Restrictions: 1. Please take your losartan but cut the tablets you have at home which are 50 mg in half to take 25 mg daily and follow-up with Dr. Ced Ricardo to have your blood pressure rechecked to make sure you are meeting your goal of less than 130/80 2. Please follow-up with the retinal specialist as directed by your primary automobile mechanic radiator 3. You will be taking aspirin and Plavix for 21 days and then stopping Plavix and continuing aspirin 81 mg daily. Please take the aspirin with food Discharge Orders/Prescriptions Prescriptions: New atorvastatin 40 mg Tablet 40 mg PO QHS Qty: 30 0RF clopidogrel 75 mg Tablet 75 mg PO DAILY Qty: 21 0RF aspirin 81 mg capsule 81 mg PO DAILY Qty: 1 0RF losartan 25 mg tablet 25 mg PO DAILY Qty: 1 0RF Continued diclofenac sodium [Voltaren] 1 % gel 2 g TOPICAL BID PRN (Reason: osteoarthritis) Qty: 100 6RF cholecalciferol (vitamin D3) 25 mcg (1,000 unit) tablet 25 mcg PO BID trospium 60 mg capsule,extended release 24hr 60 mg PO DAILY Patient Comments: TAKE 1 CAPSULE BY MOUTH ONCE DAILY Rx Instructions: Has not started calcium carbonate-vitamin D3 [Caltrate with Vitamin D3] 600 mg-20 mcg (800 unit) tablet 1 tab PO BID acetaminophen 500 MG tablet 500 - 1,000 mg PO Q6H PRN PRN (Reason: Pain 1-10 Or Fever) L.acidoph, paracasei,B. lactis 1 EACH capsule 1 ea PO DAILY gabapentin 300 mg capsule 600 mg PO QHS venlafaxine 75 mg tablet 37.5 mg PO DAILY Other Ambulatory Orders: 30 Day Event Recorder Preventi (Urgent) Timeframe: 1 Day Facility: [facility] - Location: Cardiovascular Services Ordered By: Dr. Inez Nolasco Referrals / Follow Up: Jin Ellis MD [Med Staff - Active Staff] - Within 1 Month Quentin Carter DO [Primary Care Provider] - Within 2 Weeks Disposition Disposition (needs filled in before D/C Order can be placed): Home, Self Care Charges/Coding Visit Charges Inpatient E&M: 32063 Disch Hosp >30min
[2023-09-20 11:30] VITALS: BMI 32.4
--- NOTE | 2023-09-20 12:06 | CASEMGMT ---
Patient has order for discharge. RN CM in to discuss needs at discharge. Patient denies needs or help at discharge. Patient had no further questions or concerns.
--- NOTE | 2023-09-20 12:22 | PHA.DC.MC.R ---
Pharmacy [facility] Service has performed discharge medication reconciliation and counseling for this patient. 1. ASPIRIN 81MG PO DAILY 2. ATORVASTATIN 40MG PO QHS 3. CLOPIDOGREL 75MG PO DAILY X 21 DAYS 4. PREVIOUSLY ON LOSARTAN 50MG, TAKE 1/2 TABLET DAILY The patient's discharge medication list was reviewed for discrepancies and discrepancies were resolved. The patient was counseled on the following discharge medications and changes in medications for homegoing were reviewed. The Reason for Use, instructions for use, and potential side effects were reviewed for all new medications. The patient's questions regarding all of their medications were answered. The patient was able to verbally demonstrate an understanding of their discharge medications. Patient counseled by manager pharmacyAmanda. Medications at Discharge Home Medications diclofenac sodium 1 % topical gel (Voltaren) 2 g topical BID PRN osteoarthritis #100 grams 08/04/17 L.acidoph, paracasei,B. lactis 10 billion cell capsule 1 ea PO DAILY supplement 04/04/20 acetaminophen 500 mg tablet 500 - 1,000 mg PO Q6H PRN PRN Pain 1-10 Or Fever 04/04/20 calcium carbonate 600 mg-vitamin D3 20 mcg (800 unit) tablet (Caltrate with Vitamin D3) 1 tab PO BID supplement 05/22/22 cholecalciferol (vitamin D3) 25 mcg (1,000 unit) tablet 25 mcg PO BID Supplement 05/22/22 gabapentin 300 mg capsule 600 mg PO QHS 05/22/22 trospium 60 mg capsule,extended release 24 hr 60 mg PO DAILY 05/22/22 venlafaxine 75 mg tablet 37.5 mg PO DAILY 12/24/22 aspirin 81 mg capsule 81 mg PO DAILY #1 cap 09/20/23 atorvastatin 40 mg tablet 40 mg PO QHS #30 tabs 09/20/23 clopidogrel 75 mg tablet 75 mg PO DAILY #21 tabs 09/20/23 losartan 25 mg tablet 25 mg PO DAILY #1 TAB 09/20/23
== END 2023-09-20 11:41 | disposition home or self-care (01) ==
LOC: ED 15:16 → PCU 15:59
PROVIDERS: Admitting Provider Internal Medicine; Emergency Provider Emergency Medicine; PCP Student in an Organized Health Care Education/Training Program; Visit Provider Internal Medicine
DX: H34.12 Central retinal artery occlusion, left eye (principal); E04.1 Nontoxic single thyroid nodule; I25.10 Atherosclerotic heart disease of native coronary artery without angina pectoris; E78.5 Hyperlipidemia, unspecified; M79.7 Fibromyalgia; Z79.899 Other long term (current) drug therapy; D75.839 Thrombocytosis, unspecified; R03.0 Elevated blood-pressure reading, without diagnosis of hypertension; R32 Unspecified urinary incontinence; G62.9 Polyneuropathy, unspecified; M19.90 Unspecified osteoarthritis, unspecified site; E66.9 Obesity, unspecified; Z68.32 Body mass index [BMI] 32.0-32.9, adult
CPT/HCPCS: 70450; 70496; 70498; 70551; 71045; 80048; 80053; 80061; 83735; 84100; 84443; 84484; 85025; 85610; 85652; 85730; 86140; 93005; 93306; 94668; 94762; 96372; 99221; 99285; Q9957; Q9967; A4216; G0378

== ENCOUNTER → 2025-01-18 | Outpatient (CLI) | payer OTHER, SELFPAY ==
--- NOTE | 2025-01-18 15:30 | ART_ITS ---
Reason For Study Reason For Study: Ulcer Procedure A bilateral lower extremity continuous wave Doppler with analog waveform analysis,segmental pressures,and ankle brachial indexes without exercise. Left Segmental Pressures Left brachial= 145mmHg. Left posterior tibial artery = 191mmHg. Left dorsalis pedis artery = 184mmHg. Left digit = 154 mmHg. The left dorsalis pedis waveforms are triphasic. The left posterior tibial artery waveforms are triphasic. Right Segmental Pressures Right brachial= 149mmHg. Right posterior tibial artery = 177mmHg. Right dorsalis pedis artery = 172mmHg. Right digit = 155 mmHg. The right dorsalis pedis waveforms are triphasic. The right posterior tibial artery waveforms are triphasic. Indices The right ankle brachial index by the dorsalis pedis is 1.15. The right ankle brachial index by the posterior tibial artery is 1.19. The right digital-brachial index is 1.04. The left ankle brachial index by the dorsalis pedis is 1.23. The left ankle brachial index by the posterior tibial artery is 1.28. The left digital-brachial index is 1.03. VL/Lower Ext Art Exam w/o Exercis Interpretation Summary Right CHELSEA 1.19, normal. TBI and Doppler/PVR waveforms of the right leg normal a t rest. Left CHELSEA 1.28, normal. TBI and Doppler/PVR waveforms of the left leg normal at rest. Ordering Physician: Jin Ellis Referring Physician: Quentin Carter Performed By: Yuliet Mayfield RVT
--- NOTE | 2025-01-18 15:37 | VDLE_ITS ---
Reason For Study Reason For Study: BLE Swelling RIGHT LEFT CFV is compressible, spontaneous, phasic, competent CFV is compressible, spontaneous, phasic, competent, and demonstrates normal augmentation. and demonstrates normal augmentation. FV is compressible, spontaneous, phasic, competent FV is compressible, spontaneous, phasic, competent and demonstrates normal augmentation. and demonstrates normal augmentation. POP V is compressible, spontaneous, phasic, competent POP V is compressible, spontaneous, phasic, competent and demonstrates normal augmentation. and demonstrates normal augmentation. T/P Trunk is compressible. T/P Trunk is compressible. PTV is compressible. PTV is compressible. RT PerV is compressible. LT PerV is compressible. SFJ is INCOMPETENT and measures 0.73 cm. SFJ is INCOMPETENT and measures 0.64 cm. GSV proximal thigh measures 0.29 x 0.37 cm. GSV proximal thigh measures 0.46 x 0.52 cm. GSV at knee measures 0.50 x 0.54 cm. GSV at knee measures 0.46 x 0.48 cm. GSV INCOMPETENT throughout for greater than 0.5 GSV INCOMPETENT throughout for greater than 0.5 seconds. seconds. ASV proximal thigh is INCOMPETENT for greater than SSV mid calf is competent and measures 0.25 x 0.26 0.5 seconds and measures 0.52 cm. cm. SSV mid calf is competent and measures 0.29 x 0.37 cm. Rt GSV appears competent prox and mid thigh and joins ASV at dist thigh. ASV appears INCOMPETENT prox and mid thigh with varicose branches noted. ASV/GSV appear to converge at dist thigh. Procedure Exam performed in department. This is a venous duplex using B-mode, color flow and spectral Doppler. The exam was diagnostic. Patient was scanned in reverse Trendelenburg position during reflux assessment. VL/Venous Duplex US - Geraldo Extrem Interpretation Summary Deep veins of the bilateral lower extremities are patent and compressible segme ntally. There is no evidence of bilateral lower extremity deep vein thrombosis. The bilateral great saphenous veins appea r patent and compressible segmentally. Positive for reflux in the right saphenofemoral junction, great saphenous vein in the calf, accessory saphenous vein in thigh. Positive for reflux in the left saphenofemoral junction, great saphenous vein t hroughout Ordering Physician: Jin Ellis Referring Physician: Quentin Carter Performed By: Abelardo Cooper RVT
== END | disposition home or self-care (01) ==
LOC: CVS 15:29
PROVIDERS: PCP Student in an Organized Health Care Education/Training Program; Referring Provider Internal Medicine Cardiovascular Disease; Visit Provider Internal Medicine Cardiovascular Disease
DX: I73.9 Peripheral vascular disease, unspecified (principal); L97.222 Non-pressure chronic ulcer of left calf with fat layer exposed; M79.89 Other specified soft tissue disorders; I25.10 Atherosclerotic heart disease of native coronary artery without angina pectoris; R60.0 Localized edema; E78.00 Pure hypercholesterolemia, unspecified
CPT/HCPCS: 93923; 93970